=== PATIENT | female | born 1950 | race Caucasian/White ===

== ENCOUNTER → 2017-12-18 | Day surgery (SDC) | payer MEDICARE, OTHER ==
[2017-12-16 13:35] LABS: BASOPHILS % 0.5 % (0.0-1.0); EOSINOPHILS # (AUTO) 0.2 (0.0-0.4); EOSINOPHILS % 1.9 % (0.0-6.0); HEMATOCRIT 42.4 % (34.2-44.1); HEMOGLOBIN 13.8 g/dL (12.0-16.0); LYMPHOCYTES # (AUTO) 2.3 (1.0-3.2); LYMPHOCYTES % 29.8 % (18.0-39.1); MEAN CORPUSCULAR HEMOGLOBIN 31.3 pg (28-32); MEAN CORPUSCULAR HGB CONC 32.5 g/dL (31-35); MEAN CORPUSCULAR VOLUME 96.1 fL (81-99); MONOCYTES # (AUTO) 0.6 (0.2-0.8); MONOCYTES % 8.3 % (4.4-11.3); NEUTROPHILS # (AUTO) 4.6 (2.1-6.9); NEUTROPHILS % 59.2 % (38.7-80.0); PLATELET COUNT 183 x10e3/uL (140-360); RED BLOOD COUNT 4.41 x10e6/uL (3.6-5.1); RED CELL DISTRIBUTION WIDTH 14.8 % (11.7-14.4)
--- NOTE | 2017-12-16 13:43 | Diagnostic Imaging Report ---
EXAMINATION: CHEST 2 VIEWS INDICATION: Wrist pain. Preop COMPARISON: None FINDINGS: TUBES and LINES: Sternal wires. LUNGS: Lungs are well inflated. Lungs are clear. There is no evidence of pneumonia or pulmonary edema. PLEURA: No pleural effusion or pneumothorax. HEART AND MEDIASTINUM: The cardiomediastinal silhouette is unremarkable. BONES AND SOFT TISSUES: No acute osseous lesion. Soft tissues are unremarkable. UPPER ABDOMEN: No free air under the diaphragm. IMPRESSION: No acute thoracic abnormality. Signed by: Dr. Ke Herrera M.D. on 12/16/2017 1:40 PM
[2017-12-16 13:53] LABS: ANION GAP 16.8 mmol/L (8-16); CALCIUM 10.3 mg/dL (8.4-10.2); CREATININE, SERUM 1.33 mg/dL (0.57-1.11); POTASSIUM 4.8 mmol/L (3.5-5.1)
[~2017-12-18] MED LIST: BUPIVACAINE HCL 0.5% INJ 30 ML VIAL INJ ONE; CALCIUM500 M3; CEFAZOLIN SOD 1 GM VIAL ONE; DEXAMETHASONE SOD PHOS INJ 4 MG/ML VIAL IV ONE; EPHEDRINE SULFATE INJ 50 MG/10 ML SYR IV ONE; FAMOTIDINE 20 MG/2 ML VIAL IV ONE; FENTANYL CITRATE/PF 100MCG/2 ML INJ ONE; HUMALOG100 UNIT/1 SC; KETOROLAC TROMETHAMINE 30 MG/ML VIAL IV ONE; LANTUS 3ML100 UNITS/ SC; LIDOCAINE HCL 2% LOCAL INJ 5 ML SDV VIAL INJ ONE; LIRAGLUTIDE 1.8 MG; MIDAZOLAM HCL 2 MG/2 ML VIAL ONE; MUPIROCIN 2% OINT 22 GM TUBE ONE; ONDANSETRON HCL INJ 2 MG/ML VIAL IV ONE; PLAVIX75 MG PO; PROPOFOL IV EMULSION 10 MG/ML 20 ML VIAL IV ONE; SEVOFLURANE INHAL SOLN 250 ML PEN BTL INH ONE; Z.0.ALLOPURINOL300 M PO; Z.0.ASPIR 8181 MG PO; Z.0.CYCLOBENZAPRINE1 PO; Z.0.CYMBALTA60 MG PO; Z.0.GLYBURIDE5 MG PO; Z.0.LEVOTHYROXINE75 PO; Z.0.METOPROLOL SUCC5 PO; Z.0.MULTIVITAMINS1 E; Z.0.PRAVASTATIN SOD2 PO; [UNRECOGNIZED DRUG - OTHER] PO; [UNRECOGNIZED DRUG - OTHER] PO
--- OUTSIDE RECORDS SUMMARY | 2017-12-18 06:54 | XMS REPORT | Clinical Summary ---
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 Disp. Refills Start End Date Status Date diclofenac (VOLTAREN) 1 % Apply topically 4 (four) 100 g 2 08/29/19 Active gelIndications: Medial times a day. applly two 18 epicondylitis of right grams four times per day elbow allopurinol (ZYLOPRIM) allopurinol 100 mg tablet Active 100 MG tablet insulin lispro (HumaLOG Humalog KwikPen (U-100) Active KwikPen Insulin) 100 Insulin 100 unit/mL unit/mL injection pen subcutaneous insulin GLARGINE (LANTUS Lantus Solostar U-100 Active SOLOSTAR U-100 INSULIN) Insulin 100 unit/mL (3 100 unit/mL injection mL) subcutaneous pen (pen) irbesartan (AVAPRO) 150 irbesartan 150 mg tablet Active MG tablet clopidogrel (PLAVIX) 75 clopidogrel 75 mg tablet Active mg tablet levothyroxine (SYNTHROID, Take 50 mcg by mouth Active LEVOXYL) 50 mcg tablet every morning. metoprolol tartrate Take 50 mg by mouth 2 Active (LOPRESSOR) 50 mg tablet (two) times a day. diclofenac (VOLTAREN) 1 % Apply topically 4 (four) 100 g 2 08/29/19 08/29/19 Discontin gelIndications: Medial times a day. Apply 2 18 18 ued epicondylitis of right grams 4 times per day fo elbow the affected area Active Problems Problem Noted Date Lateral epicondylitis of right elbow 08/28/2017 Encounters Date Type Specialty Care Team Description 08/28/2017 Office Visit Orthopedic Surgery Roderick Figueroa, Medial epicondylitis of right elbow (Primary Dx) 08/27/2017 Orders Only Sports Medicine Bob Stanley MA Elbow pain, right (Primary Dx) after 12/17/2016 Family History Medical History Relation Name Comments Heart disease Father Hypertension Father Diabetes Mother Heart disease Mother Hypertension Mother Relation Name Status Comments Father Mother Social History Tobacco Use Types Packs/Day Years Used Date Never Smoker Smokeless Tobacco: Never Used Alcohol Use Drinks/Week oz/Week Comments No Sex Assigned at Date Recorded Not on file Last Filed Vital Signs Not on file Plan of Treatment Date Type Specialty Care Team Description 12/31/2017 Office Visit Orthopedic Surgery John Ring MD [address] [facility] [address] [place], [place] [id number] Health Maintenance Due Date Last Done Comments BREAST CANCER SCREENING 2000 COLON CANCER SCREENING 2000 SHINGRIX VACCINE (#1) 2000 ZOSTER VACCINE 2010 PNEUMOCOCCAL 09/14/2015 POLYSACCHARIDE VACCINE AGE 65 AND OVER PNEUMOCOCCAL-13 09/14/2015 INFLUENZA VACCINE 09/10/2017 Procedures Procedure Name Priority Date/Time Associated Diagnosis Comments XR ELBOW 3+ VW RIGHT Routine 08/28/2017 Elbow pain, right Results for this 1:03 PM CDT procedure are in the results section. after 12/17/2016 Results * XR Elbow 3+ Vw Right (08/28/2017 1:03 PM) Narrative Performed At [facility] Xrays: The x-rays were ordered and personally reviewed by me. 3 views of the right elbow Reason for exam: Right elbow pain Impression: Right elbow with mild ulnohumeral arthritis Performing Organization Address City/State/Zipcode Phone Number [facility] [address] [place] [address] after 12/17/2016 Insurance Payer Benefit Subscriber ID Type Phone Address Plan / Group MEDICARE MEDICARE xxxxxxxxxx Medicare [place] PART A AND B [employer] xxxxxxxxxx [employer] [facility] [place] [address]
--- OUTSIDE RECORDS SUMMARY | 2017-12-18 07:00 | XMS REPORT | Continuity of Care Document ---
Author Author [facility] Interface Address Unknown Phone Unavailable Problems Problem Status Onset Date Classification Date Reported Comments Source N20.0 Active 11/19/2017 [facility] [address]20.0 CT ABD/PEL W/WO IV Active 07/09/2017 [facility] Discharge Diagnosis: Orthostasis 11/28/2016 12/01/2016 [facility] Discharge Diagnosis: Syncope, vasovagal 11/28/2016 12/01/2016 [facility] Discharge Diagnosis: Dehydration 11/28/2016 12/01/2016 [facility] WEAKNESS Active 11/28/2016 [facility] CP Active 11/26/2016 [facility] CHEST PAIN Active 11/05/2016 [facility] ACUTE CORONARY SYNDROME Active 11/05/2016 [facility] UNK Active 10/31/2016 [facility] TOOK WRONG MEDS Active 08/14/2016 [facility] AT RISK FOR HYPOGLYCEMIA, ACCIDENTAL OD Active 08/14/2016 [facility] DX: E03.9=HYPOTHYROIDISM, UNSPECIFIED Active 07/31/2016 [facility] DX: M54.16=RADICULOPATHY, LUMBAR REGION/ Active 07/09/2016 [facility] Escherichia coli<sup>1, 2</sup> Active 02/08/2016 Problem 07/25/2017 Problem added by Discern Expert. [facility], [facility] [place] CHEST PAINS Active 02/08/2016 [facility] DX: M54.16=RADICULOPATHY, LUMBAR REGION Active 01/15/2016 [facility] N39.0 Active 09/06/2015 [facility] 411.1/414.01/414.02/794.31/794.30 Active 10/14/2014 [facility] CHEST PAIN, BRADYARYTHEMIA Active 10/08/2014 [facility] LUMBAR RAD 724.4 Active 07/19/2014 [facility] 592.0 BILATERAL KIDNEY STONES 724.2 ACU Active 05/31/2014 [facility] SPONDYLOLISTHESIS / POST LAMINECTOMY SYN Active 12/27/2013 [facility] Discharge Diagnosis: Chest pain 10/06/2013 10/09/2013 [facility] Discharge Diagnosis: Gastroenteritis 07/30/2013 08/02/2013 [facility] Discharge Diagnosis: Vomiting and diarrhea 07/30/2013 08/02/2013 [facility] RECTAL BLEED Active 07/30/2013 [facility] POSTMENOPAUSAL SYMPTOMS Active 03/08/2013 [facility] 724.4 COMPRESSION OF LUMBAR NERVE ROOT Active 02/04/2013 [facility] FELL DOWN Active 01/08/2013 [facility] 336.3 Active 11/25/2012 [facility] 724.4, 353.1, 724.4 Active 11/06/2012 [facility] 724.4 Active 10/20/2012 [facility] CHEST PAIN, UTI Active 07/30/2012 [facility] CHEAT PAIN Active 07/30/2012 [facility] 405.91 - RENOVASC HYPERT Active 03/12/2012 [facility] [place] CKD, HTN, M Active 01/01/2012 [facility] HEADACHE Active 12/29/2011 [facility] DIABETES Active 10/29/2011 [facility] TYPE 2 DIABETES Active 09/16/2011 [facility] Diabetes mellitus Resolved Problem 11/20/2012 [facility], [facility] [place] Hypertension Resolved Problem 11/20/2012 [facility] [place] Hypothyroid Resolved Problem 11/20/2012 [facility] Diabetes mellitus Active Problem 07/25/2017 [facility], [facility] [place] Hypertension Active Problem 07/25/2017 [facility], [facility] [place] Hypothyroid Active Problem 07/25/2017 [facility], [facility] [place] Hyperlipidemia Active Problem 07/25/2017 [facility] [place] Pinched nerve<sup>1</sup> Resolved Problem 01/21/2016 L5 [facility] Lumbar spondylosis Active Problem 07/25/2017 [facility], [facility] [place] Obesity Active Problem 07/25/2017 [facility] [place] Pinched nerve<sup>3</sup> Resolved Problem 07/25/2017 L5 [facility] [place] Escherichia coli<sup>1</sup> Active Problem 02/11/2016 Problem added by Discern Expert. [facility] Pinched nerve<sup>2</sup> Resolved Problem 02/11/2016 L5 [facility] Neuropathy Active Problem 12/18/2017 [facility] HLD Active Problem 12/18/2017 [facility] GERD Active Problem 12/18/2017 [facility] HNP , lumbar Active Problem 12/18/2017 [facility] Personal history of other specified conditions Active Problem 12/18/2017 [facility] Diabetes mellitus with nephropathy Active Problem 12/18/2017 [facility] HTN Active Problem 12/18/2017 [facility] Hypothyroid Active Problem 12/18/2017 [facility] Type 2 diabetes mellitus without complications Active Problem 12/18/2017 [facility] CAD Active Problem 12/18/2017 [facility] Acute bilateral low back pain with left-sided sciatica Active Problem 12/18/2017 [facility] Recurrent UTI Active Diagnosis 11/14/2016 [facility] Sinusitis, unspecified chronicity, unspecified location Active Problem 12/18/2017 [facility] BMI 35.0-35.9,adult Active Problem 12/26/2016 [facility] CKD stage 3, GFR 30-59 ml/min Active Problem 12/18/2017 [facility] Peripheral vascular disease Active Problem 12/18/2017 [facility] Discoloration of tongue Active Diagnosis 12/26/2016 [facility] Chronic UTI Active Diagnosis 12/11/2017 [facility] Soft tissue mass Active Diagnosis 07/12/2016 [facility] Upper respiratory tract infection, unspecified type Active Diagnosis 11/07/2016 [facility] Other specified soft tissue disorders Active Diagnosis 07/12/2016 [facility] Acute bilateral low back pain without sciatica Active Diagnosis 08/06/2016 [facility] Acute cystitis without hematuria Active Diagnosis 12/04/2016 [facility] Other gastritis without hemorrhage, unspecified chronicity Active Diagnosis 04/18/2017 [facility] Hospital discharge follow-up Active Diagnosis 12/04/2016 [facility] Insulin overdose, accidental or unintentional, subsequent encounter Active Diagnosis 08/21/2016 [facility] Frequent UTI Active Diagnosis 08/21/2016 [facility] Acute renal insufficiency Active Diagnosis 11/14/2016 [facility] toter current use of insulin Active Problem 12/18/2017 [facility] Type 2 diabetes mellitus with diabetic chronic kidney disease Active Problem 12/18/2017 [facility] BMI 37.0-37.9, adult Active Problem 12/18/2017 [facility] Type 2 diabetes mellitus with diabetic neuropathy, unspecified Active Problem 12/18/2017 [facility] Neck mass Active Diagnosis 10/26/2016 [facility] Impacted cerumen of left ear Active Diagnosis 10/26/2016 [facility] Sore throat Active Diagnosis 10/26/2016 [facility] Acute cystitis with hematuria Active Diagnosis 03/10/2017 [facility] Dehydration Active Diagnosis 12/10/2016 [facility] Chronic gout due to renal impairment involving toe of left foot without tophus Active Diagnosis 11/07/2016 [facility] Cough Active Diagnosis 11/07/2016 [facility] Screening for colon cancer Active Diagnosis 11/07/2016 [facility] Asymptomatic menopausal state Active Diagnosis 11/08/2017 [facility] Routine general medical examination at a health care facility Active Diagnosis 12/11/2017 [facility] Lumbar spondylosis Active Problem 12/18/2017 [facility] Right sided sciatica Active Problem 12/18/2017 [facility] Hair thinning Active Diagnosis 12/11/2017 [facility] Idiopathic gout of multiple sites, unspecified chronicity Active Diagnosis 09/12/2017 [facility] History of kidney stones Active Diagnosis 07/15/2017 [facility] Kidney stone Active Problem 12/18/2017 [facility] Gout Active Problem 12/18/2017 [facility] Obesity Active Diagnosis 10/04/2015 [facility] Insomnia Active Diagnosis 12/15/2015 [facility] Menopausal and postmenopausal disorder Active Diagnosis 10/04/2015 [facility] URI Active Diagnosis 07/14/2015 [facility] Upper respiratory infection Active Diagnosis 07/05/2015 [facility] Gastroenteritis Active Diagnosis 11/29/2015 [facility] Compression fracture Active Diagnosis 11/29/2015 [facility] HYPERTENSION NOS Active [facility] CHEST PAIN NOS Active [facility] LUMBOSACRAL NEURITIS NOS Active [facility] LUMBOSACRAL PLEX LESION Active [facility] LUMBAR RADICULOPATHY Active [facility] PREMENOPAUSE MENORRHAGIA Active [facility] MENOPAUSAL DISORDER NOS Active [facility] LUMBAGO Active [facility] LUMBAGO Active [facility] LUMBAGO Active [facility] LUMBAR CORE STRENGHTENING Active [facility] URINARY TRACT INFECTION, SITE NOT SPECIF Active [facility] RADICULOPATHY, LUMBAR REGION Active [facility] HYPOTHYROIDISM, UNSPECIFIED Active [facility] CHEST PAIN, UNSPECIFIED Active [facility] ACUTE ISCHEMIC HEART DISEASE, UNSPECIFIE Active [facility] ANGINA PECTORIS, UNSPECIFIED Active [facility] CALCULUS OF KIDNEY Active [facility] Medications Medication Details Route Status Patient Instructions Ordering Provider Order Date Source Allopurinol 1 tablet orally Active 100 mg orally twice a day (bid) [facility] 10/29/2018 [facility] Allopurinol 1 tablet orally Active 100 mg orally twice a day (bid) [facility] Soto 09/04/2018 [facility] Allopurinol 1 tablet orally Active 100 mg orally twice a day (bid) Nic Soto 04/04/2018 [facility] Cyclobenzaprine HCl 1 tablet by mouth Active 10 mg by mouth daily prn Nic Soto 11/08/2017 [facility] Allopurinol 2 tablets orally Active 100 mg orally twice a day (bid) [facility] Soto 09/20/2017 [facility] Augmentin 1 tablet Orally Active 500-125 MG Orally every 12 hrs Nic Soto 07/01/2017 [facility] Flexeril 1 tablet Orally Active 10 mg Orally three times a day (tid) as needed (prn) Nic Soto 05/01/2017 [facility] Allopurinol 2 tablet Orally Active 100 MG Orally Once a day Nic Soto 04/28/2017 [facility] Allopurinol 2 tablets orally Active 100 mg orally twice a day (bid) Vinay 03/21/2017 [facility] Macrobid 1 capsule with food Orally Active 100 mg Orally every 12 hrs Nic Soto 03/13/2017 [facility] Macrobid 1 capsule with food Orally Active 100 mg Orally every 12 hrs Vinay 02/28/2017 [facility] Allopurinol 2 tablet Orally Active 100 MG Orally Once a day [facility] 02/11/2017 [facility] Allopurinol 2 tablet Orally Active 100 MG Orally Once a day [facility] 02/11/2017 [facility] Cyclobenzaprine HCl 1 tablet Orally Active 10 mg Orally qd prn [facility] 01/21/2017 [facility] Amlodipine Besylate 1 tablet Orally Active 5 MG Orally daily [facility] 12/30/2016 [facility] Amlodipine Besylate 1 tablet Orally Active 5 MG Orally daily [facility] 12/30/2016 [facility] Metoprolol Succinate 1 tablet Orally Active 50 mg Orally daily [facility] 12/23/2016 [facility] Macrodantin 1 capsule with food or milk Orally Active 100 mg Orally twice a day (bid) [facility] 12/05/2016 [facility] Sodium Chloride 0.9% (Bolus) IV 500 mL, 500 ml/hr, Infuse Over: 1 hr, Route: IV, ONCE, Priority: STAT, Dosing Weight 100 kg, Start date: 11/28/16 20:55:00 CDT, Duration: 1 doses or times, Stop date: 11/28/16 20:55:00 CDT Inactive 11/29/2016 [facility] Sodium Chloride 0.9% (Bolus) IV 1,000 mL, 5000 ml/hr, Infuse Over: 0.2 hr, Route: IV, 1,000, Drug form: INJ, ONCE, Priority: STAT, Dosing Weight 100 kg, Start date: 11/28/16 18:23:00 CDT, Duration: 1 doses or times, Stop date: 11/28/16 18:23:00 CDT Inactive 11/28/2016 [facility] Sodium Chloride 0.9% (Bolus) IV 1,000 mL, 1,000 ml/hr, Infuse Over: 1 hr, Route: IV, 1,000, Drug form: INJ, ONCE, Priority: STAT, Dosing Weight 100 kg, Start date: 11/28/16 15:53:00 CDT, Duration: 1 doses or times, Stop date: 11/28/16 15:53:00 CDT Inactive 11/28/2016 [facility] Sucralfate 100 MG/ML Oral Suspension [Carafate] 1 gm, 1 tab, Route: PO, Drug form: TAB, QID, Dosing Weight 103.182, kg, Start date: 11/27/16 17:00:00 CDT, Duration: 30 day, Stop date: 12/27/16 13:00:00 CSTNotes: May interfere w/enteral feeds - Take 1 hr before or 2 hr after antacids, dairy pdt, meals & minerals - On empty stomach. For patients unable to swallow tablet, dissolve in 10mL - 30mL of water or juice and stir before giving. (Same As: Carafate) Inactive 11/27/2016 [facility] sodium chloride 0.9% 1000 ml INJ 1,000 mL 1,000 mL, Rate: 25 ml/hr, Infuse over: 40 hr, Route: IV, Dosing Weight 103.182 kg, Total Volume: 1,000, Start date: 11/27/16 14:44:00 CDT, Duration: 1 day, Stop date: 11/28/16 14:43:00 CDT Inactive 11/27/2016 [facility] pantoprazole 40 mg oral enteric coated tablet 40 mg=1 tab, PO, BID, # 60 tab, 1 Refill(s), Pharmacy: [facility] [id number] Active 11/27/2016 [facility] aspirin 81 mg tablet, enteric coated 81 mg, 1 tab, Route: PO, Drug form: ECTAB, Daily, Dosing Weight 103.182, kg, Start date: 11/27/16 9:00:00 CDT, Duration: 30 day, Stop date: 12/26/16 9:00:00 CSTNotes: Do not crush or chew. (Same As: Ecotrin) Inactive 11/27/2016 [facility] Lisinopril 20 mg, 1 tab, Route: PO, Drug form: TAB, BID, Dosing Weight 103.182, kg, Start date: 11/26/16 21:00:00 CDT, Duration: 30 day, Stop date: 12/26/16 9:00:00 CSTNotes: (Same as: Prinivil, Zestril) No Longer Active 11/27/2016 [facility] Plavix 75 mg, 1 tab, Route: PO, Drug form: TAB, Daily, Dosing Weight 103.182, kg, Start date: 11/26/16 20:00:00 CDT, Duration: 30 day, Stop date: 12/26/16 9:00:00 CSTNotes: (Same As: Plavix) No Longer Active 11/27/2016 [facility] Protonix 40 mg, 1 tab, Route: PO, Drug form: ECTAB, BID, Dosing Weight 103.182, kg, Start date: 11/26/16 17:00:00 CDT, Duration: 30 day, Stop date: 12/26/16 9:00:00 CSTNotes: Tablet should not be chewed or crushed. 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 (Same as: Humalog ) "Single Patient Use Only " WASTE: F/P - Black; E - Municipal Trash Bin Stable for 28 days at room temperature. 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 11/26/2016 [facility] Dextrose 50% Syringe 12.5 gm, 25 mL, Route: IVP, Drug Form: INJ, Dosing Weight 103.182, kg, PRN, PRN Blood Glucose Results, Start date: 11/26/16 8:20:00 CDT, Duration: 30 day, Stop date: 12/26/16 7:19:00 BULK DELIVERY DRIVER No Longer Active 11/26/2016 [facility] Saline Flush 0.9% 10 ml, Route: IVP, Drug Form: INJ, Dosing Weight 103.182, kg, PRN, PRN Line Flush, Start date: 11/26/16 8:19:00 CDT, Duration: 30 day, Stop date: 12/26/16 7:18:00 CSTNotes: (Same as: BD Posiflush) No Longer Active 11/26/2016 [facility] Nitroglycerin 0.4 mg, 1 tab, Route: SL, Drug form: TAB, Q5Min, Dosing Weight 103.182, kg, PRN Chest Pain, Start date: 11/26/16 8:19:00 CDT, Duration: 3 doses or times, Stop date: Limited # of timesNotes: (Same as: Nitroquick, Nitrostat) "Do Not Crush" Sublingual tablet No Longer Active 11/26/2016 [facility] Zofran 4 mg, 2 mL, Route: IVP, Drug form: INJ, ONCE, Dosing Weight 103.182, kg, Priority: STAT, Start date: 11/26/16 5:56:00 CDT, Stop date: 11/26/16 5:56:00 CDTNotes: (Same as: Zofran) MEDICATION WASTE Product Size: 4 mg Product Wasted: ___ mg Inactive 11/26/2016 [facility] GI cocktail 30 mL, Route: PO, Drug Form: SUSP, Dosing Weight 103.182, kg, ONCE, STAT, Start date: 11/26/16 5:52:00 CDT, Stop date: 11/26/16 5:52:00 CDTNotes: G.I. Cocktail=antacid with simethicone 22.5 mL - lidocaine viscous 7.5 mL Inactive 11/26/2016 [facility] Nitroglycerin 0.4 mg, 1 tab, Route: SL, Drug form: TAB, Q5Min, Dosing Weight 103.182, kg, PRN Chest Pain, Start date: 11/26/16 4:07:00 CDT, Duration: 3 doses or times, Stop date: Limited # of timesNotes: (Same as: Nitroquick, Nitrostat) "Do Not Crush" Sublingual tablet Inactive 11/26/2016 [facility] Ondansetron 4 mg, 2 mL, Route: IVP, Drug form: INJ, ONCE, Dosing Weight 103.182, kg, Priority: STAT, Start date: 11/26/16 4:07:00 CDT, Stop date: 11/26/16 4:07:00 CDTNotes: (Same as: Buffy) MEDICATION WASTE Product Size: 4 mg Product Wasted: ___ mg Inactive 11/26/2016 [facility] Sodium Chloride 0.9% IV (Sodium Chloride 0.9% (Bolus) IV) 500 mL, 500 ml/hr, Infuse Over: 1 hr, Route: IV, 500, Drug form: INJ, ONCE, Priority: STAT, Dosing Weight 103.182 kg, Start date: 11/26/16 4:07:00 CDT, Duration: 1 doses or times, Stop date: 11/26/16 4:07:00 CDT Inactive 11/26/2016 [facility] Saline Flush 0.9% 10 mL, Route: IVP, Drug Form: INJ, Dosing Weight 103.182, kg, PRN, PRN Line Flush, Start date: 11/26/16 4:07:00 CDT, Duration: 30 day, Stop date: 12/26/16 3:06:00 CSTNotes: (Same as: BD Posiflush) No Longer Active 11/26/2016 [facility] Morphine 4 mg, 1 mL, Route: IVP, Drug form: SOLN, ONCE, Dosing Weight 103.182, kg, Priority: STAT, Start date: 11/26/16 4:07:00 CDT, Stop date: 11/26/16 4:07:00 CDTNotes: (Same as:MORPhine Sulfate) Inactive 11/26/2016 [facility] Aspirin 324 mg, 4 tab, Route: PO, Drug form: CHEWTAB, ONCE, Dosing Weight 103.182, kg, Priority: STAT, Start date: 11/26/16 4:07:00 CDT, Stop date: 11/26/16 4:07:00 CDTNotes: Take with food. Inactive 11/26/2016 [facility] Humalog SUB-Q, 0 Refill(s) Active 11/06/2016 [facility] metoprolol extended release 50 mg, 1 tab, Route: PO, Drug form: ERTAB, Daily, Start date: 11/06/16 9:00:00 CDT, Duration: 30 day, Stop date: 12/05/16 9:00:00 CDTNotes: (Same as: Toprol XL) May split tab, but do not crush. Inactive 11/06/2016 [facility] irbesartan 300 mg, 2 tab, Route: PO, Drug form: TAB, Daily, Dosing Weight 100.909, kg, Start date: 11/06/16 9:00:00 CDT, Duration: 30 day, Stop date: 12/05/16 9:00:00 CDTNotes: (Same as:Avapro) Inactive 11/06/2016 [facility] Insulin Glargine 100 UNT/ML Injectable Solution [Lantus] 22 unit, 0.22 mL, Route: SUB-Q, Drug form: CRISTHIAN FAUST, Dosing Weight 100.909, kg, Start date: 11/06/16 9:00:00 CDT, Duration: 30 day, Stop date: 12/05/16 9:00:00 CDTNotes: (Same as: Lantus) Do not hold insulin without contacting prescriber WASTE: F/P - Black; E - Municipal Trash Bin "single patient use only" Inactive 11/06/2016 [facility] clopidogrel 75 mg, 1 tab, Route: PO, Drug form: TAB, Daily, Dosing Weight 100.909, kg, Start date: 11/06/16 9:00:00 CDT, Duration: 30 day, Stop date: 12/05/16 9:00:00 CDTNotes: (Same As: Plavix) Inactive 11/06/2016 [facility] aspirin 81 mg tablet, enteric coated 81 mg, 1 tab, Route: PO, Drug form: ECTAB, Daily, Dosing Weight 100.909, kg, Start date: 11/06/16 9:00:00 CDT, Duration: 30 day, Stop date: 12/05/16 9:00:00 CDTNotes: Do not crush or chew. (Same As: Ecotrin) Inactive 11/06/2016 [facility] Levothroid 75 microgram, 1 tab, Route: PO, Drug form: TAB, Q630AM, Dosing Weight 100.909, kg, Start date: 11/06/16 6:30:00 CDT, Duration: 30 day, Stop date: 12/05/16 6:30:00 CDTNotes: Take 1 hour before or 2 hours after meal; Enteral feeds may interefere with the absorption of this medication. (Same as:Synthroid, Levothroid) Inactive 11/06/2016 [facility] Pravastatin 40 mg, 2 tab, Route: PO, Drug form: TAB, Bedtime, Dosing Weight 100.909, kg, Start date: 11/05/16 21:00:00 CDT, Duration: 30 day, Stop date: 12/04/16 21:00:00 CDTNotes: (Same as: Pravachol) No Longer Active 11/06/2016 [facility] Famotidine 20 mg, 1 tab, Route: PO, Drug form: TAB, Q12H, Dosing Weight 100.909, kg, Start date: 11/05/16 21:00:00 CDT, Duration: 30 day, Stop date: 12/05/16 9:00:00 CDTNotes: (Same as: Pepcid) No Longer Active 11/06/2016 [facility] Ondansetron 4 mg, Route: IVP, Drug form: INJ, ONCE, Dosing Weight 100.909, kg, Priority: STAT, Start date: 11/05/16 17:50:00 CDT, Stop date: 11/05/16 17:50:00 CDT Inactive 11/05/2016 [facility] Nitroglycerin 0.4 mg, Route: SL, Drug form: TAB, Q5Min, Dosing Weight 100.909, kg, PRN Chest Pain, Start date: 11/05/16 17:37:00 CDT, Duration: 3 doses or times, Stop date: Limited # of times Inactive 11/05/2016 [facility] sodium chloride 0.9% 1000 ml INJ 1,000 mL 1,000 mL, Rate: 100 ml/hr, Infuse over: 10 hr, Route: IV, Dosing Weight 100.909 kg, Total Volume: 1,000, Start date: 11/05/16 17:37:00 CDT, Duration: 10 hr, Stop date: 11/06/16 3:36:00 CDT No Longer Active 11/05/2016 [facility] Insulin Glargine 100 UNT/ML Injectable Solution [Lantus] 12 unit, 0.12 mL, Route: SUB-Q, Drug form: SOLN, QPM, Dosing Weight 100.909, kg, Start date: 11/05/16 17:00:00 CDT, Duration: 30 day, Stop date: 12/04/16 17:00:00 CDTNotes: (Same as: Lantus) Do not hold insulin without contacting prescriber WASTE: F/P - Black; E - MagForcesh Bin "single patient use only" No Longer Active 11/05/2016 [facility] Allopurinol 100 mg, 1 tab, Route: PO, Drug form: TAB, BID, Dosing Weight 100.909, kg, Start date: 11/05/16 17:00:00 CDT, Duration: 30 day, Stop date: 12/05/16 9:00:00 CDTNotes: (Same as: Zyloprim) No Longer Active 11/05/2016 [facility] Nitroglycerin 0.4 mg, 1 tab, Route: SL, Drug form: TAB, Q5Min, Dosing Weight 100.909, kg, PRN Chest Pain, Start date: 11/05/16 15:45:00 CDT, Duration: 3 doses or times, Stop date: Limited # of timesNotes: (Same as :Nitroquick, Nitrostat) "Do Not Crush" Sublingual tablet No Longer Active 11/05/2016 [facility] sodium chloride 0.9% 1000 ml INJ 1,000 mL 1,000 mL, Rate: 75 ml/hr, Infuse over: 13.3 hr, Route: IV, Dosing Weight 100.909 kg, Total Volume: 1,000, Start date: 11/05/16 15:45:00 CDT, Duration: 10 hr, Stop date: 11/06/16 1:44:00 CDT No Longer Active 11/05/2016 [facility] Insulin Glargine 100 UNT/ML Injectable Solution [Lantus] 22 unit, SUB-Q, QAM, 0 Refill(s) Active 11/05/2016 [facility] Hydrochlorothiazide 12.5 MG Oral Capsule 12.5 mg=1 cap, PO, Daily, # 30 cap, 0 Refill(s) Active 11/05/2016 [facility] clopidogrel 75 mg oral tablet 75 mg=1 tab, PO, Daily, # 30 tab, 0 Refill(s) Active 11/05/2016 [facility] metoprolol 50 mg oral tablet, extended release 50 mg=1 tab, PO, Daily, # 30 tab, 0 Refill(s) Active 11/05/2016 [facility] pravastatin 20 mg oral tablet 40 mg=2 tab, PO, Bedtime, # 30 tab, 0 Refill(s) Active 11/05/2016 [facility] 3 ML liraglutide 6 MG/ML Prefilled Syringe [Victoza] 1.2 mg=0.2 mL, SUB-Q, Daily, 0 Refill(s) No Longer Active 11/05/2016 [facility] cyclobenzaprine 10 mg oral tablet 10 mg=1 tab, PO, Bedtime, # 30 tab, 0 Refill(s) Active 11/05/2016 [facility] Levothyroxine Sodium 0.075 MG Oral Tablet [Levothroid] 75 microgram=1 tab, PO, Daily, # 30 tab, 0 Refill(s) Active 11/05/2016 [facility] irbesartan 300 mg oral tablet 300 mg=1 tab, PO, Daily, # 30 tab, 0 Refill(s) Active 11/05/2016 [facility] Sodium Chloride 0.9% (Bolus) IV 250 mL, 250 ml/hr, Infuse Over: 1 hr, Route: IV, 250, Drug form: INJ, ONCALL, Priority: Routine, Dosing Weight 100.909 kg, Start date: 11/05/16 10:00:00 CDT, Duration: 1 doses or times Inactive 11/05/2016 [facility] Clonidine Hydrochloride 0.2 MG Oral Tablet 0.1 mg, 1 tab, Route: PO, Drug form: TAB, Q2H, Dosing Weight 100.909, kg, PRN Hypertension, Start date: 11/05/16 10:00:00 CDT, Duration: 30 day, Stop date: 12/05/16 9:59:00 CDTNotes: (Same As: Catapres) No Longer Active 11/05/2016 [facility] Tylenol 650 mg, 2 tab, Route: PO, Drug form: TAB, Q6H, Dosing Weight 100.909, kg, PRN Pain Score 1-5, Start date: 11/05/16 10:00:00 CDT, Duration: 30 day, Stop date: 12/05/16 9:59:00 CDTNotes: Do not exceed 4 gm/day. (Same as: Tylenol) No Longer Active 11/05/2016 [facility] sodium chloride 0.9% 1000 ml INJ 750 mL 750 mL, Rate: 75 ml/hr, Infuse over: 10 hr, Route: IV, Dosing Weight 100.909 kg, Total Volume: 750, Start date: 11/05/16 9:59:00 CDT, Duration: 24 hr, Stop date: 11/06/16 9:58:00 CDT Inactive 11/05/2016 [facility] Aspirin 324 mg, Route: PO, ONCE, Dosing Weight 100.909, kg, Priority: STAT, Start date: 11/05/16 6:21:00 CDT, Stop date: 11/05/16 6:21:00 CDT Inactive 11/05/2016 [facility] Nitroglycerin 0.4 mg, 1 tab, Route: SL, Drug form: TAB, Q5Min, Dosing Weight 100.909, kg, PRN Chest Pain, Start date: 11/05/16 6:21:00 CDT, Duration: 3 doses or times, Stop date: Limited # of timesNotes: (Same as: Nitroquick, Nitrostat) "Do Not Crush" Sublingual tablet Inactive 11/05/2016 [facility] Sodium Chloride 0.9% (Bolus) IV 500 mL, Infuse Over: 1 hr, Route: IV, ONCE, Priority: STAT, Dosing Weight 100.909 kg, Start date: 11/05/16 6:21:00 CDT, Duration: 1 doses or times, Stop date: 11/05/16 6:21:00 CDT Inactive 11/05/2016 [facility] Saline Flush 0.9% 10 mL, Route: IVP, Drug Form: INJ, Dosing Weight 100.909, kg, PRN, PRN Line Flush, Start date: 11/05/16 6:21:00 CDT, Duration: 30 day, Stop date: 12/05/16 6:20:00 CDTNotes: (Same as: BD Posiflush) Inactive 11/05/2016 [facility] Bromfed DM 10 ml as needed Orally Active 30-2-10 MG/5ML Orally every 4 hrs prn cough [facility] 11/04/2016 [facility] Amoxicillin 1 capsule Orally Active 500 MG Orally every 12 hrs [facility] 11/04/2016 [facility] Amoxicillin 1 capsule Orally Active 500 MG Orally every 12 hrs [facility] 11/04/2016 [facility] Bromfed DM 10 ml as needed Orally Active 30-2-10 MG/5ML Orally every 4 hrs prn cough [facility] 11/04/2016 [facility] Zithromax Z-Jorge 2 tablets on the first day, then 1 tablet daily for 4 days Orally Active 250 MG Orally Once a day [place] 10/24/2016 [facility] Allopurinol 2 tablet Orally Active 100 mg Orally Once a day [facility] 09/26/2016 [facility] Pravastatin 40 mg, 2 tab, Route: PO, Drug form: TAB, Daily, Dosing Weight 100, kg, Start date: 08/15/16 9:00:00 CDT, Duration: 30 day, Stop date: 09/13/16 9:00:00 CDTNotes: (Same as: Pravachol) No Longer Active 08/15/2016 [facility] Bystolic 10 mg, 1 tab, Route: PO, Drug form: TAB, Daily, Dosing Weight 100, kg, Start date: 08/15/16 9:00:00 CDT, Duration: 30 day, Stop date: 09/13/16 9:00:00 CDTNotes: (same as: Bystolic) No Longer Active 08/15/2016 [facility] irbesartan 150 mg, 1 tab, Route: PO, Drug form: TAB, Daily, Dosing Weight 100, kg, Start date: 08/15/16 9:00:00 CDT, Duration: 30 day, Stop date: 09/13/16 9:00:00 CDTNotes: (Same as:Avapro) No Longer Active 08/15/2016 [facility] Vitamin D3 2000 intl units oral tablet 2,000 IntlUnit, 2 tab, Route: PO, Drug form: TAB, Daily, Dosing Weight 100, kg, Start date: 08/15/16 9:00:00 CDT, Duration: 30 day, Stop date: 09/13/16 9:00:00 CDTNotes: Same as : Vitamin D3 No Longer Active 08/15/2016 [facility] aspirin 81 mg tablet, enteric coated 81 mg, 1 tab, Route: PO, Drug form: ECTAB, Daily, Dosing Weight 100, kg, Start date: 08/15/16 9:00:00 CDT, Duration: 30 day, Stop date: 09/13/16 9:00:00 CDTNotes: Do not crush or chew. (Same As: Ecotrin) No Longer Active 08/15/2016 [facility] Allopurinol 100 mg, 1 tab, Route: PO, Drug form: TAB, Daily, Dosing Weight 100, kg, Start date: 08/15/16 9:00:00 CDT, Duration: 30 day, Stop date: 09/13/16 9:00:00 CDTNotes: (Same as: Zyloprim) No Longer Active 08/15/2016 [facility] Thyroxine 75 microgram, 1 tab, Route: PO, Drug form: TAB, Q630AM, Dosing Weight 100, kg, Start date: 08/15/16 6:30:00 CDT, Duration: 30 day, Stop date: 09/13/16 6:30:00 CDTNotes: Take 1 hour before or 2 hours after meal; Enteral feeds may interefere with the absorption of this medication. (Same as:Synthroid, Levothroid) No Longer Active 08/15/2016 [facility] clopidogrel 75 mg, 1 tab, Route: PO, Drug form: TAB, Bedtime, Dosing Weight 100, kg, Start date: 08/14/16 21:00:00 CDT, Duration: 30 day, Stop date: 09/12/16 21:00:00 CDTNotes: (Same As: Plavix) No Longer Active 08/15/2016 [facility] Nitrofurantoin Monohyd Macro 1 capsule with food Orally Active 100 MG Orally every 12 hrs [place] 08/15/2016 [facility] Saline Flush 0.9% 10 mL, Route: IVP, Drug Form: INJ, Dosing Weight 100, kg, PRN, PRN Line Flush, Start date: 08/14/16 11:07:00 CDT, Duration: 30 day, Stop date: 09/13/16 11:06:00 CDTNotes: (Same as: BD Posiflush) No Longer Active 08/14/2016 [facility] Sodium Chloride 0.154 MEQ/ML Injectable Solution 1,000 mL, 1000 ml/hr, Infuse Over: 1 hr, Route: IV, 1,000, Drug form: INJ, ONCE, Priority: STAT, Dosing Weight 100 kg, Start date: 08/14/16 11:07:00 CDT, Duration: 1 doses or times, Stop date: 08/14/16 11:07:00 CDT Inactive 08/14/2016 [facility] Irbesartan 1 tablet Orally Active 300 MG Orally Once a day [place] 08/01/2016 [facility] Cipro 1 tablet Orally Active 250 MG Orally every 12 hrs [facility] 08/01/2016 [facility] Irbesartan 1 tablet Orally Active 300 MG Orally Once a day [facility] 08/01/2016 [facility] Augmentin 1.25 tab(s) Orally Active 875-125 MG Orally once a day [facility] 06/24/2016 [facility] Streptococcus pneumoniae serotype 1 capsular antigen diphtheria [id number] protein conjugate vaccine / Streptococcus pneumoniae serotype 14 capsular antigen diphtheria [id number] protein conjugate vaccine / Streptococcus pneumoniae serotype 18C capsular antigen d 0.5 mL, Route: IM, Drug Form: INJ, Daily, Start date: 02/09/16 9:00:00 BULK DELIVERY DRIVER, Duration: 1 doses or times, Stop date: 02/09/16 9:00:00 CSTNotes: Lightly roll vial (DO NOT SHAKE) before administration. (Same as: Prevnar 13) No Longer Active 02/09/2016 [facility] nebivolol 10 MG Oral Tablet [Bystolic] 10 mg=1 tab, PO, Daily, # 30 tab, 0 Refill(s) Active 02/08/2016 [facility] Multiple Vitamins oral capsule 1 cap, PO, Daily, # 30 cap, 0 Refill(s) Active 02/08/2016 [facility] 3 ML Insulin Lispro 100 UNT/ML Pen Injector [Humalog] 30 unit, SUB-Q, TID-Before Meals, # 10 mL, 0 Refill(s) Active 02/08/2016 [facility] Trazodone Hydrochloride 50 MG Oral Tablet 50 mg=1 tab, PO, Bedtime, # 30 tab, 1 Refill(s) Active 02/08/2016 [facility] Hydrochlorothiazide 12.5 MG Oral Capsule 12.5 mg=1 cap, PO, PRN, # 30 cap, 0 Refill(s) Active 02/08/2016 [facility] Vitamin D3 2000 intl units oral tablet 2,000 IntlUnit=1 tab, PO, Daily, 0 Refill(s) Active 02/08/2016 [facility] Ondansetron 4 mg, 2 mL, Route: IVP, Drug form: INJ, Q6H, Dosing Weight 100.455, kg, PRN Nausea & Vomiting, Start date: 02/08/16 9:15:00 BULK DELIVERY DRIVER, Duration: 30 day, Stop date: 03/09/16 9:14:00 CSTNotes: (Same as: Zofran) MEDICATION WASTE Product Size: 4 mg Product Wasted: ___ mg Inactive 02/08/2016 [facility] Morphine 2 mg, 1 mL, Route: IVP, Drug form: INJ, Q4H, Dosing Weight 100.455, kg, PRN Pain Score 7-10, Start date: 02/08/16 9:15:00 BULK DELIVERY DRIVER, Duration: 30 day, Stop date: 03/09/16 9:14:00 CSTNotes: (Same as:MORPhine Sulfate) Inactive 02/08/2016 [facility] Acetaminophen 650 mg, 2 tab, Route: PO, Drug form: TAB, Q4H, Dosing Weight 100.455, kg, PRN Pain 1-3/Temp > 100.4 F, Start date: 02/08/16 9:15:00 BULK DELIVERY DRIVER, Duration: 30 day, Stop date: 03/09/16 9:14:00 CSTNotes: Do not exceed 4 gm/day. (Same as: Tylenol) Inactive 02/08/2016 [facility] Docusate 100 mg, 1 cap, Route: PO, Drug form: CAP, BID, Dosing Weight 100.455, kg, PRN Constipation, Start date: 02/08/16 9:15:00 BULK DELIVERY DRIVER, Duration: 30 day, Stop date: 03/09/16 9:14:00 CSTNotes: (Same as: Colace) (Do Not Crush) Inactive 02/08/2016 [facility] Zofran 4 mg, Route: IVP, Drug form: INJ, ONCE, Dosing Weight 100.455, kg, Priority: STAT, Start date: 02/08/16 6:54:00 BULK DELIVERY DRIVER, Stop date: 02/08/16 6:54:00 BULK DELIVERY DRIVER Inactive 02/08/2016 [facility] Morphine 2 mg, Route: IVP, ONCE, Dosing Weight 100.455, kg, Priority: STAT, Start date: 02/08/16 6:54:00 BULK DELIVERY DRIVER, Stop date: 02/08/16 6:54:00 BULK DELIVERY DRIVER Inactive 02/08/2016 [facility] Aspirin 324 mg, Route: CHEW, Drug form: CHEWTAB, ONCE, Dosing Weight 100.455, kg, Priority: STAT, Start date: 02/08/16 6:54:00 BULK DELIVERY DRIVER, Stop date: 02/08/16 6:54:00 BULK DELIVERY DRIVER Inactive 02/08/2016 [facility] Saline Flush 0.9% 10 mL, Route: IVP, Drug Form: INJ, Dosing Weight 100.455, kg, PRN, PRN Line Flush, Start date: 02/08/16 6:35:00 BULK DELIVERY DRIVER, Duration: 30 day, Stop date: 03/09/16 6:34:00 CSTNotes: (Same as: BD Posiflush) Inactive 02/08/2016 [facility] Pravastatin Sodium 1 tablet Orally No Longer Active 20 MG Orally Once a day [place] 11/28/2015 [facility] metoprolol extended release 50 mg, 1 tab, Route: PO, Drug form: ERTAB, Daily, Start date: 11/22/15 9:00:00 CDT, Duration: 30 day, Stop date: 12/21/15 9:00:00 CSTNotes: (Same as: Toprol XL) May split tab, but do not crush. No Longer Active 11/22/2015 [facility] Thyroxine 75 microgram, 1 tab, Route: PO, Drug form: TAB, Q630AM, Dosing Weight 100, kg, Start date: 11/22/15 6:30:00 CDT, Duration: 30 day, Stop date: 12/21/15 6:30:00 CSTNotes: Take 1 hour before or 2 hours after meal; Enteral feeds may interefere with the absorption of this medication. (Same as:Synthroid, Levothroid) No Longer Active 11/22/2015 [facility] clopidogrel 75 mg, 1 tab, Route: PO, Drug form: TAB, Bedtime, Dosing Weight 100, kg, Start date: 11/21/15 21:00:00 CDT, Duration: 30 day, Stop date: 12/20/15 21:00:00 CSTNotes: (Same As: Plavix) Inactive 11/22/2015 [facility] Protonix 40 mg, 1 tab, Route: PO, Drug form: ECTAB, Before Dinner, Start date: 11/21/15 16:30:00 CDT, Duration: 30 day, Stop date: 12/20/15 16:30:00 CSTNotes: Tablet should not be chewed or crushed. (Same as: Protonix) Inactive 11/21/2015 [facility] metoprolol extended release 50 mg, 1 tab, Route: PO, Drug form: ERTAB, ONCE, Start date: 11/21/15 12:45:00 CDT, Stop date: 11/21/15 12:45:00 CDTNotes: (Same as: Toprol XL) May split tab, but do not crush. Inactive 11/21/2015 [facility] metoprolol extended release 50 mg, PO, Daily, 0 Refill(s) Active 11/21/2015 [facility] Pravastatin 40 mg, 2 tab, Route: PO, Drug form: TAB, BID, Dosing Weight 100, kg, Start date: 11/21/15 9:00:00 CDT, Duration: 30 day, Stop date: 12/20/15 17:00:00 CSTNotes: (Same as: Pravachol) Inactive 11/21/2015 [facility] Bystolic 10 mg, 1 tab, Route: PO, Drug form: TAB, Daily, Dosing Weight 100, kg, Start date: 11/21/15 9:00:00 CDT, Duration: 30 day, Stop date: 12/20/15 9:00:00 CSTNotes: (same as: Bystolic) Inactive 11/21/2015 [facility] Omeprazole 30 mg, Route: PO, Daily, Dosing Weight 100, kg, Start date: 11/21/15 9:00:00 CDT, Duration: 30 day, Stop date: 12/20/15 9:00:00 BULK DELIVERY DRIVER Inactive 11/21/2015 [facility] Isosorbide 60 mg, 2 tab, Route: PO, Drug form: ERTAB, BID, Dosing Weight 100, kg, Start date: 11/21/15 9:00:00 CDT, Duration: 30 day, Stop date: 12/20/15 17:00:00 CSTNotes: (Same as:Imdur) "Do Not Crush" Take on empty stomach/ full glass of water. Do not crush Inactive 11/21/2015 [facility] irbesartan 150 mg, 1 tab, Route: PO, Drug form: TAB, Daily, Dosing Weight 100, kg, Start date: 11/21/15 9:00:00 CDT, Duration: 30 day, Stop date: 12/20/15 9:00:00 CSTNotes: (Same as:Avapro) Inactive 11/21/2015 [facility] Aspirin 81 MG Enteric Coated Tablet 81 mg, 1 tab, Route: PO, Drug form: ECTAB, Daily, Dosing Weight 100, kg, Start date: 11/21/15 9:00:00 CDT, Duration: 30 day, Stop date: 12/20/15 9:00:00 CSTNotes: Do not crush or chew. (Same As: Ecotrin) Inactive 11/21/2015 [facility] Allopurinol 100 mg, 1 tab, Route: PO, Drug form: TAB, BID, Dosing Weight 100, kg, Start date: 11/21/15 9:00:00 CDT, Duration: 30 day, Stop date: 12/20/15 17:00:00 CSTNotes: (Same as: Zyloprim) Inactive 11/21/2015 [facility] Sodium Chloride 0.154 MEQ/ML Injectable Solution 1,000 mL, Rate: 100 ml/hr, Infuse over: 10 hr, Route: IV, Dosing Weight 10 kg, Total Volume: 1,000, Start date: 11/20/15 12:04:00 CDT, Duration: 30 day, Stop date: 12/20/15 12:03:00 BULK DELIVERY DRIVER No Longer Active 11/20/2015 [facility] Saline Flush 0.9% 10 ml, Route: IVP, Drug Form: INJ, Dosing Weight 10, kg, PRN, PRN Line Flush, Start date: 11/20/15 12:04:00 CDT, Duration: 30 day, Stop date: 12/20/15 11:03:00 CSTNotes: (Same as: BD Posiflush) No Longer Active 11/20/2015 [facility] Ondansetron 4 mg, 2 mL, Route: IVP, Drug form: INJ, Q6H, Dosing Weight 10, kg, PRN Nausea & Vomiting, Start date: 11/20/15 12:04:00 CDT, Duration: 30 day, Stop date: 12/20/15 12:03:00 CSTNotes: (Same as: Zofran) MEDICATION WASTE Product Size: 4 mg Product Wasted: ___ mg No Longer Active 11/20/2015 [facility] Morphine 4 mg, 2 mL, Route: IVP, Drug form: INJ, Q4H, Dosing Weight 10, kg, PRN Pain Score 7-10, Start date: 11/20/15 12:04:00 CDT, Duration: 30 day, Stop date: 12/20/15 12:03:00 CSTNotes: (Same as:MORPhine S ulfate) No Longer Active 11/20/2015 [facility] Rocephin 1 gm, Route: IVPB, [id number], Dosing Weight 10, kg, Start date: 11/20/15 12:00:00 CDT, Duration: 30 day, Stop date: 12/19/15 12:00:00 CSTNotes: (Same As: Rocephin). Use with 100 mL NS and infuse over 30 min MEDICATION WASTE Product Size: 1000 mg Product Wasted: ___ mg No Longer Active 11/20/2015 [facility] Insulin, Aspart, Human 3 unit, 0.03 mL, Route: SUB-Q, Drug form: SOLN, Bedtime, Dosing Weight 10, kg, PRN Blood Glucose Results, Start date: 11/20/15 11:47:00 CDT, Duration: 30 day, Stop date: 12/20/15 11:46:00 CSTNotes: Roll in palms of hands gently; Do not shake vigorously. (Same as: NovoLOG) "single patient use only" WASTE: F/P - Black; E - Municipal Trash Bin Stable for 28 days at room temperature. Expires in days from Date No Longer Active 11/20/2015 [facility] Glucagon 1 mg, Route: IM, Drug form: PDR/INJ, PRN, Dosing Weight 10, kg, PRN Blood Glucose Results, Start date: 11/20/15 11:47:00 CDT, Duration: 30 day, Stop date: 12/20/15 10:46:00 BULK DELIVERY DRIVER No Longer Active 11/20/2015 [facility] Dextrose 50% Syringe 25 gm, 50 mL, Route: IVP, Drug Form: INJ, Dosing Weight 10, kg, PRN, PRN Blood Glucose Results, Start date: 11/20/15 11:47:00 CDT, Duration: 30 day, Stop date: 12/20/15 10:46:00 BULK DELIVERY DRIVER No Longer Active 11/20/2015 [facility] NS + KCL 20mEq/L 1000ml (Premix) 1,000 mL 1,000 mL, Rate: 100 ml/hr, Infuse over: 10 hr, Route: IV, Dosing Weight 10 kg, Total Volume: 1,000, Start date: 11/20/15 11:37:00 CDT, Duration: 30 day, Stop date: 12/20/15 11:36:00 CSTNotes: PREMIX IV - Do Not Alter WASTE: F/P - Sink; E - Municipal Trash Bin No Longer Active 11/20/2015 [facility] Ondansetron 4 mg, Route: IVP, ONCE, Dosing Weight 10, kg, Priority: STAT, Start date: 11/20/15 7:18:00 CDT, Stop date: 11/20/15 7:18:00 CDT Inactive 11/20/2015 [facility] Sodium Chloride 0.154 MEQ/ML Injectable Solution 1,000 mL, Infuse Over: 1 hr, Route: IV, ONCE, Priority: STAT, Dosing Weight 10 kg, Start date: 11/20/15 7:18:00 CDT, Duration: 1 doses or times, Stop date: 11/20/15 7:18:00 CDT Inactive 11/20/2015 [facility] Saline Flush 0.9% 10 mL, Route: IVP, Drug Form: INJ, Dosing Weight 10, kg, PRN, PRN Line Flush, Start date: 11/20/15 7:18:00 CDT, Duration: 30 day, Stop date: 12/20/15 6:17:00 BULK DELIVERY DRIVER Inactive 11/20/2015 [facility] Tizanidine HCl 1 tablet as needed Orally Active 2 MG Orally every 8 hrs [facility] 11/16/2015 [facility] Macrobid 1 capsule with food Orally Active 100 mg Orally twice a day (bid) [facility] 10/04/2015 [facility] Trazodone HCl 1 tablet at bedtime as needed [facility] Trazodone HCl 1 tablet at bedtime as needed [facility] Active [facility] Trazodone HCl 1 tablet at bedtime as needed [facility] Morphine 2 mg, 1 mL, Route: IV, Drug form: INJ, Q3H, Dosing Weight 104.091, kg, PRN Pain Score 1-5, Start date: 08/07/15 15:40:00 CDT, Duration: 30 day, Stop date: 09/06/15 15:39:00 CDTNotes: (Same as:MORPhine Sulfate) Inactive 08/07/2015 [facility] Fentanyl 50 microgram, Route: IV, Q3H, Dosing Weight 104.091, kg, Start date: 08/07/15 14:00:00 CDT, Duration: 30 day, Stop date: 09/06/15 11:00:00 CDT Inactive 08/07/2015 [facility] clopidogrel 75 mg oral tablet 75 mg=1 tab, PO, Bedtime, 0 Refill(s) Active 08/07/2015 [facility] Nitroglycerin 0.4 mg, 1 tab, Route: SL, Drug form: TAB, Q5Min, Dosing Weight 104.091, kg, PRN Chest Pain, Start date: 08/07/15 11:56:00 CDT, Duration: 3 doses or times, Stop date: Limited # of timesNotes: (Same as :Nitroquick, Nitrostat) "Do Not Crush" Sublingual tablet Inactive 08/07/2015 [facility] Sodium Chloride 0.154 MEQ/ML Injectable Solution 500 mL, Rate: 75 ml/hr, Infuse over: 6.7 hr, Route: IV, Dosing Weight 104.091 kg, Total Volume: 500, Start date: 08/07/15 11:56:00 CDT, Duration: 10 hr, Stop date: 08/07/15 21:55:00 CDT Inactive 08/07/2015 [facility] Omeprazole 30 mg, Route: PO, Daily, Dosing Weight 104.091, kg, Start date: 08/07/15 9:00:00 CDT, Duration: 30 day, Stop date: 09/05/15 9:00:00 CDT No Longer Active 08/07/2015 [facility] Bystolic 10 mg, 1 tab, Route: PO, Drug form: TAB, Daily, Dosing Weight 104.091, kg, Start date: 08/07/15 9:00:00 CDT, Duration: 30 day, Stop date: 09/05/15 9:00:00 CDTNotes: (same as: Bystolic) Inactive 08/07/2015 [facility] Aspirin 81 MG Enteric Coated Tablet 81 mg, 1 tab, Route: PO, Drug form: ECTAB, Daily, Dosing Weight 104.091, kg, Start date: 08/07/15 9:00:00 CDT, Duration: 30 day, Stop date: 09/05/15 9:00:00 CDTNotes: Do not crush or chew. (Same As: Ecotrin) Inactive 08/07/2015 [facility] Thyroxine 75 microgram, 1 tab, Route: PO, Drug form: TAB, Q630AM, Dosing Weight 104.091, kg, Start date: 08/07/15 6:30:00 CDT, Duration: 30 day, Stop date: 09/05/15 6:30:00 CDTNotes: Take 1 hour before or 2 hours after meal; Enteral feeds may interefere with the absorption of this medication. (Same as:Synthroid, Levothroid) Inactive 08/07/2015 [facility] Dextrose 50% Syringe 25 gm, 50 mL, Route: IVP, Drug Form: INJ, Dosing Weight 104.091, kg, PRN, PRN Blood Glucose Results, Start date: 08/07/15 4:11:00 CDT, Duration: 30 day, Stop date: 09/06/15 4:10:00 CDT Inactive 08/07/2015 [facility] Glucagon 1 mg, Route: IM, Drug form: PDR/INJ, PRN, Dosing Weight 104.091, kg, PRN Blood Glucose Results, Start date: 08/07/15 4:11:00 CDT, Duration: 30 day, Stop date: 09/06/15 4:10:00 CDT Inactive 08/07/2015 [facility] Insulin, Aspart, Human 10 unit, 0.1 mL, Route: SUB-Q, Drug form: SOLN, Sliding Scale, Dosing Weight 104.091, kg, PRN Blood Glucose Results, Start date: 08/07/15 4:11:00 CDT, Duration: 30 day, Stop date: 09/06/15 4:10:00 CDTNotes: Roll in palms of hands gently; Do not shake vigorously. (Same as: NovoLOG) "single patient use only" WASTE: F/P - Black; E - Municipal Trash Bin Stable for 28 days at room temperature. Expires in days from Date Inactive 08/07/2015 [facility] Isosorbide 60 mg, 1 tab, Route: PO, Drug form: ERTAB, BID, Dosing Weight 104.091, kg, Start date: 08/06/15 21:00:00 CDT, Duration: 30 day, Stop date: 09/05/15 9:00:00 CDTNotes: (Same as:Imdur) "Do Not Crush" Take on empty stomach/ full glass of water. Do not crush No Longer Active 08/07/2015 [facility] Pravastatin 40 mg, 2 tab, Route: PO, Drug form: TAB, Bedtime, Dosing Weight 104.091, kg, Start date: 08/06/15 21:00:00 CDT, Duration: 30 day, Stop date: 09/04/15 21:00:00 CDTNotes: (Same as: Pravachol) No Longer Active 08/07/2015 [facility] Saline Flush 0.9% 10 ml, Route: IVP, Drug Form: INJ, Dosing Weight 104.091, kg, Q12H, Start date: 08/06/15 21:00:00 CDT, Duration: 30 day, Stop date: 09/05/15 9:00:00 CDTNotes: (Same as: BD Posiflush) No Longer Active 08/07/2015 [facility] Levemir FlexPen 22 unit, 0.22 mL, Route: SUB-Q, Drug form: INJ, Q12H, Start date: 08/06/15 21:00:00 CDT, Duration: 30 day, Stop date: 09/05/15 9:00:00 CDTNotes: Same as Levemir Do not hold insulin without contacting prescriber WASTE: F/P - Black; E - Municipal Trash Bin "single patient use only" No Longer Active 08/07/2015 [facility] Plavix 75 mg, 1 tab, Route: PO, Drug form: TAB, Bedtime, Dosing Weight 104.091, kg, Start date: 08/06/15 21:00:00 CDT, Duration: 30 day, Stop date: 09/04/15 21:00:00 CDTNotes: (Same As: Plavix) No Longer Active 08/07/2015 [facility] Insulin, Aspart, Human 3 unit, 0.03 mL, Route: SUB-Q, Drug form: SOLN, TID-Before Meals, Dosing Weight 104.091, kg, PRN Blood Glucose Results, Start date: 08/06/15 17:55:00 CDT, Duration: 30 day, Stop date: 09/05/15 17:54:00 CDTNotes: Roll in palms of hands gently; Do not shake vigorously. (Same as: NovoLOG) "single patient use only" WASTE: F/P - Black; E - Municipal Trash Bin Stable for 28 days at room temperature. Expires in days from Date No Longer Active 08/06/2015 [facility] Dextrose 50% Syringe 12.5 gm, 25 mL, Route: IVP, Drug Form: INJ, Dosing Weight 104.091, kg, PRN, PRN Blood Glucose Results, Start date: 08/06/15 17:55:00 CDT, Duration: 30 day, Stop date: 09/05/15 17:54:00 CDT No Longer Active 08/06/2015 [facility] Glucagon 1 mg, Route: IM, Drug form: PDR/INJ, PRN, Dosing Weight 104.091, kg, PRN Blood Glucose Results, Start date: 08/06/15 17:55:00 CDT, Duration: 30 day, Stop date: 09/05/15 17:54:00 CDT No Longer Active 08/06/2015 [facility] Pravastatin 40 mg, 2 tab, Route: PO, Drug form: TAB, BID, Dosing Weight 104.091, kg, Start date: 08/06/15 17:00:00 CDT, Duration: 30 day, Stop date: 09/05/15 9:00:00 CDTNotes: (Same as: Pravachol) Inactive 08/06/2015 [facility] Allopurinol 100 mg, 1 tab, Route: PO, Drug form: TAB, BID, Dosing Weight 104.091, kg, Start date: 08/06/15 17:00:00 CDT, Duration: 30 day, Stop date: 09/05/15 9:00:00 CDTNotes: (Same as: Zyloprim) No Longer Active 08/06/2015 [facility] Insulin Glargine 22 unit, Route: SUB-Q, BID, Dosing Weight 104.091, kg, Start date: 08/06/15 17:00:00 CDT, Duration: 30 day, Stop date: 09/05/15 9:00:00 CDT Inactive 08/06/2015 [facility] Protonix 40 mg, 1 tab, Route: PO, Drug form: ECTAB, Before Dinner, Start date: 08/06/15 16:30:00 CDT, Duration: 30 day, Stop date: 09/04/15 16:30:00 CDTNotes: Tablet should not be chewed or crushed. (Same as: Protonix) No Longer Active 08/06/2015 [facility] Insulin, Aspart, Human 10 unit, Route: SUB-Q, PRN, Dosing Weight 104.091, kg, PRN Abnormal Lab Result, Start date: 08/06/15 16:12:00 CDT, Duration: 30 day, Stop date: 09/05/15 16:11:00 CDT Inactive 08/06/2015 [facility] Insulin, Aspart, Human 5 unit, SUB-Q, PRN, 0 Refill(s) Active 08/06/2015 [facility] Sodium Chloride 0.154 MEQ/ML Injectable Solution 250 mL, 250 ml/hr, Infuse Over: 1 hr, Route: IV, 250, Drug form: INJ, ONCALL, Priority: Routine, Dosing Weight 104.091 kg, Start date: 08/06/15 16:00:00 CDT, Duration: 1 doses or times No Longer Active 08/06/2015 [facility] Enoxaparin 40 mg, 0.4 mL, Route: SUB-Q, Drug form: INJ, [id number], Dosing Weight 104.091, kg, Start date: 08/06/15 16:00:00 CDT, Duration: 30 day, Stop date: 09/04/15 16:00:00 CDTNotes: (Same as: Lovenox) No Longer Active 08/06/2015 [facility] Sodium Chloride 0.154 MEQ/ML Injectable Solution 750 mL, Rate: 75 ml/hr, Infuse over: 10 hr, Route: IV, Dosing Weight 104.091 kg, Total Volume: 750, Start date: 08/06/15 15:08:00 CDT, Duration: 10 hr, Stop date: 08/07/15 1:07:00 CDT No Longer Active 08/06/2015 [facility] irbesartan 150 mg, 1 tab, Route: PO, Drug form: TAB, Daily, Dosing Weight 104.091, kg, Start date: 08/06/15 15:00:00 CDT, Duration: 30 day, Stop date: 09/05/15 9:00:00 CDTNotes: (Same as:Avapro) No Longer Active 08/06/2015 [facility] Acetaminophen 325 MG / Hydrocodone Bitartrate 5 MG Oral Tablet 1 tab, Route: PO, Drug Form: TAB, Dosing Weight 104.091, kg, Q4H, PRN Pain Score 1-5, Start date: 08/06/15 13:09:00 CDT, Duration: 30 day, Stop date: 09/05/15 13:08:00 CDTNotes: (Same as: [place] 325/5) Do not exceed 4gm/day of acetaminophen. No Longer Active 08/06/2015 [facility] Omeprazole 30 mg, PO, Daily, 0 Refill(s) Active 08/06/2015 [facility] Lantus 22 unit, SUB-Q, BID, 0 Refill(s) Active 08/06/2015 [facility] Saline Flush 0.9% 10 ml, Route: IVP, Drug Form: INJ, Dosing Weight 104.091, kg, PRN, PRN Line Flush, Start date: 08/06/15 12:02:00 CDT, Duration: 30 day, Stop date: 09/05/15 12:01:00 CDTNotes: (Same as: BD Posiflush) No Longer Active 08/06/2015 [facility] Nitroglycerin 0.4 mg, 1 tab, Route: SL, Drug form: TAB, Q5Min, Dosing Weight 104.091, kg, PRN Chest Pain, Start date: 08/06/15 12:02:00 CDT, Duration: 3 doses or times, Stop date: Limited # of timesNotes: (Same as :Nitroquick, Nitrostat) "Do Not Crush" Sublingual tablet No Longer Active 08/06/2015 [facility] Insulin, Aspart, Human 1 unit, 0.01 mL, Route: SUB-Q, Drug form: SOLN, TID-Before Meals, Dosing Weight 104.091, kg, PRN Blood Glucose Results, Start date: 08/06/15 12:02:00 CDT, Duration: 30 day, Stop date: 09/05/15 12:01:00 CDTNotes: Roll in palms of hands gently; Do not shake vigorously. (Same as: NovoLOG) "single patient use only" WASTE: F/P - Black; E - Municipal Trash Bin Stable for 28 days at room temperature. Expires in days from Date Inactive 08/06/2015 [facility] Glucagon 1 mg, Route: IM, Drug form: PDR/INJ, PRN, Dosing Weight 104.091, kg, PRN Blood Glucose Results, Start date: 08/06/15 12:02:00 CDT, Duration: 30 day, Stop date: 09/05/15 12:01:00 CDT Inactive 08/06/2015 [facility] Dextrose 50% Syringe 12.5 gm, 25 mL, Route: IVP, Drug Form: INJ, Dosing Weight 104.091, kg, PRN, PRN Blood Glucose Results, Start date: 08/06/15 12:02:00 CDT, Duration: 30 day, Stop date: 09/05/15 12:01:00 CDT Inactive 08/06/2015 [facility] Sodium Chloride 0.154 MEQ/ML Injectable Solution 1,000 mL, 1000 ml/hr, Infuse Over: 1 hr, Route: IV, 1,000, Drug form: INJ, ONCE, Priority: STAT, Dosing Weight 104.091 kg, Start date: 08/06/15 9:28:00 CDT, Duration: 1 doses or times, Stop date: 08/06/15 9:28:00 CDT Inactive 08/06/2015 [facility] Saline Flush 0.9% 10 mL, Route: IVP, Drug Form: INJ, Dosing Weight 104.091, kg, PRN, PRN Line Flush, Start date: 08/06/15 9:28:00 CDT, Duration: 30 day, Stop date: 09/05/15 9:27:00 CDTNotes: (Same as: BD Posiflush) Inactive 08/06/2015 [facility] Aspirin 324 mg, 4 tab, Route: PO, Drug form: CHEWTAB, ONCE, Dosing Weight 104.091, kg, Priority: STAT, Start date: 08/06/15 9:28:00 CDT, Stop date: 08/06/15 9:28:00 CDTNotes: Take with food. Inactive 08/06/2015 [facility] Zithromax Z-Jorge 2 tablets on the first day, then 1 tablet daily for 4 days Orally Active 250 MG Orally Once a day [place] 07/03/2015 [facility] Promethazine-Codeine 5 ml Orally Active 10-6.25 MG/5ML Orally every 6 hrs prn cough Lucero [place] 06/29/2015 [facility] Bystolic 10 mg, 1 tab, Route: PO, Drug form: TAB, Daily, Dosing Weight 97.273, kg, Start date: 10/19/14 9:00:00, Duration: 30 day, Stop date: 11/17/14 9:00:00Notes: (same as: Bystolic) Inactive 10/19/2014 [facility] Prevacid 30 mg, Route: PO, Drug form: DRC, Daily, Dosing Weight 97.273, kg, Start date: 10/19/14 9:00:00, Duration: 30 day, Stop date: 11/17/14 9:00:00 No Longer Active 10/19/2014 [facility] irbesartan 150 mg, 1 tab, Route: PO, Drug form: TAB, Daily, Dosing Weight 97.273, kg, Start date: 10/19/14 9:00:00, Duration: 30 day, Stop date: 11/17/14 9:00:00Notes: (Same as:Avapro) Inactive 10/19/2014 [facility] Aspirin 81 MG Enteric Coated Tablet 81 mg, 1 tab, Route: PO, Drug form: ECTAB, Daily, Dosing Weight 97.273, kg, Start date: 10/19/14 9:00:00, Duration: 30 day, Stop date: 11/17/14 9:00:00Notes: Do not crush or chew. (Same As: Ecotrin) Inactive 10/19/2014 [facility] Allopurinol 100 mg, 1 tab, Route: PO, Drug form: TAB, Daily, Dosing Weight 97.273, kg, Start date: 10/19/14 9:00:00, Duration: 30 day, Stop date: 11/17/14 9:00:00Notes: (Same as: Zyloprim) Inactive 10/19/2014 [facility] Protonix 40 mg, 1 tab, Route: PO, Drug form: ECTAB, Daily, Start date: 10/19/14 9:00:00, Duration: 30 day, Stop date: 11/17/14 9:00:00Notes: Tablet should not be chewed or crushed. (Same as: Protonix) Inactive 10/19/2014 [facility] ticagrelor 90 mg oral tablet 90 mg=1 tab, PO, Q12H, # 60 tab, 11 Refill(s) Active 10/19/2014 [facility] 12 HR ranolazine 500 MG Extended Release Tablet [Ranexa] 500 mg=1 tab, PO, Q12H, # 60 tab, 11 Refill(s) Active 10/19/2014 [facility] isosorbide mononitrate 60 mg oral tablet, extended release 60 mg=1 tab, PO, BID, # 60 tab, 11 Refill(s) Active 10/19/2014 [facility] Magnesium Sulfate 2 gm, 50 mL, Route: IVPB, Drug form: INJ, ONCE, Dosing Weight 97.273, kg, Total dose=2 gm, Priority: NOW, Start date: 10/19/14 6:30:00, Duration: 1 doses or times, Stop date: 10/19/14 6:30:00 Inactive 10/19/2014 [facility] Thyroxine 75 microgram, 1 tab, Route: PO, Drug form: TAB, Q6AM, Dosing Weight 97.273, kg, Start date: 10/19/14 6:00:00, Duration: 30 day, Stop date: 11/17/14 6:00:00Notes: Take 1 hour before or 2 hours after meal; Enteral feeds may interefere with the absorption of this medication. (Same as:Synthroid, Levothroid) Inactive 10/19/2014 [facility] Ambien 5 mg, 1 tab, Route: PO, Drug form: TAB, Bedtime, Start date: 10/18/14 22:00:00, Duration: 30 day, Stop date: 11/17/14 21:00:00Notes: (Same As: Ambien) No Longer Active 10/19/2014 [facility] Ambien 10 mg, Route: PO, Bedtime, Dosing Weight 97.273, kg, Priority: NOW, Start date: 10/18/14 21:32:00, Duration: 30 day, Stop date: 11/17/14 21:00:00 Inactive 10/19/2014 [facility] Mylicon 160 mg, 2 tab, Route: PO, Drug form: CHEWTAB, ONCE, Dosing Weight 97.273, kg, Priority: NOW, Start date: 10/18/14 21:31:00, Stop date: 10/18/14 21:31:00Notes: (Same as: Mylicon) Inactive 10/19/2014 [facility] Protonix 40 mg, 1 tab, Route: PO, Drug form: ECTAB, ONCE, Dosing Weight 97.273, kg, Priority: NOW, Start date: 10/18/14 21:31:00, Stop date: 10/18/14 21:31:00Notes: Tablet should not be chewed or crushed. (Same as: Protonix) Inactive 10/19/2014 [facility] Lyrica 50 mg, 1 cap, Route: PO, Drug form: CAP, BID, Dosing Weight 97.273, kg, Start date: 10/18/14 21:00:00, Duration: 30 day, Stop date: 11/17/14 9:00:00Notes: Same as Lyrica No Longer Active 10/19/2014 [facility] Pravastatin 20 mg, 1 tab, Route: PO, Drug form: TAB, Bedtime, Dosing Weight 97.273, kg, Start date: 10/18/14 21:00:00, Duration: 30 day, Stop date: 11/16/14 21:00:00Notes: (Same as: Pravachol) No Longer Active 10/19/2014 [facility] 12 HR ranolazine 500 MG Extended Release Tablet [Ranexa] 500 mg, 1 tab, Route: PO, Drug form: TAB, Q12H, Dosing Weight 97.273, kg, Start date: 10/18/14 21:00:00, Duration: 30 day, Stop date: 11/17/14 9:00:00Notes: Same as Ranexa "Do Not Crush" No Longer Active 10/19/2014 [facility] Brilinta 90 mg, 1 tab, Route: PO, Drug form: TAB, Q12H, Dosing Weight 97.273, kg, Start date: 10/18/14 21:00:00, Duration: 30 day, Stop date: 11/17/14 9:00:00Notes: (Same as: Brilinta) No Longer Active 10/19/2014 [facility] atropine 0.5 mg, 5 mL, Route: IVP, Drug form: INJ, PRN, PRN Bradycardia, Start date: 10/18/14 20:57:00, Duration: 30 day, Stop date: 11/17/14 20:56:00 No Longer Active 10/19/2014 [facility] Imdur 60 mg, 1 tab, Route: PO, Drug form: ERTAB, BID, Dosing Weight 97.273, kg, Start date: 10/18/14 17:00:00, Duration: 30 day, Stop date: 11/17/14 9:00:00Notes: (Same as:Imdur) "Do Not Crush" Take on empty stomach/ full glass of water. Do not crush No Longer Active 10/18/2014 [facility] Insulin, Aspart, Human 4 unit, 0.04 mL, Route: SUB-Q, Drug form: SOLN, PRN, Dosing Weight 97.273, kg, PRN Blood Glucose Results, Start date: 10/18/14 15:23:00, Duration: 30 day, Stop date: 11/17/14 15:22:00Notes: Roll in palms of hands gently; Do not shake vigorously. (Same as: NovoLOG) "single patient use only" Stable for 28 days at room temperature. Expires in days from Date No Longer Active 10/18/2014 [facility] NS 1,000 mL 1,000 mL, Rate: 100 ml/hr, Infuse over: 10 hr, Route: IV, Dosing Weight 97.273 kg, Total Volume: 1,000, Start date: 10/18/14 14:04:00, Duration: 10 hr, Stop date: 10/19/14 0:03:00 No Longer Active 10/18/2014 [facility] Acetaminophen 325 MG / Hydrocodone Bitartrate 5 MG Oral Tablet 1 tab, Route: PO, Drug Form: TAB, Dosing Weight 97.273, kg, Q4H, PRN Pain Score 1-5, Start date: 10/18/14 14:02:00, Duration: 30 day, Stop date: 11/17/14 14:01:00Notes: (Same as: [place] 325/5) Do not exceed 4gm/day of acetaminophen. No Longer Active 10/18/2014 [facility] Nitroglycerin 0.4 mg, 1 tab, Route: SL, Drug form: TAB, Q5Min, Dosing Weight 97.273, kg, PRN Chest Pain, Start date: 10/18/14 14:01:00, Duration: 3 doses or times, Stop date: Limited # of timesNotes: (Same as:Nitr oquick, Nitrostat) "Do Not Crush" Sublingual tablet No Longer Active 10/18/2014 [facility] normal saline 0.9% IV 1000 mL 1,000 mL, Rate: 100 ml/hr, Infuse over: 10 hr, Route: IV, Dosing Weight 97.273 kg, Total Volume: 1,000, Start date: 10/18/14 13:49:00, Duration: 30 day, Stop date: 11/17/14 13:48:00 Inactive 10/18/2014 [facility] nebivolol 10 MG Oral Tablet [Bystolic] 10 mg=1 tab, PO, Daily, # 30 tab, 0 Refill(s) Active 10/18/2014 [facility] pregabalin 50 MG Oral Capsule [Lyrica] 50 mg=1 cap, PO, BID, 0 Refill(s) Active 10/18/2014 [facility] clopidogrel 75 mg, 1 tab, Route: PO, Drug form: TAB, QPM, Dosing Weight 93.665, kg, Start date: 10/09/14 17:00:00, Duration: 30 day, Stop date: 11/07/14 17:00:00Notes: (Same As: Plavix) Inactive 10/09/2014 [facility] 24 HR Nifedipine 90 MG Extended Release Tablet 90 mg=1 tab, PO, Bedtime, # 30 tab, 11 Refill(s) Active 10/09/2014 [facility] clopidogrel 75 mg oral tablet 75 mg, PO, QPM, # 30 tab, 1 Refill(s) Active 10/09/2014 [facility] Prevacid 30 mg, Route: PO, Drug form: DRC, Daily, Dosing Weight 100, kg, Start date: 10/09/14 9:00:00, Duration: 30 day, Stop date: 11/07/14 9:00:00 No Longer Active 10/09/2014 [facility] Lantus 30 unit, Route: SUB-Q, QAM, Dosing Weight 100, kg, Start date: 10/09/14 9:00:00, Duration: 30 day, Stop date: 11/07/14 9:00:00 No Longer Active 10/09/2014 [facility] Allopurinol 100 mg, 1 tab, Route: PO, Drug form: TAB, Daily, Dosing Weight 100, kg, Start date: 10/09/14 9:00:00, Duration: 30 day, Stop date: 11/07/14 9:00:00Notes: (Same as: Zyloprim) Inactive 10/09/2014 [facility] Protonix 40 mg, 1 tab, Route: PO, Drug form: ECTAB, BID, Start date: 10/09/14 9:00:00, Duration: 30 day, Stop date: 11/07/14 17:00:00Notes: Tablet should not be chewed or crushed. (Same as: Protonix) Inactive 10/09/2014 [facility] Levemir FlexPen 30 unit, 0.3 mL, Route: SUB-Q, Drug form: INJ, QAM, Start date: 10/09/14 9:00:00, Duration: 30 day, Stop date: 11/07/14 9:00:00Notes: Same as Levemir Do not hold insulin without contacting prescriber "single patient use only" Inactive 10/09/2014 [facility] Thyroxine 75 microgram, 1 tab, Route: PO, Drug form: TAB, Q630AM, Dosing Weight 100, kg, Start date: 10/09/14 6:30:00, Duration: 30 day, Stop date: 11/07/14 6:30:00Notes: Take 1 hour before or 2 hours after meal; Enteral feeds may interefere with the absorption of this medication. (Same as:Synthroid, Levothroid) Inactive 10/09/2014 [facility] Nifedical XL 90 mg, 1 tab, Route: PO, Drug form: ERTAB, Bedtime, Dosing Weight 100, kg, Start date: 10/08/14 21:00:00, Duration: 30 day, Stop date: 11/06/14 21:00:00Notes: (Same as: Procardia XL) "Do Not Crush& quot; "Avoid grapefruit and grapefruit juice" No Longer Active 10/09/2014 [facility] Lyrica 75 mg, 1 cap, Route: PO, Drug form: CAP, Bedtime, Dosing Weight 100, kg, Start date: 10/08/14 21:00:00, Duration: 30 day, Stop date: 11/06/14 21:00:00Notes: (Same as: Lyrica) No Longer Active 10/09/2014 [facility] Pravastatin 20 mg, 1 tab, Route: PO, Drug form: TAB, Bedtime, Dosing Weight 100, kg, Start date: 10/08/14 21:00:00, Duration: 30 day, Stop date: 11/06/14 21:00:00Notes: (Same as: Pravachol) No Longer Active 10/09/2014 [facility] Saline Flush 0.9% 10 ml, Route: IVP, Drug Form: INJ, Dosing Weight 100, kg, Q12H, Start date: 10/08/14 21:00:00, Duration: 30 day, Stop date: 11/07/14 9:00:00Notes: (Same as: BD Posiflush) No Longer Active 10/09/2014 [facility] atropine 0.5 mg, 5 mL, Route: IVP, Drug form: INJ, PRN, PRN Bradycardia, Start date: 10/08/14 19:23:00, Duration: 30 day, Stop date: 11/07/14 19:22:00 No Longer Active 10/09/2014 [facility] Aspirin 81 MG Enteric Coated Tablet 81 mg, 1 tab, Route: PO, Drug form: ECTAB, Q24H, Dosing Weight 100, kg, Start date: 10/08/14 19:00:00, Duration: 30 day, Stop date: 11/06/14 19:00:00Notes: Do not crush or chew. (Same As: Ecotrin) No Longer Active 10/09/2014 [facility] Brilinta 180 mg, 2 tab, Route: PO, Drug form: TAB, ONCE, Dosing Weight 100, kg, Priority: STAT, Start date: 10/08/14 16:58:00, Stop date: 10/08/14 16:58:00Notes: (Same as: Brilinta) Inactive 10/08/2014 [facility] Insulin, Aspart, Human 4 unit, 0.04 mL, Route: SUB-Q, Drug form: SOLN, PRN, Dosing Weight 100, kg, PRN Blood Glucose Results, Start date: 10/08/14 16:33:00, Duration: 30 day, Stop date: 11/07/14 16:32:00Notes: Roll in palms of hands gently; Do not shake vigorously. (Same as: NovoLOG) "single patient use only" Stable for 28 days at room temperature. Expires in days from Date No Longer Active 10/08/2014 [facility] irbesartan 150 mg, 1 tab, Route: PO, Drug form: TAB, BID, Dosing Weight 100, kg, Priority: NOW, Start date: 10/08/14 16:31:00, Duration: 30 day, Stop date: 11/07/14 9:00:00Notes: (Same as:Avapro) No Longer Active 10/08/2014 [facility] Acetaminophen 325 MG / Hydrocodone Bitartrate 5 MG Oral Tablet 1 tab, Route: PO, Drug Form: TAB, Dosing Weight 100, kg, Q4H, PRN Pain Score 1-5, Start date: 10/08/14 16:30:00, Duration: 30 day, Stop date: 11/07/14 16:29:00Notes: (Same as: [place] 325/5) Do not exceed 4gm/day of acetaminophen. No Longer Active 10/08/2014 [facility] 24 HR Nitroglycerin 0.3 MG/HR Transdermal Patch 1 patch, Route: TOP, Drug Form: ERFILM, Dosing Weight 100, kg, Daily, STAT, Start date: 10/08/14 16:30:00, Duration: 30 day, Stop date: 11/07/14 9:00:00Notes: Apply only once for up to 12 hours in a 24 hour period (12 hours on and 12 hours off.) (Same as:Nitro-Dur,Deponit,Transderm Nitro) For topical use only. "Remove old patch before application of new patch" No Longer Active 10/08/2014 [facility] Lovenox 40 mg, 0.4 mL, Route: SUB-Q, Drug form: INJ, [id number], Dosing Weight 100, kg, Start date: 10/08/14 16:00:00, Duration: 30 day, Stop date: 11/06/14 16:00:00Notes: (Same as: Lovenox) No Longer Active 10/08/2014 [facility] Saline Flush 0.9% 10 ml, Route: IVP, Drug Form: INJ, Dosing Weight 100, kg, PRN, PRN Line Flush, Start date: 10/08/14 15:51:00, Duration: 30 day, Stop date: 11/07/14 15:50:00Notes: (Same as: BD Posiflush) No Longer Active 10/08/2014 [facility] Ondansetron 4 mg, 1 tab, Route: PO, Drug form: TAB, Q8H, Dosing Weight 100, kg, PRN Nausea & Vomiting, Start date: 10/08/14 15:51:00, Duration: 30 day, Stop date: 11/07/14 15:50:00Notes: (Same as: Zofran) No Longer Active 10/08/2014 [facility] Nitroglycerin 0.4 mg, 1 tab, Route: SL, Drug form: TAB, Q5Min, Dosing Weight 100, kg, PRN Chest Pain, Start date: 10/08/14 15:51:00, Duration: 3 doses or times, Stop date: Limited # of timesNotes: (Same as:Nitroqu ick, Nitrostat) "Do Not Crush" Sublingual tablet No Longer Active 10/08/2014 [facility] Aspirin 81 MG Enteric Coated Tablet 81 mg=1 tab, PO, Daily Active 10/08/2014 [facility] allopurinol 100 mg oral tablet 100 mg=1 tab, PO, Daily Active 10/08/2014 [facility] pravastatin 20 mg oral tablet 20 mg=1 tab, PO, Bedtime Active 10/08/2014 [facility] metoprolol 50 mg oral tablet, extended release 50 mg=1 tab, PO, Daily No Longer Active 10/08/2014 [facility] levothyroxine 75 mcg (0.075 mg) oral tablet 75 microgram=1 tab, PO, Daily Active 10/08/2014 [facility] irbesartan 150 mg oral tablet 150 mg=1 tab, PO, Daily Active 10/08/2014 [facility] lansoprazole 30 MG Enteric Coated Capsule [Prevacid] 30 mg=1 cap, PO, Daily Active 10/08/2014 [facility] Acetaminophen 325 MG / Hydrocodone Bitartrate 5 MG Oral Tablet 1 tab, PO, Q4H, PRN Pain Score 1-5 Active 10/08/2014 [facility] Nitroglycerin 0.4 MG Sublingual Tablet 0.4 mg, 1 tab, Route: SL, Drug form: TAB, Q5Min, Dosing Weight 100, kg, Start date: 10/08/14 10:50:00, Duration: 3 doses or times, Stop date: 10/08/14 11:00:00Notes: (Same as:Nitroquick, Nitrostat) "Do Not Crush" Sublingual tablet Inactive 10/08/2014 [facility] GI cocktail 30 mL, Route: PO, Dosing Weight 100, kg, ONCE, STAT, Start date: 10/08/14 10:47:00, Stop date: 10/08/14 10:47:00 Inactive 10/08/2014 [facility] Saline Flush 0.9% 10 mL, Route: IVP, Drug Form: INJ, Dosing Weight 100, kg, PRN, PRN Line Flush, Start date: 10/08/14 10:46:00, Duration: 30 day, Stop date: 11/07/14 10:45:00Notes: (Same as: BD Posiflush) No Longer Active 10/08/2014 [facility] Aspirin 324 mg, Route: PO, ONCE, Dosing Weight 100, kg, Priority: STAT, Start date: 10/08/14 10:46:00, Stop date: 10/08/14 10:46:00 Inactive 10/08/2014 [facility] Omniscan 2,583 mg, 9 mL, Route: INJ, Drug form: INJ, ONCALL, Start date: 01/21/14 17:00:00, Duration: 1 day, Stop date: 01/22/14 16:59:00Notes: (Same as: Omniscan). Inactive 01/21/2014 [facility] Nitroglycerin 0.4 mg, Route: SL, Q5Min, Dosing Weight 93.182, kg, PRN Chest Pain, Priority: STAT, Start date: 10/06/13 11:49:00, Duration: 3 doses or times, Stop date: Limited # of times Inactive 10/06/2013 [facility] Aspirin / Calcium Carbonate 324 mg, Route: CHEW, Drug form: CHEWTAB, ONCE, Dosing Weight 93.182, kg, Priority: STAT, Start date: 10/06/13 11:48:00, Stop date: 10/06/13 11:48:00 Inactive 10/06/2013 [facility] Saline Flush 0.9% 10 mL, Route: IVP, Drug Form: INJ, Dosing Weight 93.182, kg, PRN, PRN Line Flush, Start date: 10/06/13 11:18:00, Duration: 30 day, Stop date: 11/05/13 11:17:00 Inactive 10/06/2013 [facility] Ranitidine 75 MG Oral Tablet [Zantac] 75 mg=1 tab, PO, BID, # 14 tab, 0 Refill(s) Active 07/30/2013 [facility] promethazine 12.5 mg rectal suppository 12.5 mg=1 supp, NJ, Q4H, Nausea & Vomiting, # 12 supp, 0 Refill(s) Active 07/30/2013 [facility] Ondansetron 4 MG Disintegrating Tablet 4 mg=1 tab, PO, TID, Nausea / Vomiting, Dissolve tab under tongue, # 10 tab, 0 Refill(s)Special Instructions: Dissolve tab under tongue Active 07/30/2013 [facility] GI cocktail 30 mL, Route: PO, Drug Form: SUSP, Dosing Weight 90.909, kg, ONCE, STAT, Start date: 07/30/13 17:48:00, Stop date: 07/30/13 17:48:00Notes: G.I. Cocktail=antacid with simethicone 22.5 mL - lidocaine v iscous 7.5 mL Inactive 07/30/2013 [facility] Morphine 4 mg, Route: IVP, Drug form: INJ, ONCE, Dosing Weight 90.909, kg, Priority: STAT, Start date: 07/30/13 11:22:00, Stop date: 07/30/13 11:22:00 Inactive 07/30/2013 [facility] Sodium Chloride 0.154 MEQ/ML Injectable Solution 1,000 mL, 1,000 ml/hr, Infuse Over: 1 hr, Route: IV, ONCE, Priority: STAT, Dosing Weight 90.909 kg, Start date: 07/30/13 11:22:00, Duration: 1 doses or times, Stop date: 07/30/13 11:22:00 Inactive 07/30/2013 [facility] Saline Flush 0.9% 5 ml, Route: IVP, Drug Form: INJ, Dosing Weight 90.909, kg, Q8H, PRN Line Flush, STAT, Start date: 07/30/13 11:22:00, Duration: 30 day, Stop date: 08/29/13 11:21:00Notes: Same as: BD Posiflush Sterile Inactive 07/30/2013 [facility] Ondansetron 4 mg, Route: IVP, Drug form: INJ, ONCE, Dosing Weight 90.909, kg, Priority: STAT, Start date: 07/30/13 11:22:00, Stop date: 07/30/13 11:22:00 Inactive 07/30/2013 [facility] Macrobid 100 mg oral capsule 100 mg=1 cap, PO, BID, # 20 cap, 0 Refill(s) Active Allen 01/25/2013 [facility] Omniscan 5,740 mg, 20 mL, Route: IV, Drug form: INJ, ONCALL, Start date: 12/10/12 20:00:00, Duration: 1 day, Stop date: 12/11/12 19:59:00(Same as: Omniscan). No Longer Active Karla 12/11/2012 [facility] Levaquin 250 mg, 1 tab, Route: PO, Drug form: TAB, Q24H, Start date: 08/04/12 17:00:00, Duration: 30 day, Stop date: 09/02/12 17:00:00 PO No Longer Active Mougouris 08/04/2012 [facility] Levaquin 500 mg, 2 tab, Route: PO, Drug form: TAB, ONCE, Start date: 08/03/12 17:00:00, Stop date: 08/03/12 17:00:00 PO No Longer Active Mougouris 08/03/2012 [facility] Levaquin 500 mg, Route: PO, Drug form: TAB, [id number], Dosing Weight 101.364, kg, Start date: 08/03/12 16:00:00, Duration: 30 day, Stop date: 09/01/12 16:00:00 PO No Longer Active Mougouris 08/03/2012 [facility] pravastatin 20 mg oral tablet 40 mg, 2 tab, PO, QPM, 30 tab, Substitution Allowed, TAB PO Active Mougouris 08/03/2012 [facility] aspirin 325 mg tablet, enteric coated 325 mg, 1 tab, PO, Daily, 30 tab, Substitution Allowed, ECTAB PO Active [place] 08/03/2012 [facility] Levaquin 500 mg oral tablet 500 mg, 1 tab, PO, [id number], 7 tab, Substitution Allowed, TAB PO Active [place] 08/03/2012 [facility] Saline Flush 0.9% 5 ml, Route: IVP, Drug Form: INJ, Dosing Weight 101.364, kg, Q12H, Start date: 08/02/12 21:00:00, Duration: 30 day, Stop date: 09/01/12 9:00:00 IVP No Longer Active Bruno 08/03/2012 [facility] diazepam 5 mg, 1 tab, Route: PO, Drug form: TAB, Q6H, Dosing Weight 101.364, kg, PRN as needed for anxiety, Start date: 08/02/12 13:28:00, Duration: 30 day, Stop date: 09/01/12 13:27:00 PO No Longer Active Bruno 08/02/2012 [facility] Saline Flush 0.9% 5 ml, Route: IVP, Drug Form: INJ, Dosing Weight 101.364, kg, PRN, PRN Line Flush, Start date: 08/02/12 12:30:00, Duration: 30 day, Stop date: 09/01/12 12:29:00 IVP No Longer Active [place] 08/02/2012 [facility] Levemir FlexPen 23 unit, 0.23 mL, Route: SUB-Q, Drug form: INJ, Daily, Start date: 08/02/12 9:00:00, Duration: 30 day, Stop date: 08/31/12 9:00:00 SUB-Q No Longer Active Chele 08/02/2012 [facility] Pravachol 40 mg, 2 tab, Route: PO, Drug form: TAB, QPM, Dosing Weight 101.364, kg, Start date: 08/01/12 17:00:00, Duration: 30 day, Stop date: 08/30/12 17:00:00 PO No Longer Active [place] 08/01/2012 [facility] Lantus 20 unit, Route: SUB-Q, Daily, Dosing Weight 101.364, kg, Start date: 08/01/12 9:00:00, Duration: 30 day, Stop date: 08/30/12 9:00:00 SUB-Q No Longer Active Nola 08/01/2012 [facility] Levemir FlexPen 20 unit, 0.2 mL, Route: SUB-Q, Drug form: INJ, Daily, Start date: 08/01/12 9:00:00, Duration: 30 day, Stop date: 08/30/12 9:00:00 SUB-Q No Longer Active Aboussleabdiel 08/01/2012 [facility] Synthroid 75 microgram, 1 tab, Route: PO, Drug form: TAB, [id number], Dosing Weight 101.364, kg, Start date: 08/01/12 6:30:00, Duration: 30 day, Stop date: 08/30/12 6:30:00 PO No Longer Active [place] 08/01/2012 [facility] Rocephin 1 g/ NS (NaCl 0.9%) 50 mL IV solution + Sodium Chloride 0.9% IV 100 mL 1 gm, Route: IVPB, [id number], Dosing Weight 100, kg, Start date: 08/01/12 6:00:00, Duration: 30 day, Stop date: 08/30/12 6:00:00 IVPB No Longer Active Richard 08/01/2012 [facility] Ambien 10 mg, 1 tab, Route: PO, Drug form: TAB, Bedtime, Dosing Weight 101.364, kg, PRN Insomnia, Start date: 07/31/12 21:51:00, Duration: 30 day, Stop date: 08/30/12 21:50:00 PO No Longer Active [place] 08/01/2012 [facility] Lovenox 40 mg, 0.4 mL, Route: SUB-Q, Drug form: INJ, [id number], Dosing Weight 101.364, kg, Start date: 07/31/12 19:00:00, Duration: 30 day, Stop date: 08/29/12 19:00:00 SUB-Q No Longer Active [place] 08/01/2012 [facility] NovoLog 2 unit, 0.02 mL, Route: SUB-Q, Drug form: SOLN, TID-Before Meals, Dosing Weight 101.364, kg, PRN Other -See Comment, Start date: 07/31/12 18:29:00, Duration: 30 day, Stop date: 08/30/12 18:28:00, high sugar SUB-Q No Longer Active [place] 07/31/2012 [facility] glipiZIDE 10 mg oral tablet 10 mg, 1 tab, Route: PO, Drug form: TAB, BID, Dosing Weight 101.364, kg, Start date: 07/31/12 17:00:00, Duration: 30 day, Stop date: 08/30/12 9:00:00 PO No Longer Active [place] 07/31/2012 [facility] magnesium sulfate 1 gm, 50 mL, Route: IVPB, Drug form: INJ, ONCE, Dosing Weight 101.364, kg, Start date: 07/31/12 16:08:00, Stop date: 07/31/12 16:08:00 IVPB No Longer Active Christineusselvia 07/31/2012 [facility] Lyrica 75 mg, 1 cap, Route: PO, Drug form: CAP, TID, Dosing Weight 101.364, kg, Start date: 07/31/12 14:00:00, Duration: 30 day, Stop date: 08/30/12 6:00:00 PO No Longer Active [place] 07/31/2012 [facility] clonidine 0.1 mg oral tablet 0.1 mg, 1 tab, Route: PO, Drug form: TAB, TID, Dosing Weight 101.364, kg, PRN Hypertension, Start date: 07/31/12 13:42:00, Duration: 30 day, Stop date: 08/30/12 13:41:00 PO No Longer Active [place] 07/31/2012 [facility] Norvasc 10 mg, 2 tab, Route: PO, Drug form: TAB, Daily, Dosing Weight 101.364, kg, Start date: 07/31/12 13:40:00, Duration: 30 day, Stop date: 08/30/12 9:00:00 PO No Longer Active [place] 07/31/2012 [facility] Dextrose 50% in Water IV 50 mL, Route: IVP, Start date: 07/31/12 13:10:00, Duration: 30 day, Stop date: 08/30/12 13:09:00, PRN Blood Glucose Results IVP No Longer Active [place] 07/31/2012 [facility] NovoLog FlexPen 12 unit, 0.12 mL, Route: SUB-Q, Drug form: SOLN, Sliding Scale, PRN Blood Glucose Results, Start date: 07/31/12 13:10:00, Duration: 30 day, Stop date: 08/30/12 13:09:00 SUB-Q No Longer Active [place] 07/31/2012 [facility] glucagon 1 mg, Route: IM, Drug form: PDR/INJ, PRN, PRN Blood Glucose Results, Start date: 07/31/12 13:10:00, Duration: 30 day, Stop date: 08/30/12 13:09:00 IM No Longer Active [place] 07/31/2012 [facility] NovoLog FlexPen 2 unit, 0.02 mL, Route: SUB-Q, Drug form: SOLN, Sliding Scale, PRN Blood Glucose Results, Start date: 07/31/12 13:09:00, Duration: 30 day, Stop date: 08/30/12 13:08:00 SUB-Q No Longer Active [place] 07/31/2012 [facility] NovoLog PRN, before meals, Substitution Allowed Active Bruno 07/31/2012 [facility] Pepcid 20 mg oral tablet 20 mg, 1 tab, Route: PO, Drug form: TAB, Daily, Dosing Weight 101.364, kg, Start date: 07/31/12 11:00:00, Duration: 30 day, Stop date: 08/30/12 9:00:00 PO No Longer Active [place] 07/31/2012 [facility] Toprol-XL 50 mg oral tablet, extended release 50 mg, 1 tab, Route: PO, Drug form: ERTAB, Daily, Start date: 07/31/12 10:15:00, Duration: 30 day, Stop date: 08/30/12 9:00:00 PO No Longer Active [place] 07/31/2012 [facility] Avapro 150 mg, 1 tab, Route: PO, Drug form: TAB, Daily, Dosing Weight 101.364, kg, Start date: 07/31/12 10:15:00, Duration: 30 day, Stop date: 08/30/12 9:00:00 PO No Longer Active [place] 07/31/2012 [facility] Pepcid 20 mg oral tablet 20 mg, 1 tab, PO, BID, 60 tab, Substitution Allowed PO Active 07/31/2012 [facility] [place] 7.5/325 oral tablet 2 tab, Route: PO, Drug Form: TAB, Dosing Weight 101.364, kg, Q4H, PRN as needed for pain, Start date: 07/31/12 9:47:00, Duration: 30 day, Stop date: 08/30/12 9:46:00 PO No Longer Active [place] 07/31/2012 [facility] [place] 7.5/325 oral tablet 2 tab, PO, Q4H, PRN, Pain, Substitution Allowed, Maintenance PO Active 07/31/2012 [facility] Lyrica 75 mg oral capsule 75 mg, 1 cap, PO, TID, 90 cap, Substitution Allowed, CAP PO Active 07/31/2012 [facility] Synthroid 75 mcg (0.075 mg) oral tablet 75 microgram, 1 tab, PO, Daily, 30 tab, Substitution Allowed, TAB PO Active 07/31/2012 [facility] Metoprolol Tartrate 50 mg oral tablet 50 mg, 1 tab, PO, BID, 60 tab, Substitution Allowed PO Active 07/31/2012 [facility] Avapro Substitution Allowed Active 07/31/2012 [facility] Lantus 20 unit, SUB-Q, Daily, Substitution Allowed SUB-Q Active 07/31/2012 [facility] glipiZIDE 10 mg oral tablet PO, BID, Substitution Allowed PO Active 07/31/2012 [facility] Saline Flush 0.9% 5 ml, Route: IVP, Drug Form: INJ, Dosing Weight 100, kg, Q12H, Start date: 07/31/12 9:00:00, Duration: 30 day, Stop date: 08/29/12 21:00:00 IVP No Longer Active [place] 07/31/2012 [facility] aspirin 325 mg tablet, enteric coated 325 mg, 1 tab, Route: PO, Drug form: ECTAB, Daily, Dosing Weight 100, kg, Start date: 07/31/12 9:00:00, Duration: 30 day, Stop date: 08/29/12 9:00:00 PO No Longer Active [place] 07/31/2012 [facility] nitroglycerin 0.4 mg sublingual tablet 0.4 mg, 1 tab, Route: SL, Drug form: TAB, Q5Min, PRN Chest Pain, Start date: 07/31/12 8:52:00, Duration: 30 day, Stop date: 08/30/12 8:51:00 SL No Longer Active [place] 07/31/2012 [facility] atropine 0.5 mg, 5 mL, Route: IVP, Drug form: INJ, PRN, PRN Bradycardia, Start date: 07/31/12 8:52:00, Duration: 30 day, Stop date: 08/30/12 8:51:00 IVP No Longer Active [place] 07/31/2012 [facility] Saline Flush 0.9% 5 ml, Route: IVP, Drug Form: INJ, Dosing Weight 100, kg, PRN, PRN Line Flush, Start date: 07/31/12 8:38:00, Duration: 30 day, Stop date: 08/30/12 8:37:00 IVP No Longer Active [place] 07/31/2012 [facility] Sodium Chloride 0.9% IV 1,000 mL 1,000 mL, Rate: 50 ml/hr, Infuse over: 20 hr, Route: IV, Dosing Weight 100 kg, Total Volume: 1,000, Start date: 07/31/12 8:38:00, Duration: 30 day, Stop date: 08/30/12 8:37:00 IV No Longer Active [place] 07/31/2012 [facility] Rocephin 1 g/ NS (NaCl 0.9%) 50 mL IV solution 1 gm, Route: IVPB, Drug form: PDR/INJ, ONCE, Dosing Weight 100, kg, Priority: STAT, Start date: 07/31/12 6:48:00, Stop date: 07/31/12 6:48:00 IVPB No Longer Active [facility] 07/31/2012 [facility] Saline Flush 0.9% 5 mL, Route: IVP, Drug Form: INJ, Dosing Weight 100, kg, Q8H, PRN Line Flush, Start date: 07/31/12 5:33:00, Duration: 30 day, Stop date: 08/30/12 5:32:00, Administer at least once every 8 hoursAdmini ster at least once every 8 hours IVP No Longer Active [place] 07/31/2012 [facility] aspirin 324 mg, Route: PO, ONCE, Dosing Weight 100, kg, Priority: STAT, Start date: 07/31/12 5:33:00, Stop date: 07/31/12 5:33:00 PO No Longer Active [facility] 07/31/2012 [facility] Tylenol with Codeine #3 oral tablet 1 - 2 tab, PO, Q4H, PRN, 20 tab, Pain, Substitution Allowed, Maintenance PO Active Lui 12/30/2011 [facility] Robaxin 500 mg oral tablet 1,000 mg, 2 tab, PO, QID, PRN, 24 tab, muscle spasm, Substitution Allowed, TAB PO Active [place] 12/30/2011 [facility] Azithromycin 5 Day Dose Pack 250 mg oral tablet See Instructions, as directed on package labeling, 1 unit, Substitution Allowedas directed on package labeling Active [place] 12/30/2011 [facility] morphine Sulfate 2 mg, 1 mL, Route: IVP, Drug form: INJ, ONCE, Dosing Weight 96.364, kg, Priority: STAT, Start date: 12/29/11 17:01:00, Stop date: 12/29/11 17:01:00 IVP No Longer Active [place] 12/29/2011 [facility] Sodium Chloride 0.9% (Bolus) IV 1,000 mL 1,000 mL, Rate: 1,000 ml/hr, Infuse over: 1 hr, Route: IV, kg, Total Volume: 1,000, Bolus Dose, Priority: STAT, Start date: 12/29/11 17:00:00, Duration: 1 doses or times, Stop date: 12/29/11 17:59:00 IV No Longer Active [place] 12/29/2011 [facility] Insulin regular 10 unit, 0.1 mL, Route: IVP, Drug form: INJ, ONCE, Dosing Weight 96.364, kg, Priority: STAT, Start date: 12/29/11 17:00:00, Stop date: 12/29/11 17:00:00 IVP No Longer Active [place] 12/29/2011 [facility] Toradol 30 mg/mL injectable solution 30 mg, 1 mL, Route: IV, Drug form: INJ, ONCE, Dosing Weight 96.364, kg, Start date: 12/29/11 15:35:00, Stop date: 12/29/11 15:35:00 IV No Longer Active [place] 12/29/2011 [facility] Humalog KwikPen 1-30 units Subcutaneous Active 100 UNIT/ML Subcutaneous before each meal [facility] Lantus SoloStar 22 units am and 12 units at night Subcutaneous Active 100 UNIT/ML Subcutaneous once a day [facility] Irbesartan 1 tablet Orally Active 150 MG Orally Once a day [facility] Hydrochlorothiazide 1 capsule Orally Active 12.5 MG Orally Once a day [facility] Aspir-81 1 tablet Orally Active 81 MG Orally Once a day [facility] Omeprazole 1 capsule Orally Active 20 MG Orally Once a day [facility] Bystolic 1 tablet Orally Active 10 MG Orally Once a day [facility] Lyrica 1 capsule Orally Active 75 mg Orally Twice a day [facility] Levothyroxine Sodium 1 tablet Orally Active 75 MCG Orally Once a day [facility] Vitamin D 1 tablet Orally Active 2000 UNIT Orally once a day [facility] Pravastatin Sodium 1 tablet Orally Active 40 MG Orally Once a day [facility] Clopidogrel Bisulfate 1 tablet Orally Active 75 MG Orally Once a day [facility] Multi For Her 50+ not defined Orally Active Orally [facility] Multi For Her 50+ 1 tablet Orally Active Orally once a day [facility] Humalog KwikPen 1-30 units Subcutaneous Active 100 UNIT/ML Subcutaneous before each meal [facility] Pravastatin Sodium 1 tablet Orally Active 40 mg Orally Once a day [facility] Aspir-81 1 tablet Orally Active 81 MG Orally Once a day [facility] Bystolic 1 TABLET ONCE A DAY ORALLY 90 DAYS NA Active 10 mg [facility] Lyrica 1 capsule Orally Active 75 mg Orally Twice a day [facility] Levothyroxine Sodium 1 tablet Orally Active 75 MCG Orally Once a day [facility] Carafate 1 tablet on an empty stomach Orally Active 1 GM Orally Twice a day [facility] Clopidogrel Bisulfate 1 tablet Orally Active 75 mg Orally daily [facility] Lantus SoloStar 22 units am and 12 units at night Subcutaneous Active 100 UNIT/ML Subcutaneous once a day [facility] Hydrochlorothiazide 1 capsule Orally Active 12.5 MG Orally Once a day prn [facility] Vitamin D 1 tablet Orally Active 2000 UNIT Orally once a day [facility] Pantoprazole Sodium 1 capsule Orally Active 40 MG Orally [facility] Metoprolol Succinate ER 1 tablet Orally Active 50 mg Orally Once a day [facility] Cyclobenzaprine HCl 1 tablet Orally Active 10 MG Orally once a day as needed [facility] Metoprolol Tartrate 1 tablet Orally Active 50 MG Orally once a day [facility] Victoza 1.2 Subcutaneous Active 18 MG/3ML Subcutaneous Once a day [facility] Omeprazole 1 capsule Orally Active 20 MG Orally Once a day [facility] Lisinopril 1 tablet Orally Active 20 MG Orally daily [facility] Cyclobenzaprine HCl 1 tablet Orally Active 10 MG Orally once a day as needed [facility] Metoprolol Tartrate 1 tablet Orally Active 50 MG Orally once a day [facility] Metoprolol Succinate ER 1 tablet Orally Active 50 mg Orally once a day [facility] Clonidine HCl 1 tablet Orally Active 0.1 MG Orally Once a day prn [facility] Humalog 10 -20 units before meals NA Active [facility] Humalog 10 -20 units before meals Subcutaneous Active 100 UNIT/ML Subcutaneous as directed [facility] Irbesartan 1 tablet Orally Active 300 MG Orally Once a day [facility] Metoprolol Succinate ER 1 tablet Orally Active 50 mg Orally once a day [facility] Cyclobenzaprine HCl 1 tablet Orally Active 10 mg Orally qd prn [facility] Irbesartan 1 TABLET ONCE A DAY ORALLY 90 DAYS NA Active 150 MG Nic [facility] Ciprofloxacin HCl TK 1 T PO BID Oral Active 500 MG Oral [facility] Premarin USE 1 APPLICATOR VAGINALLY THREE TIMES A WEEK Vaginal Active 0.625 MG/GM Vaginal [facility] Doxycycline Hyclate TK 1 C PO QD Oral Active 50 MG Oral [facility] Lantus SoloStar 22 units am and 12 units at night Subcutaneous Active 100 UNIT/ML Subcutaneous once a day [facility] Diclofenac Sodium APPLY TOPICALLY TO AFFECTED AREA FOUR TIMES DAILY Transdermal Active 1 % Transdermal [facility] Pravastatin Sodium 1 tablet Orally Active 20 mg Orally Once a day (MUST SEE DOCTOR BEFORE NEXT REFILL) [facility] Bystolic 1 tablet Orally Active 10 mg Orally Once a day [facility] Levothyroxine Sodium 1 tablet Orally Active 75 MCG Orally Once a day Nic [facility] Allopurinol 2 tablet Orally Active 100 mg Orally Once a day [facility] Allergies, Adverse Reactions, Alerts Substance Category Reaction Severity Reaction type Status Date Reported Comments Source Levaquin Adverse Reaction rash Adverse Reaction Active 11/03/2017 [facility] sulfa Adverse Reaction rash Adverse Reaction Active 11/03/2017 [facility] iodine Assertion Drug allergy Active [facility] sulfa drugs Assertion Drug allergy Active [facility] Immunizations Immunization Date Given Site Status Last Updated Comments Source Results Order Name Results Value Reference Range Date Interpretation Comments Source Abdomen AP DX Abdomen AP DX Clinical Indication: - n20.0 renal stone; patient has a history of renal stones. Comparison: CT abdomen/pelvis with and without IV contrast from 07/22/2017. FINDINGS: The AP supine view of the abdomen shows a 3.7 mm rounded radiopaque density is appreciated in the left hemipelvis. Multiple additional submillimeter, punctate radiopaque densities are noted projecting over the left hemipelvis adjacent to this density. A 2.1 mm rounded radiopaque density is noted projecting over the right hemipelvis. A Pair of additional 2 mm radiopaque densities are noted just adjacent to this density. Additionally, multiple millimeter, punctate radiopaque densities are suspected projecting over the left renal upper pole. Non-obstructive bowel gas pattern is seen. There is no abnormal dilatation of bowel loops. There is no pneumatosis or mass effect. There are no radiopaque densities noted. There are no clinically significant osseous abnormalities noted. IMPRESSION: 1. Evaluation for presence of renal stones is limited due to patient's body habitus. 2. A 3.7 mm rounded radiopaque density in the left hemipelvis. Multiple additional submillimeter, punctate radiopaque densities projecting over the left hemipelvis adjacent to this density. 3. A 2.1 mm rounded radiopaque density projecting over the right hemipelvis. A Pair of additional 2 mm radiopaque densities just adjacent to this density. 4. While most of these radiopaque densities are felt to represent phleboliths, the larger of the radiopaque densities may represent ureteral stones. 5. Multiple millimeter, punctate radiopaque densities are suspected projecting over the left renal upper pole, likely representing renal calculi. SL: [id number] 11/19/2017 - - Read by: Jhony Moy DO Dictated Date/time: 11/19/17 18:05 Electronically Signed by: Jhony Moy DO 11/19/17 18:26 FINAL REPORT [facility] eGFR 47 mL/min/1.73m2 07/22/2017 Result Comment: The eGFR is calculated using the CKD-EPI formula. In most young, healthy individuals the eGFR will be >90 mL/min/1.73m2. The eGFR declines with age. An eGFR of 60-89 may be normal in some populations, particularly the elderly, for whom the CKD-EPI formula has not been extensively validated. Use of the eGFR is not recommended in the following populations: Individuals with unstable creatinine concentrations, including patients and those with serious co-morbid conditions. Patients with extremes in muscle mass or diet. The data above are obtained from the National Kidney Disease Education Program (NKDEP) which additionally recommends that when the eGFR is used in patients with extremes of body mass index for purposes of drug dosing, the eGFR should be multiplied by the estimated BMI. [facility] POC Creatinine 1.2 mg/dL 0.5 - 1.4 07/22/2017 [facility] Abdomen/Pelvis w/wo IV contrast CT Abdomen/Pelvis w/wo IV contrast CT PROCEDURE: CT abdomen pelvis with and without contrast. Reconstruction images. INDICATION: - N20.0 Calculus of kidney. TECHNIQUE: GI CONTRAST: None. Axial pre-contrast images were obtained from the lower chest to the symphysis pubis. IV CONTRAST: 100 cc of Omnipaque-300 Axial post-contrast images were obtained from the lower chest to the symphysis pubis in the venous and 10 minute delayed phases. Coronal and sagittal reconstruction images were performed. Total CT radiation dose: SJF=8599 mGy-cm COMPARISON: CT abdomen/pelvis 07/30/2013 FINDINGS: LOWER CHEST: The visualized lung bases are clear. Normal size of the heart is noted. SOLID ORGANS: No focal hepatic lesion or intrahepatic biliary ductal dilatation is seen. Prior cholecystectomy. Fatty atrophy of the pancreas. The spleen, pancreas, and adrenal glands are otherwise normal in appearance. Both kidneys demonstrate normal corticomedullary phase of enhancement with appropriate delayed excretion. There are multiple nonobstructing bilateral intrarenal stones measuring up to 3 mm. No hydronephrosis, mass, or cyst is apparent. BOWEL: Prior gastric surgery. The small bowel and colon are normal in caliber without wall thickening. A normal appendix is identified. PERITONEUM: No free intraperitoneal fluid or air. No ventral wall defects. RETROPERITONEUM: No enlarged lymphadenopathy. No vascular aneurysm. PELVIS: The visualized urinary bladder wall is normal thickness. Tiny focus of air noted within the bladder. Uterus is absent. Low-lying pelvic structures noted suggestive of pelvic floor weakness. MUSCULOSKELETAL: No acute osseous abnormality is seen. No destructive lytic or blastic osseous lesion is noted. Mild degenerative changes in the spine and pelvis. Superior endplate compression noted at L1 with approximately 40% height loss, and L3 with approximately 30% height loss; this remains grossly stable since 2013. Sternotomy wires present. IMPRESSION: 1. Nonobstructing bilateral nephrolithiasis. 2. Tiny focus of air noted in the bladder. If there is no history of recent instrumentation, this may represent gas-forming infection. 3. Low-lying pelvic structures suggestive of pelvic floor weakness. 4. Stable mild compression of the L1 and L3 vertebral bodies. SL: [id number] 07/22/2017 - - Read by: Leni Hood MD Dictated Date/time: 07/22/17 15:38 Electronically Signed by: Leni Hood MD 07/22/17 15:56 FINAL REPORT [facility] Abdomen 2 views DX Abdomen 2 views DX Abdomen 2 views DX CLINICAL INDICATION: - N20.0 Calculus of kidney COMPARISON: 06/09/2014 FINDINGS: Bowel gas pattern is unremarkable. No tract calculi are evident. Excreted contrast is visualized in both nondilated ureters and the urinary bladder. No free air is noted underneath the hemidiaphragms. Lung bases are clear. No significant bony abnormality is noted. IMPRESSION: No acute abnormality noted. SL: [id number] 07/22/2017 - - Read by: Cristino Lobato MD Dictated Date/time: 07/22/17 15:36 Electronically Signed by: Cristino Lobato MD 07/22/17 15:37 FINAL REPORT [facility] URINE AND STOOL UA Urobilinogen <=1.0 mg/dL 0.1 - 1.0 11/28/2016 [facility] STOOL UA Mucus Few /LPF None Seen /LPF 11/28/2016 [facility] STOOL UA Hyal Cast 12 /LPF 0 - 2 11/28/2016 [facility]A RBC 3 /HPF 0 - 2 11/28/2016 [facility]INE [facility] STOOL UA Bacteria Occasional /HPF None Seen /HPF 11/28/2016 [facility]INE [facility] STOOL UA Ketones Trace mg/dL Negative mg/dL 11/28/2016 [facility]INE [facility] STOOL UA Leuk Est Moderate *ABN* (11/28/16 5:40 PM) Negative 11/28/2016 [facility] URINE AND STOOL UA Sq Epi Occasional /LPF Few /LPF 11/28/2016 [facility] URINE [facility] STOOL UA WBC 6 /HPF 0 - 5 11/28/2016 [facility] URINE [facility] STOOL UA Bili Negative *NA* (11/28/16 5:40 PM) Negative 11/28/2016 [facility] URINE AND STOOL UA Blood Negative (11/28/16 5:40 PM) Negative 11/28/2016 [facility] URINE AND STOOL UA Nitrite Negative (11/28/16 5:40 PM) Negative 11/28/2016 [facility] URINE AND STOOL UA Protein Negative mg/dL Negative mg/dL 11/28/2016 [facility] URINE [facility] STOOL UA Glucose Negative mg/dL Negative mg/dL 11/28/2016 [facility] URINE [facility] STOOL UA Color Yellow *NA* (11/28/16 5:40 PM) Yellow 11/28/2016 [facility] URINE [facility] STOOL UA Spec Grav 1.013 <=1.030 11/28/2016 [facility] URINE AND STOOL UA Turbidity Slight *ABN* (11/28/16 5:40 PM) Clear 11/28/2016 [facility] URINE [facility] STOOL UA pH 5.0 5.0 - 8.0 11/28/2016 [facility] CARDIAC ENZYMES Troponin-I null 0.00 - 0.40 11/28/2016 [facility] CARDIAC ENZYMES CK MB 2.3 ng/mL 0.5 - 3.6 11/28/2016 [facility] CARDIAC ENZYMES BNP 14 pg/mL <=100 pg/mL 11/28/2016 [facility] CHEM PANEL Magnesium Lvl 1.9 mg/dL 1.8 - 2.4 11/28/2016 [facility] CHEM PANEL eGFR 43 mL/min/1.73m2 11/28/2016 Result Comment: The eGFR is calculated using the CKD-EPI formula. In most young, healthy individuals the eGFR will be >90 mL/min/1.73m2. The eGFR declines with age. An eGFR of 60-89 may be normal in some populations, particularly the elderly, for whom the CKD-EPI formula has not been extensively validated. Use of the eGFR is not recommended in the following populations: Individuals with unstable creatinine concentrations, including patients and those with serious co-morbid conditions. Patients with extremes in muscle mass or diet. The data above are obtained from the National Kidney Disease Education Program (NKDEP) which additionally recommends that when the eGFR is used in patients with extremes of body mass index for purposes of drug dosing, the eGFR should be multiplied by the estimated BMI. [facility] CHEM PANEL Bili Total 0.8 mg/dL 0.2 - 1.3 11/28/2016 [facility] CHEM PANEL Alk Phos 72 unit/L 39 - 136 11/28/2016 [facility] CHEM PANEL AST 21 unit/L 0 - 37 11/28/2016 [facility] CHEM PANEL Albumin Lvl 3.1 g/dL 3.5 - 5.0 11/28/2016 [facility] CHEM PANEL Total Protein 6.2 g/dL 6.4 - 8.4 11/28/2016 [facility] CHEM PANEL Globulin 3.1 g/dL 2.7 - 4.2 11/28/2016 [facility] CHEM PANEL BUN 34 mg/dL 7 - 22 11/28/2016 [facility] CHEM PANEL Glucose Lvl 119 mg/dL 70 - 99 11/28/2016 [facility] CHEM PANEL Creatinine Lvl 1.30 mg/dL 0.50 - 1.40 11/28/2016 [facility] CHEM PANEL Potassium Lvl 3.8 meq/L 3.5 - 5.1 11/28/2016 [facility] CHEM PANEL Sodium Lvl 143 meq/L 135 - 145 11/28/2016 [facility] CHEM PANEL B/C Ratio 26 6 - 25 11/28/2016 [facility] CHEM PANEL A/G Ratio 1.0 0.7 - 1.6 11/28/2016 [facility] CHEM PANEL Calcium Lvl 7.3 mg/dL 8.5 - 10.5 11/28/2016 [facility] CHEM PANEL AGAP 13.8 meq/L 10.0 - 20.0 11/28/2016 [facility] CHEM PANEL Chloride Lvl 111 meq/L 95 - 109 11/28/2016 [facility] CHEM PANEL CO2 22 meq/L 24 - 32 11/28/2016 [facility] CHEM PANEL ALT 32 unit/L 0 - 65 11/28/2016 [facility] HEMATOLOGY Lymphocytes # 1.5 K/CMM 1.0 - 5.5 11/28/2016 [facility] HEMATOLOGY Monocytes # 0.9 K/CMM 0.0 - 0.8 11/28/2016 [facility] HEMATOLOGY Basophils # 0.1 K/CMM 0.0 - 0.2 11/28/2016 [facility] HEMATOLOGY Segs-Bands # 8.9 K/CMM 1.5 - 8.1 11/28/2016 [facility] HEMATOLOGY Lymphocytes 13.0 % 20.0 - 40.0 11/28/2016 [facility] HEMATOLOGY Monocytes 8.0 % 2.0 - 12.0 11/28/2016 [facility] HEMATOLOGY Eosinophils 0.4 % 0.0 - 4.0 11/28/2016 [facility] HEMATOLOGY Basophils 0.4 % 0.0 - 1.0 11/28/2016 [facility] HEMATOLOGY Segs 78.2 % 45.0 - 75.0 11/28/2016 [facility] HEMATOLOGY INR 1.07 0.85 - 1.17 11/28/2016 [facility] HEMATOLOGY PT 13.9 s 12.0 - 14.7 11/28/2016 [facility] HEMATOLOGY PTT 29.2 s 22.9 - 35.8 11/28/2016 [facility] HEMATOLOGY Platelet 176 K/CMM 133 - 450 11/28/2016 [facility] HEMATOLOGY MPV 10.1 fL 7.4 - 10.4 11/28/2016 [facility] HEMATOLOGY MCH 32.2 pg 27.0 - 31.0 11/28/2016 [facility] MCHC 32.9 g/dL 32.0 - 36.0 11/28/2016 [facility] HEMATOLOGY RDW 15.8 % 11.5 - 14.5 11/28/2016 [facility] HEMATOLOGY Hgb 15.3 g/dL 12.0 - 16.0 11/28/2016 [facility] HEMATOLOGY RBC 4.75 M/CMM 4.20 - 5.40 11/28/2016 [facility] HEMATOLOGY MCV 97.9 fL 80.0 - 98.0 11/28/2016 [facility] HEMATOLOGY Hct 46.5 % 36.0 - 48.0 11/28/2016 [facility] HEMATOLOGY WBC 11.4 K/CMM 3.7 - 10.4 11/28/2016 [facility] Brain wo contrast CT Brain wo contrast CT Study: Brain wo contrast CT 11/28/2016 3:34 PM CDT Patient Name: LALITHA POSEY MR: [id number] : 1950; Age: 66 years y/o Female Ordering Physician: Ambrosio Tan MD Clinical Indication: dlp 1023.76 - syncope Comparison: None TECHNIQUE: CT images were obtained from the foramen magnum to the vertex without the use of intravenous contrast on a multidetector CT. Coronal and sagittal reformatted images were prepared. FINDINGS: BRAIN PARENCHYMA: 1. Mild diffuse age-appropriate atrophy is present associated with mild nonspecific periventricular low attenuation most consistent with old microangiopathic ischemic change. 2. No evidence of acute intracranial hemorrhage, mass lesion, mass effect, midline shift, or extra-axial fluid collection. 3. Empty sella. VENTRICLES: The lateral ventricles, third ventricle, fourth ventricle, and basilar cisterns are appropriate for degree of atrophy present. PARANASAL SINUSES: Right maxillary sinus mucous retention cyst. The visualized portions of the remaining paranasal sinuses are clear. MASTOIDS: Clear. ORBITS AND SOFT TISSUES: The visualized portions of the orbits are normal. SKULL: No acute fracture or suspicious osseous lesion. IMPRESSION: 1. Mild diffuse age-appropriate atrophy is present associated with mild nonspecific periventricular low attenuation most consistent with old microangiopathic ischemic change. 2. Chronic sinusitis as above discussed. SL: [id number] 11/28/2016 - - Read by: Rico Dawson MD Dictated Date/time: 11/28/16 18:00 Electronically Signed by: Rico Dawson MD 11/28/16 18:03 FINAL REPORT [facility] Chest 1view DX Chest 1view DX EXAM: Chest 1view DX DATE: 11/28/2016 3:34 PM CDT INDICATION: Chest pain - syncope COMPARISON: 11/26/2016 IMPRESSION: Stable prominent cardiac silhouette. Atherosclerotic thoracic aorta. Postoperative median sternotomy. Low lung volume. Probable mild vascular congestive change is present. SL: [id number] 11/28/2016 - - Read by: Dilip Singleton MD Dictated Date/time: 11/28/16 16:33 Electronically Signed by: Dilip Singleton MD 11/28/16 16:35 FINAL REPORT [facility] CHEM PANEL ALT 37 unit/L 0 - 65 11/27/2016 [facility] CHEM PANEL Bili Total 0.5 mg/dL 0.2 - 1.3 11/27/2016 [facility] CHEM PANEL Alk Phos 81 unit/L 39 - 136 11/27/2016 [facility] CHEM PANEL AST 37 unit/L 0 - 37 11/27/2016 [facility] CHEM PANEL Calcium Lvl 9.2 mg/dL 8.5 - 10.5 11/27/2016 [facility] CHEM PANEL Total Protein 7.6 g/dL 6.4 - 8.4 11/27/2016 [facility] CHEM PANEL B/C Ratio 24 6 - 25 11/27/2016 [facility] CHEM PANEL A/G Ratio 0.9 0.7 - 1.6 11/27/2016 [facility] CHEM PANEL Globulin 4.0 g/dL 2.7 - 4.2 11/27/2016 [facility] CHEM PANEL Albumin Lvl 3.6 g/dL 3.5 - 5.0 11/27/2016 [facility] CHEM PANEL eGFR 43 mL/min/1.73m2 11/27/2016 Result Comment: The eGFR is calculated using the CKD-EPI formula. In most young, healthy individuals the eGFR will be >90 mL/min/1.73m2. The eGFR declines with age. An eGFR of 60-89 may be normal in some populations, particularly the elderly, for whom the CKD-EPI formula has not been extensively validated. Use of the eGFR is not recommended in the following populations: Individuals with unstable creatinine concentrations, including patients and those with serious co-morbid conditions. Patients with extremes in muscle mass or diet. The data above are obtained from the National Kidney Disease Education Program (NKDEP) which additionally recommends that when the eGFR is used in patients with extremes of body mass index for purposes of drug dosing, the eGFR should be multiplied by the estimated BMI. [facility] CHEM PANEL Creatinine Lvl 1.30 mg/dL 0.50 - 1.40 11/27/2016 [facility] CHEM PANEL BUN 31 mg/dL 7 - 22 11/27/2016 [facility] CHEM PANEL CO2 27 meq/L 24 - 32 11/27/2016 [facility] CHEM PANEL AGAP 11.6 meq/L 10.0 - 20.0 11/27/2016 [facility] CHEM PANEL Sodium Lvl 137 meq/L 135 - 145 11/27/2016 [facility] CHEM PANEL Chloride Lvl 103 meq/L 95 - 109 11/27/2016 [facility] CHEM PANEL Potassium Lvl 4.6 meq/L 3.5 - 5.1 11/27/2016 [facility] CHEM PANEL Glucose Lvl 97 mg/dL 70 - 99 11/27/2016 [facility] HEMATOLOGY PT 12.3 s 12.0 - 14.7 11/27/2016 [facility] HEMATOLOGY PTT 23.0 s 22.9 - 35.8 11/27/2016 [facility] HEMATOLOGY INR 0.91 0.85 - 1.17 11/27/2016 [facility] HEMATOLOGY MPV 9.8 fL 7.4 - 10.4 11/27/2016 [facility] HEMATOLOGY MCV 96.5 fL 80.0 - 98.0 11/27/2016 [facility] HEMATOLOGY MCHC 32.9 g/dL 32.0 - 36.0 11/27/2016 [facility] MCH 31.7 pg 27.0 - 31.0 11/27/2016 [facility] HEMATOLOGY Platelet 159 K/CMM 133 - 450 11/27/2016 [facility] HEMATOLOGY RDW 16.1 % 11.5 - 14.5 11/27/2016 [facility] HEMATOLOGY WBC 6.9 K/CMM 3.7 - 10.4 11/27/2016 [facility] HEMATOLOGY Hgb 14.3 g/dL 12.0 - 16.0 11/27/2016 [facility] HEMATOLOGY RBC 4.50 M/CMM 4.20 - 5.40 11/27/2016 [facility] HEMATOLOGY Hct 43.5 % 36.0 - 48.0 11/27/2016 [facility] HEMATOLOGY Monocytes # 0.5 K/CMM 0.0 - 0.8 11/27/2016 [facility] HEMATOLOGY Eosinophils # 0.2 K/CMM 0.0 - 0.5 11/27/2016 [facility] HEMATOLOGY Segs-Bands # 4.2 K/CMM 1.5 - 8.1 11/27/2016 [facility] HEMATOLOGY Lymphocytes # 2.0 K/CMM 1.0 - 5.5 11/27/2016 [facility] HEMATOLOGY Basophils 0.4 % 0.0 - 1.0 11/27/2016 [facility] HEMATOLOGY Monocytes 7.8 % 2.0 - 12.0 11/27/2016 [facility] HEMATOLOGY Eosinophils 2.5 % 0.0 - 4.0 11/27/2016 [facility] HEMATOLOGY Lymphocytes 28.8 % 20.0 - 40.0 11/27/2016 [facility] HEMATOLOGY Segs 60.5 % 45.0 - 75.0 11/27/2016 [facility] LIPIDS VLDL 14 11/27/2016 [facility] LIPIDS CHD Risk 2.75 3.90 - 5.80 11/27/2016 [facility] LIPIDS HDL 56 mg/dL >=61 mg/dL 11/27/2016 [facility] LIPIDS Chol 154 mg/dL <=199 mg/dL 11/27/2016 [facility] LIPIDS Trig 71 mg/dL <=149 mg/dL 11/27/2016 [facility] LIPIDS LDL (Calculated) 84 mg/dL <=99 mg/dL 11/27/2016 [facility] URINE AND STOOL UA Color Ltyellow 11/26/2016 [facility] URINE AND STOOL UA Urobilinogen <=1.0 mg/dL 0.1 - 1.0 11/26/2016 [facility] URINE AND STOOL UA Sq Epi Few /LPF Few /LPF 11/26/2016 [facility] URINE AND STOOL UA WBC 3 /HPF 0 - 5 11/26/2016 [facility] URINE AND STOOL UA Trans Epi 3 /LPF <=0 /LPF 11/26/2016 [facility] URINE AND STOOL UA RBC 1 /HPF 0 - 2 11/26/2016 [facility] URINE AND STOOL UA Bacteria Occasional /HPF None Seen /HPF 11/26/2016 [facility] URINE AND STOOL UA Leuk Est Trace *ABN* (11/26/16 6:04 PM) Negative 11/26/2016 [facility] URINE AND STOOL UA Nitrite Negative (11/26/16 6:04 PM) Negative 11/26/2016 [facility] URINE AND STOOL UA Ketones Negative mg/dL Negative mg/dL 11/26/2016 [facility] URINE AND STOOL UA Blood Small *ABN* (11/26/16 6:04 PM) Negative 11/26/2016 [facility] URINE AND STOOL UA Bili Negative *NA* (11/26/16 6:04 PM) Negative 11/26/2016 [facility] URINE AND STOOL UA Protein Negative mg/dL Negative mg/dL 11/26/2016 [facility] URINE AND STOOL UA Spec Grav 1.015 <=1.030 11/26/2016 [facility] URINE AND STOOL UA pH 5.0 5.0 - 8.0 11/26/2016 [facility] URINE AND STOOL UA Turbidity Clear (11/26/16 6:04 PM) Clear 11/26/2016 [facility] URINE AND STOOL UA Glucose Negative mg/dL Negative mg/dL 11/26/2016 [facility] CARDIAC ENZYMES Troponin-I null 0.00 - 0.40 11/26/2016 [facility] CARDIAC ENZYMES Total CK 65 unit/L 12 - 191 11/26/2016 [facility] CARDIAC ENZYMES CK MB Index 1.8 0.0 - 2.5 11/26/2016 [facility] CARDIAC ENZYMES CK MB 1.4 ng/mL 0.5 - 3.6 11/26/2016 [facility] CARDIAC ENZYMES Troponin-I null 0.00 - 0.40 11/26/2016 [facility] CARDIAC ENZYMES Total CK 78 unit/L 12 - 11/26/2016 [facility] CARDIAC ENZYMES Troponin-I null 0.00 - 0.40 11/26/2016 [facility] CARDIAC ENZYMES Total CK 70 unit/L 12 - 11/26/2016 [facility] CHEM [facility] Magnesium Lvl 1.9 mg/dL 1.8 - 2.4 11/26/2016 [facility] CHEM [facility] eGFR 52 mL/min/1.73m2 11/26/2016 Result Comment: The eGFR is calculated using the CKD-EPI formula. In most young, healthy individuals the eGFR will be >90 mL/min/1.73m2. The eGFR declines with age. An eGFR of 60-89 may be normal in some populations, particularly the elderly, for whom the CKD-EPI formula has not been extensively validated. Use of the eGFR is not recommended in the following populations: Individuals with unstable creatinine concentrations, including patients and those with serious co-morbid conditions. Patients with extremes in muscle mass or diet. The data above are obtained from the National Kidney Disease Education Program (NKDEP) which additionally recommends that when the eGFR is used in patients with extremes of body mass index for purposes of drug dosing, the eGFR should be multiplied by the estimated BMI. [facility] CHEM PANEL Total Protein 6.4 g/dL 6.4 - 8.4 11/26/2016 [facility] CHEM PANEL Albumin Lvl 2.9 g/dL 3.5 - 5.0 11/26/2016 [facility] CHEM PANEL BUN 36 mg/dL 7 - 22 11/26/2016 [facility] CHEM PANEL Creatinine Lvl 1.10 mg/dL 0.50 - 1.40 11/26/2016 [facility] CHEM PANEL Glucose Lvl 76 mg/dL 70 - 99 11/26/2016 [facility] CHEM PANEL Sodium Lvl 142 meq/L 135 - 145 11/26/2016 [facility] CHEM PANEL Chloride Lvl 110 meq/L 95 - 109 11/26/2016 [facility] CHEM PANEL CO2 26 meq/L 24 - 32 11/26/2016 [facility] CHEM PANEL Calcium Lvl 8.4 mg/dL 8.5 - 10.5 11/26/2016 [facility] CHEM PANEL ALT 21 unit/L 0 - 65 11/26/2016 [facility] CHEM PANEL AST 18 unit/L 0 - 37 11/26/2016 [facility] CHEM PANEL Potassium Lvl 4.4 meq/L 3.5 - 5.1 11/26/2016 [facility] CHEM PANEL Alk Phos 75 unit/L 39 - 136 11/26/2016 [facility] CHEM PANEL AGAP 10.4 meq/L 10.0 - 20.0 11/26/2016 [facility] CHEM PANEL B/C Ratio 33 6 - 25 11/26/2016 [facility] CHEM PANEL Globulin 3.5 g/dL 2.7 - 4.2 11/26/2016 [facility] CHEM PANEL A/G Ratio 0.8 0.7 - 1.6 11/26/2016 [facility] CHEM PANEL Bili Total 0.3 mg/dL 0.2 - 1.3 11/26/2016 [facility] CHEM PANEL Lipase Lvl 78 unit/L 73 - 393 11/26/2016 [facility] HEMATOLOGY PT 13.2 s 12.0 - 14.7 11/26/2016 [facility] HEMATOLOGY PTT 32.1 s 22.9 - 35.8 11/26/2016 [facility] HEMATOLOGY INR 0.98 0.85 - 1.17 11/26/2016 [facility] CARDIAC ENZYMES BNP 22 pg/mL <=100 pg/mL 11/26/2016 [facility] HEMATOLOGY MPV 9.8 fL 7.4 - 10.4 11/26/2016 [facility] HEMATOLOGY Platelet 166 K/CMM 133 - 450 11/26/2016 [facility] HEMATOLOGY MCH 32.1 pg 27.0 - 31.0 11/26/2016 [facility] HEMATOLOGY MCHC 33.3 g/dL 32.0 - 36.0 11/26/2016 [facility] HEMATOLOGY RDW 16.3 % 11.5 - 14.5 11/26/2016 [facility] HEMATOLOGY Hgb 14.2 g/dL 12.0 - 16.0 11/26/2016 [facility] MCV 96.4 fL 80.0 - 98.0 11/26/2016 [facility] Hct 42.6 % 36.0 - 48.0 11/26/2016 [facility] WBC 7.8 K/CMM 3.7 - 10.4 11/26/2016 [facility] RBC 4.42 M/CMM 4.20 - 5.40 11/26/2016 [facility] Eosinophils # 0.2 K/CMM 0.0 - 0.5 11/26/2016 [facility] HEMATOLOGY Basophils # 0.1 K/CMM 0.0 - 0.2 11/26/2016 [facility] Monocytes # 0.6 K/CMM 0.0 - 0.8 11/26/2016 [facility] Lymphocytes # 2.3 K/CMM 1.0 - 5.5 11/26/2016 [facility] Monocytes 8.2 % 2.0 - 12.0 11/26/2016 [facility] Eosinophils 2.5 % 0.0 - 4.0 11/26/2016 [facility] Basophils 0.7 % 0.0 - 1.0 11/26/2016 [facility] Segs-Bands # 4.6 K/CMM 1.5 - 8.1 11/26/2016 [facility] Lymphocytes 29.3 % 20.0 - 40.0 11/26/2016 [facility] Segs 59.3 % 45.0 - 75.0 11/26/2016 [facility] Chest 1view DX Chest 1view DX Clinical Indication: - chest pain Comparison: November 05, 2016 FINDINGS: The frontal chest radiograph shows decreased lung volumes without interstitial or airspace opacities, pleural effusions or pneumothorax. The cardiomediastinal contours are normal for the age of the patient with aortic tortuosity. There are sternal wires present. IMPRESSION: No chest radiographic evidence of acute cardiopulmonary disease. SL: 82 11/26/2016 - - Read by: Josesito Andino MD Dictated Date/time: 11/26/16 04:33 Electronically Signed by: Josesito Andino MD 11/26/16 04:33 FINAL REPORT [facility] CHEM PANEL eGFR 47 mL/min/1.73m2 11/06/2016 Result Comment: The eGFR is calculated using the CKD-EPI formula. In most young, healthy individuals the eGFR will be >90 mL/min/1.73m2. The eGFR declines with age. An eGFR of 60-89 may be normal in some populations, particularly the elderly, for whom the CKD-EPI formula has not been extensively validated. Use of the eGFR is not recommended in the following populations: Individuals with unstable creatinine concentrations, including patients and those with serious co-morbid conditions. Patients with extremes in muscle mass or diet. The data above are obtained from the National Kidney Disease Education Program (NKDEP) which additionally recommends that when the eGFR is used in patients with extremes of body mass index for purposes of drug dosing, the eGFR should be multiplied by the estimated BMI. [facility] CHEM PANEL Sodium Lvl 140 meq/L 135 - 145 11/06/2016 [facility] CHEM PANEL Chloride Lvl 108 meq/L 95 - 109 11/06/2016 [facility] CHEM PANEL Potassium Lvl 5.0 meq/L 3.5 - 5.1 11/06/2016 [facility] CHEM PANEL Glucose Lvl 136 mg/dL 70 - 99 11/06/2016 [facility] CHEM PANEL BUN 28 mg/dL 7 - 22 11/06/2016 [facility] CHEM PANEL CO2 25 meq/L 24 - 32 11/06/2016 [facility] CHEM PANEL Creatinine Lvl 1.20 mg/dL 0.50 - 1.40 11/06/2016 [facility] CHEM PANEL Calcium Lvl 9.1 mg/dL 8.5 - 10.5 11/06/2016 [facility] CHEM PANEL AGAP 12.0 meq/L 10.0 - 20.0 11/06/2016 [facility] MPV 9.5 fL 7.4 - 10.4 11/06/2016 [facility] Platelet 120 K/CMM 133 - 450 11/06/2016 [facility] MCHC 33.5 g/dL 32.0 - 36.0 11/06/2016 [facility] RDW 15.8 % 11.5 - 14.5 11/06/2016 [facility] MCH 32.0 pg 27.0 - 31.0 11/06/2016 [facility] MCV 95.5 fL 80.0 - 98.0 11/06/2016 [facility] Hgb 13.4 g/dL 12.0 - 16.0 11/06/2016 [facility] WBC 9.2 K/CMM 3.7 - 10.4 11/06/2016 [facility] RBC 4.17 M/CMM 4.20 - 5.40 11/06/2016 [facility] Hct 39.8 % 36.0 - 48.0 11/06/2016 [facility] Eosinophils # 0.1 K/CMM 0.0 - 0.5 11/06/2016 [facility] HEMATOLOGY Monocytes # 0.7 K/CMM 0.0 - 0.8 11/06/2016 [facility] HEMATOLOGY Lymphocytes # 1.9 K/CMM 1.0 - 5.5 11/06/2016 [facility] HEMATOLOGY Segs-Bands # 6.5 K/CMM 1.5 - 8.1 11/06/2016 [facility] Basophils 0.5 % 0.0 - 1.0 11/06/2016 [facility] Eosinophils 0.9 % 0.0 - 4.0 11/06/2016 [facility] Monocytes 7.6 % 2.0 - 12.0 11/06/2016 [facility] Lymphocytes 20.3 % 20.0 - 40.0 11/06/2016 [facility] Segs 70.7 % 45.0 - 75.0 11/06/2016 [facility] CHEM PANEL Creatinine Lvl 1.00 mg/dL 0.50 - 1.40 11/06/2016 [facility] CHEM PANEL eGFR 59 mL/min/1.73m2 11/06/2016 Result Comment: The eGFR is calculated using the CKD-EPI formula. In most young, healthy individuals the eGFR will be >90 mL/min/1.73m2. The eGFR declines with age. An eGFR of 60-89 may be normal in some populations, particularly the elderly, for whom the CKD-EPI formula has not been extensively validated. Use of the eGFR is not recommended in the following populations: Individuals with unstable creatinine concentrations, including patients and those with serious co-morbid conditions. Patients with extremes in muscle mass or diet. The data above are obtained from the National Kidney Disease Education Program (NKDEP) which additionally recommends that when the eGFR is used in patients with extremes of body mass index for purposes of drug dosing, the eGFR should be multiplied by the estimated BMI. [facility] Hgb 13.8 g/dL 12.0 - 16.0 11/06/2016 [facility] URINE AND STOOL UA Urobilinogen <=1.0 mg/dL 0.1 - 1.0 11/05/2016 [facility] URINE AND STOOL UA Color Ltyellow 11/05/2016 [facility] URINE AND STOOL UA Bacteria Occasional /HPF None Seen /HPF 11/05/2016 [facility] URINE AND STOOL UA RBC 1 /HPF 0 - 2 11/05/2016 [facility] URINE AND STOOL UA WBC 1 /HPF 0 - 5 11/05/2016 [facility] URINE AND STOOL UA Sq Epi Occasional /LPF Few /LPF 11/05/2016 [facility] URINE AND STOOL UA Leuk Est Negative (11/05/16 8:41 AM) Negative 11/05/2016 [facility] URINE AND STOOL UA pH 5.0 5.0 - 8.0 11/05/2016 [facility] URINE AND STOOL UA Bili Negative *NA* (11/05/16 8:41 AM) Negative 11/05/2016 [facility] URINE AND STOOL UA Ketones Negative mg/dL Negative mg/dL 11/05/2016 [facility] URINE AND STOOL UA Glucose Negative mg/dL Negative mg/dL 11/05/2016 [facility] URINE AND STOOL UA Protein Negative mg/dL Negative mg/dL 11/05/2016 [facility] URINE AND STOOL UA Nitrite Negative (11/05/16 8:41 AM) Negative 11/05/2016 [facility] URINE AND STOOL UA Blood Small *ABN* (11/05/16 8:41 AM) Negative 11/05/2016 [facility] URINE AND STOOL UA Spec Grav 1.013 <=1.030 11/05/2016 [facility] URINE AND STOOL UA Turbidity Clear (11/05/16 8:41 AM) Clear 11/05/2016 [facility] CARDIAC ENZYMES Total CK 95 unit/L 12 - 191 11/05/2016 [facility] CARDIAC ENZYMES Troponin-I null 0.00 - 0.40 11/05/2016 [facility] CARDIAC ENZYMES CK MB 2.1 ng/mL 0.5 - 3.6 11/05/2016 [facility] CARDIAC ENZYMES CK MB Index 2.2 0.0 - 2.5 11/05/2016 [facility] CHEM PANEL Lipase Lvl 103 unit/L 73 - 393 11/05/2016 [facility] CHEM PANEL Magnesium Lvl 2.2 mg/dL 1.8 - 2.4 11/05/2016 [facility] ELECTROLYTES AGAP 12.5 meq/L 10.0 - 20.0 11/05/2016 [facility] ELECTROLYTES B/C Ratio 29 6 - 25 11/05/2016 [facility] ELECTROLYTES eGFR 43 mL/min/1.73m2 11/05/2016 Result Comment: The eGFR is calculated using the CKD-EPI formula. In most young, healthy individuals the eGFR will be >90 mL/min/1.73m2. The eGFR declines with age. An eGFR of 60-89 may be normal in some populations, particularly the elderly, for whom the CKD-EPI formula has not been extensively validated. Use of the eGFR is not recommended in the following populations: Individuals with unstable creatinine concentrations, including patients and those with serious co-morbid conditions. Patients with extremes in muscle mass or diet. The data above are obtained from the National Kidney Disease Education Program (NKDEP) which additionally recommends that when the eGFR is used in patients with extremes of body mass index for purposes of drug dosing, the eGFR should be multiplied by the estimated BMI. [facility] ELECTROLYTES Globulin 3.8 g/dL 2.7 - 4.2 11/05/2016 [facility] ELECTROLYTES A/G Ratio 0.9 0.7 - 1.6 11/05/2016 [facility] ELECTROLYTES ALT 20 unit/L 0 - 65 11/05/2016 [facility] Albumin Lvl 3.4 g/dL 3.5 - 5.0 11/05/2016 [facility] ELECTROLYTES Bili Total 0.4 mg/dL 0.2 - 1.3 11/05/2016 [facility] ELECTROLYTES AST 15 unit/L 0 - 37 11/05/2016 [facility] ELECTROLYTES Alk Phos 84 unit/L 39 - 136 11/05/2016 [facility] ELECTROLYTES Chloride Lvl 106 meq/L 95 - 109 11/05/2016 [facility] ELECTROLYTES CO2 26 meq/L 24 - 32 11/05/2016 [facility] ELECTROLYTES Potassium Lvl 4.5 meq/L 3.5 - 5.1 11/05/2016 [facility] ELECTROLYTES Calcium Lvl 9.6 mg/dL 8.5 - 10.5 11/05/2016 [facility] ELECTROLYTES Total Protein 7.2 g/dL 6.4 - 8.4 11/05/2016 [facility] ELECTROLYTES Creatinine Lvl 1.30 mg/dL 0.50 - 1.40 11/05/2016 [facility] ELECTROLYTES Sodium Lvl 140 meq/L 135 - 145 11/05/2016 [facility] ELECTROLYTES BUN 38 mg/dL 7 - 22 11/05/2016 [facility] ELECTROLYTES Glucose Lvl 160 mg/dL 70 - 99 11/05/2016 [facility] PTT 33.1 s 22.9 - 35.8 11/05/2016 [facility] PT 14.0 s 12.0 - 14.7 11/05/2016 [facility] INR 1.06 0.85 - 1.17 11/05/2016 [facility] Platelet 210 K/CMM 133 - 450 11/05/2016 [facility] MPV 9.4 fL 7.4 - 10.4 11/05/2016 [facility] RDW 15.7 % 11.5 - 14.5 11/05/2016 [facility] MCHC 33.4 g/dL 32.0 - 36.0 11/05/2016 [facility] MCV 95.8 fL 80.0 - 98.0 11/05/2016 [facility] MCH 32.0 pg 27.0 - 31.0 11/05/2016 [facility] RBC 4.41 M/CMM 4.20 - 5.40 11/05/2016 [facility] Hgb 14.1 g/dL 12.0 - 16.0 11/05/2016 [facility] WBC 7.9 K/CMM 3.7 - 10.4 11/05/2016 [facility] Hct 42.2 % 36.0 - 48.0 11/05/2016 [facility] Lymphocytes # 2.2 K/CMM 1.0 - 5.5 11/05/2016 [facility] Monocytes # 0.5 K/CMM 0.0 - 0.8 11/05/2016 [facility] HEMATOLOGY Segs 62.6 % 45.0 - 75.0 11/05/2016 [facility] Segs-Bands # 5.0 K/CMM 1.5 - 8.1 11/05/2016 [facility] HEMATOLOGY Eosinophils 2.6 % 0.0 - 4.0 11/05/2016 [facility] HEMATOLOGY Basophils 0.6 % 0.0 - 1.0 11/05/2016 [facility] Monocytes 6.1 % 2.0 - 12.0 11/05/2016 [facility] Eosinophils # 0.2 K/CMM 0.0 - 0.5 11/05/2016 [facility] Lymphocytes 28.1 % 20.0 - 40.0 11/05/2016 [facility] Chest 1view DX Chest 1view DX Chest, single view dated 11/05/2016. HISTORY: Acute chest pain. Comparison is made to a prior study dated 08/14/2016. The patient is status post median sternotomy. The heart is normal in size. The cardiomediastinal shadow is stable. Lung volumes are decreased. No acute pulmonary or pleural space abnormalities are identified. The pulmonary vasculature is normal in caliber. IMPRESSION: 1. No radiographic evidence of acute cardiopulmonary disease. SL: [id number] 11/05/2016 - - Read by: Jose Peters MD Dictated Date/time: 11/05/16 07:20 Electronically Signed by: Jose Peters MD 11/05/16 07:21 FINAL REPORT [facility] URINE AND STOOL UA Color Ltyellow 08/14/2016 [facility] URINE [facility] STOOL UA Urobilinogen <=1.0 mg/dL 0.1 - 1.0 08/14/2016 [facility] URINE AND STOOL UA Bacteria Many /HPF None Seen /HPF 08/14/2016 [facility]INE [facility] STOOL UA RBC 2 /HPF 0 - 2 08/14/2016 [facility]INE [facility] STOOL UA WBC 6 /HPF 0 - 5 08/14/2016 [facility] URINE [facility] STOOL UA Blood Small *ABN* (08/14/16 1:12 PM) Negative 08/14/2016 [facility] URINE AND STOOL UA Bili Negative *NA* (08/14/16 1:12 PM) Negative 08/14/2016 [facility] URINE AND STOOL UA Nitrite Negative (08/14/16 1:12 PM) Negative 08/14/2016 [facility] URINE AND STOOL UA Sq Epi Occasional /LPF Few /LPF 08/14/2016 [facility] URINE AND STOOL UA Leuk Est Moderate *ABN* (08/14/16 1:12 PM) Negative 08/14/2016 [facility] URINE AND STOOL UA Turbidity Clear (08/14/16 1:12 PM) Clear 08/14/2016 [facility] URINE AND STOOL UA pH 5.0 5.0 - 8.0 08/14/2016 [facility] URINE AND STOOL UA Ketones Negative mg/dL Negative mg/dL 08/14/2016 [facility] URINE AND STOOL UA Spec Grav 1.012 <=1.030 08/14/2016 [facility] URINE AND STOOL UA Protein Negative mg/dL Negative mg/dL 08/14/2016 [facility] URINE AND STOOL UA Glucose Negative mg/dL Negative mg/dL 08/14/2016 [facility] CARDIAC ENZYMES CK MB Index 3.6 0.0 - 2.5 08/14/2016 [facility] CARDIAC ENZYMES CK MB 2.4 ng/mL 0.5 - 3.6 08/14/2016 [facility] CARDIAC ENZYMES Troponin-I null 0.00 - 0.40 08/14/2016 [facility] CARDIAC ENZYMES Total CK 66 unit/L 12 - 191 08/14/2016 [facility] CHEM PANEL eGFR 39 mL/min/1.73m2 08/14/2016 Result Comment: The eGFR is calculated using the CKD-EPI formula. In most young, healthy individuals the eGFR will be >90 mL/min/1.73m2. The eGFR declines with age. An eGFR of 60-89 may be normal in some populations, particularly the elderly, for whom the CKD-EPI formula has not been extensively validated. Use of the eGFR is not recommended in the following populations: Individuals with unstable creatinine concentrations, including patients and those with serious co-morbid conditions. Patients with extremes in muscle mass or diet. The data above are obtained from the National Kidney Disease Education Program (NKDEP) which additionally recommends that when the eGFR is used in patients with extremes of body mass index for purposes of drug dosing, the eGFR should be multiplied by the estimated BMI. [facility] CHEM PANEL Chloride Lvl 105 meq/L 95 - 109 08/14/2016 [facility] CHEM PANEL CO2 30 meq/L 24 - 32 08/14/2016 [facility] CHEM PANEL Albumin Lvl 3.6 g/dL 3.5 - 5.0 08/14/2016 [facility] CHEM PANEL A/G Ratio 1.0 0.7 - 1.6 08/14/2016 [facility] CHEM PANEL B/C Ratio 21 6 - 25 08/14/2016 [facility] CHEM PANEL Potassium Lvl 4.4 meq/L 3.5 - 5.1 08/14/2016 [facility] CHEM PANEL Alk Phos 77 unit/L 39 - 136 08/14/2016 [facility] CHEM PANEL AST 24 unit/L 0 - 37 08/14/2016 [facility] CHEM PANEL Globulin 3.6 g/dL 2.7 - 4.2 08/14/2016 [facility] CHEM PANEL Bili Total 0.6 mg/dL 0.2 - 1.3 08/14/2016 [facility] CHEM PANEL AGAP 10.4 meq/L 10.0 - 20.0 08/14/2016 [facility] CHEM PANEL ALT 35 unit/L 0 - 65 08/14/2016 [facility] CHEM PANEL Total Protein 7.2 g/dL 6.4 - 8.4 08/14/2016 [facility] CHEM PANEL Calcium Lvl 9.3 mg/dL 8.5 - 10.5 08/14/2016 [facility] CHEM PANEL Creatinine Lvl 1.40 mg/dL 0.50 - 1.40 08/14/2016 [facility] CHEM PANEL Glucose Lvl 79 mg/dL 70 - 99 08/14/2016 [facility] CHEM PANEL Sodium Lvl 141 meq/L 135 - 145 08/14/2016 [facility] CHEM PANEL BUN 30 mg/dL 7 - 22 08/14/2016 [facility] HEMATOLOGY Eosinophils # 0.1 K/CMM 0.0 - 0.5 08/14/2016 [facility] HEMATOLOGY Monocytes # 0.5 K/CMM 0.0 - 0.8 08/14/2016 [facility] HEMATOLOGY Segs-Bands # 3.9 K/CMM 1.5 - 8.1 08/14/2016 [facility] HEMATOLOGY Basophils 0.4 % 0.0 - 1.0 08/14/2016 [facility] Lymphocytes # 1.8 K/CMM 1.0 - 5.5 08/14/2016 [facility] HEMATOLOGY Eosinophils 1.3 % 0.0 - 4.0 08/14/2016 [facility] HEMATOLOGY Monocytes 8.1 % 2.0 - 12.0 08/14/2016 [facility] Lymphocytes 28.4 % 20.0 - 40.0 08/14/2016 [facility] Segs 61.8 % 45.0 - 75.0 08/14/2016 [facility] INR 0.89 0.85 - 1.17 08/14/2016 [facility] HEMATOLOGY PT 12.2 s 12.0 - 14.7 08/14/2016 [facility] MPV 9.9 fL 7.4 - 10.4 08/14/2016 [facility] Hgb 14.6 g/dL 12.0 - 16.0 08/14/2016 [facility] RBC 4.73 M/CMM 4.20 - 5.40 08/14/2016 [facility] Platelet 166 K/CMM 133 - 450 08/14/2016 [facility] Hct 44.7 % 36.0 - 48.0 08/14/2016 [facility] MCHC 32.7 g/dL 32.0 - 36.0 08/14/2016 [facility] MCV 94.4 fL 80.0 - 98.0 08/14/2016 [facility] RDW 15.3 % 11.5 - 14.5 08/14/2016 [facility] MCH 30.9 pg 27.0 - 31.0 08/14/2016 [facility] WBC 6.2 K/CMM 3.7 - 10.4 08/14/2016 [facility] PTT 33.2 s 22.9 - 35.8 08/14/2016 [facility] Chest 1view DX Chest 1view DX Patient Name: LALITHA POSEY : 1950; Age: 65 years y/o Female MR: [id number] Study: Chest 1view DX 08/14/2016 11:07 AM CDT Ordering Physician: Sue Richmond MD Comparison: 02/08/2016 Clinical Indication: - cp; chest pain A few scattered interstitial opacities and granulomatous calcifications are noted bilaterally, nonspecific, likely chronic. The cardiomediastinal silhouette is normal accentuated by portable technique. Sternotomy wires are present. There is no acute consolidation or pleural fluid collection noted. Nonspecific elevation of the right hemidiaphragm relative to the left is noted unchanged from the previous exam. No pneumothorax or pulmonary venous vascular congestion. The bony thorax appears grossly intact. IMPRESSION: No acute cardiopulmonary process and no significant interval change from the previous exam. SL: [id number] 08/14/2016 - - Read by: Steve Rai MD Dictated Date/time: 08/14/16 11:41 Electronically Signed by: Steve Rai MD 08/14/16 11:42 FINAL REPORT [facility] Soft Tissue Head/Neck US Soft Tissue Head/Neck US Patient Name: LALITHA POSEY : 1950; Age: 65 years Female MR: [id number] Study: Soft Tissue Head/Neck US 08/05/2016 10:58 AM CDT CLINICAL INDICATION: lump on right side of neck - lump on right side of neck. COMPARISON: None TECHNIQUE: Limited sonographic evaluation of the right neck was performed. FINDINGS: Patient describes a palpable area within the right submandibular region. Two homogeneously echogenic structures within the right submandibular region measure approximately 5.2 x 1.9 x 2.9 cm and 3.6 x 2.3 x 2.9 cm. This is most suggestive of an enlarged submandibular gland. No discrete submandibular mass or fluid collection. Comparison images of the left neck demonstrate a smaller left submandibular gland, measuring 2.9 x 1.3 x 2.6 cm. IMPRESSION: Suspect an asymmetrically enlarged right submandibular gland. Consider CT neck for further characterization. SL: [id number] 08/05/2016 - - Read by: Grace Dong MD Dictated Date/time: 08/05/16 14:19 Electronically Signed by: Grace Dong MD 08/05/16 14:23 FINAL REPORT [facility] Thyroid US Thyroid US Patient Name: LALITHA POSEY : 1950; Age: 65 years Female MR: [id number] Study: Thyroid US 08/05/2016 10:40 AM CDT CLINICAL INDICATION: E03.9 Hypothyroidism, unspecified - lump on right side of neck ADDITIONAL HISTORY: None COMPARISON: None TECHNIQUE: Grayscale and limited color sonographic evaluation of the thyroid was performed using standard technique. FINDINGS: The right thyroid gland measures 4.5 x 1.6 x 1.6 cm. The left thyroid gland measures 4.5 x 1.2 x 1.3 cm. The thyroid isthmus measures 0.36 cm. Normal bilateral thyroid gland contour and echogenicity. No evidence of solid or cystic nodules. No adjacent jugular chain lymphadenopathy. IMPRESSION: Unremarkable thyroid ultrasound. SL: [id number] 08/05/2016 - - Read by: Grace Dong MD Dictated Date/time: 08/05/16 14:18 Electronically Signed by: Grace Dong MD 08/05/16 14:19 FINAL REPORT [facility] Spine lumbar wo contrast MRI Spine lumbar wo contrast MRI Clinical Indication: M54.16 Radiculopathy, lumbar region - lower back pain radiates to the left leg. H/O of a fall and compression fx. Osama Comparison: 07/27/2014 TECHNIQUE: Multiplanar T1, T2, STIR weighted noncontrast MRI of the lumbar spine is performed on the 1.5 Rochelle magnet. FINDINGS: ALIGNMENT AND GENERAL ASSESSMENT: There is 2 mm retrolisthesis L5 on S1. There is otherwise normal alignment of the lumbar spine. The bone marrow is normal for the patient's age. There is mild stable cardiac superior plate compression deformity of L1 with 25% height loss to the anterior aspects of vertebral body. Mild chronic superior endplate compression concavities are noted at L3 and L4. There is no acute fracture. The anterior and posterior paraspinal soft tissues are normal. The conus medullaris ends at the L1 level. For the sake of nomenclature, five lumbar vertebrae are assumed. DISC SPACES: T12-L1: The disc is normal. There is no central or foraminal stenosis. The facet joints are unremarkable. L1-L2: The disc is normal. There is no central or foraminal stenosis. The facet joints are unremarkable. L2-L3: There is minimal generalized disc bulging. There is mild facet hypertrophy. There is no significant spinal canal or foraminal stenosis. L3-L4: There is minimal generalized disc bulging. There is mild to moderate facet hypertrophy and mild ligamentum flavum thickening. No significant spinal canal or foraminal stenosis. L4-L5: There is small right foraminal disc protrusion measuring 13 mm transverse by 3 mm AP. There is moderate bilateral facet hypertrophy. There is mild right lateral recess stenosis and mild right foraminal stenosis. There is no spinal canal or left foraminal stenosis. L5-S1: Prior left laminectomy changes are suspected. There is a mild circumferential disc/osteophyte complex, asymmetrically worse in the left foraminal and extraforaminal aspects. There is mild facet hypertrophy. There is mild left lateral recess stenosis and severe left foraminal stenosis. There is mild right foraminal stenosis. There is no significant spinal canal stenosis. IMPRESSION: 1. Mild circumferential disc/osteophyte complex at L5-S1, asymmetrically worse in the left foraminal aspects. This combines with facet hypertrophy to cause mild left lateral recess stenosis and severe left foraminal stenosis. Mild right foraminal stenosis also present at this level. 2. Small broad-based right foraminal disc protrusion at L4-L5 which combines with moderate facet hypertrophy to cause mild right lateral recess stenosis and mild right foraminal stenosis. SL: [id number] 07/11/2016 - - Read by: Corazon Bocanegra DO Dictated Date/time: 07/12/16 08:14 Electronically Signed by: Corazon Bocanegra DO 07/12/16 08:23 FINAL REPORT [facility] Hip w/wo contrast MRI Hip w/wo contrast MRI EXAM: Left Hip w/wo contrast MRI DATE: 06/16/2016 11:55 AM CDT INDICATION: G62.9 Polyneuropathy, unspecified Pain. COMPARISON: None available TECHNIQUE: Multiplanar multisequence imaging of the left hip and large [id number]-[id number] pelvis was performed with and without contrast. The nerves are evaluated from the sacroiliac joint to the level of the ischial tuberosity. CONTRAST: Dotarem 20 mL IV. DISCUSSION: Left hip: Mild degenerative changes are seen involving the left hip with cartilage fissuring and thinning in the superior weightbearing zone. Small subchondral areas of edema seen involving the left femoral head. Thinning of cartilage in the posterior medial weightbearing surface of the acetabulum is also present. Mild synovitis is present with multiple small para labral cyst formation in the anteroinferior quadrant of the left hip. There is also some subchondral cystic changes in this region. Tendinosis is seen at the left hamstring origin promptly affecting the semimembranosus (series 4 image 4). Small amount of edema is also seen involving the quadratus femoris muscle. Numerous structures: Within the limits of the examination, no significant abnormalities identified involving the left sciatic nerve on the left femoral nail. No perineural edema or fluid collections. No obvious areas of narrowing is identified. With administration of contrast: No abnormal areas of enhancement is identified. In particular no perineural abnormalities visualized. Other structures: Bilateral sacral joints, visualized muscles and pubic symphysis is normal. No evidence of atrophy or denervation edema. IMPRESSION: 1. 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 2. Cartilage fissuring and thinning of the superior weightbearing zone as well as the medial acetabulum. 3. Para labral cyst formation and subchondral cystic changes in the anteroinferior acetabulum. 4. Small joint effusion with mild synovitis. 5. No abnormality of the visualized sciatic and femoral nerves. 6. Tendinosis of the left hamstring origin of the patient tuberosity. 7. Quadratus femoris muscle edema. Please correlate for impingement. If warranted a dedicated magnetic resonance imaging neurography protocol can be performed to evaluate the various nerves of the pelvis and of the left hip ,left thigh and knee. . 06/16/2016 - - Read by: Anna Alvarez MD Dictated Date/time: 06/16/16 16:57 Electronically Signed by: Anna Alvarez MD 06/16/16 17:19 FINAL REPORT [facility] CARDIAC ENZYMES CK MB Index 2.2 0.0 - 2.5 02/08/2016 [facility] CARDIAC ENZYMES Troponin-I null 0.00 - 0.40 02/08/2016 [facility] CARDIAC ENZYMES CK MB 2.7 ng/mL 0.5 - 3.6 02/08/2016 [facility] CARDIAC ENZYMES Total CK 122 unit/L 12 - 191 02/08/2016 [facility] CARDIAC ENZYMES BNP 19 pg/mL <=100 pg/mL 02/08/2016 [facility] URINE AND STOOL UA Color Ltyellow 02/08/2016 [facility] URINE AND STOOL UA Urobilinogen <=1.0 mg/dL 0.1 - 1.0 02/08/2016 [facility] URINE AND STOOL UA Mucus Few /LPF None Seen /LPF 02/08/2016 [facility] URINE AND STOOL UA Protein Negative mg/dL Negative mg/dL 02/08/2016 [facility] URINE AND STOOL UA pH 5.0 5.0 - 8.0 02/08/2016 [facility] URINE AND STOOL UA Glucose Negative mg/dL Negative mg/dL 02/08/2016 [facility] URINE AND STOOL UA Bili Negative *NA* (02/08/16 11:09 AM) Negative 02/08/2016 [facility] URINE AND STOOL UA Ketones Negative mg/dL Negative mg/dL 02/08/2016 [facility] URINE AND STOOL UA Blood Negative (02/08/16 11:09 AM) Negative 02/08/2016 [facility] URINE AND STOOL UA Sq Epi Occasional /LPF Few /LPF 02/08/2016 [facility] URINE AND STOOL UA Nitrite Negative (02/08/16 11:09 AM) Negative 02/08/2016 [facility] URINE AND STOOL UA Leuk Est Small *ABN* (02/08/16 11:09 AM) Negative 02/08/2016 [facility] URINE AND STOOL UA RBC 1 /HPF 0 - 2 02/08/2016 [facility] URINE AND STOOL UA WBC 4 /HPF 0 - 5 02/08/2016 [facility] URINE AND STOOL UA Bacteria Moderate /HPF None Seen /HPF 02/08/2016 [facility] URINE AND STOOL UA Turbidity Clear (02/08/16 11:09 AM) Clear 02/08/2016 [facility] URINE AND STOOL UA Spec Grav 1.016 <=1.030 02/08/2016 [facility] CARDIAC ENZYMES CK MB Index 2.3 0.0 - 2.5 02/08/2016 [facility] CARDIAC ENZYMES Total CK 141 unit/L 12 - 191 02/08/2016 [facility] CARDIAC ENZYMES Troponin-I null 0.00 - 0.40 02/08/2016 [facility] CARDIAC ENZYMES CK MB 3.2 ng/mL 0.5 - 3.6 02/08/2016 [facility] CHEM PANEL Magnesium Lvl 1.6 mg/dL 1.8 - 2.4 02/08/2016 [facility] CHEM PANEL Phosphorus 4.2 mg/dL 2.5 - 4.5 02/08/2016 [facility] CHEM PANEL Glucose Lvl 137 mg/dL 70 - 99 02/08/2016 [facility] CHEM PANEL BUN 38 mg/dL 7 - 22 02/08/2016 [facility] CHEM PANEL Creatinine Lvl 1.40 mg/dL 0.50 - 1.40 02/08/2016 [facility] CHEM PANEL Chloride Lvl 107 meq/L 95 - 109 02/08/2016 [facility] CHEM PANEL CO2 22 meq/L 24 - 32 02/08/2016 [facility] CHEM PANEL Potassium Lvl 4.3 meq/L 3.5 - 5.1 02/08/2016 [facility] CHEM PANEL Albumin Lvl 3.6 g/dL 3.5 - 5.0 02/08/2016 [facility] CHEM PANEL Calcium Lvl 9.0 mg/dL 8.5 - 10.5 02/08/2016 [facility] CHEM PANEL Total Protein 7.3 g/dL 6.4 - 8.4 02/08/2016 [facility] CHEM PANEL Sodium Lvl 140 meq/L 135 - 145 02/08/2016 [facility] CHEM PANEL ALT 28 unit/L 0 - 65 02/08/2016 [facility] CHEM PANEL AST 22 unit/L 0 - 37 02/08/2016 [facility] CHEM PANEL eGFR 39 mL/min/1.73m2 02/08/2016 Result Comment: The eGFR is calculated using the CKD-EPI formula. In most young, healthy individuals the eGFR will be >90 mL/min/1.73m2. The eGFR declines with age. An eGFR of 60-89 may be normal in some populations, particularly the elderly, for whom the CKD-EPI formula has not been extensively validated. Use of the eGFR is not recommended in the following populations: Individuals with unstable creatinine concentrations, including patients and those with serious co-morbid conditions. Patients with extremes in muscle mass or diet. The data above are obtained from the National Kidney Disease Education Program (NKDEP) which additionally recommends that when the eGFR is used in patients with extremes of body mass index for purposes of drug dosing, the eGFR should be multiplied by the estimated BMI. [facility] CHEM PANEL A/G Ratio 1.0 0.7 - 1.6 02/08/2016 [facility] CHEM PANEL Globulin 3.7 g/dL 2.7 - 4.2 02/08/2016 [facility] CHEM PANEL AGAP 15.3 meq/L 10.0 - 20.0 02/08/2016 [facility] CHEM PANEL B/C Ratio 27 6 - 25 02/08/2016 [facility] CHEM PANEL Alk Phos 81 unit/L 39 - 136 02/08/2016 [facility] CHEM PANEL Bili Total 0.5 mg/dL 0.2 - 1.3 02/08/2016 [facility] HEMATOLOGY Basophils # 0.1 K/CMM 0.0 - 0.2 02/08/2016 [facility] HEMATOLOGY Monocytes 8.9 % 2.0 - 12.0 02/08/2016 [facility] HEMATOLOGY Eosinophils 2.6 % 0.0 - 4.0 02/08/2016 [facility] HEMATOLOGY Eosinophils # 0.3 K/CMM 0.0 - 0.5 02/08/2016 [facility] HEMATOLOGY Plt Morph Normal (02/08/16 6:44 AM) 02/08/2016 [facility] HEMATOLOGY Segs 51.3 % 45.0 - 75.0 02/08/2016 [facility] HEMATOLOGY Lymphocytes 36.1 % 20.0 - 40.0 02/08/2016 [facility] HEMATOLOGY Lymphocytes # 3.8 K/CMM 1.0 - 5.5 02/08/2016 [facility] HEMATOLOGY Basophils 1.1 % 0.0 - 1.0 02/08/2016 [facility] HEMATOLOGY Segs-Bands # 5.3 K/CMM 1.5 - 8.1 02/08/2016 [facility] Monocytes # 0.9 K/CMM 0.0 - 0.8 02/08/2016 [facility] HEMATOLOGY PT 12.7 s 12.0 - 14.7 02/08/2016 [facility] HEMATOLOGY INR 0.93 0.85 - 1.17 02/08/2016 [facility] PTT 23.7 s 22.9 - 35.8 02/08/2016 [facility] Platelet 152 K/CMM 133 - 450 02/08/2016 [facility] MPV 10.0 fL 7.4 - 10.4 02/08/2016 [facility] Hgb 14.1 g/dL 12.0 - 16.0 02/08/2016 [facility] Hct 42.7 % 36.0 - 48.0 02/08/2016 [facility] MCHC 33.0 g/dL 32.0 - 36.0 02/08/2016 [facility] RBC 4.62 M/CMM 4.20 - 5.40 02/08/2016 [facility] RDW 15.5 % 11.5 - 14.5 02/08/2016 [facility] MCV 92.5 fL 80.0 - 98.0 02/08/2016 [facility] WBC 10.4 K/CMM 3.7 - 10.4 02/08/2016 [facility] MCH 30.5 pg 27.0 - 31.0 02/08/2016 [facility] Chest 1view DX Chest 1view DX Patient Name: LALITHA POSEY : 1950; Age: 65 years y/o Female MR: [id number] Study: Chest 1view DX 02/08/2016 6:35 AM [employer] Ordering Physician: Shady Singleton, DO Comparison: 11/20/2015 Clinical Indication: Chest pain; Nonspecific elevation of the right hemidiaphragm relative to the left. Postoperative changes at the sternum. Vascular calcification at the thoracic aortic arch. A few scattered interstitial opacities and granulomatous calcifications are noted bilaterally, nonspecific, likely chronic. The cardiomediastinal silhouette is otherwise normal. There is no acute consolidation or pleural fluid collection noted. IMPRESSION: No acute cardiopulmonary process. No significant interval change from the previous exam. SL: [id number] 02/08/2016 - - Read by: Steve Rai MD Dictated Date/time: 02/08/16 06:53 Electronically Signed by: Steve Rai MD 02/08/16 06:55 FINAL REPORT [facility] Spine lumbar wo contrast CT Spine lumbar wo contrast CT Patient Name: LALITHA POSEY : 1950; Age: 65 years Female MR: [id number] Study: Spine lumbar wo contrast CT 01/18/2016 10:43 AM [employer] CLINICAL INDICATION: M54.16 Radiculopathy, lumbar region CTdose DLP 1101 COMPARISON: MR lumbar spine on 07/27/2014 TECHNIQUE: Multidetector CT imaging of the lumbar spine without IV contrast. Coronal and sagittal reconstructions were generated and reviewed. DLP: 1101 mGy-cm Alignment: Normal lordosis. No significant scoliosis. Soft tissues: No abnormalities. Vertebral bodies: Mild compression deformities of the L1 vertebral body (approximately 25% loss of height) and of the T12 vertebral body (approximately 10% loss of height). Mild depression of the superior endplate of the L3 vertebral body. No acute fracture. Disc spaces: T12-L1: Minimal disc bulge. No significant spinal canal or foraminal narrowing. L1-L2-: Minimal disc bulge. No significant spinal canal or foraminal narrowing. L2-L3: Mild disc bulge. No significant spinal canal or foraminal narrowing. L3-L4: Mild disc bulge. Minimal bilateral facet arthropathy. No significant spinal canal or foraminal narrowing. L4-L5: Small right foraminal posterior disc osteophyte and [id number] bilateral facet arthropathy. There is mild right foraminal stenosis. No significant spinal canal or left foraminal narrowing. L5-S1: Disc space narrowing associated with vacuum disc phenomena and endplate sclerosis. Small left foraminal posterior disc osteophyte. There is moderate left foraminal stenosis. No significant spinal canal or right foraminal narrowing. Impression: Mild chronic compression deformities of the T12 and L1 vertebral bodies. Moderate left foraminal stenosis at L5-S1. Mild right foraminal stenosis at L4-L5 01/18/2016 - - Read by: Grace Dong MD Dictated Date/time: 01/18/16 15:26 Electronically Signed by: Grace Dong MD 01/18/16 15:41 FINAL REPORT [facility] CHEM PANEL eGFR 53 mL/min/1.73m2 11/21/2015 Result Comment: The eGFR is calculated using the CKD-EPI formula. In most young, healthy individuals the eGFR will be >90 mL/min/1.73m2. The eGFR declines with age. An eGFR of 60-89 may be normal in some populations, particularly the elderly, for whom the CKD-EPI formula has not been extensively validated. Use of the eGFR is not recommended in the following populations: Individuals with unstable creatinine concentrations, including patients and those with serious co-morbid conditions. Patients with extremes in muscle mass or diet. The data above are obtained from the National Kidney Disease Education Program (NKDEP) which additionally recommends that when the eGFR is used in patients with extremes of body mass index for purposes of drug dosing, the eGFR should be multiplied by the estimated BMI. [facility] CHEM PANEL Creatinine Lvl 1.10 mg/dL 0.50 - 1.40 11/21/2015 [facility] CHEM PANEL BUN 25 mg/dL 7 - 22 11/21/2015 [facility] CHEM PANEL Glucose Lvl 91 mg/dL 70 - 99 11/21/2015 [facility] CHEM PANEL Potassium Lvl 3.9 meq/L 3.5 - 5.1 11/21/2015 [facility] CHEM PANEL Sodium Lvl 144 meq/L 135 - 145 11/21/2015 [facility] CHEM PANEL Chloride Lvl 112 meq/L 95 - 109 11/21/2015 [facility] CHEM PANEL CO2 23 meq/L 24 - 32 11/21/2015 [facility] CHEM PANEL AGAP 12.9 meq/L 10.0 - 20.0 11/21/2015 [facility] CHEM PANEL Calcium Lvl 7.8 mg/dL 8.5 - 10.5 11/21/2015 [facility] HEMATOLOGY Basophils 0.4 % 0.0 - 1.0 11/21/2015 [facility] HEMATOLOGY Segs-Bands # 2.6 K/CMM 1.5 - 8.1 11/21/2015 [facility] HEMATOLOGY Eosinophils # 0.1 K/CMM 0.0 - 0.5 11/21/2015 [facility] HEMATOLOGY Lymphocytes # 1.9 K/CMM 1.0 - 5.5 11/21/2015 [facility] HEMATOLOGY Monocytes # 0.7 K/CMM 0.0 - 0.8 11/21/2015 [facility] HEMATOLOGY Segs 49.5 % 45.0 - 75.0 11/21/2015 [facility] HEMATOLOGY Eosinophils 2.4 % 0.0 - 4.0 11/21/2015 [facility] HEMATOLOGY Monocytes 12.8 % 2.0 - 12.0 11/21/2015 [facility] HEMATOLOGY Lymphocytes 34.9 % 20.0 - 40.0 11/21/2015 [facility] HEMATOLOGY RBC 4.37 M/CMM 4.20 - 5.40 11/21/2015 [facility] HEMATOLOGY RDW 15.2 % 11.5 - 14.5 11/21/2015 [facility] HEMATOLOGY Platelet 152 K/CMM 133 - 450 11/21/2015 [facility] HEMATOLOGY MPV 9.7 fL 7.4 - 10.4 11/21/2015 [facility] HEMATOLOGY MCV 93.5 fL 80.0 - 98.0 11/21/2015 [facility] HEMATOLOGY Hgb 13.2 g/dL 12.0 - 16.0 11/21/2015 [facility] HEMATOLOGY MCH 30.1 pg 27.0 - 31.0 11/21/2015 [facility] HEMATOLOGY Hct 40.9 % 36.0 - 48.0 11/21/2015 [facility] HEMATOLOGY MCHC 32.2 g/dL 32.0 - 36.0 11/21/2015 [facility] HEMATOLOGY WBC 5.3 K/CMM 3.7 - 10.4 11/21/2015 [facility] CARDIAC ENZYMES Troponin-I null 0.00 - 0.40 11/21/2015 [facility] CARDIAC ENZYMES CK MB 1.4 ng/mL 0.5 - 3.6 11/21/2015 [facility] CARDIAC ENZYMES Total CK 53 unit/L 12 - 191 11/21/2015 [facility] CARDIAC ENZYMES Troponin-I null 0.00 - 0.40 11/20/2015 [facility] CARDIAC ENZYMES Total CK 61 unit/L 12 - 191 11/20/2015 [facility] CARDIAC ENZYMES CK MB 1.5 ng/mL 0.5 - 3.6 11/20/2015 [facility] URINE AND STOOL UA Spec Grav 1.017 <=1.030 11/20/2015 [facility] URINE AND STOOL UA Turbidity Clear (11/20/15 10:39 AM) Clear 11/20/2015 [facility] URINE AND STOOL UA Bili Negative *NA* (11/20/15 10:39 AM) Negative 11/20/2015 [facility] URINE AND STOOL UA Protein Negative mg/dL Negative mg/dL 11/20/2015 [facility] URINE AND STOOL UA Ketones Trace mg/dL Negative mg/dL 11/20/2015 [facility] URINE AND STOOL UA pH 5.0 5.0 - 8.0 11/20/2015 [facility] URINE AND STOOL UA Glucose Negative mg/dL Negative mg/dL 11/20/2015 [facility] URINE AND STOOL UA Leuk Est Negative (11/20/15 10:39 AM) Negative 11/20/2015 [facility] URINE AND STOOL UA WBC 5 /HPF 0 - 5 11/20/2015 [facility] URINE AND STOOL UA Nitrite Negative (11/20/15 10:39 AM) Negative 11/20/2015 [facility] URINE AND STOOL UA Sq Epi Occasional /LPF Few /LPF 11/20/2015 [facility] URINE AND STOOL UA Blood Negative (11/20/15 10:39 AM) Negative 11/20/2015 [facility] URINE AND STOOL UA Bacteria Occasional /HPF None Seen /HPF 11/20/2015 [facility] URINE AND STOOL UA RBC null 0 - 2 11/20/2015 [facility] URINE AND STOOL UA Color Ltyellow 11/20/2015 [facility] URINE AND STOOL UA Urobilinogen <=1.0 mg/dL 0.1 - 1.0 11/20/2015 [facility] CARDIAC ENZYMES CK MB Index 2.5 0.0 - 2.5 11/20/2015 [facility] CARDIAC ENZYMES Total CK 67 unit/L 12 - 191 11/20/2015 [facility] CARDIAC ENZYMES Troponin-I null 0.00 - 0.40 11/20/2015 [facility] CARDIAC ENZYMES CK MB 1.7 ng/mL 0.5 - 3.6 11/20/2015 [facility] CHEM PANEL eGFR 34 mL/min/1.73m2 11/20/2015 Result Comment: The eGFR is calculated using the CKD-EPI formula. In most young, healthy individuals the eGFR will be >90 mL/min/1.73m2. The eGFR declines with age. An eGFR of 60-89 may be normal in some populations, particularly the elderly, for whom the CKD-EPI formula has not been extensively validated. Use of the eGFR is not recommended in the following populations: Individuals with unstable creatinine concentrations, including patients and those with serious co-morbid conditions. Patients with extremes in muscle mass or diet. The data above are obtained from the National Kidney Disease Education Program (NKDEP) which additionally recommends that when the eGFR is used in patients with extremes of body mass index for purposes of drug dosing, the eGFR should be multiplied by the estimated BMI. [facility] CHEM PANEL CO2 20 meq/L 24 - 32 11/20/2015 [facility] CHEM PANEL Total Protein 6.7 g/dL 6.4 - 8.4 11/20/2015 [facility] CHEM PANEL Bili Total 0.4 mg/dL 0.2 - 1.3 11/20/2015 [facility] CHEM PANEL Chloride Lvl 106 meq/L 95 - 109 11/20/2015 [facility] CHEM PANEL Potassium Lvl 3.8 meq/L 3.5 - 5.1 11/20/2015 [facility] CHEM PANEL Calcium Lvl 8.8 mg/dL 8.5 - 10.5 11/20/2015 [facility] CHEM PANEL AGAP 16.8 meq/L 10.0 - 20.0 11/20/2015 [facility] CHEM PANEL B/C Ratio 29 6 - 25 11/20/2015 [facility] CHEM PANEL A/G Ratio 1.0 0.7 - 1.6 11/20/2015 [facility] CHEM PANEL Globulin 3.4 g/dL 2.7 - 4.2 11/20/2015 [facility] CHEM PANEL BUN 47 mg/dL 7 - 22 11/20/2015 [facility] CHEM PANEL Glucose Lvl 145 mg/dL 70 - 99 11/20/2015 [facility] CHEM PANEL ALT 30 unit/L 0 - 65 11/20/2015 [facility] CHEM PANEL Albumin Lvl 3.3 g/dL 3.5 - 5.0 11/20/2015 [facility] CHEM PANEL Alk Phos 81 unit/L 39 - 136 11/20/2015 [facility] CHEM PANEL AST 25 unit/L 0 - 37 11/20/2015 [facility] CHEM PANEL Creatinine Lvl 1.60 mg/dL 0.50 - 1.40 11/20/2015 [facility] CHEM PANEL Sodium Lvl 139 meq/L 135 - 145 11/20/2015 [facility] CHEM PANEL Magnesium Lvl 1.9 mg/dL 1.8 - 2.4 11/20/2015 [facility] CHEM PANEL Lipase Lvl 84 unit/L 73 - 393 11/20/2015 [facility] HEMATOLOGY Monocytes # 0.8 K/CMM 0.0 - 0.8 11/20/2015 [facility] HEMATOLOGY Segs 64.2 % 45.0 - 75.0 11/20/2015 [facility] HEMATOLOGY Eosinophils 1.6 % 0.0 - 4.0 11/20/2015 [facility] HEMATOLOGY Eosinophils # 0.1 K/CMM 0.0 - 0.5 11/20/2015 [facility] HEMATOLOGY Lymphocytes 22.8 % 20.0 - 40.0 11/20/2015 [facility] HEMATOLOGY Monocytes 11.1 % 2.0 - 12.0 11/20/2015 [facility] HEMATOLOGY Lymphocytes # 1.6 K/CMM 1.0 - 5.5 11/20/2015 [facility] Basophils 0.3 % 0.0 - 1.0 11/20/2015 [facility] Segs-Bands # 4.6 K/CMM 1.5 - 8.1 11/20/2015 [facility] MCHC 32.2 g/dL 32.0 - 36.0 11/20/2015 [facility] RDW 15.4 % 11.5 - 14.5 11/20/2015 [facility] Platelet 155 K/CMM 133 - 450 11/20/2015 [facility] MPV 10.0 fL 7.4 - 10.4 11/20/2015 [facility] Hgb 14.0 g/dL 12.0 - 16.0 11/20/2015 [facility] Hct 43.5 % 36.0 - 48.0 11/20/2015 [facility] WBC 7.2 K/CMM 3.7 - 10.4 11/20/2015 [facility] RBC 4.69 M/CMM 4.20 - 5.40 11/20/2015 [facility] MCV 92.8 fL 80.0 - 98.0 11/20/2015 [facility] MCH 29.9 pg 27.0 - 31.0 11/20/2015 [facility] PTT 33.6 s 22.9 - 35.8 11/20/2015 [facility] INR 1.06 0.85 - 1.17 11/20/2015 [facility] PT 14.0 s 12.0 - 14.7 11/20/2015 [facility] Chest 1view DX Chest 1view DX Clinical Indication:65 years Female with Chest pain Comparison: Chest x-ray 08/06/2015 FINDINGS: Lines: None. The single frontal chest radiograph shows diminished lung volumes. No interstitial or airspace opacities. No pleural effusion. No pneumothorax. Cardiac silhouette is stable. Pulmonary vasculature is normal. Intact median sternotomy wires The trachea is midline. There are no clinically significant osseous abnormalities noted. IMPRESSION: 1. No chest radiographic evidence of acute cardiopulmonary disease. 2. Low lung volumes. Stable appearance of the cardiac silhouette, size at the upper limit of normal. 11/20/2015 - - Read by: Praneeth Viveros MD Dictated Date/time: 11/20/15 07:29 Electronically Signed by: Praneeth Viveros MD 11/20/15 07:30 FINAL REPORT [facility] CARDIAC ENZYMES Total CK 76 unit/L 12 - 191 08/07/2015 [facility] CARDIAC ENZYMES Troponin-I null 0.00 - 0.40 08/07/2015 [facility] CARDIAC ENZYMES CK MB Index 2.6 0.0 - 2.5 08/07/2015 [facility] CARDIAC ENZYMES CK MB 2.0 ng/mL 0.5 - 3.6 08/07/2015 [facility] CHEM PANEL eGFR 50 mL/min/1.73m2 08/06/2015 Result Comment: The eGFR is calculated using the CKD-EPI formula. In most young, healthy individuals the eGFR will be >90 mL/min/1.73m2. The eGFR declines with age. An eGFR of 60-89 may be normal in some populations, particularly the elderly, for whom the CKD-EPI formula has not been extensively validated. Use of the eGFR is not recommended in the following populations: Individuals with unstable creatinine concentrations, including patients and those with serious co-morbid conditions. Patients with extremes in muscle mass or diet. The data above are obtained from the National Kidney Disease Education Program (NKDEP) which additionally recommends that when the eGFR is used in patients with extremes of body mass index for purposes of drug dosing, the eGFR should be multiplied by the estimated BMI. [facility] CHEM PANEL Creatinine Lvl 1.16 mg/dL 0.50 - 1.40 08/06/2015 [facility] HEMATOLOGY Platelet 140 K/CMM 133 - 450 08/06/2015 [facility] HEMATOLOGY PTT 34.0 s 22.9 - 35.8 08/06/2015 [facility] CARDIAC ENZYMES Total CK 79 unit/L 12 - 191 08/06/2015 [facility] CARDIAC ENZYMES Troponin-I null 0.00 - 0.40 08/06/2015 [facility] CARDIAC ENZYMES CK MB 2.8 ng/mL 0.5 - 3.6 08/06/2015 [facility] CARDIAC ENZYMES CK MB Index 3.5 0.0 - 2.5 08/06/2015 [facility] URINE AND STOOL UA Bacteria Occasional /HPF None Seen /HPF 08/06/2015 [facility] URINE AND STOOL UA Leuk Est Large *ABN* (08/06/15 10:13 AM) Negative 08/06/2015 [facility] URINE AND STOOL UA RBC 1 /HPF 0 - 2 08/06/2015 [facility] URINE AND STOOL UA WBC 12 /HPF 0 - 5 08/06/2015 [facility] URINE AND STOOL UA Sq Epi Occasional /LPF Few /LPF 08/06/2015 [facility] URINE AND STOOL UA Nitrite Negative (08/06/15 10:13 AM) Negative 08/06/2015 [facility] URINE AND STOOL UA Blood Small *ABN* (08/06/15 10:13 AM) Negative 08/06/2015 [facility] URINE AND STOOL UA Color Ltyellow 08/06/2015 [facility] URINE AND STOOL UA Urobilinogen <=1.0 mg/dL 0.1 - 1.0 08/06/2015 [facility] URINE AND STOOL UA Bili Negative *NA* (08/06/15 10:13 AM) Negative 08/06/2015 [facility] URINE AND STOOL UA Glucose Negative mg/dL Negative mg/dL 08/06/2015 [facility] URINE AND STOOL UA Ketones Negative mg/dL Negative mg/dL 08/06/2015 [facility] URINE AND STOOL UA pH 5.0 5.0 - 8.0 08/06/2015 [facility] URINE AND STOOL UA Protein Negative mg/dL Negative mg/dL 08/06/2015 [facility] URINE AND STOOL UA Turbidity Clear (08/06/15 10:13 AM) Clear 08/06/2015 [facility] URINE AND STOOL UA Spec Grav 1.015 <=1.030 08/06/2015 [facility] CARDIAC ENZYMES CK MB 2.9 ng/mL 0.5 - 3.6 08/06/2015 [facility] CARDIAC ENZYMES Troponin-I null 0.00 - 0.40 08/06/2015 [facility] CARDIAC ENZYMES BNP 50 pg/mL <=100 pg/mL 08/06/2015 [facility] CARDIAC ENZYMES Total CK 97 unit/L 12 - 191 08/06/2015 [facility] CARDIAC ENZYMES CK MB Index 3.0 0.0 - 2.5 08/06/2015 [facility] CHEM PANEL eGFR 46 mL/min/1.73m2 08/06/2015 Result Comment: The eGFR is calculated using the CKD-EPI formula. In most young, healthy individuals the eGFR will be >90 mL/min/1.73m2. The eGFR declines with age. An eGFR of 60-89 may be normal in some populations, particularly the elderly, for whom the CKD-EPI formula has not been extensively validated. Use of the eGFR is not recommended in the following populations: Individuals with unstable creatinine concentrations, including patients and those with serious co-morbid conditions. Patients with extremes in muscle mass or diet. The data above are obtained from the National Kidney Disease Education Program (NKDEP) which additionally recommends that when the eGFR is used in patients with extremes of body mass index for purposes of drug dosing, the eGFR should be multiplied by the estimated BMI. [facility] CHEM PANEL CO2 25 meq/L 24 - 32 08/06/2015 [facility] CHEM PANEL Calcium Lvl 9.5 mg/dL 8.5 - 10.5 08/06/2015 [facility] CHEM PANEL Potassium Lvl 4.4 meq/L 3.5 - 5.1 08/06/2015 [facility] CHEM PANEL Chloride Lvl 106 meq/L 95 - 109 08/06/2015 [facility] CHEM PANEL B/C Ratio 31 6 - 25 08/06/2015 [facility] CHEM PANEL Globulin 3.6 g/dL 2.0 - 4.0 08/06/2015 [facility] CHEM PANEL Sodium Lvl 140 meq/L 135 - 145 08/06/2015 [facility] CHEM PANEL Total Protein 7.1 g/dL 6.4 - 8.4 08/06/2015 [facility] CHEM PANEL AST 53 unit/L 0 - 37 08/06/2015 [facility] CHEM PANEL Alk Phos 88 unit/L 39 - 136 08/06/2015 [facility] CHEM PANEL Albumin Lvl 3.5 g/dL 3.5 - 5.0 08/06/2015 [facility] CHEM PANEL Bili Total 0.5 mg/dL 0.2 - 1.3 08/06/2015 [facility] CHEM PANEL AGAP 13.4 meq/L 10.0 - 20.0 08/06/2015 [facility] CHEM PANEL A/G Ratio 1.0 0.7 - 1.6 08/06/2015 [facility] CHEM PANEL ALT 58 unit/L 0 - 65 08/06/2015 [facility] CHEM PANEL BUN 39 mg/dL 7 - 22 08/06/2015 [facility] CHEM PANEL Creatinine Lvl 1.25 mg/dL 0.50 - 1.40 08/06/2015 [facility] CHEM PANEL Glucose Lvl 180 mg/dL 70 - 99 08/06/2015 [facility] HEMATOLOGY Hgb 14.2 g/dL 12.0 - 16.0 08/06/2015 [facility] HEMATOLOGY RBC 4.57 M/CMM 4.20 - 5.40 08/06/2015 [facility] MPV 10.0 fL 7.4 - 10.4 08/06/2015 [facility] Platelet 139 K/CMM 133 - 450 08/06/2015 [facility] WBC 9.2 K/CMM 3.7 - 10.4 08/06/2015 [facility] RDW 15.8 % 11.5 - 14.5 08/06/2015 [facility] MCV 94.1 fL 80.0 - 98.0 08/06/2015 [facility] Hct 43.0 % 36.0 - 48.0 08/06/2015 [facility] MCHC 32.9 g/dL 32.0 - 36.0 08/06/2015 [facility] MCH 31.0 pg 27.0 - 31.0 08/06/2015 [facility] Lymphocytes # 1.3 K/CMM 1.0 - 5.5 08/06/2015 [facility] Monocytes # 0.6 K/CMM 0.0 - 0.8 08/06/2015 [facility] Eosinophils # 0.2 K/CMM 0.0 - 0.5 08/06/2015 [facility] Lymphocytes 14.7 % 20.0 - 40.0 08/06/2015 [facility] Monocytes 6.4 % 2.0 - 12.0 08/06/2015 [facility] Eosinophils 2.0 % 0.0 - 4.0 08/06/2015 [facility] Basophils 0.3 % 0.0 - 1.0 08/06/2015 [facility] Segs-Bands # 7.0 K/CMM 1.5 - 8.1 08/06/2015 [facility] Segs 76.6 % 45.0 - 75.0 08/06/2015 [facility] Chest 1view DX Chest 1view DX Study: Chest 1view DX portable 08/06/2015 0938 hours Clinical Indication: Chest pain; hip fracture post fall Comparison: Chest 10/08/2014 FINDINGS: The cardiac silhouette is top normal in size, post sternotomy. There is minor aortic atherosclerosis. The lungs are incompletely inflated. No pneumonia, vascular congestion or pleural effusion is seen. IMPRESSION: No acute abnormality or change. SL: [id number] 08/06/2015 - - Read by: Fabien Montanez MD Dictated Date/time: 08/06/15 09:56 Electronically Signed by: Fabien Montanez MD 08/06/15 09:57 FINAL REPORT [facility] CHEM PANEL eGFR 48 mL/min/1.73m2 10/19/2014 Result Comment: The eGFR is calculated using the CKD-EPI formula. In most young, healthy individuals the eGFR will be >90 mL/min/1.73m2. The eGFR declines with age. An eGFR of 60-89 may be normal in some populations, particularly the elderly, for whom the CKD-EPI formula has not been extensively validated. Use of the eGFR is not recommended in the following populations: Individuals with unstable creatinine concentrations, including patients and those with serious co-morbid conditions. Patients with extremes in muscle mass or diet. The data above are obtained from the National Kidney Disease Education Program (NKDEP) which additionally recommends that when the eGFR is used in patients with extremes of body mass index for purposes of drug dosing, the eGFR should be multiplied by the estimated BMI. [facility] CHEM PANEL Calcium Lvl 8.5 mg/dL 8.5 - 10.5 10/19/2014 [facility] CHEM PANEL Glucose Lvl 184 mg/dL 70 - 99 10/19/2014 [facility] CHEM PANEL Creatinine Lvl 1.2 mg/dL 0.5 - 1.4 10/19/2014 [facility] CHEM PANEL BUN 35 mg/dL 7 - 22 10/19/2014 [facility] CHEM PANEL AGAP 11.3 meq/L 10.0 - 20.0 10/19/2014 [facility] CHEM PANEL CO2 21 meq/L 24 - 32 10/19/2014 [facility] CHEM PANEL Sodium Lvl 140 meq/L 135 - 145 10/19/2014 [facility] CHEM PANEL Potassium Lvl 4.3 meq/L 3.5 - 5.1 10/19/2014 [facility] CHEM PANEL Chloride Lvl 112 meq/L 95 - 109 10/19/2014 [facility] CHEM PANEL Magnesium Lvl 1.7 mg/dL 1.8 - 2.4 10/19/2014 [facility] HEMATOLOGY RBC 4.10 M/CMM 4.20 - 5.40 10/19/2014 [facility] HEMATOLOGY WBC 10.1 K/CMM 3.7 - 10.4 10/19/2014 [facility] HEMATOLOGY Hct 38.1 % 36.0 - 48.0 10/19/2014 [facility] HEMATOLOGY Hgb 12.7 g/dL 12.0 - 16.0 10/19/2014 [facility] HEMATOLOGY MCV 92.8 fL 80.0 - 98.0 10/19/2014 [facility] HEMATOLOGY Platelet 97 K/CMM 133 - 450 10/19/2014 [facility] HEMATOLOGY RDW 14.4 % 11.5 - 14.5 10/19/2014 [facility] HEMATOLOGY MPV 10.0 fL 7.4 - 10.4 10/19/2014 [facility] HEMATOLOGY MCH 30.9 pg 27.0 - 31.0 10/19/2014 [facility] HEMATOLOGY MCHC 33.3 g/dL 32.0 - 36.0 10/19/2014 [facility] HEMATOLOGY Monocytes # 0.7 K/CMM 0.0 - 0.8 10/19/2014 [facility] HEMATOLOGY Segs-Bands # 8.5 K/CMM 1.5 - 8.1 10/19/2014 [facility] HEMATOLOGY Lymphocytes # 0.9 K/CMM 1.0 - 5.5 10/19/2014 [facility] HEMATOLOGY Segs 84.2 % 45.0 - 75.0 10/19/2014 [facility] HEMATOLOGY Basophils 0.3 % 0.0 - 1.0 10/19/2014 [facility] HEMATOLOGY Eosinophils 0.4 % 0.0 - 4.0 10/19/2014 [facility] HEMATOLOGY Monocytes 6.7 % 2.0 - 12.0 10/19/2014 [facility] Lymphocytes 8.4 % 20.0 - 40.0 10/19/2014 [facility] LIPIDS VLDL 19 10/19/2014 [facility] LIPIDS LDL (Calculated) 83 mg/dL <=99 mg/dL 10/19/2014 [facility] LIPIDS Chol 143 mg/dL <=199 mg/dL 10/19/2014 [facility] LIPIDS HDL 41 mg/dL >=61 mg/dL 10/19/2014 [facility] LIPIDS Trig 97 mg/dL <=149 mg/dL 10/19/2014 [facility] LIPIDS CHD Risk 3.49 3.90 - 5.80 10/19/2014 [facility] SPECIAL CHEMISTRY Hgb A1C 7.9 % <=5.6 % 10/19/2014 [facility] THYROID PANEL TSH 0.390 uIU/mL 0.360 - 3.740 10/19/2014 [facility] ELECTROLYTES AGAP 10.2 meq/L 10.0 - 20.0 10/18/2014 [facility] ELECTROLYTES eGFR 37 mL/min/1.73m2 10/18/2014 Result Comment: The eGFR is calculated using the CKD-EPI formula. In most young, healthy individuals the eGFR will be >90 mL/min/1.73m2. The eGFR declines with age. An eGFR of 60-89 may be normal in some populations, particularly the elderly, for whom the CKD-EPI formula has not been extensively validated. Use of the eGFR is not recommended in the following populations: Individuals with unstable creatinine concentrations, including patients and those with serious co-morbid conditions. Patients with extremes in muscle mass or diet. The data above are obtained from the National Kidney Disease Education Program (NKDEP) which additionally recommends that when the eGFR is used in patients with extremes of body mass index for purposes of drug dosing, the eGFR should be multiplied by the estimated BMI. [facility] ELECTROLYTES Calcium Lvl 9.2 mg/dL 8.5 - 10.5 10/18/2014 [facility] ELECTROLYTES CO2 25 meq/L 24 - 32 10/18/2014 [facility] ELECTROLYTES Creatinine Lvl 1.5 mg/dL 0.5 - 1.4 10/18/2014 [facility] ELECTROLYTES BUN 47 mg/dL 7 - 22 10/18/2014 [facility] ELECTROLYTES Glucose Lvl 153 mg/dL 70 - 99 10/18/2014 [facility] ELECTROLYTES Chloride Lvl 109 meq/L 95 - 109 10/18/2014 [facility] ELECTROLYTES Potassium Lvl 4.2 meq/L 3.5 - 5.1 10/18/2014 [facility] ELECTROLYTES Sodium Lvl 140 meq/L 135 - 145 10/18/2014 [facility] MPV 9.9 fL 7.4 - 10.4 10/18/2014 [facility] Platelet 195 K/CMM 133 - 450 10/18/2014 [facility] MCHC 32.6 g/dL 32.0 - 36.0 10/18/2014 [facility] MCH 30.4 pg 27.0 - 31.0 10/18/2014 [facility] MCV 93.3 fL 80.0 - 98.0 10/18/2014 [facility] RDW 14.4 % 11.5 - 14.5 10/18/2014 [facility] Hgb 15.5 g/dL 12.0 - 16.0 10/18/2014 [facility] Hct 47.5 % 36.0 - 48.0 10/18/2014 [facility] RBC 5.09 M/CMM 4.20 - 5.40 10/18/2014 [facility] HEMATOLOGY WBC 11.1 K/CMM 3.7 - 10.4 10/18/2014 [facility] HEMATOLOGY Basophils # 0.1 K/CMM 0.0 - 0.2 10/18/2014 [facility] HEMATOLOGY Eosinophils 0.3 % 0.0 - 4.0 10/18/2014 [facility] HEMATOLOGY Monocytes 7.1 % 2.0 - 12.0 10/18/2014 [facility] HEMATOLOGY Basophils 0.6 % 0.0 - 1.0 10/18/2014 [facility] HEMATOLOGY Monocytes # 0.8 K/CMM 0.0 - 0.8 10/18/2014 [facility] HEMATOLOGY Lymphocytes # 2.4 K/CMM 1.0 - 5.5 10/18/2014 [facility] HEMATOLOGY Segs-Bands # 7.8 K/CMM 1.5 - 8.1 10/18/2014 [facility] HEMATOLOGY Segs 70.2 % 45.0 - 75.0 10/18/2014 [facility] Lymphocytes 21.8 % 20.0 - 40.0 10/18/2014 [facility] INR 0.95 0.85 - 1.17 10/18/2014 [facility] PTT 31.6 s 22.9 - 35.8 10/18/2014 [facility] HEMATOLOGY PT 13.0 s 12.0 - 14.7 10/18/2014 [facility] CARDIAC ENZYMES CK MB Index 2.8 0.0 - 2.5 10/09/2014 [facility] CARDIAC ENZYMES BNP 44 pg/mL <=100 pg/mL 10/09/2014 [facility] CARDIAC ENZYMES Troponin-I null 0.00 - 0.40 10/09/2014 [facility] CARDIAC ENZYMES Total CK 32 unit/L 12 - 191 10/09/2014 [facility] CARDIAC ENZYMES CK MB 0.9 ng/mL 0.5 - 3.6 10/09/2014 [facility] CHEM PANEL Procalcitonin Lvl 0.06 ng/mL 0.00 - 0.10 10/09/2014 [facility] CHEM PANEL Magnesium Lvl 1.9 mg/dL 1.8 - 2.4 10/09/2014 [facility] CHEM PANEL eGFR 40 mL/min/1.73m2 10/09/2014 Result Comment: The eGFR is calculated using the CKD-EPI formula. In most young, healthy individuals the eGFR will be >90 mL/min/1.73m2. The eGFR declines with age. An eGFR of 60-89 may be normal in some populations, particularly the elderly, for whom the CKD-EPI formula has not been extensively validated. Use of the eGFR is not recommended in the following populations: Individuals with unstable creatinine concentrations, including patients and those with serious co-morbid conditions. Patients with extremes in muscle mass or diet. The data above are obtained from the National Kidney Disease Education Program (NKDEP) which additionally recommends that when the eGFR is used in patients with extremes of body mass index for purposes of drug dosing, the eGFR should be multiplied by the estimated BMI. [facility] CHEM PANEL B/C Ratio 25 6 - 25 10/09/2014 [facility] CHEM PANEL Total Protein 6.8 g/dL 6.4 - 8.4 10/09/2014 [facility] CHEM PANEL Albumin Lvl 3.4 g/dL 3.5 - 5.0 10/09/2014 [facility] CHEM PANEL Bili Total 0.8 mg/dL 0.2 - 1.3 10/09/2014 [facility] CHEM PANEL Alk Phos 80 unit/L 39 - 136 10/09/2014 [facility] CHEM PANEL AST 13 unit/L 0 - 37 10/09/2014 [facility] CHEM PANEL ALT 27 unit/L 0 - 65 10/09/2014 [facility] CHEM PANEL Calcium Lvl 9.1 mg/dL 8.5 - 10.5 10/09/2014 [facility] CHEM PANEL AGAP 12.3 meq/L 10.0 - 20.0 10/09/2014 [facility] CHEM PANEL BUN 35 mg/dL 7 - 22 10/09/2014 [facility] CHEM PANEL Glucose Lvl 262 mg/dL 70 - 99 10/09/2014 [facility] CHEM PANEL Creatinine Lvl 1.4 mg/dL 0.5 - 1.4 10/09/2014 [facility] CHEM PANEL CO2 26 meq/L 24 - 32 10/09/2014 [facility] CHEM PANEL A/G Ratio 1.0 0.7 - 1.6 10/09/2014 [facility] CHEM PANEL Globulin 3.4 g/dL 2.0 - 4.0 10/09/2014 [facility] CHEM PANEL Chloride Lvl 101 meq/L 95 - 109 10/09/2014 [facility] CHEM PANEL Sodium Lvl 135 meq/L 135 - 145 10/09/2014 [facility] CHEM PANEL Potassium Lvl 4.3 meq/L 3.5 - 5.1 10/09/2014 [facility] HEMATOLOGY Lymphocytes # 1.9 K/CMM 1.0 - 5.5 10/09/2014 [facility] HEMATOLOGY Basophils 0.2 % 0.0 - 1.0 10/09/2014 [facility] HEMATOLOGY Monocytes # 0.9 K/CMM 0.0 - 0.8 10/09/2014 [facility] HEMATOLOGY Segs-Bands # 7.4 K/CMM 1.5 - 8.1 10/09/2014 [facility] HEMATOLOGY Monocytes 8.4 % 2.0 - 12.0 10/09/2014 [facility] HEMATOLOGY Lymphocytes 19.0 % 20.0 - 40.0 10/09/2014 [facility] HEMATOLOGY Eosinophils 0.1 % 0.0 - 4.0 10/09/2014 [facility] HEMATOLOGY Segs 72.3 % 45.0 - 75.0 10/09/2014 [facility] HEMATOLOGY D-Dimer 0.55 ug/mL FEU 10/09/2014 [facility] HEMATOLOGY PT 13.7 s 12.0 - 14.7 10/09/2014 [facility] HEMATOLOGY PTT 32.3 s 22.9 - 35.8 10/09/2014 [facility] HEMATOLOGY INR 1.02 0.85 - 1.17 10/09/2014 [facility] HEMATOLOGY Hct 44.9 % 36.0 - 48.0 10/09/2014 [facility] HEMATOLOGY MCV 92.1 fL 80.0 - 98.0 10/09/2014 [facility] MCH 31.1 pg 27.0 - 31.0 10/09/2014 [facility] HEMATOLOGY MPV 10.8 fL 7.4 - 10.4 10/09/2014 [facility] HEMATOLOGY Platelet 156 K/CMM 133 - 450 10/09/2014 [facility] HEMATOLOGY RDW 14.5 % 11.5 - 14.5 10/09/2014 [facility] MCHC 33.8 g/dL 32.0 - 36.0 10/09/2014 [facility] Hgb 15.2 g/dL 12.0 - 16.0 10/09/2014 [facility] HEMATOLOGY WBC 10.3 K/CMM 3.7 - 10.4 10/09/2014 [facility] HEMATOLOGY RBC 4.87 M/CMM 4.20 - 5.40 10/09/2014 [facility] LIPIDS VLDL 37 10/09/2014 [facility] LIPIDS LDL (Calculated) 112 mg/dL <=99 mg/dL 10/09/2014 [facility] LIPIDS HDL 48 mg/dL >=61 mg/dL 10/09/2014 [facility] LIPIDS Trig 183 mg/dL <=149 mg/dL 10/09/2014 [facility] LIPIDS Chol 197 mg/dL <=199 mg/dL 10/09/2014 [facility] LIPIDS CHD Risk 4.10 3.90 - 5.80 10/09/2014 [facility] SPECIAL CHEMISTRY Hgb A1C 7.6 % <=5.6 % 10/09/2014 [facility] THYROID PANEL TSH 3.350 uIU/mL 0.360 - 3.740 10/09/2014 [facility] Cardiac SPECT multi studies NM Cardiac SPECT multi studies NM PROCEDURE: Lexiscan Cardiolite stress test was performed according to standard protocol. A total of 11.2 mCi Tc99m Cardiolite was injected for the stress portion and 31.3 mCi Tc99m Cardiolite was injected for the resting scan. The image quality was suboptimal. The gated examination demonstrated preserved left ventricular systolic function. The calculated left ventricular ejection fraction is 91%. End-diastolic volume was 46 ml. End-systolic volume was 4 ml. CONCLUSIONS: 1. Partially reversible defects were noted in the anteroapical, septal, and inferior distributions. 2. Preserved left ventricular systolic function with a calculated ejection fraction of 91 %. 10/09/2014 - - Read by: Armin Singleton MD Dictated Date/time: 10/09/14 13:37 Electronically Signed by: Armin Singleton MD 10/09/14 13:39 FINAL REPORT [facility] CARDIAC ENZYMES Troponin-I null 0.00 - 0.40 10/09/2014 [facility] CARDIAC ENZYMES Total CK 37 unit/L 12 - 191 10/09/2014 [facility] CARDIAC ENZYMES Troponin-I null 0.00 - 0.40 10/08/2014 [facility] CARDIAC ENZYMES Total CK 44 unit/L 12 - 191 10/08/2014 [facility] URINE AND STOOL UA WBC 10 /HPF 0 - 5 10/08/2014 [facility] URINE AND STOOL UA Sq Epi Occasional /LPF Few /LPF 10/08/2014 [facility] URINE AND STOOL UA RBC 2 /HPF 0 - 2 10/08/2014 [facility] URINE AND STOOL UA Bacteria Occasional /HPF None Seen /HPF 10/08/2014 [facility] URINE AND STOOL UA Protein Negative (10/08/14 11:30 AM) Negative 10/08/2014 [facility] URINE AND STOOL UA Spec Grav 1.010 <=1.030 10/08/2014 [facility] URINE AND STOOL UA Color Yellow *NA* (10/08/14 11:30 AM) Yellow 10/08/2014 [facility] URINE AND STOOL UA pH 6.5 5.0 - 8.0 10/08/2014 [facility] URINE AND STOOL UA Glucose 100 mg/dL Negative mg/dL 10/08/2014 [facility] URINE AND STOOL UA Turbidity Clear (10/08/14 11:30 AM) Clear 10/08/2014 [facility] URINE AND STOOL UA Nitrite Negative (10/08/14 11:30 AM) Negative 10/08/2014 [facility] URINE AND STOOL UA Leuk Est Large *ABN* (10/08/14 11:30 AM) Negative 10/08/2014 [facility] URINE AND STOOL UA Urobilinogen 0.2 EU/dL 0.1 - 1.0 10/08/2014 [facility] URINE AND STOOL UA Blood Trace *ABN* (10/08/14 11:30 AM) Negative 10/08/2014 [facility] URINE AND STOOL UA Bili Negative *NA* (10/08/14 11:30 AM) Negative 10/08/2014 [facility] URINE AND STOOL UA Ketones Negative *NA* (10/08/14 11:30 AM) Negative 10/08/2014 [facility] CARDIAC ENZYMES CK MB Index 2.3 0.0 - 2.5 10/08/2014 [facility] CARDIAC ENZYMES CK MB 1.0 ng/mL 0.5 - 3.6 10/08/2014 [facility] CHEM PANEL Albumin Lvl 3.6 g/dL 3.5 - 5.0 10/08/2014 [facility] CHEM PANEL eGFR 43 mL/min/1.73m2 10/08/2014 Result Comment: The eGFR is calculated using the CKD-EPI formula. In most young, healthy individuals the eGFR will be >90 mL/min/1.73m2. The eGFR declines with age. An eGFR of 60-89 may be normal in some populations, particularly the elderly, for whom the CKD-EPI formula has not been extensively validated. Use of the eGFR is not recommended in the following populations: Individuals with unstable creatinine concentrations, including patients and those with serious co-morbid conditions. Patients with extremes in muscle mass or diet. The data above are obtained from the National Kidney Disease Education Program (NKDEP) which additionally recommends that when the eGFR is used in patients with extremes of body mass index for purposes of drug dosing, the eGFR should be multiplied by the estimated BMI. [facility] CHEM PANEL Creatinine Lvl 1.3 mg/dL 0.5 - 1.4 10/08/2014 [facility] CHEM PANEL Calcium Lvl 9.5 mg/dL 8.5 - 10.5 10/08/2014 [facility] CHEM PANEL Alk Phos 81 unit/L 39 - 136 10/08/2014 [facility] CHEM PANEL AST 14 unit/L 0 - 37 10/08/2014 [facility] CHEM PANEL ALT 31 unit/L 0 - 65 10/08/2014 [facility] CHEM PANEL B/C Ratio 24 6 - 25 10/08/2014 [facility] CHEM PANEL BUN 31 mg/dL 7 - 22 10/08/2014 [facility] CHEM PANEL Glucose Lvl 193 mg/dL 70 - 99 10/08/2014 [facility] CHEM PANEL CO2 28 meq/L 24 - 32 10/08/2014 [facility] CHEM PANEL AGAP 10.2 meq/L 10.0 - 20.0 10/08/2014 [facility] CHEM PANEL Total Protein 7.2 g/dL 6.4 - 8.4 10/08/2014 [facility] CHEM PANEL Globulin 3.6 g/dL 2.0 - 4.0 10/08/2014 [facility] CHEM PANEL A/G Ratio 1.0 0.7 - 1.6 10/08/2014 [facility] CHEM PANEL Chloride Lvl 103 meq/L 95 - 109 10/08/2014 [facility] CHEM PANEL Potassium Lvl 4.2 meq/L 3.5 - 5.1 10/08/2014 [facility] CHEM PANEL Sodium Lvl 137 meq/L 135 - 145 10/08/2014 [facility] CHEM PANEL Bili Total 0.6 mg/dL 0.2 - 1.3 10/08/2014 [facility] HEMATOLOGY Segs 72.6 % 45.0 - 75.0 10/08/2014 [facility] HEMATOLOGY Segs-Bands # 7.2 K/CMM 1.5 - 8.1 10/08/2014 [facility] HEMATOLOGY Basophils 0.2 % 0.0 - 1.0 10/08/2014 [facility] HEMATOLOGY Eosinophils 0.1 % 0.0 - 4.0 10/08/2014 [facility] HEMATOLOGY Monocytes 6.9 % 2.0 - 12.0 10/08/2014 [facility] HEMATOLOGY Lymphocytes 20.2 % 20.0 - 40.0 10/08/2014 [facility] Monocytes # 0.7 K/CMM 0.0 - 0.8 10/08/2014 [facility] Lymphocytes # 2.0 K/CMM 1.0 - 5.5 10/08/2014 [facility] INR 0.95 0.85 - 1.17 10/08/2014 [facility] PT 13.0 s 12.0 - 14.7 10/08/2014 [facility] Hgb 15.1 g/dL 12.0 - 16.0 10/08/2014 [facility] Hct 44.4 % 36.0 - 48.0 10/08/2014 [facility] MCV 92.1 fL 80.0 - 98.0 10/08/2014 [facility] MCH 31.4 pg 27.0 - 31.0 10/08/2014 [facility] MCHC 34.1 g/dL 32.0 - 36.0 10/08/2014 [facility] RDW 14.7 % 11.5 - 14.5 10/08/2014 [facility] Platelet 152 K/CMM 133 - 450 10/08/2014 [facility] MPV 10.6 fL 7.4 - 10.4 10/08/2014 [facility] WBC 9.9 K/CMM 3.7 - 10.4 10/08/2014 [facility] RBC 4.82 M/CMM 4.20 - 5.40 10/08/2014 [facility] CHEM PANEL Magnesium Lvl 2.0 mg/dL 1.8 - 2.4 10/08/2014 [facility] CHEM PANEL Phosphorus 2.9 mg/dL 2.5 - 4.5 10/08/2014 [facility] Chest 1view DX Chest 1view DX PORTABLE CHEST 10/08/2014 AT 1018 HOURS. INDICATION: Chest pain. COMPARISON: Chest 10/06/2014. The cardiac silhouette is top normal in size, post sternotomy. Minor aortic atherosclerosis is noted. The lungs are incompletely inflated. No pneumonia, vascular congestion or pleural effusion is seen. No change has occurred. SL: 12 10/08/2014 - - Read by: Fabien Montanez MD Dictated Date/time: 10/08/14 10:46 Electronically Signed by: Fabien Montanez MD 10/08/14 10:48 FINAL REPORT [facility] Spine lumbar wo contrast MRI Spine lumbar wo contrast MRI PROCEDURE: Spine lumbar wo contrast MRI REASON FOR EXAM: See Clinic Indication CLINICAL INDICATION: 724.4 Thoracic or Lumbosacral Neuritis or Radiculitis, Unspecified, lumbar radiculopathy, 63-year-old female reports low back pain and left lower extremity pain COMPARISON: None available. FINDINGS: No acute fracture. No bone marrow edema or aggressive osseous lesion. No discitis/osteomyelitis. Unchanged mild-moderate chronic anterior wedge compression deformity of the L1 vertebral body. Unchanged minimal anterior compression deformity of the L3 vertebral body. Old left L5 hemilaminectomy again noted. Unchanged disc degeneration at L5/S1 with small left paracentral and foraminal disc extrusion and minimal grade 1 retrolisthesis of L5 on S1 measuring 2-3 mm. T12-L1: No canal stenosis or neural foraminal narrowing. L1-L2: No canal stenosis or neural foraminal narrowing. L2-L3: Unchanged minimal left foraminal disc protrusion measuring 2 mm in depth. Mild hypertrophic facet arthrosis. No canal stenosis or neural foraminal narrowing. L3-L4: Unchanged minimal left foraminal disc protrusion measuring 2 mm in depth. Mild hypertrophic facet arthrosis. No canal stenosis. No neural foraminal narrowing. L4-L5: Unchanged minimal biforaminal disc protrusion. Moderate hypertrophic facet arthrosis. No canal stenosis. No neural foraminal narrowing. L5-S1: Unchanged moderate disc degeneration with small left paracentral and foraminal disc extrusion measuring 4 mm in depth. Unchanged grade 1 retrolisthesis of L5 on S1 measuring 2 mm. Mild hypertrophic facet arthrosis. No canal stenosis. Unchanged mild left neural foraminal narrowing. No right neural foraminal narrowing. Visualized portion of the kidneys unremarkable. The visualized aorta is normal in caliber. IMPRESSION: 1. No change since the prior exam. 2. Mild multilevel lumbar spondylosis with small disc protrusions and extrusions with only mild left neural foraminal narrowing L5/S1. SL: 14 07/27/2014 - - Read by: Josue Richards MD Dictated Date/time: 07/28/14 09:55 Electronically Signed by: Josue Richards MD 07/28/14 10:08 FINAL REPORT [facility] Abdomen AP DX Abdomen AP DX Examination: Abdomen, 2 views History: uric acid stone/ 592.0 renal stone/ 724.2 lumbago / hematuria Comparison: CT of the abdomen and pelvis from 07/30/2013. Findings: Two views of the abdomen show a nonobstructive bowel gas pattern. No suspicious abdominal calcifications are seen. Calcified phleboliths in the pelvis are noted. There are mild degenerative changes of the lumbar spine. IMPRESSION: No definitive nephrolithiasis. SL: 16 06/09/2014 - - Read by: Gaudencio Castro MD Dictated Date/time: 06/09/14 09:52 Electronically Signed by: Gaudencio Castro MD 06/09/14 09:52 FINAL REPORT [facility] Retroperitoneal Complete US Retroperitoneal Complete US Renal ultrasound. History: CALCULUS OF KIDNEY Comparison: None available. Findings: Transverse and longitudinal imaging of the kidneys and bladder. The kidneys are normal in echogenicity and size. Negative for hydronephrosis or echogenic stone. The right kidney measures 8.8 x 5.8 x 4.2 cm and the left kidney measures 10.9 x 5.8 x 4.5 cm. No bladder abnormality is identified. Impression: 1. Normal renal ultrasound. SL: 06/09/2014 - - Read by: Gaudencio Castro MD Dictated Date/time: 06/09/14 09:54 Electronically Signed by: Gaudencio Castro MD 06/09/14 09:55 FINAL REPORT [facility] Spine lumbar w contrast MRI Spine lumbar w contrast MRI EXAMINATION: MRI lumbar spine with contrast HISTORY: Spondylolisthesis/post laminectomy syndrome TECHNIQUE: Multiplanar multisequence imaging of the lumbar spine was performed following the administration of intravenous gadolinium. COMPARISON: MRI of the lumbar spine from 01/20/2014 FINDINGS: Five nonrib bearing lumbar vertebra are seen. No acute compression fracture or subluxation is seen. Chronic mild anterior wedge compression deformities of T11 and L1 are again seen and unchanged. Disc height loss and disc desiccation at L5-S1 is again noted. No abnormal marrow enhancement is seen. No enhancing epidural masses or epidural fluid collections are seen. Degenerative changes throughout the lumbar spine are present and unchanged, this is better detailed on prior MRI of the lumbar spine from 01/20/2014. Changes of prior left hemilaminectomy at L5 are again seen. The nerve roots and cauda equina are unremarkable. IMPRESSION: 1. Stable exam of the lumbar spine. 2. No abnormal enhancement. SL: 16 01/21/2014 - - Read by: Gaudencio Castro MD Dictated Date/time: 01/21/14 15:54 Electronically Signed by: Gaudencio Castro MD 01/21/14 15:56 FINAL REPORT [facility] Spine lumbar wo contrast MRI Spine lumbar wo contrast MRI EXAMINATION: MRI lumbar spine without contrast HISTORY: Spondylolisthesis/post laminectomy syndrome COMPARISON: MRI of the lumbar spine from 02/16/2013 TECHNIQUE: Multiplanar multisequence imaging of the lumbar spine was performed without administration of intravenous gadolinium. FINDINGS: Five nonrib-bearing lumbar vertebra are present. No acute compression fracture or subluxation is seen. Chronic mild anterior wedge compression deformities of L1 and L3 are present and show no progressive height loss since prior exam from 02/16/2013. Disc desiccation with mild disc height loss at L2-L3 and L3-L4 is seen. Disc desiccation with severe disc height loss at L5-S1 is noted. The conus terminates approximately at L1-L2. Paravertebral soft tissues are unremarkable. Findings by level: T12/L1: Negative for significant disc bulge or protrusion. Mild facet arthrosis is seen. There is no spinal canal stenosis or neuroforaminal narrowing. L1/2: Negative for significant disc bulge or protrusion. Mild to moderate facet arthrosis is seen. There is no spinal canal stenosis or neuroforaminal narrowing. L2/3: Small annular disc bulge is seen. Moderate facet arthrosis is present. There is no spinal canal stenosis or neuroforaminal narrowing. L3/4: Minimal annular disc bulge is seen. Moderate facet arthrosis and ligamentum flavum hypertrophy is noted. There is no spinal canal stenosis or neuroforaminal narrowing. L4/5: Negative for significant disc bulge or protrusion. Moderate to severe facet arthrosis and ligamentum flavum hypertrophy is seen. There is no spinal canal stenosis or neuroforaminal narrowing. L5/S1: Small to moderate sized annular disc bulge is seen. Moderate to severe facet arthrosis is noted. Postoperative changes of prior left hemilaminectomy are seen. No spinal canal stenosis is seen. There is mild left neuroforaminal narrowing. There is no significant nerve root clumping to suggest arachnoiditis. IMPRESSION: 1. Multilevel degenerative changes of the lumbar spine with mild left neuroforaminal narrowing at L5-S1. 2. Chronic mild anterior wedge compression deformities of L1 and L3. No acute compression fracture is seen. 3. Status post left hemilaminectomy at L5. SL: 16 01/20/2014 - - Read by: Gaudencio Castro MD Dictated Date/time: 01/20/14 15:54 Electronically Signed by: Gaudencio Castro MD 01/20/14 15:58 FINAL REPORT [facility] CARDIAC ENZYMES CK MB Index 2.0 0.0 - 2.5 10/06/2013 [facility] CARDIAC ENZYMES Troponin-I null 0.00 - 0.40 10/06/2013 [facility] CARDIAC ENZYMES CK MB 1.3 ng/mL 0.5 - 3.6 10/06/2013 [facility] CARDIAC ENZYMES Total CK 64 unit/L 12 - 191 10/06/2013 [facility] CHEM PANEL BUN 31 mg/dL 7 - 22 10/06/2013 [facility] PANEL eGFR 48 mL/min/1.73m2 10/06/2013 1Result Comment: The eGFR is calculated using the CKD-EPI formula. In most young, healthy individuals the eGFR will be >90 mL/min/1.73m2. The eGFR declines with age. An eGFR of 60-89 may be normal in some populations, particularly the elderly, for whom the CKD-EPI formula has not been extensively validated. Use of the eGFR is not recommended in the following populations: Individuals with unstable creatinine concentrations, including patients and those with serious co-morbid conditions. Patients with extremes in muscle mass or diet. The data above are obtained from the National Kidney Disease Education Program (NKDEP) which additionally recommends that when the eGFR is used in patients with extremes of body mass index for purposes of drug dosing, the eGFR should be multiplied by the estimated BMI. [facility] CHEM PANEL AGAP 11.9 meq/L 10.0 - 20.0 10/06/2013 [facility] CHEM PANEL Potassium Lvl 3.9 meq/L 3.5 - 5.1 10/06/2013 [facility] CHEM PANEL Chloride Lvl 108 meq/L 95 - 109 10/06/2013 [facility] CHEM PANEL Calcium Lvl 9.3 mg/dL 8.5 - 10.5 10/06/2013 [facility] CHEM PANEL Sodium Lvl 143 meq/L 135 - 145 10/06/2013 [facility] CHEM PANEL CO2 27 meq/L 24 - 32 10/06/2013 [facility] CHEM PANEL Creatinine Lvl 1.2 mg/dL 0.5 - 1.4 10/06/2013 [facility] CHEM PANEL Glucose Lvl 137 mg/dL 70 - 99 10/06/2013 2Interpretive Data: Adult reference range values reflect the clinical guidelines of the [place] [employer]. [facility] HEMATOLOGY Basophils # 0.1 K/CMM 0.0 - 0.2 10/06/2013 [facility] HEMATOLOGY Eosinophils # 0.2 K/CMM 0.0 - 0.5 10/06/2013 [facility] HEMATOLOGY Segs 59.9 % 45.0 - 75.0 10/06/2013 [facility] HEMATOLOGY Lymphocytes 30.3 % 20.0 - 40.0 10/06/2013 [facility] HEMATOLOGY Monocytes # 0.6 K/CMM 0.0 - 0.8 10/06/2013 [facility] HEMATOLOGY Basophils 0.7 % 0.0 - 1.0 10/06/2013 [facility] HEMATOLOGY Segs-Bands # 5.1 K/CMM 1.5 - 8.1 10/06/2013 [facility] HEMATOLOGY Monocytes 7.2 % 2.0 - 12.0 10/06/2013 [facility] HEMATOLOGY Eosinophils 1.9 % 0.0 - 4.0 10/06/2013 [facility] HEMATOLOGY Lymphocytes # 2.6 K/CMM 1.0 - 5.5 10/06/2013 [facility] HEMATOLOGY WBC 8.5 K/CMM 3.7 - 10.4 10/06/2013 [facility] HEMATOLOGY Hct 43.2 % 36.0 - 48.0 10/06/2013 [facility] MCH 31.1 pg 27.0 - 31.0 10/06/2013 [facility] Hgb 14.1 g/dL 12.0 - 16.0 10/06/2013 [facility] HEMATOLOGY MCV 94.9 fL 80.0 - 98.0 10/06/2013 [facility] RBC 4.55 M/CMM 4.20 - 5.40 10/06/2013 [facility] HEMATOLOGY RDW 14.5 % 11.5 - 14.5 10/06/2013 [facility] MCHC 32.7 g/dL 32.0 - 36.0 10/06/2013 [facility] HEMATOLOGY Platelet 165 K/CMM 133 - 450 10/06/2013 [facility] [facility] MPV 10.1 fL 7.4 - 10.4 10/06/2013 [facility] Chest 1view Chest 1view CHEST RADIOGRAPH SINGLE VIEW INDICATION: Chest pain COMPARISON: Chest radiograph 01/24/2013 IMPRESSION: The lungs are suboptimally inflated. There are postoperative changes of the cardiomediastinal silhouette and sternum. The cardiac silhouette and pulmonary vasculature are otherwise within normal limits. No consolidation, pleural effusion, or pneumothorax are visible. SL: 16 10/06/2013 - - Read by: Michael Chavez MD Dictated Date/time: 10/06/13 11:46 Electronically Signed by: Michael Chavez MD 10/06/13 11:46 FINAL REPORT [facility] CHEM PANEL eGFR 54 mL/min/1.73m2 07/30/2013 1Result Comment: The eGFR is calculated using the CKD-EPI formula. In most young, healthy individuals the eGFR will be >90 mL/min/1.73m2. The eGFR declines with age. An eGFR of 60-89 may be normal in some populations, particularly the elderly, for whom the CKD-EPI formula has not been extensively validated. Use of the eGFR is not recommended in the following populations: Individuals with unstable creatinine concentrations, including patients and those with serious co-morbid conditions. Patients with extremes in muscle mass or diet. The data above are obtained from the National Kidney Disease Education Program (NKDEP) which additionally recommends that when the eGFR is used in patients with extremes of body mass index for purposes of drug dosing, the eGFR should be multiplied by the estimated BMI. [facility] CHEM PANEL A/G Ratio 1.0 0.7 - 1.6 07/30/2013 [facility] CHEM PANEL AST 32 unit/L 0 - 37 07/30/2013 [facility] CHEM PANEL AGAP 12.2 meq/L 10.0 - 20.0 07/30/2013 [facility] CHEM PANEL Alk Phos 92 unit/L 39 - 136 07/30/2013 [facility] CHEM PANEL Globulin 3.8 g/dL 2.0 - 4.0 07/30/2013 [facility] CHEM PANEL Bili Total 0.5 mg/dL 0.2 - 1.3 07/30/2013 [facility] CHEM PANEL B/C Ratio 18 6 - 25 07/30/2013 [facility] CHEM PANEL ALT 44 unit/L 0 - 65 07/30/2013 [facility] CHEM PANEL Albumin Lvl 3.7 g/dL 3.5 - 5.0 07/30/2013 [facility] CHEM PANEL Calcium Lvl 9.8 mg/dL 8.5 - 10.5 07/30/2013 [facility] CHEM PANEL Total Protein 7.5 g/dL 6.4 - 8.4 07/30/2013 [facility] CHEM PANEL Glucose Lvl 215 mg/dL 70 - 99 07/30/2013 2Interpretive Data: Adult reference range values reflect the clinical guidelines of the [place] [employer]. [facility] CHEM PANEL Potassium Lvl 4.2 meq/L 3.5 - 5.1 07/30/2013 [facility] CHEM PANEL CO2 27 meq/L 24 - 32 07/30/2013 [facility] CHEM PANEL Chloride Lvl 103 meq/L 95 - 109 07/30/2013 [facility] CHEM PANEL Creatinine Lvl 1.1 mg/dL 0.5 - 1.4 07/30/2013 [facility] CHEM PANEL Sodium Lvl 138 meq/L 135 - 145 07/30/2013 [facility] CHEM PANEL BUN 20 mg/dL 7 - 22 07/30/2013 [facility] URINE AND STOOL UA WBC 6-10 /HPF 0 - 5 07/30/2013 [facility] URINE AND STOOL UA Sq Epi Occasional /LPF Few /LPF 07/30/2013 [facility] URINE AND STOOL UA Mucus Few /LPF None Seen /LPF 07/30/2013 [facility] URINE AND STOOL UA Bacteria None Seen (07/30/13 11:28 AM) None Seen 07/30/2013 [facility] URINE AND STOOL UA RBC None Seen (07/30/13 11:28 AM) 0 - 2 07/30/2013 [facility] URINE AND STOOL UA pH 5.5 5.0 - 8.0 07/30/2013 [facility] URINE AND STOOL UA Glucose Negative (07/30/13 11:28 AM) Negative 07/30/2013 [facility] URINE AND STOOL UA Ketones Trace *ABN* (07/30/13 11:28 AM) Negative 07/30/2013 [facility] URINE AND STOOL UA Protein Negative (07/30/13 11:28 AM) Negative 07/30/2013 [facility] URINE AND STOOL UA Bili Moderate *ABN* (07/30/13 11:28 AM) Negative 07/30/2013 [facility] URINE AND STOOL UA Nitrite Negative (07/30/13 11:28 AM) Negative 07/30/2013 [facility] URINE AND STOOL UA Blood Negative (07/30/13 11:28 AM) Negative 07/30/2013 [facility] URINE AND STOOL UA Urobilinogen 0.2 EU/dL 0.1 - 1.0 07/30/2013 [facility] URINE AND STOOL UA Color Yellow *NA* (07/30/13 11:28 AM) Yellow 07/30/2013 [facility] URINE AND STOOL UA Spec Grav >=1.030 *ABN* (07/30/13 11:28 AM) <=1.030 07/30/2013 [facility] URINE AND STOOL UA Turbidity Clear (07/30/13 11:28 AM) Clear 07/30/2013 [facility] URINE AND STOOL UA Leuk Est Trace *ABN* (07/30/13 11:28 AM) Negative 07/30/2013 [facility] Abdomen/Pelvis w IV contrast CT Abdomen/Pelvis w IV contrast CT CT ABDOMEN/PELVIS WITH ORAL AND IV CONTRAST HISTORY: Acute abdominal pain. COMPARISON: None available. FINDINGS: The lung bases are clear. Sternotomy. The liver, spleen, and adrenal glands appear normal. The pancreas is markedly atrophic. The kidneys are mildly atrophic. No hydronephrosis. Gallbladder is nonvisualized and may have been removed. Postoperative change of the stomach is noted, likely bariatric surgery. Urinary bladder is decompressed. Hysterectomy is noted. Colon appears normal. Normal appendix. Normal small bowel. No ascites or pneumoperitoneum. No abdominopelvic adenopathy. Trace aortic calcification. No acute osseous abnormality. IMPRESSION: 1. No acute abnormality. 2. Chronic findings as described. SL: 13 07/30/2013 - - Read by: Josue Richards MD Dictated Date/time: 07/30/13 14:32 Electronically Signed by: Josue Richards MD 07/30/13 14:37 FINAL REPORT [facility] RDW 15.2 % 11.5 - 14.5 07/30/2013 [facility] MCHC 33.1 g/dL 32.0 - 36.0 07/30/2013 [facility] Platelet 156 K/CMM 133 - 450 07/30/2013 [facility] MPV 10.7 fL 7.4 - 10.4 07/30/2013 [facility] WBC X 10x3 11.0 K/CMM 3.7 - 10.4 07/30/2013 [facility] RBC X 10x6 5.09 M/CMM 4.20 - 5.40 07/30/2013 [facility] Hgb 15.7 g/dL 12.0 - 16.0 07/30/2013 [facility] Hct 47.4 % 36.0 - 48.0 07/30/2013 [facility] MCV 93.2 fL 81.0 - 99.0 07/30/2013 [facility] MCH 30.8 pg 27.0 - 31.0 07/30/2013 [facility] Segs-Bands # 6.6 K/CMM 1.5 - 8.1 07/30/2013 [facility] Basophils 0.9 % 0.0 - 1.0 07/30/2013 [facility] Lymphocytes # 3.3 K/CMM 1.0 - 5.5 07/30/2013 [facility] Eosinophils # 0.4 K/CMM 0.0 - 0.5 07/30/2013 [facility] Monocytes # 0.7 K/CMM 0.0 - 0.8 07/30/2013 [facility] Basophils # 0.1 K/CMM 0.0 - 0.2 07/30/2013 [facility] Segs 59.6 % 45.0 - 75.0 07/30/2013 [facility] Eosinophils 3.3 % 0.0 - 4.0 07/30/2013 [facility] Monocytes 6.1 % 2.0 - 12.0 07/30/2013 [facility] Lymphocytes 30.1 % 20.0 - 40.0 07/30/2013 [facility] PT 13.0 s 12.0 - 14.7 07/30/2013 [facility] PTT 33.4 s 22.9 - 35.8 07/30/2013 4Interpretive Data: Heparin Therapeutic Range: 57 - 92 Seconds [facility] INR 0.99 0.85 - 1.17 07/30/2013 3Interpretive Data: RECOMMENDED RANGES FOR PROTIME INR: 2.0-3.0 for most medical and surgical thromboembolic states. 2.5-3.5 for artificial heart valves and recurrent embolism. INR SHOULD BE USED ONLY FOR PATIENTS ON STABLE ANTICOAGULANT THERAPY. [facility] Bone Density Scan Bone Density Scan DEXA BONE DENSITY TECHNIQUE: DEXA bone density evaluation was performed on a [employer] scanner. This represents the patient's initial evaluation at this facility. FINDINGS: Total lumbar spine bone density is 1.294 g/sq cm, 2.2 standard deviations above normal. This represents normal bone density. Total hip bone density is 1.016 g/sq cm, 0.4 standard deviations above normal. This represents normal bone density. IMPRESSION: No significant decrease in bone density is noted in the left hip or the lumbar spine. FOR YOUR INFORMATION: The World Health Organization has established that OSTEOPOROSIS occurs at -2.5 or more standard deviations (SD) below peak bone mass (T-score on the Hologic report). OSTEOPENIA (low bone mass) occurs between -1.0 to -2.5 standard deviations below peak bone mass. SL: 16 03/17/2013 - - Read by: Michael Chavez Dictated Date/time: 03/17/13 14:26 Electronically Signed by: Michael Chavez MD 03/17/13 14:27 FINAL REPORT [facility] Spine lumbar wo contrast MRI Spine lumbar wo contrast MRI PROCEDURE: Spine lumbar wo contrast MRI CLINICAL INDICATION: 724.2 acute lbp, 724.4 compression of lumbar nerve root, 719.46 arthralgia of knee, 62-year-old female with history of compression fracture to L1 and L3, fall January 2013, back pain. COMPARISON: Lumbar spine radiography dated 01/24/2013 and lumbar spine MRI dated 11/13/2012 and 10/29/2012 FINDINGS: Mild/moderate anterior wedge compression fracture of the superior endplate of L1 demonstrates up to 20-30% vertebral body height loss anteriorly. Posterior vertebral body height is preserved. A transverse fracture line and vertebral body marrow edema are noted. No retropulsion. No significant paraspinal inflammation or fluid. Very mild localized fracture of the superior endplate of L3 anteriorly demonstrates focal in plate depression but no vertebral body height loss. A small transverse fracture line and mild vertebral body marrow edema are noted. No retropulsion. No paraspinal inflammation or fluid. These fractures appear grossly unchanged from radiography dated 01/24/2013 but are new since MRI dated 11/13/2012. The focus of nonenhancement in the left paracentral recess at L5/S1 thought to possibly represent nonenhancing fibrosis or disc sequestration on prior postcontrast imaging of the lumbar spine is seen to simply represent sparing of fibrosis with focal preservation of epidural fat. There is no evidence of disc sequestration. Left L5 laminectomy again noted. Moderate facet arthrosis at L4/L5 and L5/S1 again noted. Unchanged mild left neural foraminal narrowing L5/S1. There is no canal stenosis. No epidural fluid collection or hematoma. IMPRESSION: 1. Mild subacute superior endplate compression fractures of L1 and L3 which appear grossly unchanged compared to lumbar spine radiography dated 01/24/2013. 2. No retropulsion, epidural hematoma, or canal stenosis. SL: 16 02/16/2013 - - Read by: Josue Richards Date/time: 02/17/13 08:17 Electronically Signed by: Josue Richards MD 02/17/13 08:36 FINAL REPORT [facility] CHEMISTRY Troponin-I null 0.00 - 0.40 01/25/2013 Normal [facility] CHEMISTRY CK MB null 0.5 - 3.6 01/25/2013 Normal [facility] URINALYSIS UA Urobilinogen <=1.0 mg/dL 0.1 - 1.0 01/25/2013 [facility] URINALYSIS UA Semmes Yeast Many /HPF None Seen 01/25/2013 ABN [facility] URINALYSIS UA Mucus Few /LPF None Seen 01/25/2013 [facility] URINALYSIS UA Color Yellow *NA* (01/24/2013 18:00:00) Yellow 01/25/2013 [facility] URINALYSIS UA Protein Negative mg/dL Negative 01/25/2013 Normal [facility] URINALYSIS UA Turbidity Marked *ABN* (01/24/2013 18:00:00) Clear 01/25/2013 ABN [facility] URINALYSIS UA pH 5.0 5.0 - 8.0 01/25/2013 Normal [facility] URINALYSIS UA Spec Grav 1.020 <=1.030 01/25/2013 Normal [facility] URINALYSIS UA Blood Small *ABN* (01/24/2013 18:00:00) Negative 01/25/2013 ABN [facility] URINALYSIS UA Bili Negative *NA* (01/24/2013 18:00:00) Negative 01/25/2013 [facility] URINALYSIS UA Nitrite Negative (01/24/2013 18:00:00) Negative 01/25/2013 Normal [facility] URINALYSIS UA Ketones Trace mg/dL Negative 01/25/2013 ABN [facility] URINALYSIS UA Glucose 50 mg/dL Negative 01/25/2013 ABN [facility] URINALYSIS UA Bacteria Occasional /HPF None Seen 01/25/2013 [facility] URINALYSIS UA Sq Epi Occasional /LPF Few 01/25/2013 [facility] URINALYSIS UA Leuk Est Large *ABN* (01/24/2013 18:00:00) Negative 01/25/2013 ABN [facility] URINALYSIS UA RBC 6 /HPF 0 - 2 01/25/2013 [facility] URINALYSIS UA WBC 86 /HPF 0 - 5 01/25/2013 [facility] BEDSIDE GLUCOSE TESTING Gluc POC Comment 2 Cleaned Meter 01/24/2013 [facility] BEDSIDE GLUCOSE TESTING Gluc POC Comment 1 Notified RN/MD 01/24/2013 [facility] BEDSIDE GLUCOSE TESTING Glucose POC 168 mg/dL 70 - 99 01/24/2013 [place] 1Interpretive Data: Upper Reportable Limit: 200 mg/dL. [facility] CHEMISTRY Troponin-I null 0.00 - 0.40 01/24/2013 Normal [facility] CHEMISTRY Total CK 33 unit/L 12 - 191 01/24/2013 Normal [facility] CHEMISTRY CK MB null 0.5 - 3.6 01/24/2013 Normal [facility] CHEMISTRY eGFR 49 mL/min/1.73m2 01/24/2013 2Result Comment: The eGFR is calculated using the CKD-EPI formula. In most young, healthy individuals the eGFR will be >90 mL/min/1.73m2. The eGFR declines with age. An eGFR of 60-89 may be normal in some populations, particularly the elderly, for whom the CKD-EPI formula has not been extensively validated. Use of the eGFR is not recommended in the following populations: Individuals with unstable creatinine concentrations, including patients and those with serious co-morbid conditions. Patients with extremes in muscle mass or diet. The data above are obtained from the National Kidney Disease Education Program (NKDEP) which additionally recommends that when the eGFR is used in patients with extremes of body mass index for purposes of drug dosing, the eGFR should be multiplied by the estimated BMI. [facility] CHEMISTRY A/G Ratio 1.1 0.7 - 1.6 01/24/2013 Normal [facility] CHEMISTRY Globulin 3.6 g/dL 2.0 - 4.0 01/24/2013 Normal [facility] CHEMISTRY B/C Ratio 23 6 - 25 01/24/2013 Normal [facility] CHEMISTRY ASPARTATE TRANSAMINASE 27 unit/L 0 - 37 01/24/2013 Normal [facility] CHEMISTRY Bili Total 0.5 mg/dL 0.2 - 1.3 01/24/2013 Normal [facility] CHEMISTRY AGAP 13.4 meq/L 10.0 - 20.0 01/24/2013 Normal [facility] CHEMISTRY Alk Phos 261 unit/L 39 - 136 01/24/2013 HI [facility] CHEMISTRY ALANINE AMINOTRANSFERASE 31 unit/L 0 - 65 01/24/2013 Normal [facility] CHEMISTRY Albumin Lvl 3.8 g/dL 3.5 - 5.0 01/24/2013 Normal [facility] CHEMISTRY Total Protein 7.4 g/dL 6.4 - 8.4 01/24/2013 Normal [facility] CHEMISTRY Sodium Lvl 143 meq/L 135 - 145 01/24/2013 Normal [facility] CHEMISTRY Creatinine Lvl 1.2 mg/dL 0.5 - 1.4 01/24/2013 Normal [facility] CHEMISTRY BUN 28 mg/dL 7 - 22 01/24/2013 HI [facility] CHEMISTRY Glucose Lvl 178 mg/dL 70 - 99 01/24/2013 [place] 3Interpretive Data: Adult reference range values reflect the clinical guidelines of the [place] [employer]. [facility] CHEMISTRY CO2 27 meq/L 24 - 32 01/24/2013 Normal [facility] CHEMISTRY Chloride Lvl 107 meq/L 95 - 109 01/24/2013 Normal [facility] CHEMISTRY Potassium Lvl 4.4 meq/L 3.5 - 5.1 01/24/2013 Normal [facility] CHEMISTRY Calcium Lvl 9.4 mg/dL 8.5 - 10.5 01/24/2013 Normal [facility] CHEMISTRY CK-MB INDEX null 0.0 - 2.5 01/24/2013 Normal [facility] HEMATOLOGY INR 0.94 0.85 - 1.17 01/24/2013 Normal 4Interpretive Data: RECOMMENDED RANGES FOR PROTIME INR: 2.0-3.0 for most medical and surgical thromboembolic states. 2.5-3.5 for artificial heart valves and recurrent embolism. INR SHOULD BE USED ONLY FOR PATIENTS ON STABLE ANTICOAGULANT THERAPY. [facility] HEMATOLOGY aPTT 32.2 s 22.9 - 35.8 01/24/2013 Normal 5Interpretive Data: Heparin Therapeutic Range: 57 - 92 Seconds [facility] HEMATOLOGY PROTIME 12.5 s 12.0 - 14.7 01/24/2013 Normal [facility] HEMATOLOGY MCHC 33.2 g/dL 32.0 - 36.0 01/24/2013 Normal [facility] HEMATOLOGY Hgb 14.8 g/dL 12.0 - 16.0 01/24/2013 Normal [facility] HEMATOLOGY Hct 44.7 % 36.0 - 48.0 01/24/2013 Normal [facility] HEMATOLOGY MCV 91.9 fL 81.0 - 99.0 01/24/2013 Normal [facility] HEMATOLOGY MCH 30.5 pg 27.0 - 31.0 01/24/2013 Normal [facility] HEMATOLOGY RDW 14.5 % 11.5 - 14.5 01/24/2013 Normal [facility] HEMATOLOGY WBC X 10x3 7.8 K/CMM 3.7 - 10.4 01/24/2013 Normal [facility] HEMATOLOGY RBC X 10x6 4.86 M/CMM 4.20 - 5.40 01/24/2013 Normal [facility] HEMATOLOGY MPV 10.1 fL 7.4 - 10.4 01/24/2013 Normal [facility] HEMATOLOGY Platelet 189 K/CMM 133 - 450 01/24/2013 Normal [facility] HEMATOLOGY Basophils 0.3 % 0.0 - 1.0 01/24/2013 Normal [facility] HEMATOLOGY Segs-Bands # 4.8 K/CMM 1.5 - 8.1 01/24/2013 Normal [facility] HEMATOLOGY Lymphocytes # 2.3 K/CMM 1.0 - 5.5 01/24/2013 Normal [facility] HEMATOLOGY Monocytes 7.0 % 2.0 - 12.0 01/24/2013 Normal [facility] HEMATOLOGY Eosinophils 1.4 % 0.0 - 4.0 01/24/2013 Normal [facility] HEMATOLOGY Eosinophils # 0.1 K/CMM 0.0 - 0.5 01/24/2013 Normal [facility] HEMATOLOGY Basophils # 0.0 K/CMM 0.0 - 0.2 01/24/2013 Normal [facility] HEMATOLOGY Monocytes # 0.5 K/CMM 0.0 - 0.8 01/24/2013 Normal [facility] HEMATOLOGY Segs 61.7 % 45.0 - 75.0 01/24/2013 Normal [facility] HEMATOLOGY Lymphocytes 29.6 % 20.0 - 40.0 01/24/2013 Normal [facility] Spine lumbar 2 or 3 views Spine lumbar 2 or 3 views PROCEDURE: Spine lumbar AP lateral REASON FOR EXAM: See Clinic Indication CLINICAL INDICATION: Trauma COMPARISON: None. FINDINGS: Mild superior endplate compression fracture of the L1 and L3 vertebral bodies. No significant retropulsion. Disc space narrowing of L5/S1. Abundance of stool within the colon. SL: 12 01/24/2013 - - Read by: Dilip Singleton Dictated Date/time: 01/24/13 20:39 Electronically Signed by: Dilip Singleton MD 01/24/13 20:42 FINAL REPORT [facility] Knee 3 views Knee 3 views PROCEDURE: Right Knee 3 views REASON FOR EXAM: See Clinic Indication CLINICAL INDICATION: Trauma COMPARISON: None. FINDINGS: No definite acute fracture or dislocation. Mild tibial spurring is present. Some narrowing of the patellofemoral compartment and spurring. No significant suprapatellar joint effusion is present. Extensive vascular calcification is present. SL: 01/24/2013 - - Read by: Dilip Singleton Dictated Date/time: 01/24/13 20:38 Electronically Signed by: Dilip Singleton MD 01/24/13 20:38 FINAL REPORT [facility] Pelvis AP Pelvis AP PROCEDURE: Pelvis AP REASON FOR EXAM: See Clinic Indication CLINICAL INDICATION: Trauma COMPARISON: None. FINDINGS: No definite acute fracture or dislocation. Pubic rami is grossly intact. SL: 01/24/2013 - - Read by: Dilip Singleton Dictated Date/time: 01/24/13 20:37 Electronically Signed by: Dilip Singleton MD 01/24/13 20:38 FINAL REPORT [facility] Chest 1view Chest 1view Portable one view AP chest, Jan 24, 2013 02:05:00 PM CLINICAL HISTORY: Chest pain ; See Clinic Indication TECHNIQUE: Routine AP view of the chest was obtained. COMPARISON: 07/31/2012 FINDINGS: Lungs are clear. No pleural effusion or radiographically detectable pneumothorax is present. Cardiomediastinal silhouette is normal. Bones demonstrate median sternotomy changes. IMPRESSION: No acute abnormality of the chest. SL: 14 01/24/2013 - - Read by: Tresa Luz Dictated Date/time: 01/24/13 14:46 Electronically Signed by: Tresa Luz MD 01/24/13 14:47 FINAL REPORT [facility] Spine Thoracic w/wo contrast MRI Spine Thoracic w/wo contrast MRI MRI CERVICAL AND THORACIC SPINE WITH AND WITHOUT CONTRAST INDICATION: Myelopathy, thoracic neuritis or radiculitis, back pain and right leg weakness COMPARISON: None DISCUSSION: Image detail is degraded by motion artifacts. CERVICAL SPINE: Alignment: There is normal cervical lordosis. Vertebral body alignment is within normal limits. Craniocervical junction: No abnormalities. The foramen magnum is patent. Vertebral bodies: Normal in height and signal. Spinal cord: Normal in signal. Soft tissues: No signal abnormalities are visualized. Disc spaces, foramina, and spinal canal: C2-C3 and C3-C4: The discs are normal in height and signal. There is no significant arthrosis. The spinal canal and foramina are patent. C4-C5: The disc is normal in height. A 3 mm central disc protrusion results in mild spinal canal stenosis and mild indentation of the anterior cord. Bilateral uncovertebral arthrosis results in mild bilateral foraminal stenosis. C5-C6: The disc is normal in height and signal. There is mild posterior disc osteophyte complex, without spinal canal stenosis. Left uncovertebral arthrosis results in mild left foraminal stenosis. The right foramen is patent. C6-C7: The disc is normal in height. Posterior disc osteophyte complex results in mild spinal canal stenosis. There is mild bilateral facet hypertrophy, without foraminal stenosis. C7-T1: The disc is normal in height. There is no significant arthrosis. The spinal canal and foramina are patent. THORACIC SPINE: Alignment: There is dextroscoliosis of the thoracic spine. Vertebral body alignment is otherwise within normal limits. Vertebral bodies: Normal in height and signal intensity. No compression fractures. Spinal cord: Normal in signal and morphology. Soft tissues: A small right renal cyst is noted. Disc spaces, foramina, and spinal canal: There is mild spondylosis throughout the thoracic spine, without significant spinal canal or foraminal stenosis. IMPRESSION: 1. Spondylosis from C4-C5 through C6-C7 results in mild spinal canal and foraminal stenosis at worst. 2. A 3 mm central disc protrusion at C4-C5. 3. Mild thoracic spondylosis without spinal canal or foraminal stenosis. 4. The cord is grossly normal in signal. SL: 16 12/10/2012 - - Read by: Michael Chavez Dictated Date/time: 12/11/12 08:03 Electronically Signed by: Michael Chavez MD 12/11/12 08:46 FINAL REPORT [facility] Spine cervical w/wo contrast MRI Spine cervical w/wo contrast MRI MRI CERVICAL AND THORACIC SPINE WITH AND WITHOUT CONTRAST INDICATION: Myelopathy, thoracic neuritis or radiculitis, back pain and right leg weakness COMPARISON: None DISCUSSION: Image detail is degraded by motion artifacts. CERVICAL SPINE: Alignment: There is normal cervical lordosis. Vertebral body alignment is within normal limits. Craniocervical junction: No abnormalities. The foramen magnum is patent. Vertebral bodies: Normal in height and signal. Spinal cord: Normal in signal. Soft tissues: No signal abnormalities are visualized. Disc spaces, foramina, and spinal canal: C2-C3 and C3-C4: The discs are normal in height and signal. There is no significant arthrosis. The spinal canal and foramina are patent. C4-C5: The disc is normal in height. A 3 mm central disc protrusion results in mild spinal canal stenosis and mild indentation of the anterior cord. Bilateral uncovertebral arthrosis results in mild bilateral foraminal stenosis. C5-C6: The disc is normal in height and signal. There is mild posterior disc osteophyte complex, without spinal canal stenosis. Left uncovertebral arthrosis results in mild left foraminal stenosis. The right foramen is patent. C6-C7: The disc is normal in height. Posterior disc osteophyte complex results in mild spinal canal stenosis. There is mild bilateral facet hypertrophy, without foraminal stenosis. C7-T1: The disc is normal in height. There is no significant arthrosis. The spinal canal and foramina are patent. THORACIC SPINE: Alignment: There is dextroscoliosis of the thoracic spine. Vertebral body alignment is otherwise within normal limits. Vertebral bodies: Normal in height and signal intensity. No compression fractures. Spinal cord: Normal in signal and morphology. Soft tissues: A small right renal cyst is noted. Disc spaces, foramina, and spinal canal: There is mild spondylosis throughout the thoracic spine, without significant spinal canal or foraminal stenosis. IMPRESSION: 1. Spondylosis from C4-C5 through C6-C7 results in mild spinal canal and foraminal stenosis at worst. 2. A 3 mm central disc protrusion at C4-C5. 3. Mild thoracic spondylosis without spinal canal or foraminal stenosis. 4. The cord is grossly normal in signal. SL: 16 12/10/2012 - - Read by: Michael Chavez Dictated Date/time: 12/11/12 08:03 Electronically Signed by: Michael Chavez MD 12/11/12 08:46 FINAL REPORT [facility] lumbar w contrast MRI Spine lumbar w contrast MRI MRI lumbar spine with IV contrast. HISTORY: Thoracic or lumbosacral neuritis or radiculitis unspecified, lumbosacral plexus lesions. COMPARISON: Noncontrast MRI of the lumbar spine dated 10/19/2012. FINDINGS: Postcontrast images demonstrate enhancement in the left posterior paracentral recess L5/S1 related to scar tissue from prior unilateral laminectomy. There is a central focus of nonenhancement within this region measuring 5 x 9 mm which may represent focal fibrosis or possibly a disc sequestration (axial series 16 image 5). There is also enhancement associated with hypertrophic facet arthrosis and facet synovitis at L4/L5 and L5/S1. No intradural enhancement is seen. No enhancing mass lesion is identified. IMPRESSION: 1. Round focus of nonenhancement within an area of epidural scar tissue in the left lateral recess at L5/S1 which may represent focal fibrosis or disc sequestration. 2. Low lumbar facet arthrosis and synovitis. 3. No enhancing mass lesion is identified. SL: 11/13/2012 - - Read by: Josue Richards Dictated Date/time: 11/13/12 17:53 Electronically Signed by: Josue Richards MD 11/13/12 18:03 FINAL REPORT [facility] Sacrum w/wo contrast MRI Spine Sacrum w/wo contrast MRI MRI OF THE SACRUM WITHOUT AND WITH IV CONTRAST COMPARISON: None available. FINDINGS: The lumbosacral nerve roots of the lumbar plexus are normal in size, shape, and signal intensity. There is no abnormal enhancement. The proximal sciatic nerve appears normal bilaterally. The sacral neural foramina are normal in appearance. No soft tissue mass or fluid collection is seen. No soft tissue inflammatory change is identified. Sacrum appears normal. No sacral fracture, erosion, or intraosseous lesion. The sacroiliac joints appear normal bilaterally. IMPRESSION: Normal exam. SL: 11/13/2012 - - Read by: Josue Richards Dictated Date/time: 11/13/12 18:03 Electronically Signed by: Josue Richards MD 11/13/12 18:09 FINAL REPORT [facility] lumbar wo contrast MRI Spine lumbar wo contrast MRI MRI LUMBAR SPINE WITHOUT CONTRAST INDICATION: Right lower extremity radiculopathy COMPARISON: MRI lumbar spine 01/23/2007 DISCUSSION: The usual five non-rib bearing lumbar vertebral bodies are present. Alignment: There is normal lordotic curvature. Vertebral body alignment is within normal limits. Vertebral bodies: There is a left ureteral laminectomy of L5. The vertebral bodies are otherwise normal in height and signal from T11 through S2. Lower thoracic cord: Normal in signal. The tip of the conus is at the L1-L2 level. Soft tissues: No signal abnormalities. Paraspinal muscles: There is mild fatty atrophy of the bilateral superficial paraspinal muscles. Disc spaces, foramina and spinal canal: T12-L1 through L3-L4: The discs are normal in height and signal. There is no significant facet arthropathy. The spinal canal and foramina are patent. L4-L5: The disc is normal in height and signal. There is mild bilateral facet arthropathy, associated with minimal perifacetal soft tissue edema. The spinal canal and foramina are patent. L5-S1: There is desiccation of the disc and loss of disc height. Central annular fissure is noted. Mild asymmetric left disc bulge results in mild left foraminal narrowing. The spinal canal and right foramen are patent. Note is made of abnormal soft tissue within the left lateral recess, surrounding the descending left S1 nerve root, probable peridural fibrosis. IMPRESSION: 1. 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 2. Unilateral left laminectomy at L5, associated with peridural fibrosis of the left lateral recess at L5-S1. 3. Spondylosis at L5-S1 results mild left foraminal stenosis. There is annular fissure of the disc. SL: 16 10/29/2012 - - Read by: Michael Chavez Dictated Date/time: 10/29/12 15:55 Electronically Signed by: Michael Chavez MD 10/29/12 16:16 FINAL REPORT [facility] BEDSIDE GLUCOSE TESTING Comment1 Notify SHARAN 08/03/2012 MADYSON [facility] BEDSIDE GLUCOSE TESTING Gluc POC Lifscn 201 mg/dL 70 - 99 08/03/2012 HI 1Interpretive Data: Upper Reportable Limit: 200 mg/dL. [facility] BEDSIDE GLUCOSE TESTING Comment1 Notify SHARAN 08/03/2012 MADYSON [facility] BEDSIDE GLUCOSE TESTING Gluc POC Lifscn 206 mg/dL 70 - 99 08/03/2012 HI 2Interpretive Data: Upper Reportable Limit: 200 mg/dL. [facility] BEDSIDE GLUCOSE TESTING Comment1 Notify RN/ 08/03/2012 NA [facility] BEDSIDE GLUCOSE TESTING Gluc POC Lifscn 224 mg/dL 70 - 99 08/03/2012 HI 3Interpretive Data: Upper Reportable Limit: 200 mg/dL. [facility] Carotid artery bilateral Duplex US Carotid artery bilateral Duplex US HISTORY: Dizziness. Note: "Any reported ICA stenoses indirectly reference the distal internal carotid diameter as the denominator for stenosis measurement, using consensus panel criteria." Peak systolic velocity right ICA 0.9 m/sec. Left ICA peak systolic velocity is 0.7 m/sec. The internal to common carotid artery systolic velocity ratios are 0.6 on the right and 0.7 on the left. Antegrade vertebral artery flow noted bilaterally. IMPRESSION: Less than 50% stenosis in the ICA bilaterally by sonographic criteria. SL:13 08/02/2012 - - Read by: Froilan Sebastian Dictated Date/time: 08/03/12 08:29 Electronically Signed by: Froilan Sebastian MD 08/03/12 08:30 FINAL REPORT [facility] CHEMISTRY CHD Risk 5.24 3.90 - 5.80 08/02/2012 Normal [facility] CHEMISTRY LDL 91 mg/dL <=99 08/02/2012 Normal 13Interpretive Data: Reference ranges are based on the clinical guidelines of the NHLBI National Cholesterol Education Program (ATP III, 2001). [facility] HDL 34 mg/dL >=61 08/02/2012 LOW 11Interpretive Data: Reference ranges are based on the clinical guidelines of the NHLBI National Cholesterol Education Program (ATP III, 2001). [facility] CHEMISTRY Trig 263 mg/dL <=149 08/02/2012 HI 9Interpretive Data: Reference ranges are based on the clinical guidelines of the NHLBI National Cholesterol Education Program (ATP III, 2001). [facility] CHEMISTRY Chol 178 mg/dL <=199 08/02/2012 Normal 7Interpretive Data: Reference ranges are based on the clinical guidelines of the NHLBI National Cholesterol Education Program (ATP III, 2001). [facility] HEMATOLOGY PTT 31.3 s 22.9 - 35.8 08/02/2012 Normal 18Interpretive Data: Heparin Therapeutic Range: 57 - 92 Seconds [facility] HEMATOLOGY PT 12.8 s 12.0 - 14.7 08/02/2012 Normal [facility] HEMATOLOGY INR 0.94 0.85 - 1.17 08/02/2012 Normal 16Interpretive Data: RECOMMENDED RANGES FOR PROTIME INR: 2.0-3.0 for most medical and surgical thromboembolic states. 2.5-3.5 for artificial heart valves and recurrent embolism. INR SHOULD BE USED ONLY FOR PATIENTS ON STABLE ANTICOAGULANT THERAPY. [facility] Microbiology Culture: Urine 08/01/2012 [facility] Renal US Renal US RENAL ULTRASOUND DISCUSSION: Comparison is made to the 03/16/2012 study. The right kidney measures 5 x 3.6 x 9.4 cm and the left kidney 4.8 x 4.3 x 9.4 cm (AP x transverse x long ). Normal renal echogenicity and cortical thickness. No hydronephrosis, cyst, solid mass, gross calcifications, or perinephric collections. Mild to moderate bladder distention. IMPRESSION: Negative renal ultrasound. SL: 13 08/01/2012 - - Read by: Gaudencio Delgadillo Dictated Date/time: 08/02/12 10:54 Electronically Signed by: Gaudencio Delgadillo MD 08/02/12 11:00 FINAL REPORT [facility] CHEMISTRY Hgb A1C 10.3 % <=5.6 08/01/2012 HI 15Interpretive Data: The reference range is based on the clinical practice guidelines of the [place] [employer] for diabetes screening; levels of 5.7%-6.4% are indicative of pre-diabetes. [facility] CHEMISTRY HDL 34 mg/dL >=61 08/01/2012 LOW 12Interpretive Data: Reference ranges are based on the clinical guidelines of the NHLBI National Cholesterol Education Program (ATP III, 2001). [facility] CHEMISTRY Trig 201 mg/dL <=149 08/01/2012 HI 10Interpretive Data: Reference ranges are based on the clinical guidelines of the NHLBI National Cholesterol Education Program (ATP III, 2001). [facility] CHEMISTRY Chol 180 mg/dL <=199 08/01/2012 Normal 8Interpretive Data: Reference ranges are based on the clinical guidelines of the NHLBI National Cholesterol Education Program (ATP III, 2001). [facility] CHEMISTRY LDL 106 mg/dL <=99 08/01/2012 HI 14Interpretive Data: Reference ranges are based on the clinical guidelines of the NHLBI National Cholesterol Education Program (ATP III, 2001). [facility] CHEMISTRY CHD Risk 5.29 3.90 - 5.80 08/01/2012 Normal [facility] Cardiac SPECT multi studies NM Cardiac SPECT multi studies NM Nuclear gated myocardial perfusion scan is performed to the nuclear medicine lab at [facility]. This is a Rocío scan nuclear stress test. LexiScan injected 0.4 mg intravenously as a stress agent. Cardiolite is injected 11 mCi for resting protocol and 32 mCi for stress protocol. IMPRESSION: Normal gated myocardial perfusion scan, no evidence of ischemia noted. No evidence of a scar noted. Left ventricle ejection fraction is about 60%. Reading location: [facility]. 08/01/2012 - - Read by: Wero Carr Date/time: 08/02/12 11:48 Electronically Signed by: Wero Carr MD 08/02/12 11:50 FINAL REPORT [facility] CHEMISTRY Total CK 54 unit/L 12 - 191 07/31/2012 Normal [facility] CHEMISTRY Troponin-I null 0.00 - 0.40 07/31/2012 Normal [facility] CHEMISTRY Total CK 60 unit/L 12 - 191 07/31/2012 Normal [facility] Troponin-I null 0.00 - 0.40 07/31/2012 Normal [facility] URINALYSIS UA Urobilinogen <=1.0 mg/dL
*NA*
(07/31/2012 06:00:00) <sup> </sup> 0.1 - 1.0 07/31/2012 NA [facility] URINALYSIS UA Leuk Est Small *ABN* (07/31/2012 06:00:00) Negative 07/31/2012 ABN [facility] URINALYSIS UA Bacteria Moderate /HPF *ABN* (07/31/2012 06:00:00) None Seen 07/31/2012 ABN [facility] URINALYSIS UA Mucus Few /LPF *NA* (07/31/2012 06:00:00) None Seen 07/31/2012 [facility] URINALYSIS UA RBC 2 /HPF 0 - 2 07/31/2012 Normal [facility] URINALYSIS UA WBC 30 /HPF 0 - 5 07/31/2012 HI [facility] URINALYSIS UA Sq Epi Occasional /LPF *NA* (07/31/2012 06:00:00) Few 07/31/2012 [facility] URINALYSIS UA pH 5.0 5.0 - 8.0 07/31/2012 Normal [facility] URINALYSIS UA Spec Grav 1.012 <=1.030 07/31/2012 Normal [facility] URINALYSIS UA Bili Negative *NA* (07/31/2012 06:00:00) Negative 07/31/2012 NA [facility] URINALYSIS UA Ketones Trace mg/dL *ABN* (07/31/2012 06:00:00) Negative 07/31/2012 ABN [facility] URINALYSIS UA Glucose 500 mg/dL *ABN* (07/31/2012 06:00:00) Negative 07/31/2012 ABN [facility] URINALYSIS UA Turbidity Marked *ABN* (07/31/2012 06:00:00) Clear 07/31/2012 ABN [facility] URINALYSIS UA Color Yellow *NA* (07/31/2012 06:00:00) Yellow 07/31/2012 NA [facility] URINALYSIS UA Nitrite Negative (07/31/2012 06:00:00) Negative 07/31/2012 Normal [facility] URINALYSIS UA Blood Moderate *ABN* (07/31/2012 06:00:00) Negative 07/31/2012 ABN [facility] URINALYSIS UA Protein Negative mg/dL (07/31/2012 06:00:00) Negative 07/31/2012 Normal [facility] Microbiology Culture: Urine 07/31/2012 [facility] CHEMISTRY CK MB Index 1.1 0.0 - 2.5 07/31/2012 Normal [facility] CHEMISTRY CK MB 0.8 ng/mL 0.5 - 3.6 07/31/2012 Normal [facility] CHEMISTRY Total CK 74 unit/L 12 - 191 07/31/2012 Normal [facility] CHEMISTRY Troponin-I null 0.00 - 0.40 07/31/2012 Normal [facility] CHEMISTRY Phosphorus 3.7 mg/dL 2.5 - 4.5 07/31/2012 Normal [facility] CHEMISTRY Magnesium Lvl 1.4 mg/dL 1.8 - 2.4 07/31/2012 LOW [facility] CHEMISTRY BNP 6 pg/mL <=100 07/31/2012 Normal 6Interpretive Data: Elevated results are in line with increasing severity of congestive heart failure. Minor elevations between 100 and 300 may be seen with Myocardial Ischemia, Sodium retaining drugs, and compensated/treated heart failure. [facility] CHEMISTRY Potassium Lvl 4.0 meq/L 3.5 - 5.1 07/31/2012 Normal [facility] CHEMISTRY Chloride Lvl 105 meq/L 95 - 109 07/31/2012 Normal [facility] CHEMISTRY Sodium Lvl 141 meq/L 135 - 145 07/31/2012 Normal [facility] CHEMISTRY eGFR 32 mL/min/1.73m2 07/31/2012 NA 4Result Comment: The eGFR is calculated using the CKD-EPI formula. In most young, healthy individuals the eGFR will be >90 mL/min/1.73m2. The eGFR declines with age. An eGFR of 60-89 may be normal in some populations, particularly the elderly, for whom the CKD-EPI formula has not been extensively validated. Use of the eGFR is not recommended in the following populations: Individuals with unstable creatinine concentrations, including patients and those with serious co-morbid conditions. Patients with extremes in muscle mass or diet. The data above are obtained from the National Kidney Disease Education Program (NKDEP) which additionally recommends that when the eGFR is used in patients with extremes of body mass index for purposes of drug dosing, the eGFR should be multiplied by the estimated BMI. [facility] CHEMISTRY A/G Ratio 1.1 0.7 - 1.6 07/31/2012 Normal [facility] CHEMISTRY BUN 30 mg/dL 7 - 22 07/31/2012 HI [facility] CHEMISTRY Creatinine Lvl 1.7 mg/dL 0.5 - 1.4 07/31/2012 [facility] CHEMISTRY CO2 26 meq/L 24 - 32 07/31/2012 Normal [facility] CHEMISTRY Calcium Lvl 9.8 mg/dL 8.5 - 10.5 07/31/2012 Normal [facility] CHEMISTRY Albumin Lvl 3.6 g/dL 3.5 - 5.0 07/31/2012 Normal [facility] CHEMISTRY ALT 34 unit/L 0 - 65 07/31/2012 Normal [facility] CHEMISTRY Alk Phos 112 unit/L 39 - 136 07/31/2012 Normal [facility] CHEMISTRY Bili Total 0.4 mg/dL 0.2 - 1.3 07/31/2012 Normal [facility] CHEMISTRY AGAP 14.0 meq/L 10.0 - 20.0 07/31/2012 Normal [facility] CHEMISTRY B/C Ratio 18 6 - 25 07/31/2012 Normal [facility] CHEMISTRY Globulin 3.3 g/dL 2.0 - 4.0 07/31/2012 Normal [facility] CHEMISTRY Total Protein 6.9 g/dL 6.4 - 8.4 07/31/2012 Normal [facility] CHEMISTRY Glucose Lvl 249 mg/dL 70 - 99 07/31/2012 HI 5Interpretive Data: Adult reference range values reflect the clinical guidelines of the [place] [employer]. [facility] CHEMISTRY AST 21 unit/L 0 - 37 07/31/2012 Normal [facility] HEMATOLOGY Segs-Bands # 3.4 K/CMM 1.5 - 8.1 07/31/2012 Normal [facility] HEMATOLOGY Basophils 0.6 % 0.0 - 1.0 07/31/2012 Normal [facility] HEMATOLOGY Lymphocytes 38.8 % 20.0 - 40.0 07/31/2012 Normal [facility] HEMATOLOGY Segs 43.7 % 45.0 - 75.0 07/31/2012 LOW [facility] HEMATOLOGY Monocytes 10.0 % 2.0 - 12.0 07/31/2012 Normal [facility] HEMATOLOGY Eosinophils 6.9 % 0.0 - 4.0 07/31/2012 HI [facility] HEMATOLOGY Monocytes # 0.8 K/CMM 0.0 - 0.8 07/31/2012 Normal [facility] HEMATOLOGY Eosinophils # 0.5 K/CMM 0.0 - 0.5 07/31/2012 Normal [facility] HEMATOLOGY Lymphocytes # 3.0 K/CMM 1.0 - 5.5 07/31/2012 Normal [facility] HEMATOLOGY Basophils # 0.0 K/CMM 0.0 - 0.2 07/31/2012 Normal [facility] HEMATOLOGY INR 1.06 0.85 - 1.17 07/31/2012 Normal 17Interpretive Data: RECOMMENDED RANGES FOR PROTIME INR: 2.0-3.0 for most medical and surgical thromboembolic states. 2.5-3.5 for artificial heart valves and recurrent embolism. INR SHOULD BE USED ONLY FOR PATIENTS ON STABLE ANTICOAGULANT THERAPY. [facility] HEMATOLOGY PTT 33.5 s 22.9 - 35.8 07/31/2012 Normal 19Interpretive Data: Heparin Therapeutic Range: 57 - 92 Seconds [facility] HEMATOLOGY PT 14.0 s 12.0 - 14.7 07/31/2012 Normal [facility] HEMATOLOGY Platelet 158 K/CMM 133 - 450 07/31/2012 Normal [facility] HEMATOLOGY MCHC 33.3 g/dL 32.0 - 36.0 07/31/2012 Normal [facility] RDW 14.6 % 11.5 - 14.5 07/31/2012 HI [facility] HEMATOLOGY MPV 9.9 fL 7.4 - 10.4 07/31/2012 Normal [facility] HEMATOLOGY MCH 30.4 pg 27.0 - 31.0 07/31/2012 Normal [facility] HEMATOLOGY Hct 41.6 % 36.0 - 48.0 07/31/2012 Normal [facility] HEMATOLOGY Hgb 13.9 g/dL 12.0 - 16.0 07/31/2012 Normal [facility] HEMATOLOGY MCV 91.1 fL 81.0 - 99.0 07/31/2012 Normal [facility] HEMATOLOGY RBC 4.57 M/CMM 4.20 - 5.40 07/31/2012 Normal [facility] HEMATOLOGY WBC 7.8 K/CMM 3.7 - 10.4 07/31/2012 Normal [facility] Chest 1view Chest 1view Chest, one view. HISTORY: Chest pain. COMPARISON: None available. FINDINGS: The lungs are underinflated but clear. No pleural effusion or pneumothorax. Mild cardiomegaly. Changes of sternotomy. No acute osseous abnormality. SL: 12 07/31/2012 - - Read by: Josue Richards Dictated Date/time: 07/31/12 07:13 Electronically Signed by: Josue Richards MD 07/31/12 07:14 FINAL REPORT [facility] BEDSIDE GLUCOSE TESTING Gluc POC Lifscn 187 mg/dL 70 - 99 12/30/2011 HI 1Interpretive Data: Upper Reportable Limit: 200 mg/dL. [facility] BEDSIDE GLUCOSE TESTING Comment1 Notify RN/ 12/30/2011 NA [facility] CHEMISTRY Alk Phos 99 unit/L 39 - 136 12/29/2011 Normal [facility] CHEMISTRY Bili Total 0.3 mg/dL 0.2 - 1.3 12/29/2011 Normal [facility] CHEMISTRY AST 24 unit/L 0 - 37 12/29/2011 Normal [facility] CHEMISTRY Total Protein 6.9 g/dL 6.4 - 8.4 12/29/2011 Normal [facility] CHEMISTRY ALT 38 unit/L 0 - 65 12/29/2011 Normal [facility] CHEMISTRY Albumin Lvl 3.4 g/dL 3.5 - 5.0 12/29/2011 LOW [facility] CHEMISTRY B/C Ratio 14 6 - 25 12/29/2011 Normal [facility] CHEMISTRY Calcium Lvl 9.3 mg/dL 8.5 - 10.5 12/29/2011 Normal [facility] CHEMISTRY Potassium Lvl 4.8 meq/L 3.5 - 5.1 12/29/2011 Normal [facility] CHEMISTRY Chloride Lvl 105 meq/L 95 - 109 12/29/2011 Normal [facility] CHEMISTRY AGAP 11.8 meq/L 10.0 - 20.0 12/29/2011 Normal [facility] CHEMISTRY CO2 27 meq/L 24 - 32 12/29/2011 Normal [facility] CHEMISTRY BUN 29 mg/dL 7 - 22 12/29/2011 HI [facility] CHEMISTRY Glucose Lvl 403 mg/dL 70 - 99 12/29/2011 CRIT 4Interpretive Data: Adult reference range values reflect the clinical guidelines of the [place] [employer]. [facility] CHEMISTRY Sodium Lvl 139 meq/L 135 - 145 12/29/2011 Normal [facility] CHEMISTRY Creatinine Lvl 2.0 mg/dL 0.5 - 1.4 12/29/2011 [facility] CHEMISTRY eGFR 26 mL/min/1.73m2 12/29/2011 NA 2Result Comment: The eGFR is calculated using the CKD-EPI formula. In most young, healthy individuals the eGFR will be >90 mL/min/1.73m2. The eGFR declines with age. An eGFR of 60-89 may be normal in some populations, particularly the elderly, for whom the CKD-EPI formula has not been extensively validated. Use of the eGFR is not recommended in the following populations: Individuals with unstable creatinine concentrations, including patients and those with serious co-morbid conditions. Patients with extremes in muscle mass or diet. The data above are obtained from the National Kidney Disease Education Program (NKDEP) which additionally recommends that when the eGFR is used in patients with extremes of body mass index for purposes of drug dosing, the eGFR should be multiplied by the estimated BMI. [facility] CHEMISTRY Globulin 3.5 g/dL 2.0 - 4.0 12/29/2011 Normal [facility] CHEMISTRY A/G Ratio 1.0 0.7 - 1.6 12/29/2011 Normal [facility] HEMATOLOGY MCH 30.9 pg 27.0 - 31.0 12/29/2011 Normal [facility] HEMATOLOGY Hgb 14.5 g/dL 12.0 - 16.0 12/29/2011 Normal [facility] HEMATOLOGY RBC 4.69 M/CMM 4.20 - 5.40 12/29/2011 Normal [facility] HEMATOLOGY MCV 92.0 fL 81.0 - 99.0 12/29/2011 Normal [facility] HEMATOLOGY Hct 43.2 % 36.0 - 48.0 12/29/2011 Normal [facility] HEMATOLOGY WBC 6.5 K/CMM 3.7 - 10.4 12/29/2011 Normal [facility] HEMATOLOGY MCHC 33.5 g/dL 32.0 - 36.0 12/29/2011 Normal [facility] HEMATOLOGY RDW 13.9 % 11.5 - 14.5 12/29/2011 Normal [facility] HEMATOLOGY Platelet 156 K/CMM 133 - 450 12/29/2011 Normal [facility] HEMATOLOGY MPV 10.2 fL 7.4 - 10.4 12/29/2011 Normal [facility] HEMATOLOGY Eosinophils # 0.1 K/CMM 0.0 - 0.5 12/29/2011 Normal [facility] HEMATOLOGY Monocytes # 0.7 K/CMM 0.0 - 0.8 12/29/2011 Normal [facility] HEMATOLOGY Basophils # 0.0 K/CMM 0.0 - 0.2 12/29/2011 Normal [facility] HEMATOLOGY Eosinophils 1.9 % 0.0 - 4.0 12/29/2011 Normal [facility] HEMATOLOGY Basophils 0.4 % 0.0 - 1.0 12/29/2011 Normal [facility] HEMATOLOGY Lymphocytes # 1.6 K/CMM 1.0 - 5.5 12/29/2011 Normal [facility] HEMATOLOGY Segs-Bands # 4.1 K/CMM 1.5 - 8.1 12/29/2011 Normal [facility] HEMATOLOGY Monocytes 10.7 % 2.0 - 12.0 12/29/2011 Normal [facility] HEMATOLOGY Lymphocytes 24.6 % 20.0 - 40.0 12/29/2011 Normal [facility] HEMATOLOGY Segs 62.4 % 45.0 - 75.0 12/29/2011 Normal [facility] RAPID Grp A Strep Scr Positive *ABN* (12/29/2011 15:35:00) Negative 12/29/2011 ABN [facility] Vital Signs Vital Sign Value Date Comments Source Weight 228 11/03/2017 [facility] Height 67 11/03/2017 [facility] Heart Rate 68 11/03/2017 [facility] Diastolic (mm Hg) 78 11/03/2017 [facility] Systolic (mm Hg) 130 11/03/2017 [facility] Weight 234 09/09/2017 [facility] Height 67 09/09/2017 [facility] Heart Rate 67 09/09/2017 [facility] Diastolic (mm Hg) 78 09/09/2017 [facility] Systolic (mm Hg) 130 09/09/2017 [facility] Weight 243 07/08/2017 [facility] Height 67 07/08/2017 [facility] Heart Rate 67 07/08/2017 [facility] Diastolic (mm Hg) 80 07/08/2017 [facility] Systolic (mm Hg) 130 07/08/2017 [facility] Weight 237.0 05/26/2017 [facility] Height 67 05/26/2017 [facility] Temperature Oral (F) 98.3 F 05/26/2017 [facility] Heart Rate 72 05/26/2017 [facility] Diastolic (mm Hg) 82 05/26/2017 [facility] Systolic (mm Hg) 130 05/26/2017 [facility] Weight 236.8 05/01/2017 [facility] Height 67 05/01/2017 [facility] Heart Rate 99 05/01/2017 [facility] Diastolic (mm Hg) 70 05/01/2017 [facility] Systolic (mm Hg) 122 05/01/2017 [facility] Weight 242 04/09/2017 [facility] Height 67 04/09/2017 [facility] Heart Rate 68 04/09/2017 [facility] Diastolic (mm Hg) 68 04/09/2017 [facility] Systolic (mm Hg) 118 04/09/2017 [facility] Weight 242 02/28/2017 [facility] Height 67 02/28/2017 [facility] Heart Rate 77 02/28/2017 [facility] Diastolic (mm Hg) 72 02/28/2017 [facility] Systolic (mm Hg) 120 02/28/2017 [facility] Weight 238 01/07/2017 [facility] [facility] Height 67 01/07/2017 [facility] Heart Rate 69 01/07/2017 [facility] Diastolic (mm Hg) 84 01/07/2017 [facility] Systolic (mm Hg) 124 01/07/2017 [facility] Weight 236.4 12/23/2016 [facility] Height 67 12/23/2016 [facility] Heart Rate 56 12/23/2016 [facility] Diastolic (mm Hg) 64 12/23/2016 [facility] Systolic (mm Hg) 160 12/23/2016 [facility] Weight 225 12/05/2016 [facility] Height 67 12/05/2016 [facility] Heart Rate 66 12/05/2016 [facility] Diastolic (mm Hg) 84 12/05/2016 [facility] Systolic (mm Hg) 132 12/05/2016 [facility] Temperature Oral (F) 98.2 F 11/29/2016 [facility] Respitory Rate 16 11/29/2016 [facility] Systolic (mm Hg) 165 11/29/2016 [facility] Diastolic (mm Hg) 70 11/29/2016 [facility] Heart Rate 65 11/29/2016 [facility] Heart Rate 75 11/29/2016 [facility] Respitory Rate 15 11/29/2016 [facility] Systolic (mm Hg) 162 11/29/2016 [facility] Diastolic (mm Hg) 73 11/29/2016 [facility] Systolic (mm Hg) 151 11/28/2016 [facility] Diastolic (mm Hg) 67 11/28/2016 [facility] Temperature Oral (F) 98.4 F 11/28/2016 [facility] Respitory Rate 18 11/28/2016 [facility] Height 170.18 cm 11/28/2016 [facility] Weight 100 11/28/2016 [facility] BMI Calculated 34.53 11/28/2016 [facility] Temperature Oral (F) 98.2 F 11/28/2016 [facility] Heart Rate 74 11/28/2016 [facility] Weight 220 11/28/2016 [facility] Height 67 11/28/2016 [facility] Heart Rate 67 11/28/2016 [facility] Diastolic (mm Hg) 70 11/28/2016 [facility] Systolic (mm Hg) 126 11/28/2016 [facility] Systolic (mm Hg) 158 11/27/2016 [facility] Diastolic (mm Hg) 78 11/27/2016 [facility] Heart Rate 66 11/27/2016 [facility] Respitory Rate 18 11/27/2016 [facility] Systolic (mm Hg) 132 11/27/2016 [facility] Diastolic (mm Hg) 63 11/27/2016 [facility] Respitory Rate 15 11/27/2016 [facility] Systolic (mm Hg) 107 11/27/2016 [facility] Diastolic (mm Hg) 48 11/27/2016 [facility] Respitory Rate 19 11/27/2016 [facility] Heart Rate 74 11/27/2016 [facility] Heart Rate 81 11/27/2016 [facility] Temperature Oral (F) 97.6 F 11/27/2016 [facility] Temperature Oral (F) 97.7 F 11/27/2016 [facility] Temperature Oral (F) 97.6 F 11/27/2016 [facility] Height 170.18 cm 11/26/2016 [facility] BMI Calculated 35.63 11/26/2016 [facility] Weight 103.182 11/26/2016 [facility] Weight 103.182 11/26/2016 [facility] BMI Calculated 35.63 11/26/2016 [facility] Height 170.18 cm 11/26/2016 [facility] Heart Rate 65 11/06/2016 [facility] Systolic (mm Hg) 158 11/06/2016 [facility] Diastolic (mm Hg) 74 11/06/2016 [facility] Respitory Rate 18 11/06/2016 [facility] Temperature Oral (F) 98.3 F 11/06/2016 [facility] Respitory Rate 18 11/06/2016 [facility] Heart Rate 64 11/06/2016 [facility] Temperature Oral (F) 98.1 F 11/06/2016 [facility] Systolic (mm Hg) 174 11/06/2016 [facility] Diastolic (mm Hg) 74 11/06/2016 [facility] Heart Rate 54 11/06/2016 [facility] Respitory Rate 18 11/06/2016 [facility] Temperature Oral (F) 97.9 F 11/06/2016 [facility] Systolic (mm Hg) 129 11/06/2016 [facility] Diastolic (mm Hg) 64 11/06/2016 [facility] BMI Calculated 34.84 11/05/2016 [facility] Weight 100.909 11/05/2016 [facility] Height 170.18 cm 11/05/2016 [facility] Weight 225 11/04/2016 [facility] Height 67 11/04/2016 [facility] Heart Rate 62 11/04/2016 [facility] Diastolic (mm Hg) 80 11/04/2016 [facility] Systolic (mm Hg) 146 11/04/2016 [facility] Weight 230 10/24/2016 [facility] Height 67 10/24/2016 [facility] Temperature Oral (F) 97.8 F 10/24/2016 [facility] Heart Rate 68 10/24/2016 [facility] Diastolic (mm Hg) 88 10/24/2016 [facility] Systolic (mm Hg) 150 10/24/2016 [facility] Weight 221 08/15/2016 [facility] Height 67 08/15/2016 [facility] Heart Rate 82 08/15/2016 [facility] Diastolic (mm Hg) 94 08/15/2016 [facility] Systolic (mm Hg) 146 08/15/2016 [facility] Respitory Rate 18 08/15/2016 [facility] Systolic (mm Hg) 150 08/15/2016 [facility] Diastolic (mm Hg) 74 08/15/2016 [facility] Systolic (mm Hg) 161 08/14/2016 [facility] Diastolic (mm Hg) 73 08/14/2016 [facility] Respitory Rate 18 08/14/2016 [facility] Respitory Rate 16 08/14/2016 [facility] Systolic (mm Hg) 161 08/14/2016 [facility] Diastolic (mm Hg) 73 08/14/2016 [facility] Temperature Oral (F) 97.9 F 08/14/2016 [facility] Heart Rate 74 08/14/2016 [facility] Heart Rate 74 08/14/2016 [facility] Heart Rate 82 08/14/2016 [facility] Height 170.18 cm 08/14/2016 [facility] BMI Calculated 34.53 08/14/2016 [facility] Weight 100 08/14/2016 [facility] Temperature Oral (F) 99 F 08/14/2016 [facility] Weight 228 08/01/2016 [facility] Height 67 08/01/2016 [facility] Heart Rate 69 08/01/2016 [facility] Diastolic (mm Hg) 98 08/01/2016 [facility] Systolic (mm Hg) 160 08/01/2016 [facility] Weight 229 07/10/2016 [facility] Height 67 07/10/2016 [facility] Heart Rate 61 07/10/2016 [facility] Diastolic (mm Hg) 80 07/10/2016 [facility] Systolic (mm Hg) 160 07/10/2016 [facility] Weight 226 06/24/2016 [facility] Height 67 06/24/2016 [facility] Temperature Oral (F) 97.7 F 06/24/2016 [facility] Heart Rate 68 06/24/2016 [facility] Diastolic (mm Hg) 82 06/24/2016 [facility] Systolic (mm Hg) 168 06/24/2016 [facility] Weight 234 05/03/2016 [facility] Height 67 05/03/2016 [facility] Heart Rate 59 05/03/2016 [facility] Diastolic (mm Hg) 88 05/03/2016 [facility] Systolic (mm Hg) 160 05/03/2016 [facility] Temperature Oral (F) 97.9 F 02/08/2016 [facility] Heart Rate 60 02/08/2016 [facility] Respitory Rate 16 02/08/2016 [facility] Systolic (mm Hg) 135 02/08/2016 [facility] Diastolic (mm Hg) 80 02/08/2016 [facility] Weight 100.455 02/08/2016 [facility] BMI Calculated 34.69 02/08/2016 [facility] Height 170.18 cm 02/08/2016 [facility] Systolic (mm Hg) 136 02/08/2016 [facility] Diastolic (mm Hg) 70 02/08/2016 [facility] Respitory Rate 18 02/08/2016 [facility] Respitory Rate 19 02/08/2016 [facility] Systolic (mm Hg) 136 02/08/2016 [facility] Diastolic (mm Hg) 69 02/08/2016 [facility] Heart Rate 70 02/08/2016 [facility] Weight 100.455 02/08/2016 [facility] Height 170.18 cm 02/08/2016 [facility] BMI Calculated 34.69 02/08/2016 [facility] Heart Rate 67 02/08/2016 [facility] Temperature Oral (F) 98.7 F 02/08/2016 [facility] Weight 233 01/23/2016 [facility] Height 67 01/23/2016 [facility] Heart Rate 58 01/23/2016 [facility] Diastolic (mm Hg) 70 01/23/2016 [facility] Systolic (mm Hg) 110 01/23/2016 [facility] Weight 229 12/12/2015 [facility] Height 67 12/12/2015 [facility] Heart Rate 85 12/12/2015 [facility] Diastolic (mm Hg) 88 12/12/2015 [facility] Systolic (mm Hg) 115 12/12/2015 [facility] Weight 221 11/27/2015 [facility] Height 67 11/27/2015 [facility] Heart Rate 87 11/27/2015 [facility] Diastolic (mm Hg) 74 11/27/2015 [facility] Systolic (mm Hg) 118 11/27/2015 [facility] Heart Rate 77 11/21/2015 [facility] Temperature Oral (F) 97.7 F 11/21/2015 [facility] Systolic (mm Hg) 157 11/21/2015 [facility] Diastolic (mm Hg) 83 11/21/2015 [facility] Respitory Rate 18 11/21/2015 [facility] Respitory Rate 16 11/21/2015 [facility] Systolic (mm Hg) 155 11/21/2015 [facility] Diastolic (mm Hg) 83 11/21/2015 [facility] Temperature Oral (F) 97.9 F 11/21/2015 [facility] Heart Rate 68 11/21/2015 [facility] Respitory Rate 18 11/21/2015 [facility] Heart Rate 76 11/21/2015 [facility] Temperature Oral (F) 98.6 F 11/21/2015 [facility] Systolic (mm Hg) 141 11/21/2015 [facility] Diastolic (mm Hg) 70 11/21/2015 [facility] BMI Calculated 34.53 11/20/2015 [facility] Height 170.18 cm 11/20/2015 [facility] Weight 100 11/20/2015 [facility] Weight 10 11/20/2015 [facility] BMI Calculated 3.45 11/20/2015 [facility] Height 170.18 cm 11/20/2015 [facility] Weight 227 11/16/2015 [facility] Height 67 11/16/2015 [facility] Heart Rate 82 11/16/2015 [facility] Diastolic (mm Hg) 72 11/16/2015 [facility] Systolic (mm Hg) 130 11/16/2015 [facility] Weight 225 10/02/2015 [facility] Height 67 10/02/2015 [facility] Heart Rate 80 10/02/2015 [facility] Diastolic (mm Hg) 78 10/02/2015 [facility] Systolic (mm Hg) 110 10/02/2015 [facility] Respitory Rate 18 08/08/2015 [facility] Heart Rate 63 08/08/2015 [facility] Temperature Oral (F) 98.1 F 08/08/2015 [facility] Systolic (mm Hg) 115 08/08/2015 [facility] Diastolic (mm Hg) 70 08/08/2015 [facility] Respitory Rate 18 08/07/2015 [facility] Heart Rate 67 08/07/2015 [facility] Systolic (mm Hg) 139 08/07/2015 [facility] Diastolic (mm Hg) 68 08/07/2015 [facility] Temperature Oral (F) 97.7 F 08/07/2015 [facility] Systolic (mm Hg) 149 08/07/2015 [facility] Diastolic (mm Hg) 70 08/07/2015 [facility] Heart Rate 62 08/07/2015 [facility] Temperature Oral (F) 97.8 F 08/07/2015 [facility] Respitory Rate 18 08/07/2015 [facility] Height 170.18 cm 08/06/2015 [facility] BMI Calculated 35.94 08/06/2015 [facility] Weight 104.091 08/06/2015 [facility] Weight 104.091 08/06/2015 [facility] BMI Calculated 35.94 08/06/2015 [facility] Height 170.18 cm 08/06/2015 [facility] Weight 229 07/11/2015 [facility] Height 67 07/11/2015 [facility] Heart Rate 66 07/11/2015 [facility] Diastolic (mm Hg) 88 07/11/2015 [facility] Systolic (mm Hg) 162 07/11/2015 [facility] Weight 230 07/03/2015 [facility] Height 67 07/03/2015 [facility] Temperature Oral (F) 98.2 F 07/03/2015 [facility] Heart Rate 80 07/03/2015 [facility] Diastolic (mm Hg) 70 07/03/2015 [facility] Systolic (mm Hg) 130 07/03/2015 [facility] Temperature Oral (F) 97.4 F 10/19/2014 [facility] Systolic (mm Hg) 120 10/19/2014 [facility] Diastolic (mm Hg) 65 10/19/2014 [facility] Respitory Rate 16 10/19/2014 [facility] Heart Rate 64 10/19/2014 [facility] Systolic (mm Hg) 119 10/19/2014 [facility] Diastolic (mm Hg) 68 10/19/2014 [facility] Respitory Rate 16 10/19/2014 [facility] Heart Rate 58 10/19/2014 [facility] Temperature Oral (F) 97.5 F 10/19/2014 [facility] Systolic (mm Hg) 146 10/19/2014 [facility] Diastolic (mm Hg) 78 10/19/2014 [facility] Respitory Rate 16 10/19/2014 [facility] Temperature Oral (F) 98.2 F 10/19/2014 [facility] Heart Rate 61 10/19/2014 [facility] BMI Calculated 33.59 10/18/2014 [facility] Height 170.18 cm 10/18/2014 [facility] Weight 97.273 10/18/2014 [facility] Heart Rate 81 10/09/2014 [facility] Temperature Oral (F) 97.8 F 10/09/2014 [facility] Respitory Rate 18 10/09/2014 [facility] Systolic (mm Hg) 117 10/09/2014 [facility] Diastolic (mm Hg) 64 10/09/2014 [facility] Respitory Rate 16 10/09/2014 [facility] Systolic (mm Hg) 128 10/09/2014 [facility] Diastolic (mm Hg) 69 10/09/2014 [facility] Heart Rate 69 10/09/2014 [facility] Respitory Rate 16 10/09/2014 [facility] Temperature Oral (F) 97.9 F 10/09/2014 [facility] Temperature Oral (F) 98.5 F 10/09/2014 [facility] Heart Rate 68 10/09/2014 [facility] Systolic (mm Hg) 136 10/09/2014 [facility] Diastolic (mm Hg) 73 10/09/2014 [facility] BMI Calculated 32.34 10/09/2014 [facility] Height 170.18 cm 10/09/2014 [facility] Weight 93.665 10/09/2014 [facility] Height 170.18 cm 10/08/2014 [facility] Weight 100 10/08/2014 [facility] BMI Calculated 34.53 10/08/2014 [facility] BMI Calculated 32.17 10/06/2013 [facility] Weight 93.182 10/06/2013 [facility] Height 170.18 cm 10/06/2013 [facility] Heart Rate 74 10/06/2013 [facility] Systolic (mm Hg) 187 10/06/2013 [facility] Diastolic (mm Hg) 93 10/06/2013 [facility] Respitory Rate 20 10/06/2013 [facility] Temperature Oral (F) 97.8 F 10/06/2013 [facility] Diastolic (mm Hg) 66 07/30/2013 [facility] Heart Rate 89 07/30/2013 [facility] Systolic (mm Hg) 138 07/30/2013 [facility] Respitory Rate 18 07/30/2013 [facility] Temperature Oral (F) 98.2 F 07/30/2013 [facility] Systolic (mm Hg) 138 07/30/2013 [facility] Diastolic (mm Hg) 68 07/30/2013 [facility] Respitory Rate 18 07/30/2013 [facility] Temperature Oral (F) 98 F 07/30/2013 [facility] Heart Rate 89 07/30/2013 [facility] Diastolic (mm Hg) 66 07/30/2013 [facility] Systolic (mm Hg) 155 07/30/2013 [facility] Respitory Rate 18 07/30/2013 [facility] Heart Rate 85 07/30/2013 [facility] Temperature Oral (F) 98.2 F 07/30/2013 [facility] Height 170.18 cm 07/30/2013 [facility] BMI Calculated 31.39 07/30/2013 [facility] Weight 90.909 07/30/2013 [facility] Respitory Rate 18 01/25/2013 [facility] Heart Rate 98 01/25/2013 [facility] Systolic (mm Hg) 145 01/25/2013 [facility] Diastolic (mm Hg) 82 01/25/2013 [facility] Temperature Oral (F) 97.5 F 01/25/2013 [facility] Diastolic (mm Hg) 98 01/25/2013 [facility] Systolic (mm Hg) 157 01/25/2013 [facility] Heart Rate 97 01/25/2013 [facility] Respitory Rate 18 01/25/2013 [facility] Weight 79.545 01/24/2013 [facility] Height 167.64 cm 01/24/2013 [facility] Heart Rate 90 01/24/2013 [facility] Respitory Rate 18 01/24/2013 [facility] Diastolic (mm Hg) 91 01/24/2013 [facility] Systolic (mm Hg) 143 01/24/2013 [facility] Height 170.18 cm 01/08/2013 [facility] Weight 99.545 01/08/2013 [facility] Temperature Oral (F) 97.7 F 01/08/2013 [facility] Respitory Rate 18 01/08/2013 [facility] Diastolic (mm Hg) 75 01/08/2013 [facility] Systolic (mm Hg) 176 01/08/2013 [facility] Heart Rate 75 01/08/2013 [facility] Heart Rate 87 08/03/2012 [facility] Diastolic (mm Hg) 81 08/03/2012 [facility] Systolic (mm Hg) 138 08/03/2012 [facility] Respitory Rate 18 08/03/2012 [facility] Temperature Oral (F) 98.5 F 08/03/2012 [facility] Respitory Rate 16 08/03/2012 [facility] Temperature Oral (F) 97.7 F 08/03/2012 [facility] Respitory Rate 18 08/03/2012 [facility] Diastolic (mm Hg) 75 08/03/2012 [facility] Systolic (mm Hg) 137 08/03/2012 [facility] Heart Rate 73 08/03/2012 [facility] Heart Rate 85 08/03/2012 [facility] Temperature Oral (F) 97.8 F 08/03/2012 [facility] Systolic (mm Hg) 157 08/03/2012 [facility] Diastolic (mm Hg) 81 08/03/2012 [facility] Height 170.18 cm 07/31/2012 [facility] Weight 101.364 07/31/2012 [facility] Weight 100 07/31/2012 [facility] Weight 96.364 12/29/2011 [facility] Height 170.18 cm 12/29/2011 [facility] Encounters Location Location Details Encounter Type Encounter Number Reason For Visit Attending Provider ADM Date DC Date Status Source [facility] [place] [id number] TYPE 2 DIABETES GERTRUDE COTO 10/01/2011 Active [facility] Emergency [id number] DILIP BROOKS 12/29/2011 12/29/2011 Active [facility] [id number] CKD, HTN, M BIRD YU 01/22/2012 01/22/2012 Active [facility] Inpatient [id number] CHEST PAIN, UTI EDUARDA MARREROR 08/02/2012 08/03/2012 Active [facility]patient [id number] 724.4 BECCA KARLA 10/29/2012 Active [facility]patient [id number] 724.4, 353.1, 724.4 BECCA KARLA 11/13/2012 Active [facility] Outpatient [id number] 336.3 BECCA KARLA 12/10/2012 Active [facility] Emergency [id number] ADAM AIDEN 01/08/2013 01/08/2013 Active [facility] Emergency [id number] CRISTOBAL ALBERTO 01/24/2013 01/24/2013 Active [facility] TH [id number] LUMBAR RADICULOPATHY KAYLA SHEETS 03/11/2013 [facility] [place] [id number] _MAPID:[id number] Kayla Sheets 03/11/2013 04/10/2013 [facility] [place] [id number] POSTMENOPAUSAL SYMPTOMS AMELIE HUMBERTO 03/17/2013 Active [facility] [place] [facility] [id number] _MAPID:[id number] Kayla Sheets 04/16/2013 05/16/2013 [facility] [place] [facility] [id number] Kayla Sheets 05/17/2013 06/16/2013 [facility] [id number] Cristobal Rose 07/30/2013 07/30/2013 [facility] [id number] Bari Martinez 10/06/2013 10/06/2013 [facility] Outpatient [id number] Fer Gutierrez 01/20/2014 01/21/2014 [facility] Outpatient [id number] Jose Eisenberg 06/09/2014 06/10/2014 [facility] Outpatient [id number] Shady Salas 07/27/2014 07/28/2014 [facility] [id number] Anayeli Alamo 10/08/2014 10/08/2014 [facility] Inpatient [id number] Armin Singleton 10/08/2014 10/09/2014 [facility] Outpatient [id number] Armin Singleton 10/18/2014 10/19/2014 [facility] chest pain and congestion [id number] 07/03/2015 07/03/2015 [facility] chest pain and congestion [id number] 07/03/2015 07/03/2015 [facility] chest pain and congestion [id number] 07/03/2015 07/03/2015 [facility] chest pain and congestion [id number] 07/03/2015 07/03/2015 [facility] chest pain and congestion [id number] 07/03/2015 07/03/2015 [facility] chest pain and congestion [id number] 07/03/2015 07/03/2015 [facility] chest pain and congestion [id number] 07/03/2015 07/03/2015 [facility] chest pain and congestion [id number] 07/03/2015 07/03/2015 [facility] chest pain and congestion [id number] 07/03/2015 07/03/2015 [facility] chest pain and congestion [id number] 07/03/2015 07/03/2015 [facility] chest pain and congestion [id number] 07/03/2015 07/03/2015 [facility] chest pain and congestion [id number] 07/03/2015 07/03/2015 [facility] chest pain and congestion [id number] 07/03/2015 07/03/2015 [facility] chest pain and congestion [id number] 07/03/2015 07/03/2015 [facility] 2 week follow up [id number] 07/11/2015 07/11/2015 [facility] 2 week follow up [id number] 07/11/2015 07/11/2015 [facility] 2 week follow up [id number] 07/11/2015 07/11/2015 [facility] 2 week follow up [id number] 07/11/2015 07/11/2015 [facility] 2 week follow up [id number] 07/11/2015 07/11/2015 [facility] 2 week follow up [id number] 07/11/2015 07/11/2015 [facility] 2 week follow up [id number] 07/11/2015 07/11/2015 [facility] 2 week follow up [id number] 07/11/2015 07/11/2015 [facility] 2 week follow up [id number] 07/11/2015 07/11/2015 [facility] 2 week follow up [id number] 07/11/2015 07/11/2015 [facility] 2 week follow up [id number] 07/11/2015 07/11/2015 [facility] 2 week follow up [id number] 07/11/2015 07/11/2015 [facility] 2 week follow up [id number] 07/11/2015 07/11/2015 [facility] OBS Observation Patient [id number] Diego Jasonvishal 08/06/2015 08/07/2015 [facility] New Refill Request [id number] 08/21/2015 08/21/2015 [facility] New Refill Request [id number] 08/21/2015 08/21/2015 [facility] New Refill Request [id number] 08/21/2015 08/21/2015 [facility] New Refill Request [id number] 08/21/2015 08/21/2015 [facility] New Refill Request [id number] 08/21/2015 08/21/2015 [facility] New Refill Request [id number] 08/21/2015 08/21/2015 [facility] New Refill Request [id number] 08/21/2015 08/21/2015 [facility] New Refill Request [id number] 08/21/2015 08/21/2015 [facility] New Refill Request [id number] 08/21/2015 08/21/2015 [facility] New Refill Request [id number] 08/21/2015 08/21/2015 [facility] New Refill Request [id number] 08/21/2015 08/21/2015 [facility] New Refill Request [id number] 08/21/2015 08/21/2015 [facility] physical [id number] 10/02/2015 10/02/2015 [facility] physical [id number] 10/02/2015 10/02/2015 [facility] physical [id number] 10/02/2015 10/02/2015 [facility] physical [id number] 10/02/2015 10/02/2015 [facility] physical [id number] 10/02/2015 10/02/2015 [facility] physical [id number] 10/02/2015 10/02/2015 [facility] physical [id number] 10/02/2015 10/02/2015 [facility] physical [id number] 10/02/2015 10/02/2015 [facility] physical [id number] 10/02/2015 10/02/2015 [facility] physical [id number] 10/02/2015 10/02/2015 [facility] physical [id number] 10/02/2015 10/02/2015 [facility] Test results [id number] 10/04/2015 10/04/2015 [facility] Test results [id number] 10/04/2015 10/04/2015 [facility] Test results [id number] 10/04/2015 10/04/2015 [facility] Test results [id number] 10/04/2015 10/04/2015 [facility] Test results [id number] 10/04/2015 10/04/2015 [facility] Test results [id number] 10/04/2015 10/04/2015 [facility] Test results [id number] 10/04/2015 10/04/2015 [facility] Test results [id number] 10/04/2015 10/04/2015 [facility] Test results [id number] 10/04/2015 10/04/2015 [facility] Test results [id number] 10/04/2015 10/04/2015 [facility] Abnormal UA [id number] 10/06/2015 10/06/2015 [facility] Abnormal UA [id number] 10/06/2015 10/06/2015 [facility] Abnormal UA [id number] 10/06/2015 10/06/2015 [facility] Abnormal UA [id number] 10/06/2015 10/06/2015 [facility] Abnormal UA [id number] 10/06/2015 10/06/2015 [facility] Abnormal UA [id number] 10/06/2015 10/06/2015 [facility] Abnormal UA [id number] 10/06/2015 10/06/2015 [facility] Abnormal UA [id number] 10/06/2015 10/06/2015 [facility] Abnormal UA [id number] 10/06/2015 10/06/2015 [facility] Unknown [id number] 10/24/2015 10/24/2015 [facility] Unknown [id number] 10/24/2015 10/24/2015 [facility] Unknown [id number] 10/24/2015 10/24/2015 [facility] Unknown [id number] 10/24/2015 10/24/2015 [facility] Unknown [id number] 10/25/2015 10/25/2015 [facility] Unknown [id number] 10/25/2015 10/25/2015 [facility] Unknown [id number] 10/25/2015 10/25/2015 [facility] Unknown [id number] 10/25/2015 10/25/2015 [facility] referral for MRI [id number] 11/16/2015 11/16/2015 [facility] referral for MRI [id number] 11/16/2015 11/16/2015 [facility] referral for MRI [id number] 11/16/2015 11/16/2015 [facility] referral for MRI [id number] 11/16/2015 11/16/2015 [facility] Internal Medicine [facility] referral for MRI [id number] 11/16/2015 11/16/2015 [facility] Medicine [facility] referral for MRI [id number] 11/16/2015 11/16/2015 [facility] referral for MRI [id number] 11/16/2015 11/16/2015 [facility] Observation [id number] Katie Bustillosious 11/20/2015 11/21/2015 [facility] Follow up [id number] 11/27/2015 11/27/2015 [facility] Follow up [id number] 11/27/2015 11/27/2015 [facility] Follow up [id number] 11/27/2015 11/27/2015 [facility] [id number] 11/27/2015 11/27/2015 [facility] Follow up [id number] 11/27/2015 11/27/2015 [facility] Follow up [id number] 11/27/2015 11/27/2015 [facility] follow up test results [id number] 12/12/2015 12/12/2015 [facility] follow up test results [id number] 12/12/2015 12/12/2015 [facility] follow up test results [id number] 12/12/2015 12/12/2015 [facility] follow up test results [id number] 12/12/2015 12/12/2015 [facility] follow up test results [id number] 12/12/2015 12/12/2015 [facility] Outpatient [id number] [facility] 01/09/2016 [facility] Outpatient [id number] [facility] 01/18/2016 01/19/2016 [facility] 6 week follow up [id number] 01/23/2016 01/23/2016 [facility] 6 week follow up [id number] 01/23/2016 01/23/2016 [facility] 6 week follow up [id number] 01/23/2016 01/23/2016 [facility] 6 week follow up [id number] 01/23/2016 01/23/2016 [facility] New Refill Request [id number] 01/29/2016 01/29/2016 [facility] New Refill Request [id number] 01/29/2016 01/29/2016 [facility] New Refill Request [id number] 01/29/2016 01/29/2016 [facility] ok. Thank you, I will check with Pharmacy [id number] 01/29/2016 01/29/2016 [facility] ok. Thank you, I will check with Pharmacy [id number] 01/29/2016 01/29/2016 [facility] ok. Thank you, I will check with Pharmacy [id number] 01/29/2016 01/29/2016 [facility] Observation [id number] Diego Merchant 02/08/2016 02/09/2016 [facility] Outpatient [id number] [facility] 02/27/2016 Active [facility] Outpatient [id number] [facility] 03/26/2016 Active [facility] Unknown [id number] 04/02/2016 04/02/2016 [facility] Outpatient [id number] [facility] 04/30/2016 Active [facility] [place] [facility] [id number] Becca Acosta 06/16/2016 06/17/2016 [facility] [id number] [facility] 07/09/2016 [facility] Outpatient [id number] [facility] 07/11/2016 07/12/2016 [facility] Outpatient [id number] Conchita Moy 08/05/2016 08/06/2016 [facility] Observation [id number] Johanna Romario 08/14/2016 08/15/2016 [facility] Outpatient [id number] [facility] 09/03/2016 [facility] Inpatient [id number] Diego Merchant 11/05/2016 11/06/2016 [facility] Observation [id number] Amir Ghebranious 11/26/2016 11/27/2016 [facility] Emergency [id number] Reeva Tan 11/28/2016 11/29/2016 [facility] Outpatient [id number] Jose Faina 07/22/2017 07/23/2017 [facility] Outpatient [id number] TYPE 2 DIABETES GERTRUDE COTO Active [facility] TH [id number] DIABETES GERTRUDE COTO Cancel [facility] OD [id number] 405.91 - RENOVASC HYPERT RAMAKRISHNA COTO Active [facility] [place] Outpatient [id number] 724.4 COMPRESSION OF LUMBAR NERVE ROOT/ 724.2 ACUTE KAYLA BONBIANCAN Active [facility] Procedures Procedure Code Date Perfomer Comments Source Cholecystectomy [id number] [facility] Open heart surgery [id number] [facility] Cholecystectomy 38248778 [facility] Open heart surgery 3337432 [place] G[facility] stapling [id number] [place] Hysterectomy [id number] [facility] Stomach reconstruction<sup>1</sup> 809308201 stomach staple [facility] Cardiac catheterization [id number] [facility] Excision of disc for intervertebral herniated disc, nucleus pulposus 51433866 [facility] Tonsillectomy [id number] [facility] Cardiac catheterization [id number] [facility] Cholecystectomy [id number] [facility] Excision of disc for intervertebral herniated disc, nucleus pulposus [id number] [facility] Gastric stapling [id number] [facility] Hysterectomy [id number] [facility] Open heart surgery 4538978 [facility] Tonsillectomy [id number] [facility]
--- OUTSIDE RECORDS SUMMARY | 2017-12-18 07:01 | XMS REPORT | CCD ---
Author Author Auto Generated Organization [facility] Address Unknown Phone Unavailable Care Team Providers Care Farm Operations Technical Director Name Role Phone Kush Rose RP Allergies, Adverse Reactions, Alerts Substance Reaction Status sulfa drugs Active Problem List Condition Effective Dates Status Diabetes mellitus Active Hypertension Active
--- OUTSIDE RECORDS SUMMARY | 2017-12-18 07:01 | XMS REPORT | CCD ---
Author Author Auto Generated Organization [facility] [place] Address Unknown Phone Unavailable Care Team Providers Care Call Taker Name Role Phone Raheem Nguyễn CP Allergies, Adverse Reactions, Alerts Substance Reaction Status sulfa drugs Active Problem List Condition Effective Dates Status Diabetes mellitus Active Hypertension Active
--- OUTSIDE RECORDS SUMMARY | 2017-12-18 07:02 | XMS REPORT | Summary of Care ---
Author Author [facility] Organization [facility] Address Unknown Phone Unavailable Encounter HQ Josh(FIN) [id number] Date(s): 10/08/14 - 10/08/14 [facility] [address] [place] [address]- [phone] Discharge Disposition: ED Registered In Error Attending Physician: Anayeli Alamo DO Vital Signs No data available for this section Problem List Condition Effective Dates Status Health Status Informant Diabetes Resolved mellitus(Confirmed) Diabetes Active mellitus(Confirmed) Hyperlipidemia(Confi Resolved rmed) Hypertension(Confirm Resolved ed) Hypertension(Confirm Active ed) Hypothyroid(Confirme Resolved d) Pinched Resolved nerve(Confirmed)1 1L5 Allergies, Adverse Reactions, Alerts Substance Reaction Severity Status Levaquin Active sulfa drugs Active Medications No data available for this section Results No data available for this section Immunizations No data available for this section Procedures Procedure Date Related Diagnosis Body Site Cholecystectomy Gastric stapling Hysterectomy Open heart surgery Stomach reconstruction1 1stomach staple Social History Social History Type Response Alcohol Never Smoking Status Never smoker; Exposure to Tobacco Smoke None; Cigarette Smoking Last 365 Days No; Reg Smoking Cessation Counseling No Assessment and Plan No data available for this section
--- OUTSIDE RECORDS SUMMARY | 2017-12-18 07:02 | XMS REPORT | Summary of Care ---
Author Organization Unknown Address Unknown Phone Unavailable Encounter Dates Location Diagnoses Discharge Providers Disposition 04/16/2013 [facility] TramainedanielGallo - 05/15/2013 Reason for Visit LUMBAGO Problem List Condition Effective Dates Status Health Status Informant Diabetes Resolved mellitus(Confirmed) Diabetes Active mellitus(Confirmed) Hypertension(Confirm Resolved ed) Hypertension(Confirm Active ed) Hypothyroid(Confirme Resolved d) Allergies, Adverse Reactions, Alerts Status Substance Reaction Severity Active iodine Active sulfa drugs Medications No data available for this section Medications Administered During Your Visit No data available for this section Immunizations No data available for this section
--- OUTSIDE RECORDS SUMMARY | 2017-12-18 07:02 | XMS REPORT | Summary of Care ---
Author Organization Unknown Address Unknown Phone Unavailable Encounter Dates Location Diagnoses Discharge Providers Disposition 03/11/2013 [facility] Tramainedaniel Gallo Jony - 04/09/2013 Reason for Visit LUMBAR RADICULOPATHY Problem List Condition Effective Dates Status Health [...]
--- OUTSIDE RECORDS SUMMARY | 2017-12-18 07:02 | XMS REPORT | CCD ---
Author Author Auto Generated Organization [facility] Address Unknown Phone Unavailable Care Team Providers Care Guest Advisor Name Role Phone Gallo Sheets RP Allergies, Adverse Reactions, Alerts Substance Reaction Status iodine Active sulfa drugs Active Problem List Condition Effective Dates Status Diabetes mellitus Resolved Diabetes mellitus Active Hypertension Resolved Hypertension Active Hypothyroid Resolved
--- OUTSIDE RECORDS SUMMARY | 2017-12-18 07:02 | XMS REPORT | Summary of Care ---
Author Organization Unknown Address Unknown Phone Unavailable Encounter HQ Royerntr_lashon(BLESSING) [id number] Date(s): 07/27/14 - 07/27/14 [facility] [address] [place] [address]- Discharge Disposition: Home Physician Attending: Shady aSlas MD Physician_Referring: Shady Salas MD Vital Signs No data available for this section Problem List Condition Effective Dates Status Health Status Informant Diabetes Resolved mellitus(Confirmed) Diabetes Active mellitus(Confirmed) Hypertension(Confirm Resolved ed) Hypertension(Confirm Active ed) Hypothyroid(Confirme Resolved d) Allergies, Adverse Reactions, Alerts Substance Reaction Severity Status sulfa drugs Active Medications No data available for this section Results No data available for this section Immunizations No data available for this section Procedures Procedure Date Related Diagnosis Body Site Cholecystectomy Open heart surgery Social History No data available for this section Assessment and Plan No data available for this section
--- OUTSIDE RECORDS SUMMARY | 2017-12-18 07:02 | XMS REPORT | Summary of Care ---
Author Organization Unknown Address Unknown Phone Unavailable Encounter HQ Royerntr_lashon(BLESSING) [id number] Date(s): 06/09/14 - 06/09/14 [facility] [address] [place] [address]- [phone] Discharge Disposition: Home Physician Attending: Jose Eisenberg MD Physician_Referring: Jose Eisenberg MD Vital Signs No data available for [...]
--- OUTSIDE RECORDS SUMMARY | 2017-12-18 07:02 | XMS REPORT | Summary of Care ---
Author Author [facility] Organization [facility] Address Unknown Phone Unavailable Encounter HQ Josh(BLESSING) [id number] Date(s): 10/08/14 - 10/09/14 [facility] [address] [place] [address]- Discharge Disposition: Home Attending Physician: Armin Singleton MD Admitting Physician: Armin Singleton MD Vital Signs 1 2 3 Most recent to oldest [Reference Range]: 170.18 cm (10/08/14 7:55 PM) 170.18 cm (10/08/14 9:17 AM) Height 1 2 3 Most recent to oldest [Reference Range]: 97.8 DegF (10/09/14 12:21 PM) 97.9 DegF (10/09/14 8:00 AM) 98.5 DegF (10/09/14 4:00 AM) Temperature Oral [96.4-99.1 DegF] 1 2 3 Most recent to oldest [Reference Range]: 117/64 mmHg (10/09/14 12:21 PM) 128/69 mmHg (10/09/14 8:00 AM) 136/73 mmHg (10/09/14 4:00 AM) Blood Pressure [90-140/60-90 mmHg] 1 2 3 Most recent to oldest [Reference Range]: 18 BRMIN (10/09/14 12:21 PM) 16 BRMIN (10/09/14 8:11 AM) 16 BRMIN (10/09/14 8:00 AM) Respiratory Rate [14-20 BRMIN] 1 2 3 Most recent to oldest [Reference Range]: 81 bpm (10/09/14 12:21 PM) 69 bpm (10/09/14 8:00 AM) 68 bpm (10/09/14 4:00 AM) Peripheral Pulse Rate [60-100 bpm] 1 2 3 Most recent to oldest [Reference Range]: 93.665 kg (10/08/14 7:55 PM) 100 kg (10/08/14 9:17 AM) Weight 1 2 3 Most recent to oldest [Reference Range]: 32.34 m2 (10/08/14 7:55 PM) 34.53 m2 (10/08/14 9:17 AM) Body Mass Index Problem List Condition Effective Dates Status Health Status Informant Diabetes Resolved mellitus(Confirmed) Diabetes Active mellitus(Confirmed) Hyperlipidemia(Confi Resolved rmed) Hypertension(Confirm Resolved ed) Hypertension(Confirm Active ed) Hypothyroid(Confirme Resolved d) Pinched Resolved nerve(Confirmed)1 1L5 Allergies, Adverse Reactions, Alerts Substance Reaction Severity Status Levaquin Active sulfa drugs Active Medications acetaminophen-hydrocodone 325 mg-5 mg oral tablet 1 tab, Route: PO, Drug Form: TAB, Dosing Weight 100, kg, Q4H, PRN Pain Score 1-5 , Start date: 10/08/14 16:30:00, Duration: 30 day, Stop date: 11/07/14 16:29:00 Notes: (Same as: [place] 325/5) Do not exceed 4gm/day of acetaminophen. Start Date: 10/08/14 Stop Date: 10/09/14 Status: Discontinued acetaminophen-hydrocodone 325 mg-5 mg oral tablet 1 tab, PO, Q4H, PRN Pain Score 1-5 Start Date: 10/08/14 Status: Ordered allopurinol 100 mg, 1 tab, Route: PO, Drug form: TAB, Daily, Dosing Weight 100, kg, Start da te: 10/09/14 9:00:00, Duration: 30 day, Stop date: 11/07/14 9:00:00 Notes: (Same as: Zyloprim) Start Date: 10/09/14 Stop Date: 10/09/14 Status: Discontinued allopurinol 100 mg oral tablet 100 mg=1 tab, PO, Daily Start Date: 10/08/14 Status: Ordered aspirin 324 mg, Route: PO, ONCE, Dosing Weight 100, kg, Priority: STAT, Start date: 09/11 10/25 10:46:00, Stop date: 10/08/14 10:46:00 Start Date: 10/08/14 Stop Date: 10/08/14 Status: Completed aspirin 81 mg tablet, enteric coated 81 mg=1 tab, PO, Daily Start Date: 10/08/14 Status: Ordered aspirin 81 mg tablet, enteric coated 81 mg, 1 tab, Route: PO, Drug form: ECTAB, Q24H, Dosing Weight 100, kg, Start da te: 10/08/14 19:00:00, Duration: 30 day, Stop date: 11/06/14 19:00:00 Notes: Do not crush or chew.(Same As: Ecotrin) Start Date: 10/08/14 Stop Date: 10/09/14 Status: Discontinued atropine 0.5 mg, 5 mL, Route: IVP, Drug form: INJ, PRN, PRN Bradycardia, Start date: 09/11 10/25 19:23:00, Duration: 30 day, Stop date: 11/07/14 19:22:00 Start Date: 10/08/14 Stop Date: 10/09/14 Status: Discontinued Brilinta 180 mg, 2 tab, Route: PO, Drug form: TAB, ONCE, Dosing Weight 100, kg, Priority: STAT, Start date: 10/08/14 16:58:00, Stop date: 10/08/14 16:58:00 Notes: (Same as: Brilinta) Start Date: 10/08/14 Stop Date: 10/08/14 Status: Completed clopidogrel 75 mg, 1 tab, Route: PO, Drug form: TAB, QPM, Dosing Weight 93.665, kg, Start da te: 10/09/14 17:00:00, Duration: 30 day, Stop date: 11/07/14 17:00:00 Notes: (Same As: Plavix) Start Date: 10/09/14 Stop Date: 10/09/14 Status: Canceled clopidogrel 75 mg oral tablet 75 mg, PO, QPM, # 30 tab, 1 Refill(s) Start Date: 10/09/14 Status: Ordered GI cocktail 30 mL, Route: PO, Dosing Weight 100, kg, ONCE, STAT, Start date: 10/08/14 10:47: 00, Stop date: 10/08/14 10:47:00 Start Date: 10/08/14 Stop Date: 10/08/14 Status: Completed insulin aspart 4 unit, 0.04 mL, Route: SUB-Q, Drug form: SOLN, PRN, Dosing Weight 100, kg, PRN Blood Glucose Results, Start date: 10/08/14 16:33:00, Duration: 30 day, Stop sunday e: 11/07/14 16:32:00 Notes: Roll in palms of hands gently; Do not shake vigorously. (Same as: NovoLO G)"single patient use only" Stable for 28 days at room temperature.Expires in _ ____ days from Date Start Date: 10/08/14 Stop Date: 10/09/14 Status: Discontinued insulin aspart 5 unit, 0.05 mL, Route: SUB-Q, Drug form: SOLN, PRN, Dosing Weight 100, kg, PRN Blood Glucose Results, Start date: 10/08/14 16:33:00, Duration: 30 day, Stop sunday e: 11/07/14 16:32:00 Notes: Roll in palms of hands gently; Do not shake vigorously. (Same as: NovoLO G)"single patient use only" Stable for 28 days at room temperature.Expires in _ ____ days from Date Start Date: 10/08/14 Stop Date: 10/09/14 Status: Discontinued insulin aspart 3 unit, 0.03 mL, Route: SUB-Q, Drug form: SOLN, PRN, Dosing Weight 100, kg, PRN Blood Glucose Results, Start date: 10/08/14 16:33:00, Duration: 30 day, Stop sunday e: 11/07/14 16:32:00 Notes: Roll in palms of hands gently; Do not shake vigorously. (Same as: NovoLO G)"single patient use only" Stable for 28 days at room temperature.Expires in _ ____ days from Date Start Date: 10/08/14 Stop Date: 10/09/14 Status: Discontinued insulin aspart 2 unit, 0.02 mL, Route: SUB-Q, Drug form: SOLN, PRN, Dosing Weight 100, kg, PRN Blood Glucose Results, Start date: 10/08/14 16:33:00, Duration: 30 day, Stop sunday e: 11/07/14 16:32:00 Notes: Roll in palms of hands gently; Do not shake vigorously. (Same as: NovoLO G)"single patient use only" Stable for 28 days at room temperature.Expires in _ ____ days from Date Start Date: 10/08/14 Stop Date: 10/09/14 Status: Discontinued insulin aspart 1 unit, 0.01 mL, Route: SUB-Q, Drug form: SOLN, PRN, Dosing Weight 100, kg, PRN Blood Glucose Results, Start date: 10/08/14 16:33:00, Duration: 30 day, Stop sunday e: 11/07/14 16:32:00 Notes: Roll in palms of hands gently; Do not shake vigorously. (Same as: NovoLO G)"single patient use only" Stable for 28 days at room temperature.Expires in _ ____ days from Date Start Date: 10/08/14 Stop Date: 10/09/14 Status: Discontinued irbesartan 150 mg, 1 tab, Route: PO, Drug form: TAB, BID, Dosing Weight 100, kg, Priority: NOW, Start date: 10/08/14 16:31:00, Duration: 30 day, Stop date: 11/07/14 9:00:0 0 Notes: (Same as:Avapro) Start Date: 10/08/14 Stop Date: 10/09/14 Status: Discontinued irbesartan 150 mg oral tablet 150 mg=1 tab, PO, Daily Start Date: 10/08/14 Status: Ordered Lantus 30 unit, Route: SUB-Q, QAM, Dosing Weight 100, kg, Start date: 10/09/14 9:00:00, Duration: 30 day, Stop date: 11/07/14 9:00:00 Start Date: 10/09/14 Stop Date: 10/08/14 Status: Deleted Levemir FlexPen 30 unit, 0.3 mL, Route: SUB-Q, Drug form: INJ, QAM, Start date: 10/09/14 9:00:00 , Duration: 30 day, Stop date: 11/07/14 9:00:00 Notes: Same as LevemirDo not hold insulin without contacting prescriber "single patient use only" Start Date: 10/09/14 Stop Date: 10/09/14 Status: Discontinued levothyroxine 75 microgram, 1 tab, Route: PO, Drug form: TAB, [id number], Dosing Weight 100, kg, S tart date: 10/09/14 6:30:00, Duration: 30 day, Stop date: 11/07/14 6:30:00 Notes: Take 1 hour before or 2 hours after meal; Enteral feeds may interefere wi th the absorption of this medication. (Same as:Synthroid, Levothroid) Start Date: 10/09/14 Stop Date: 10/09/14 Status: Discontinued levothyroxine 75 mcg (0.075 mg) oral tablet 75 microgram=1 tab, PO, Daily Start Date: 10/08/14 Status: Ordered Lovenox 40 mg, 0.4 mL, Route: SUB-Q, Drug form: INJ, [id number], Dosing Weight 100, kg, St art date: 10/08/14 16:00:00, Duration: 30 day, Stop date: 11/06/14 16:00:00 Notes: (Same as: Lovenox) Start Date: 10/08/14 Stop Date: 10/09/14 Status: Discontinued Lyrica 75 mg, 1 cap, Route: PO, Drug form: CAP, Bedtime, Dosing Weight 100, kg, Start d ate: 10/08/14 21:00:00, Duration: 30 day, Stop date: 11/06/14 21:00:00 Notes: (Same as: Lyrica) Start Date: 10/08/14 Stop Date: 10/09/14 Status: Discontinued metoprolol 50 mg oral tablet, extended release 50 mg=1 tab, PO, Daily Start Date: 10/08/14 Stop Date: 10/09/14 Status: Discontinued Nifedical XL 90 mg, 1 tab, Route: PO, Drug form: ERTAB, Bedtime, Dosing Weight 100, kg, Start date: 10/08/14 21:00:00, Duration: 30 day, Stop date: 11/06/14 21:00:00 Notes: (Same as: Procardia XL)"Do Not Crush" "Avoid grapefruit and grapefruit j uice" Start Date: 10/08/14 Stop Date: 10/09/14 Status: Discontinued NIFEdipine 90 mg oral tablet, extended release 90 mg=1 tab, PO, Bedtime, # 30 tab, 11 Refill(s) Start Date: 10/09/14 Status: Ordered nitroglycerin 0.3 mg/hr transdermal film 1 patch, Route: TOP, Drug Form: ERFILM, Dosing Weight 100, kg, Daily, STAT, Star t date: 10/08/14 16:30:00, Duration: 30 day, Stop date: 11/07/14 9:00:00 Notes: Apply only once for up to 12 hours in a 24 hour period (12 hours on and 1 2 hours off.)(Same as:Nitro-Dur,Deponit,Transderm Nitro) For topical use only." Remove old patch before application of new patch" Start Date: 10/08/14 Stop Date: 10/09/14 Status: Discontinued nitroglycerin 0.4 mg sublingual tablet 0.4 mg, 1 tab, Route: SL, Drug form: TAB, Q5Min, Dosing Weight 100, kg, Start da te: 10/08/14 10:50:00, Duration: 3 doses or times, Stop date: 10/08/14 11:00:00 Notes: (Same as:Nitroquick, Nitrostat)"Do Not Crush" Sublingual tablet Start Date: 10/08/14 Stop Date: 10/08/14 Status: Completed nitroglycerin SL Tab 0.4 mg, 1 tab, Route: SL, Drug form: TAB, Q5Min, Dosing Weight 100, kg, PRN Ches t Pain, Start date: 10/08/14 15:51:00, Duration: 3 doses or times, Stop date: Clover montelongo # of times Notes: (Same as:Nitroquick, Nitrostat)"Do Not Crush" Sublingual tablet Start Date: 10/08/14 Stop Date: 10/09/14 Status: Discontinued ondansetron 4 mg, 1 tab, Route: PO, Drug form: TAB, Q8H, Dosing Weight 100, kg, PRN Nausea & Vomiting, Start date: 10/08/14 15:51:00, Duration: 30 day, Stop date: 11/07/14 15:50:00 Notes: (Same as: Zofran) Start Date: 10/08/14 Stop Date: 10/09/14 Status: Discontinued pravastatin 20 mg, 1 tab, Route: PO, Drug form: TAB, Bedtime, Dosing Weight 100, kg, Start d ate: 10/08/14 21:00:00, Duration: 30 day, Stop date: 11/06/14 21:00:00 Notes: (Same as: Pravachol) Start Date: 10/08/14 Stop Date: 10/09/14 Status: Discontinued pravastatin 20 mg oral tablet 20 mg=1 tab, PO, Bedtime Start Date: 10/08/14 Status: Ordered Prevacid 30 mg, Route: PO, Drug form: DRC, Daily, Dosing Weight 100, kg, Start date: 09/12 9:00:00, Duration: 30 day, Stop date: 11/07/14 9:00:00 Start Date: 10/09/14 Stop Date: 10/08/14 Status: Deleted Prevacid 30 mg oral delayed release capsule 30 mg=1 cap, PO, Daily Start Date: 10/08/14 Status: Ordered Protonix 40 mg, 1 tab, Route: PO, Drug form: ECTAB, BID, Start date: 10/09/14 9:00:00, Du ration: 30 day, Stop date: 11/07/14 17:00:00 Notes: Tablet should not be chewed or crushed.(Same as: Protonix) Start Date: 10/09/14 Stop Date: 10/09/14 Status: Discontinued Saline Flush 0.9% 10 mL, Route: IVP, Drug Form: INJ, Dosing Weight 100, kg, PRN, PRN Line Flush, S tart date: 10/08/14 10:46:00, Duration: 30 day, Stop date: 11/07/14 10:45:00 Notes: (Same as: BD Posiflush) Start Date: 10/08/14 Stop Date: 10/09/14 Status: Discontinued Saline Flush 0.9% 10 ml, Route: IVP, Drug Form: INJ, Dosing Weight 100, kg, PRN, PRN Line Flush, S tart date: 10/08/14 15:51:00, Duration: 30 day, Stop date: 11/07/14 15:50:00 Notes: (Same as: BD Posiflush) Start Date: 10/08/14 Stop Date: 10/09/14 Status: Discontinued Saline Flush 0.9% 10 ml, Route: IVP, Drug Form: INJ, Dosing Weight 100, kg, Q12H, Start date: 09/11 10/25 21:00:00, Duration: 30 day, Stop date: 11/07/14 9:00:00 Notes: (Same as: BD Posiflush) Start Date: 10/08/14 Stop Date: 10/09/14 Status: Discontinued Results ELECTROLYTES 1 2 3 Most recent to oldest [Reference Range]: 135 mEq/L (10/09/14 4:07 AM) 137 mEq/L (10/08/14 9:42 AM) Sodium Lvl [135-145 mEq/L] 4.3 mEq/L (10/09/14 4:07 AM) 4.2 mEq/L (10/08/14 9:42 AM) Potassium Lvl [3.5-5.1 mEq/L] 101 mEq/L (10/09/14 4:07 AM) 103 mEq/L (10/08/14 9:42 AM) Chloride Lvl [95-109 mEq/L] 26 mEq/L (10/09/14 4:07 AM) 28 mEq/L (10/08/14 9:42 AM) CO2 [24-32 mEq/L] 12.3 mEq/L (10/09/14 4:07 AM) 10.2 mEq/L (10/08/14 9:42 AM) AGAP [10.0-20.0 mEq/L] CHEM PANEL 1 2 3 Most recent to oldest [Reference Range]: 1.4 mg/dL (10/09/14 4:07 AM) 1.3 mg/dL (10/08/14 9:42 AM) Creatinine Lvl [0.5-1.4 mg/dL] 40 mL/min/1.73m2 1 *NA* (10/09/14 4:07 AM) 43 mL/min/1.73m2 2 *NA* (10/08/14 9:42 AM) eGFR 35 mg/dL *HI* (10/09/14 4:07 AM) 31 mg/dL *HI* (10/08/14 9:42 AM) BUN [7-22 mg/dL] 25 (10/09/14 4:07 AM) 24 (10/08/14 9:42 AM) B/C Ratio [6-25] 262 mg/dL *HI* (10/09/14 4:07 AM) 193 mg/dL *HI* (10/08/14 9:42 AM) Glucose Lvl [70-99 mg/dL] 6.8 g/dL (10/09/14 4:07 AM) 7.2 g/dL (10/08/14 9:42 AM) Total Protein [6.4-8.4 g/dL] 3.4 g/dL *LOW* (10/09/14 4:07 AM) 3.6 g/dL (10/08/14 9:42 AM) Albumin Lvl [3.5-5.0 g/dL] 3.4 g/dL (10/09/14 4:07 AM) 3.6 g/dL (10/08/14 9:42 AM) Globulin [2.0-4.0 g/dL] 1.0 (10/09/14 4:07 AM) 1.0 (10/08/14 9:42 AM) A/G Ratio [0.7-1.6] 9.1 mg/dL (10/09/14 4:07 AM) 9.5 mg/dL (10/08/14 9:42 AM) Calcium Lvl [8.5-10.5 mg/dL] 2.9 mg/dL (10/08/14 9:24 AM) Phosphorus [2.5-4.5 mg/dL] 1.9 mg/dL (10/09/14 4:07 AM) 2.0 mg/dL (10/08/14 9:24 AM) Magnesium Lvl [1.8-2.4 mg/dL] 27 unit/L (10/09/14 4:07 AM) 31 unit/L (10/08/14 9:42 AM) ALT [0-65 unit/L] 13 unit/L (10/09/14 4:07 AM) 14 unit/L (10/08/14 9:42 AM) AST [0-37 unit/L] 80 unit/L (10/09/14 4:07 AM) 81 unit/L (10/08/14 9:42 AM) Alk Phos [39-136 unit/L] 0.8 mg/dL (10/09/14 4:07 AM) 0.6 mg/dL (10/08/14 9:42 AM) Bili Total [0.2-1.3 mg/dL] 0.06 ng/mL (10/09/14 4:07 AM) Procalcitonin Lvl [0.00-0.10 ng/mL] 1Result Comment: The eGFR is calculated using [...] from the National Kid[employer] Disease Education Program ( NKDEP) which additionally recommends that when the eGFR is used in patients with extremes of body mass index for purposes of drug dosing, the eGFR should be mul tiplied by the estimated BMI. 2Result Comment: The eGFR is calculated using [...] from the National Kid[employer] Disease Education Program ( NKDEP) which additionally recommends that when the eGFR is used in patients with extremes of body mass index for purposes of drug dosing, the eGFR should be mul tiplied by the estimated BMI. CARDIAC ENZYMES 1 2 3 Most recent to oldest [Reference Range]: 32 unit/L (10/09/14 4:07 AM) 37 unit/L (10/08/14 9:22 PM) 44 unit/L (10/08/14 4:07 PM) Total CK [12-191 unit/L] 0.9 ng/mL (10/09/14 4:07 AM) 1.0 ng/mL (10/08/14 9:42 AM) CK MB [0.5-3.6 ng/mL] 2.8 *HI* (10/09/14 4:07 AM) 2.3 (10/08/14 9:42 AM) CK MB Index [0.0-2.5] <0.02 ng/mL (10/09/14 4:07 AM) <0.02 ng/mL (10/08/14 9:22 PM) <0.02 ng/mL (10/08/14 4:07 PM) Troponin-I [0.00-0.40 ng/mL] 44 pg/mL (10/09/14 4:07 AM) BNP [<=100 pg/mL] LIPIDS 1 2 3 Most recent to oldest [Reference Range]: 4.10 (10/09/14 4:07 AM) CHD Risk [3.90-5.80] 197 mg/dL (10/09/14 4:07 AM) Chol [<=199 mg/dL] 183 mg/dL *HI* (10/09/14 4:07 AM) Trig [<=149 mg/dL] 48 mg/dL *LOW* (10/09/14 4:07 AM) HDL [>=61 mg/dL] 112 mg/dL *HI* (10/09/14 4:07 AM) LDL (Calculated) [<=99 mg/dL] 37 *NA* (10/09/14 4:07 AM) VLDL SPECIAL CHEMISTRY 1 2 3 Most recent to oldest [Reference Range]: 7.6 % *HI* (10/09/14 4:07 AM) Hgb A1C [<=5.6 %] THYROID PANEL 1 2 3 Most recent to oldest [Reference Range]: 3.350 uIU/mL (10/09/14 4:07 AM) TSH [0.360-3.740 uIU/mL] TOXICOLOGY 1 2 3 Most recent to oldest [Reference Range]: <0.1 ng/mL *LOW* (10/09/14 4:07 AM) Digoxin Lvl [0.8-2.0 ng/mL] URINE AND STOOL 1 2 3 Most recent to oldest [Reference Range]: Clear (10/08/14 11:30 AM) UA Turbidity [Clear] Yellow *NA* (10/08/14 11:30 AM) UA Color [Yellow] 6.5 (10/08/14 11:30 AM) UA pH [5.0-8.0] 1.010 (10/08/14 11:30 AM) UA Spec Grav [<=1.030] 100 mg/dL *ABN* (10/08/14 11:30 AM) UA Glucose [Negative mg/dL] Trace *ABN* (10/08/14 11:30 AM) UA Blood [Negative] Negative *NA* (10/08/14 11:30 AM) UA Ketones [Negative] Negative (10/08/14 11:30 AM) UA Protein [Negative] 0.2 EU/dL (10/08/14 11:30 AM) UA Urobilinogen [0.1-1.0 EU/dL] Negative *NA* (10/08/14 11:30 AM) UA Bili [Negative] Large *ABN* (10/08/14 11:30 AM) UA Leuk Est [Negative] Negative (10/08/14 11:30 AM) UA Nitrite [Negative] 10 /HPF *HI* (10/08/14 11:30 AM) UA WBC [0-5 /HPF] 2 /HPF (10/08/14 11:30 AM) UA RBC [0-2 /HPF] Occasional /HPF *NA* (10/08/14 11:30 AM) UA Bacteria [None Seen /HPF] Occasional /LPF *NA* (10/08/14 11:30 AM) UA Sq Epi [Few /LPF] HEMATOLOGY 1 2 3 Most recent to oldest [Reference Range]: 10.3 K/CMM (10/09/14 4:07 AM) 9.9 K/CMM (10/08/14 9:42 AM) WBC [3.7-10.4 K/CMM] 4.87 M/CMM (10/09/14 4:07 AM) 4.82 M/CMM (10/08/14 9:42 AM) RBC [4.20-5.40 M/CMM] 15.2 g/dL (10/09/14 4:07 AM) 15.1 g/dL (10/08/14 9:42 AM) Hgb [12.0-16.0 g/dL] 44.9 % (10/09/14 4:07 AM) 44.4 % (10/08/14 9:42 AM) Hct [36.0-48.0 %] 92.1 fL (10/09/14 4:07 AM) 92.1 fL (10/08/14:42 AM) MCV [80.0-98.0 fL] 31.1 pg *HI* (10/09/14 4:07 AM) 31.4 pg *HI* (10/08/14 9:42 AM) MCH [27.0-31.0 pg] 33.8 g/dL (10/09/14 4:07 AM) 34.1 g/dL (10/08/14 9:42 AM) MCHC [32.0-36.0 g/dL] 14.5 % (10/09/14 4:07 AM) 14.7 % *HI* (10/08/14 9:42 AM) RDW [11.5-14.5 %] 156 K/CMM (10/09/14 4:07 AM) 152 K/CMM (10/08/14 9:42 AM) Platelet [133-450 K/CMM] 10.8 fL *HI* (10/09/14 4:07 AM) 10.6 fL *HI* (10/08/14 9:42 AM) MPV [7.4-10.4 fL] 72.3 % (10/09/14 4:07 AM) 72.6 % (10/08/14 9:42 AM) Segs [45.0-75.0 %] 19.0 % *LOW* (10/09/14 4:07 AM) 20.2 % (10/08/14 9:42 AM) Lymphocytes [20.0-40.0 %] 8.4 % (10/09/14 4:07 AM) 6.9 % (10/08/14 9:42 AM) Monocytes [2.0-12.0 %] 0.1 % (10/09/14 4:07 AM) 0.1 % (10/08/14 9:42 AM) Eosinophils [0.0-4.0 %] 0.2 % (10/09/14 4:07 AM) 0.2 % (10/08/14 9:42 AM) Basophils [0.0-1.0 %] 7.4 K/CMM (10/09/14 4:07 AM) 7.2 K/CMM (10/08/14 9:42 AM) Segs-Bands # [1.5-8.1 K/CMM] 1.9 K/CMM (10/09/14 4:07 AM) 2.0 K/CMM (10/08/14 9:42 AM) Lymphocytes # [1.0-5.5 K/CMM] 0.9 K/CMM *HI* (10/09/14 4:07 AM) 0.7 K/CMM (10/08/14 9:42 AM) Monocytes # [0.0-0.8 K/CMM] 13.7 seconds (10/09/14 4:07 AM) 13.0 seconds (10/08/14 9:42 AM) PT [12.0-14.7 seconds] 1.02 (10/09/14 4:07 AM) 0.95 (10/08/14 9:42 AM) INR [0.85-1.17] 0.55 ug/mL FEU *NA* (10/09/14 4:07 AM) D-Dimer 32.3 seconds (10/09/14 4:07 AM) PTT [22.9-35.8 seconds] Immunizations No data available for this section Procedures Procedure Date Related Diagnosis Body Site Cholecystectomy Gastric stapling Hysterectomy Open heart surgery Stomach reconstruction1 1stomach staple Social History Social History Type Response Alcohol Never Smoking Status Never smoker; Exposure to Tobacco Smoke None; Cigarette Smoking Last 365 Days No; Reg Smoking Cessation Counseling No Assessment and Plan Extracted from: Title: Clinical Document Author: Armin Singleton MD Date: 10/08/14 Cardiology History & Physical Reinaldo Singleton MD [facility] DICTATED [id number] *_*_* HISTORY OF PRESENT ILLNESS: The patient is a 64-year-old -[place] lady with significant past medical history and comorbidities, who presented to the emergency room because of progressive angina and chest pain over the past 2 days associated with initially mild exertional activity and then at rest, associated with shortness of breath, mild diaphoresis. 14-POINT REVIEW OF SYSTEMS: GENERAL: no fever, chills, night sweats;generalized fatigue EYES: no blurred vision, double vision, eye pain EARS/NOSES/THROAT: no change hearing; no nose bleeding; no sore throat CARDIAC: recurrent chest pain angina dyspnea VASCULAR: claudication PULMONARY: shortness of breath, cough; no hemoptysis HEME: no easy bruising GI: no nausea, vomiting, diarrhea, constipation, abdominal pain, BRBPR, melena / black tarry stools : no frequency, dysuria, burning, hematuria, nocturia NEURO: sometime unsteady; no slurred speech or blurred vision; no headache ENDO: no significant weight change, heat intolerance, cold intolerance SKIN: no new rash, lesion, itching MUSC: no change in baseline arthritic joint pain, muscle pain, arthritis, back pain PSYCH: no symptoms of depression Patient has baseline sedentary lifestyle with low functional capacity. She has chronic angina on moderate exertional activities, but denied any orthopnea or paroxysmal nocturnal dyspnea. PAST MEDICAL HISTORY, PAST SURGICAL HISTORY: 1. Premature atherosclerotic disease status post coronary artery bypass surgery in 2003 x 2 vessels. 2. Dysmetabolic syndrome with hypertensive heart disease, dyslipidemia, diabetes mellitus, and obesity. 3. Status post cholecystectomy. 4. Hypothyroidism. SOCIAL HISTORY: Negative for tobacco or alcohol abuse. FAMILY HISTORY: Positive for significant premature coronary disease in both her parents and her brothers. ALLERGIES: Levaquin and sulfa drugs. MEDICATIONS: As per the [facility] medication reconciliation list. OBJECTIVE Vitals and Temp: VitalsTmp(F)[id number] 10/08 16:08----[id number]--- 10/08 15:[id number]--- 10/08 13:21----[id number]--- 10/08 11:50----[id number]--- 10/08 11:19----51-----[id number]--- 24 Hr Tmax: 98.3F (36.83c) at 10/08 09:17Vital Signs are the last 5 in the past 48 hours. Input/Output RecordInOutBal 4hr Tot 30 0 30 4hr Tot 0 0 0 Scheduled Meds (11):allopurinol, aspirin (aspirin 81 mg tablet, enteric coated), enoxaparin (Lovenox), insulin glargine (Lantus), irbesartan, lansoprazole (Prevacid), levothyroxine, nitroglycerin (nitroglycerin 0.3 mg/hr transdermal film), pravastatin, pregabalin (Lyrica), sodium chloride (Saline Flush 0.9%) Unscheduled Meds: None PRN Meds (10):acetaminophen-hydrocodone (acetaminophen-hydrocodone 325 mg-5 mg oral tablet), insulin aspart, insulin aspart, insulin aspart, insulin aspart, insulin aspart, nitroglycerin (nitroglycerin SL Tab), ondansetron, sodium chloride (Saline Flush 0.9%), sodium chloride (Saline Flush 0.9%) One Time Meds (2):(Completed) GI cocktail, (Completed) aspirin Continuous Infusions: None Labs (Last four charted values) WBC 9.9(OCT 08) Hgb 15.1(OCT 08) Hct 44.4(OCT 08) Plt 152(OCT 08) Na 137(OCT 08) K 4.2(OCT 08) CO2 28(OCT 08) Cl 103(OCT 08) Cr 1.3(OCT 08) BUN H 31(OCT 08) Glucose Random H 193(OCT 08) Mg 2.0(OCT 08) Phos 2.9(OCT 08) Ca 9.5(OCT 08) PT 13.0(OCT 08) INR 0.95(OCT 08) Troponin <0.02(OCT 08) CK MB 1.0(OCT 08) Total CK 43(OCT 08) PHYSICAL EXAMINATION VITAL SIGNS: sinus rhythm with episodic bradyarrhythmia as slow as 40 beats per minute with labile hemodynamics and episodic hypertension with systolic blood pressure more than 180mmHg HEENT: Normocephalic, atraumatic. EOMI. PERRLA. Anicteric. NECK: Normal jugular venous pressure. Slight bruits, 2+ carotid pulses. LUNGS: Diminished aeration with minimal bibasilar crackles. CARDIOVASCULAR: Regular rhythm, normal rate, 1/6 holosystolic murmur. No S3, no S4 and a prominent S1, S2. The cardiac apical impulse was nondisplaced and nonsustained. ABDOMEN: Positive bruit, no pulsatile mass, no organomegaly. Soft, nontender and nondistended. EXTREMITIES: Trace edema, diminished DP, PT pulses bilaterally. No clubbing or cyanosis. CENTRAL NERVOUS SYSTEM: awake, alert, and oriented x 3 with no gross focal motor deficit. IMPRESSION: 1. Premature coronary artery disease, status post coronary artery bypass surgery in 2003. 2. Unstable angina, CCS class III-IV. 3. Bradyarrhythmia -- sick sinus syndrome & exaggerated by beta connie Rx 4. Chronic kidney disease 5. Dysmetabolic syndrome with hypertensive heart disease, dyslipidemia, diabetes mellitus and obesity. PLAN: 1. Continue on medical management. 2. Pending enzymes trending, plan to pursue noninvasive cardiac evaluation as the patient currently is reluctant to proceed with cardiac catheterizations by her unstable symptoms. 3. Dual antiplatelet therapy -- continue on aspirin & add Brilinta or Plavix 4. Further cardiac workup and evaluation pending clinical course and cardiac enzymes.
--- OUTSIDE RECORDS SUMMARY | 2017-12-18 07:02 | XMS REPORT | CCD ---
Author Author Auto Generated Organization [facility] Address Unknown Phone Unavailable Care Team Providers Care Tissue Technician Name Role Phone KarlaMi shenjason Hess RP Allergies, Adverse Reactions, Alerts Substance Reaction Status iodine Active sulfa drugs Active Problem List Condition Effective Dates Status Diabetes mellitus Resolved Diabetes mellitus Active Hypertension Resolved Hypertension Active Hypothyroid Resolved Medications Medication Instructions Start Date End Date Status Omniscan 5,740 mg, 20 mL, Route: IV, Drug 12/10/2012 12/11/2012 Discontinued form: INJ, ONCALL, Start date: 12/10/12 20:00:00, Duration: 1 day, Stop date: 12/11/12 19:59:00(Same as: Omniscan).
--- OUTSIDE RECORDS SUMMARY | 2017-12-18 07:02 | XMS REPORT | CCD ---
Author Author Auto Generated Organization [facility] Address Unknown Phone Unavailable Care Team Providers Care [place] Line Attendant Name Role Phone Becca Acosta RP Allergies, Adverse Reactions, Alerts Substance Reaction Status iodine Active sulfa drugs Active Problem List Condition Effective Dates Status Diabetes mellitus Resolved Diabetes mellitus Active Hypertension Resolved Hypertension Active Hypothyroid Resolved
--- OUTSIDE RECORDS SUMMARY | 2017-12-18 07:02 | XMS REPORT | CCD ---
Author Author Auto Generated Organization [facility] Address Unknown Phone Unavailable Care Team Providers Care Media Buyer Name Role Phone Tina Saavedra RP Allergies, Adverse Reactions, Alerts Substance Reaction Status iodine Active sulfa drugs Active Problem List Condition Effective Dates Status Diabetes mellitus Resolved Diabetes mellitus Active Hypertension Resolved Hypertension Active Hypothyroid Resolved
--- OUTSIDE RECORDS SUMMARY | 2017-12-18 07:02 | XMS REPORT | CCD ---
Author Author Auto Generated Organization [facility] Address Unknown Phone Unavailable Care Team Providers Care Booking Prizer Name Role Phone Cristobal Lamar Loyd CP Allergies, Adverse Reactions, Alerts Substance Reaction Status iodine Active sulfa drugs Active Problem List Condition Effective Dates Status Diabetes mellitus Resolved Diabetes mellitus Active Hypertension Resolved Hypertension Active Hypothyroid Resolved Medications Medication Instructions Start Date End Date Status Macrobid 100 mg oral 100 mg=1 cap, PO, BID, # 20 cap, 0 01/24/2013 02/03/2013 Ordered capsule Refill(s) Vital Signs Most recent to oldest [Reference Range]: 1 2 3 Height 167.64 cm (01/24/2013 12:51:00) Temperature Oral [96.4-99.1 DegF] 97.5 DegF (01/24/2013 18:00:00) Systolic Blood Pressure [90-140 mmHg] 145 mmHg *HI* (01/24/2013 21:57:00) 157 mmHg *HI* (01/24/2013 18:00:00) 143 mmHg *HI* (01/24/2013 12:51:00) Diastolic Blood Pressure [60-90 mmHg] 82 mmHg (01/24/2013 21:57:00) 98 mmHg *HI* (01/24/2013 18:00:00) 91 mmHg *HI* (01/24/2013 12:51:00) Respiratory Rate [14-20 BRMIN] 18 BRMIN (01/24/2013 21:57:00) 18 BRMIN (01/24/2013 18:00:00) 18 BRMIN (01/24/2013 12:51:00) Peripheral Pulse Rate [60-100 bpm] 98 bpm (01/24/2013 21:57:00) 97 bpm (01/24/2013 18:00:00) 90 bpm (01/24/2013 12:51:00) Weight 79.545 kg (01/24/2013 12:51:00) Results BEDSIDE GLUCOSE TESTING Most recent to oldest [Reference Range]: 1 2 Glucose POC [70-99 mg/dL] 168 mg/dL 1 *HI* (01/24/2013 17:36:00) Gluc POC Comment 1 Notified RN/MD *NA* (01/24/2013 17:36:00) Gluc POC Comment 2 Cleaned Meter *NA* (01/24/2013 17:36:00) 1Interpretive Data: Upper Reportable Limit: 200 mg/dL. URINALYSIS Most recent to oldest [Reference Range]: 1 2 UA Turbidity [Clear] Marked *ABN* (01/24/2013 18:00:00) UA Color [Yellow] Yellow *NA* (01/24/2013 18:00:00) UA pH [5.0-8.0] 5.0 (01/24/2013 18:00:00) UA Spec Grav [<=1.030] 1.020 (01/24/2013 18:00:00) UA Glucose [Negative mg/dL] 50 mg/dL *ABN* (01/24/2013 18:00:00) UA Blood [Negative] Small *ABN* (01/24/2013 18:00:00) UA Ketones [Negative mg/dL] Trace mg/dL *ABN* (01/24/2013 18:00:00) UA Protein [Negative mg/dL] Negative mg/dL (01/24/2013 18:00:00) UA Urobilinogen [0.1-1.0 mg/dL] <=1.0 mg/dL *NA* (01/24/2013 18:00:00) UA Bili [Negative] Negative *NA* (01/24/2013 18:00:00) UA Leuk Est [Negative] Large *ABN* (01/24/2013 18:00:00) UA Nitrite [Negative] Negative (01/24/2013 18:00:00) UA WBC [0-5 /HPF] 86 /HPF *HI* (01/24/2013 18:00:00) UA RBC [0-2 /HPF] 6 /HPF *HI* (01/24/2013 18:00:00) UA Bacteria [None Seen /HPF] Occasional /HPF *NA* (01/24/2013 18:00:00) UA Sq Epi [Few /LPF] Occasional /LPF *NA* (01/24/2013 18:00:00) UA Mucus [None Seen /LPF] Few /LPF *NA* (01/24/2013 18:00:00) UA [place] Yeast [None Seen /HPF] Many /HPF *ABN* (01/24/2013 18:00:00) CHEMISTRY Most recent to oldest [Reference Range]: 1 2 Sodium Lvl [135-145 mEq/L] 143 mEq/L (01/24/2013 15:30:00) Potassium Lvl [3.5-5.1 mEq/L] 4.4 mEq/L (01/24/2013 15:30:00) Chloride Lvl [95-109 mEq/L] 107 mEq/L (01/24/2013 15:30:00) CO2 [24-32 mEq/L] 27 mEq/L (01/24/2013 15:30:00) AGAP [10.0-20.0 mEq/L] 13.4 mEq/L (01/24/2013 15:30:00) Creatinine Lvl [0.5-1.4 mg/dL] 1.2 mg/dL (01/24/2013 15:30:00) eGFR 49 mL/min/1.73m2 2 *NA* (01/24/2013 15:30:00) BUN [7-22 mg/dL] 28 mg/dL *HI* (01/24/2013 15:30:00) B/C Ratio [6-25] 23 (01/24/2013 15:30:00) Glucose Lvl [70-99 mg/dL] 178 mg/dL 3 *HI* (01/24/2013 15:30:00) Total Protein [6.4-8.4 g/dL] 7.4 g/dL (01/24/2013 15:30:00) Albumin Lvl [3.5-5.0 g/dL] 3.8 g/dL (01/24/2013 15:30:00) Globulin [2.0-4.0 g/dL] 3.6 g/dL (01/24/2013 15:30:00) A/G Ratio [0.7-1.6] 1.1 (01/24/2013:00) Calcium Lvl [8.5-10.5 mg/dL] 9.4 mg/dL (01/24/2013:30:00) ALT [0-65 unit/L] 31 unit/L (01/24/2013:) AST [0-37 unit/L] 27 unit/L (01/24/2013:) Alk Phos [39-136 unit/L] 261 unit/L *HI* (01/24/2013:) Bili Total [0.2-1.3 mg/dL] 0.5 mg/dL (01/24/2013:) Total CK [12-191 unit/L] 33 unit/L (01/24/2013:) CK MB [0.5-3.6 ng/mL] <0.5 ng/mL (01/24/2013:54:00) <0.5 ng/mL (01/24/2013:) CK MB Index [0.0-2.5] <1.5 (01/24/2013:30:) Troponin-I [0.00-0.40 ng/mL] <0.02 ng/mL (01/24/2013:54:00) <0.02 ng/mL (01/24/2013:) 2Result Comment: The eGFR is calculated using [...] be mul tiplied by the estimated BMI. 3Interpretive Data: Adult reference range values reflect the clinical guidelines of the [place] [employer]. HEMATOLOGY Most recent to oldest [Reference Range]: 1 2 WBC [3.7-10.4 K/CMM] 7.8 K/CMM (01/24/2013 15:30:00) RBC [4.20-5.40 M/CMM] 4.86 M/CMM (01/24/2013 15:30:00) Hgb [12.0-16.0 g/dL] 14.8 g/dL (01/24/2013:30:00) Hct [36.0-48.0 %] 44.7 % (01/24/2013:30:00) MCV [81.0-99.0 fL] 91.9 fL (01/24/2013:30:00) MCH [27.0-31.0 pg] 30.5 pg (01/24/2013:30:00) MCHC [32.0-36.0 g/dL] 33.2 g/dL (01/24/2013:30:00) RDW [11.5-14.5 %] 14.5 % (01/24/2013:30:00) Platelet [133-450 K/CMM] 189 K/CMM (01/24/2013:30:00) MPV [7.4-10.4 fL] 10.1 fL (01/24/2013:30:00) Segs [45.0-75.0 %] 61.7 % (01/24/2013 15:30:00) Lymphocytes [20.0-40.0 %] 29.6 % (01/24/2013:30:00) Monocytes [2.0-12.0 %] 7.0 % (01/24/2013:30:00) Eosinophils [0.0-4.0 %] 1.4 % (01/24/2013:30:00) Basophils [0.0-1.0 %] 0.3 % (01/24/2013:30:00) Segs-Bands # [1.5-8.1 K/CMM] 4.8 K/CMM (01/24/2013 15:30:00) Lymphocytes # [1.0-5.5 K/CMM] 2.3 K/CMM (01/24/2013 15:30:00) Monocytes # [0.0-0.8 K/CMM] 0.5 K/CMM (01/24/2013 15:30:00) Eosinophils # [0.0-0.5 K/CMM] 0.1 K/CMM (01/24/2013 15:30:00) Basophils # [0.0-0.2 K/CMM] 0.0 K/CMM (01/24/2013 15:30:00) PT [12.0-14.7 seconds] 12.5 seconds (01/24/2013 15:30:00) INR [0.85-1.17] 0.94 4 (01/24/2013 15:30:00) PTT [22.9-35.8 seconds] 32.2 seconds 5 (01/24/2013 15:30:00) 4Interpretive Data: RECOMMENDED RANGES FOR PROTIME INR: 2.0-3.0 for most medical and surgical thromboembolic states. 2.5-3.5 for artificial heart valves and recurrent embolism. INR SHOULD BE USED ONLY FOR PATIENTS ON STABLE ANTICOAGULANT THERAPY. 5Interpretive Data: Heparin Therapeutic Range: 57 - 92 Seconds Microbiology Reports PROCEDURE:Culture: Urine STATUS: Auth (Verified) BODY SITE: COLLECTED DATE/TIME: 01/24/2013 18:00:00 SOURCE: Urine, Clean Catch FREE TEXT SOURCE: FINAL REPORTS Final Report 10,000 - 50,000 CFU/mL Skin Winter PRELIMINARY REPORTS Preliminary Report No Growth; Holding
--- OUTSIDE RECORDS SUMMARY | 2017-12-18 07:02 | XMS REPORT | Summary of Care ---
Author Organization Unknown Address Unknown Phone Unavailable Encounter [facility] Anabelar_lashon(FIN) [id number] Date(s): 05/17/13 - 06/15/13 [facility] Discharge Disposition: Home Physician Attending: Gallo Sheets Reason for Visit LUMBAGO . Problem List Condition Effective Dates Status Health Status Informant Diabetes Resolved mellitus(Confirmed) Diabetes Active mellitus(Confirmed) Hypertension(Confirm Resolved ed) Hypertension(Confirm Active ed) Hypothyroid(Confirme Resolved d) Allergies, Adverse Reactions, Alerts Substance Reaction Severity Status iodine Active sulfa drugs Active Medications No data available for this section Medications Administered During Your Visit No data available for this section Immunizations No data available for this section
--- OUTSIDE RECORDS SUMMARY | 2017-12-18 07:02 | XMS REPORT | CCD ---
Author Author Auto Generated Organization [facility] Address Unknown Phone Unavailable Care Team Providers Care Buyer Name Role Phone KarlaAmna shenBeccarosibel Hess RP Allergies, Adverse Reactions, Alerts Substance [...]
--- OUTSIDE RECORDS SUMMARY | 2017-12-18 07:02 | XMS REPORT | CCD ---
Author Author Auto Generated Organization [facility] Address Unknown Phone Unavailable Care Team Providers Care Solar Development Engineer Name Role Phone KarlaAmnaBeccarosibel Hess RP Allergies, Adverse Reactions, Alerts Substance [...]
--- OUTSIDE RECORDS SUMMARY | 2017-12-18 07:02 | XMS REPORT | CCD ---
Author Author Auto Generated Organization [facility] Address Unknown Phone Unavailable Care Team Providers Care Livestock Inspector Name Role Phone Geoff Knox CP Allergies, Adverse Reactions, Alerts Substance Reaction Status iodine Active sulfa drugs Active Problem List Condition Effective Dates Status Diabetes mellitus Resolved Diabetes mellitus Active Hypertension Resolved Hypertension Active Hypothyroid Resolved Medications Medication Instructions Start Date End Date Status Saline Flush 0.9% 5 ml, Route: IVP, Drug Form: INJ, 07/31/2012 08/03/2012 Discontinued Dosing Weight 100, kg, Q12H, Start date: 07/31/12 9:00:00, Duration: 30 day, Stop date: 08/29/12 21:00:00 Saline Flush 0.9% 5 ml, Route: IVP, Drug Form: INJ, 07/31/2012 08/03/2012 Discontinued Dosing Weight 100, kg, PRN, PRN Line Flush, Start date: 07/31/12 8:38:00, Duration: 30 day, Stop date: 08/30/12 8:37:00 aspirin 325 mg 325 mg, 1 tab, Route: PO, Drug 07/31/2012 08/03/2012 Discontinued tablet, enteric form: ECTAB, Daily, Dosing Weight coated 100, kg, Start date: 07/31/12 9:00:00, Duration: 30 day, Stop date: 08/29/12 9:00:00 Sodium Chloride 0.9% 1,000 mL, Rate: 50 ml/hr, Infuse 07/31/2012 08/03/2012 Discontinued IV 1,000 mL over: 20 hr, Route: IV, Dosing Weight 100 kg, Total Volume: 1,000, Start date: 07/31/12 8:38:00, Duration: 30 day, Stop date: 08/30/12 8:37:00 Lovenox 40 mg, 0.4 mL, Route: SUB-Q, Drug 07/31/2012 08/03/2012 Discontinued form: INJ, [id number], Dosing Weight 101.364, kg, Start date: 07/31/12 19:00:00, Duration: 30 day, Stop date: 08/29/12 19:00:00 NovoLog PRN, before meals, Substitution 07/31/2012 Ordered Allowed magnesium sulfate 1 gm, 50 mL, Route: IVPB, Drug 07/31/2012 07/31/2012 Completed form: INJ, ONCE, Dosing Weight 101.364, kg, Start date: 07/31/12 16:08:00, Stop date: 07/31/12 16:08:00 Pravachol 40 mg, 2 tab, Route: PO, Drug form: 08/01/2012 08/03/2012 Discontinued TAB, QPM, Dosing Weight 101.364, kg, Start date: 08/01/12 17:00:00, Duration: 30 day, Stop date: 08/30/12 17:00:00 Levemir FlexPen 23 unit, 0.23 mL, Route: SUB-Q, 08/02/2012 08/03/2012 Discontinued Drug form: INJ, Daily, Start date: 08/02/12 9:00:00, Duration: 30 day, Stop date: 08/31/12 9:00:00 Ambien 10 mg, 1 tab, Route: PO, Drug form: 07/31/2012 08/03/2012 Discontinued TAB, Bedtime, Dosing Weight 101.364, kg, PRN Insomnia, Start date: 07/31/12 21:51:00, Duration: 30 day, Stop date: 08/30/12 21:50:00 Lyrica 75 mg oral 75 mg, 1 cap, PO, TID, 90 cap, 07/31/2012 Ordered capsule Substitution Allowed, CAP Synthroid 75 mcg 75 microgram, 1 tab, PO, Daily, 30 07/31/2012 Ordered (0.075 mg) oral tab, Substitution Allowed, TAB tablet Pepcid 20 mg oral 20 mg, 1 tab, Route: PO, Drug form: 07/31/2012 08/03/2012 Discontinued tablet TAB, Daily, Dosing Weight 101.364, kg, Start date: 07/31/12 11:00:00, Duration: 30 day, Stop date: 08/30/12 9:00:00 Pepcid 20 mg oral 20 mg, 1 tab, PO, BID, 60 tab, 07/31/2012 Ordered tablet Substitution Allowed Dextrose 50% in 50 mL, Route: IVP, Start date: 07/31/2012 08/03/2012 Discontinued Water IV 07/31/12 13:10:00, Duration: 30 day, Stop date: 08/30/12 13:09:00, PRN Blood Glucose Results Metoprolol Tartrate 50 mg, 1 tab, PO, BID, 60 tab, 07/31/2012 Ordered 50 mg oral tablet Substitution Allowed pravastatin 20 mg 40 mg, 2 tab, PO, QPM, 30 tab, 08/03/2012 Ordered oral tablet Substitution Allowed, TAB Avapro Substitution Allowed 07/31/2012 Ordered aspirin 325 mg 325 mg, 1 tab, PO, Daily, 30 tab, 08/03/2012 Ordered tablet, enteric Substitution Allowed, ECTAB coated Lantus 20 unit, SUB-Q, Daily, Substitution 07/31/2012 Ordered Allowed NovoLog FlexPen 12 unit, 0.12 mL, Route: SUB-Q, 07/31/2012 08/03/2012 Discontinued Drug form: SOLN, Sliding Scale, PRN Blood Glucose Results, Start date: 07/31/12 13:10:00, Duration: 30 day, Stop date: 08/30/12 13:09:00 glucagon 1 mg, Route: IM, Drug form: 07/31/2012 08/03/2012 Discontinued PDR/INJ, PRN, PRN Blood Glucose Results, Start date: 07/31/12 13:10:00, Duration: 30 day, Stop date: 08/30/12 13:09:00 NovoLog FlexPen 10 unit, 0.1 mL, Route: SUB-Q, Drug 07/31/2012 08/03/2012 Discontinued form: SOLN, Sliding Scale, PRN Blood Glucose Results, Start date: 07/31/12 13:10:00, Duration: 30 day, Stop date: 08/30/12 13:09:00 NovoLog FlexPen 8 unit, 0.08 mL, Route: SUB-Q, Drug 07/31/2012 08/03/2012 Discontinued form: SOLN, Sliding Scale, PRN Blood Glucose Results, Start date: 07/31/12 13:10:00, Duration: 30 day, Stop date: 08/30/12 13:09:00 NovoLog FlexPen 6 unit, 0.06 mL, Route: SUB-Q, Drug 07/31/2012 08/03/2012 Discontinued form: SOLN, Sliding Scale, PRN Blood Glucose Results, Start date: 07/31/12 13:10:00, Duration: 30 day, Stop date: 08/30/12 13:09:00 NovoLog FlexPen 4 unit, 0.04 mL, Route: SUB-Q, Drug 07/31/2012 08/03/2012 Discontinued form: SOLN, Sliding Scale, PRN Blood Glucose Results, Start date: 07/31/12 13:10:00, Duration: 30 day, Stop date: 08/30/12 13:09:00 diazepam 5 mg, 1 tab, Route: PO, Drug form: 08/02/2012 08/03/2012 Discontinued TAB, Q6H, Dosing Weight 101.364, kg, PRN as needed for anxiety, Start date: 08/02/12 13:28:00, Duration: 30 day, Stop date: 09/01/12 13:27:00 glipiZIDE 10 mg oral PO, BID, Substitution Allowed 07/31/2012 Ordered tablet NovoLog 2 unit, 0.02 mL, Route: SUB-Q, Drug 07/31/2012 08/03/2012 Discontinued form: SOLN, TID-Before Meals, Dosing Weight 101.364, kg, PRN Other -See Comment, Start date: 07/31/12 18:29:00, Duration: 30 day, Stop date: 08/30/12 18:28:00, high sugar Levaquin 500 mg oral 500 mg, 1 tab, PO, [id number], 7 tab, 08/03/2012 Ordered tablet Substitution Allowed, TAB NovoLog FlexPen 2 unit, 0.02 mL, Route: SUB-Q, Drug 07/31/2012 08/03/2012 Discontinued form: SOLN, Sliding Scale, PRN Blood Glucose Results, Start date: 07/31/12 13:09:00, Duration: 30 day, Stop date: 08/30/12 13:08:00 Levaquin 500 mg, Route: PO, Drug form: TAB, 08/03/2012 08/03/2012 Deleted [id number], Dosing Weight 101.364, kg, Start date: 08/03/12 16:00:00, Duration: 30 day, Stop date: 09/01/12 16:00:00 nitroglycerin 0.4 mg 0.4 mg, 1 tab, Route: SL, Drug 07/31/2012 08/03/2012 Discontinued sublingual tablet form: TAB, Q5Min, PRN Chest Pain, Start date: 07/31/12 8:52:00, Duration: 30 day, Stop date: 08/30/12 8:51:00 atropine 0.5 mg, 5 mL, Route: IVP, Drug 07/31/2012 08/03/2012 Discontinued form: INJ, PRN, PRN Bradycardia, Start date: 07/31/12 8:52:00, Duration: 30 day, Stop date: 08/30/12 8:51:00 clonidine 0.1 mg 0.1 mg, 1 tab, Route: PO, Drug 07/31/2012 08/03/2012 Discontinued oral tablet form: TAB, TID, Dosing Weight 101.364, kg, PRN Hypertension, Start date: 07/31/12 13:42:00, Duration: 30 day, Stop date: 08/30/12 13:41:00 Saline Flush 0.9% 5 ml, Route: IVP, Drug Form: INJ, 08/02/2012 08/03/2012 Discontinued Dosing Weight 101.364, kg, Q12H, Start date: 08/02/12 21:00:00, Duration: 30 day, Stop date: 09/01/12 9:00:00 Saline Flush 0.9% 5 ml, Route: IVP, Drug Form: INJ, 08/02/2012 08/03/2012 Discontinued Dosing Weight 101.364, kg, PRN, PRN Line Flush, Start date: 08/02/12 12:30:00, Duration: 30 day, Stop date: 09/01/12 12:29:00 Levaquin 250 mg, 1 tab, Route: PO, Drug 08/04/2012 08/03/2012 Canceled form: TAB, Q24H, Start date: 08/04/12 17:00:00, Duration: 30 day, Stop date: 09/02/12 17:00:00 [place] 7.5/325 oral 2 tab, PO, Q4H, PRN, Pain, 07/31/2012 Ordered tablet Substitution Allowed, Maintenance Rocephin 1 g/ NS 1 gm, Route: IVPB, [id number], Dosing 08/01/2012 08/03/2012 Discontinued (NaCl 0.9%) 50 mL IV Weight 100, kg, Start date: solution + Sodium 08/01/12 6:00:00, Duration: 30 day, Chloride 0.9% IV 100 Stop date: 08/30/12 6:00:00 mL Rocephin 1 g/ NS 1 gm, Route: IVPB, Drug form: 07/31/2012 07/31/2012 Completed (NaCl 0.9%) 50 mL IV PDR/INJ, ONCE, Dosing Weight 100, solution kg, Priority: STAT, Start date: 07/31/12 6:48:00, Stop date: 07/31/12 6:48:00 Lyrica 75 mg, 1 cap, Route: PO, Drug form: 07/31/2012 08/03/2012 Discontinued CAP, TID, Dosing Weight 101.364, kg, Start date: 07/31/12 14:00:00, Duration: 30 day, Stop date: 08/30/12 6:00:00 Toprol-XL 50 mg oral 50 mg, 1 tab, Route: PO, Drug form: 07/31/2012 08/03/2012 Discontinued tablet, extended ERTAB, Daily, Start date: 07/31/12 release 10:15:00, Duration: 30 day, Stop date: 08/30/12 9:00:00 Synthroid 75 microgram, 1 tab, Route: PO, 08/01/2012 08/03/2012 Discontinued Drug form: TAB, [id number], Dosing Weight 101.364, kg, Start date: 08/01/12 6:30:00, Duration: 30 day, Stop date: 08/30/12 6:30:00 Avapro 150 mg, 1 tab, Route: PO, Drug 07/31/2012 08/03/2012 Discontinued form: TAB, Daily, Dosing Weight 101.364, kg, Start date: 07/31/12 10:15:00, Duration: 30 day, Stop date: 08/30/12 9:00:00 Lantus 20 unit, Route: SUB-Q, Daily, 08/01/2012 07/31/2012 Deleted Dosing Weight 101.364, kg, Start date: 08/01/12 9:00:00, Duration: 30 day, Stop date: 08/30/12 9:00:00 glipiZIDE 10 mg oral 10 mg, 1 tab, Route: PO, Drug form: 07/31/2012 08/03/2012 Discontinued tablet TAB, BID, Dosing Weight 101.364, kg, Start date: 07/31/12 17:00:00, Duration: 30 day, Stop date: 08/30/12 9:00:00 Levaquin 500 mg, 2 tab, Route: PO, Drug 08/03/2012 08/03/2012 Completed form: TAB, ONCE, Start date: 08/03/12 17:00:00, Stop date: 08/03/12 17:00:00 [place] 7.5/325 oral 2 tab, Route: PO, Drug Form: TAB, 07/31/2012 08/03/2012 Discontinued tablet Dosing Weight 101.364, kg, Q4H, PRN as needed for pain, Start date: 07/31/12 9:47:00, Duration: 30 day, Stop date: 08/30/12 9:46:00 Norvasc 10 mg, 2 tab, Route: PO, Drug form: 07/31/2012 08/03/2012 Discontinued TAB, Daily, Dosing Weight 101.364, kg, Start date: 07/31/12 13:40:00, Duration: 30 day, Stop date: 08/30/12 9:00:00 Saline Flush 0.9% 5 mL, Route: IVP, Drug Form: INJ, 07/31/2012 07/31/2012 Discontinued Dosing Weight 100, kg, Q8H, PRN Line Flush, Start date: 07/31/12 5:33:00, Duration: 30 day, Stop date: 08/30/12 5:32:00, Administer at least once every 8 hours Administer at least once every 8 hours aspirin 324 mg, Route: PO, ONCE, Dosing 07/31/2012 07/31/2012 Completed Weight 100, kg, Priority: STAT, Start date: 07/31/12 5:33:00, Stop date: 07/31/12 5:33:00 Levemir FlexPen 20 unit, 0.2 mL, Route: SUB-Q, Drug 08/01/2012 08/01/2012 Discontinued form: INJ, Daily, Start date: 08/01/12 9:00:00, Duration: 30 day, Stop date: 08/30/12 9:00:00 Vital Signs Most recent to oldest [Reference Range]: 1 2 3 Height 170.18 cm (07/31/2012 08:40:00) Temperature Oral [96.4-99.1 DegF] 98.5 DegF (08/03/2012 16:00:00) 97.7 DegF (08/03/2012 08:00:00) 97.8 DegF (08/03/2012 04:00:00) Systolic Blood Pressure [90-140 mmHg] 138 mmHg (08/03/2012 16:00:00) 137 mmHg (08/03/2012 08:00:00) 157 mmHg *HI* (08/03/2012 04:00:00) Diastolic Blood Pressure [60-90 mmHg] 81 mmHg (08/03/2012 16:00:00) 75 mmHg (08/03/2012 08:00:00) 81 mmHg (08/03/2012 04:00:00) Respiratory Rate [14-20 BRMIN] 18 BRMIN (08/03/2012 16:00:00) 16 BRMIN (08/03/2012 08:45:00) 18 BRMIN (08/03/2012 08:00:00) Peripheral Pulse Rate [60-100 bpm] 87 bpm (08/03/2012 16:00:00) 73 bpm (08/03/2012 08:00:00) 85 bpm (08/03/2012 04:00:00) Weight 101.364 kg (07/31/2012 08:40:00) 100 kg (07/31/2012 05:09:00) Results BEDSIDE GLUCOSE TESTING Most recent to oldest [Reference Range]: 1 2 3 Gluc POC Lifscn [70-99 mg/dL] 201 mg/dL 1 *HI* (08/03/2012 12:30:00) 206 mg/dL 2 *HI* (08/03/2012 07:42:00) 224 mg/dL 3 *HI* (08/03/2012 06:01:00) Comment1 Notify RN/MD *NA* (08/03/2012 12:30:00) Notify RN/MD *NA* (08/03/2012 07:42:00) Notify RN/MD *NA* (08/03/2012 06:01:00) 1Interpretive Data: Upper Reportable Limit: 200 mg/dL. 2Interpretive Data: Upper Reportable Limit: 200 mg/dL. 3Interpretive Data: Upper Reportable Limit: 200 mg/dL. URINALYSIS Most recent to oldest [Reference Range]: 1 2 3 UA Turbidity [Clear] Marked *ABN* (07/31/2012 06:00:00) UA Color [Yellow] Yellow *NA* (07/31/2012 06:00:00) UA pH [5.0-8.0] 5.0 (07/31/2012 06:00:00) UA Spec Grav [<=1.030] 1.012 (07/31/2012 06:00:00) UA Glucose [Negative mg/dL] 500 mg/dL *ABN* (07/31/2012 06:00:00) UA Blood [Negative] Moderate *ABN* (07/31/2012 06:00:00) UA Ketones [Negative mg/dL] Trace mg/dL *ABN* (07/31/2012 06:00:00) UA Protein [Negative mg/dL] Negative mg/dL (07/31/2012 06:00:00) UA Urobilinogen [0.1-1.0 mg/dL] <=1.0 mg/dL *NA* (07/31/2012 06:00:00) UA Bili [Negative] Negative *NA* (07/31/2012 06:00:00) UA Leuk Est [Negative] Small *ABN* (07/31/2012 06:00:00) UA Nitrite [Negative] Negative (07/31/2012 06:00:00) UA WBC [0-5 /HPF] 30 /HPF *HI* (07/31/2012 06:00:00) UA RBC [0-2 /HPF] 2 /HPF (07/31/2012 06:00:00) UA Bacteria [None Seen /HPF] Moderate /HPF *ABN* (07/31/2012 06:00:00) UA Sq Epi [Few /LPF] Occasional /LPF *NA* (07/31/2012 06:00:00) UA Mucus [None Seen /LPF] Few /LPF *NA* (07/31/2012 06:00:00) CHEMISTRY Most recent to oldest [Reference Range]: 1 2 3 Sodium Lvl [135-145 mEq/L] 141 mEq/L (07/31/2012 05:25:00) Potassium Lvl [3.5-5.1 mEq/L] 4.0 mEq/L (07/31/2012 05:25:00) Chloride Lvl [95-109 mEq/L] 105 mEq/L (07/31/2012 05:25:00) CO2 [24-32 mEq/L] 26 mEq/L (07/31/2012 05:25:00) AGAP [10.0-20.0 mEq/L] 14.0 mEq/L (07/31/2012 05:25:00) Creatinine Lvl [0.5-1.4 mg/dL] 1.7 mg/dL *HI* (07/31/2012 05:25:00) eGFR 32 mL/min/1.73m2 4 *NA* (07/31/2012 05:25:00) BUN [7-22 mg/dL] 30 mg/dL *HI* (07/31/2012 05:25:00) B/C Ratio [6-25] 18 (07/31/2012 05:25:00) Glucose Lvl [70-99 mg/dL] 249 mg/dL 5 *HI* (07/31/2012 05:25:00) Total Protein [6.4-8.4 g/dL] 6.9 g/dL (07/31/2012 05:25:00) Albumin Lvl [3.5-5.0 g/dL] 3.6 g/dL (07/31/2012 05:25:00) Globulin [2.0-4.0 g/dL] 3.3 g/dL (07/31/2012 05:25:00) A/G Ratio [0.7-1.6] 1.1 (07/31/2012 05:25:00) Calcium Lvl [8.5-10.5 mg/dL] 9.8 mg/dL (07/31/2012 05:25:00) Phosphorus [2.5-4.5 mg/dL] 3.7 mg/dL (07/31/2012 05:25:00) Magnesium Lvl [1.8-2.4 mg/dL] 1.4 mg/dL *LOW* (07/31/2012 05:25:00) ALT [0-65 unit/L] 34 unit/L (07/31/2012 05:25:00) AST [0-37 unit/L] 21 unit/L (07/31/2012 05:25:00) Alk Phos [39-136 unit/L] 112 unit/L (07/31/2012 05:25:00) Bili Total [0.2-1.3 mg/dL] 0.4 mg/dL (07/31/2012 05:25:00) Total CK [12-191 unit/L] 54 unit/L (07/31/2012 17:14:00) 60 unit/L (07/31/2012 12:32:00) 74 unit/L (07/31/2012 05:25:00) CK MB [0.5-3.6 ng/mL] 0.8 ng/mL (07/31/2012 05:25:00) CK MB Index [0.0-2.5] 1.1 (07/31/2012 05:25:00) Troponin-I [0.00-0.40 ng/mL] <0.02 ng/mL (07/31/2012 17:14:00) <0.02 ng/mL (07/31/2012 12:32:00) <0.02 ng/mL (07/31/2012 05:25:00) BNP [<=100 pg/mL] 6 pg/mL 6 (07/31/2012 05:25:00) CHD Risk [3.90-5.80] 5.24 (08/02/2012 13:16:00) 5.29 (08/01/2012 04:15:00) Chol [<=199 mg/dL] 178 mg/dL 7 (08/02/2012 13:16:00) 180 mg/dL 8 (08/01/2012 04:15:00) Trig [<=149 mg/dL] 263 mg/dL 9 *HI* (08/02/2012 13:16:00) 201 mg/dL 10 *HI* (08/01/2012 04:15:00) HDL [>=61 mg/dL] 34 mg/dL 11 *LOW* (08/02/2012 13:16:00) 34 mg/dL 12 *LOW* (08/01/2012 04:15:00) LDL [<=99 mg/dL] 91 mg/dL 13 (08/02/2012 13:16:00) 106 mg/dL 14 *HI* (08/01/2012 04:15:00) Hgb A1C [<=5.6 %] 10.3 % 15 *HI* (08/01/2012 04:15:00) 4Result Comment: The eGFR is calculated using [...] be mul tiplied by the estimated BMI. 5Interpretive Data: Adult reference range values reflect the clinical guidelines of the [place] [employer]. 6Interpretive Data: Elevated results are in line with increasing severity of congestive heart failure. Minor elevations between 100 and 300 may be seen with Myocardial Ischemia, Sodium retaining drugs, and compensated/treated heart failure. 7Interpretive Data: Reference ranges are based on the clinical guidelines of the [employer] National Cholesterol Education Program (ATP III, 2001). 8Interpretive Data: Reference ranges are based on the clinical guidelines of the [employer] National Cholesterol Education Program (ATP III, 2001). 9Interpretive Data: Reference ranges are based on the clinical guidelines of the [employer] National Cholesterol Education Program (ATP III, 2001). 10Interpretive Data: Reference ranges are based on the clinical guidelines of the [employer] National Cholesterol Education Program (ATP III, 2001). 11Interpretive Data: Reference ranges are based on the clinical guidelines of the [employer] National Cholesterol Education Program (ATP III, 2001). 12Interpretive Data: Reference ranges are based on the clinical guidelines of the [employer] National Cholesterol Education Program (ATP III, 2001). 13Interpretive Data: Reference ranges are based on the clinical guidelines of the [employer] National Cholesterol Education Program (ATP III, 2001). 14Interpretive Data: Reference ranges are based on the clinical guidelines of the [employer] National Cholesterol Education Program (ATP III, 2001). 15Interpretive Data: The reference range is based on the clinical practice guidelines of the [place] [employer] for diabetes screening; levels of 5.7%-6.4% are indicative of pre-diabetes. HEMATOLOGY Most recent to oldest [Reference Range]: 1 2 3 WBC [3.7-10.4 K/CMM] 7.8 K/CMM (07/31/2012 05:25:00) RBC [4.20-5.40 M/CMM] 4.57 M/CMM (07/31/2012 05:25:00) Hgb [12.0-16.0 g/dL] 13.9 g/dL (07/31/2012 05:25:00) Hct [36.0-48.0 %] 41.6 % (07/31/2012 05:25:00) MCV [81.0-99.0 fL] 91.1 fL (07/31/2012 05:25:00) MCH [27.0-31.0 pg] 30.4 pg (07/31/2012 05:25:00) MCHC [32.0-36.0 g/dL] 33.3 g/dL (07/31/2012 05:25:00) RDW [11.5-14.5 %] 14.6 % *HI* (07/31/2012 05:25:00) Platelet [133-450 K/CMM] 158 K/CMM (07/31/2012 05:25:00) MPV [7.4-10.4 fL] 9.9 fL (07/31/2012 05:25:00) Segs [45.0-75.0 %] 43.7 % *LOW* (07/31/2012 05:25:00) Lymphocytes [20.0-40.0 %] 38.8 % (07/31/2012 05:25:00) Monocytes [2.0-12.0 %] 10.0 % (07/31/2012 05:25:00) Eosinophils [0.0-4.0 %] 6.9 % *HI* (07/31/2012 05:25:00) Basophils [0.0-1.0 %] 0.6 % (07/31/2012 05:25:00) Segs-Bands # [1.5-8.1 K/CMM] 3.4 K/CMM (07/31/2012 05:25:00) Lymphocytes # [1.0-5.5 K/CMM] 3.0 K/CMM (07/31/2012 05:25:00) Monocytes # [0.0-0.8 K/CMM] 0.8 K/CMM (07/31/2012 05:25:00) Eosinophils # [0.0-0.5 K/CMM] 0.5 K/CMM (07/31/2012 05:25:00) Basophils # [0.0-0.2 K/CMM] 0.0 K/CMM (07/31/2012 05:25:00) PT [12.0-14.7 seconds] 12.8 seconds (08/02/2012 13:16:00) 14.0 seconds (07/31/2012 05:25:00) INR [0.85-1.17] 0.94 16 (08/02/2012 13:16:00) 1.06 17 (07/31/2012 05:25:00) PTT [22.9-35.8 seconds] 31.3 seconds 18 (08/02/2012 13:16:00) 33.5 seconds 19 (07/31/2012 05:25:00) 16Interpretive Data: RECOMMENDED RANGES FOR PROTIME INR: 2.0-3.0 for most medical and surgical thromboembolic states. 2.5-3.5 for artificial heart valves and recurrent embolism. INR SHOULD BE USED ONLY FOR PATIENTS ON STABLE ANTICOAGULANT THERAPY. 17Interpretive Data: RECOMMENDED RANGES FOR PROTIME INR: 2.0-3.0 for most medical and surgical thromboembolic states. 2.5-3.5 for artificial heart valves and recurrent embolism. INR SHOULD BE USED ONLY FOR PATIENTS ON STABLE ANTICOAGULANT THERAPY. 18Interpretive Data: Heparin Therapeutic Range: 57 - 92 Seconds 19Interpretive Data: Heparin Therapeutic Range: 57 - 92 Seconds Microbiology Reports PROCEDURE:Culture: Urine STATUS: Auth (Verified) BODY SITE: COLLECTED DATE/TIME: 08/01/2012 18:35:28 SOURCE: Urine, Clean Catch FREE TEXT SOURCE: FINAL REPORTS Final Report No Growth PRELIMINARY REPORTS Preliminary Report No Growth Preliminary Report No Growth; Holding PROCEDURE:Culture: Urine STATUS: In Progress BODY SITE: COLLECTED DATE/TIME: 07/31/2012 06:00:00 SOURCE: Urine, Clean Catch FREE TEXT SOURCE: FINAL REPORTS Final Report >100,000 CFU/mL Klebsiella pneumoniae ssp pneumoniae 10,000 - 50,000 CFU/mL Enterococcus Species 10,000 - 50,000 CFU/mL Skin Winter PRELIMINARY REPORTS Preliminary Report >100,000 CFU/mL Klebsiella pneumoniae ssp pneumoniae . 10,000 - 50,000 CFU/mL Enterococcus Species Sensitivity Pending Preliminary Report >100,000 CFU/mL Gram Negative Rods, Lactose Fermenters Identification And Sensitivity Pending . 10,000 - 50,000 CFU/mL Enterococcus Species Subculture In Progress Preliminary Report >100,000 CFU/mL Gram Negative Rods, Lactose Fermenters Subculture In Progress SUSCEPTIBILITY REPORT ENTERO Antibiotic INTERP. VDIL Ampicillin S Levofloxacin S Nitrofurantoin S Tetracycline R Vancomycin S KLEPNE Antibiotic INTERP., LES., Amikacin S <=16 Ampicillin R >16 Ampicillin/Sulbactam S <=8/4 Cefazolin S <=8 Cefepime S <=4 Ceftriaxone S <=8 Gentamicin S <=4 Levofloxacin S <=2 Meropenem S <=1 Nitrofurantoin S <=32 Piperacillin/Tazobactam S <=16 Tetracycline S <=4 Tobramycin S <=4 Trimethoprim/Sulfamethoxazole S <=2/38 Procedures Procedures Date Related Diagnosis Cholecystectomy Open heart surgery
--- OUTSIDE RECORDS SUMMARY | 2017-12-18 07:02 | XMS REPORT | Summary of Care ---
Author Organization Unknown Address Unknown Phone Unavailable Encounter KEVON Moreno(BLESSING) [id number] Date(s): 10/06/13 - 10/06/13 [facility] [address] Discharge Diagnosis: Chest pain Discharge Disposition: Home Physician Attending: Bari Martinez DO Reason for Visit CHEST PAINS Vital Signs Most recent to 1 oldest [Reference Range]: Height 170.18 cm (10/06/13 11:09 AM) Temperature Oral 97.8 DegF [96.4-99.1 DegF] (10/06/13 11:09 AM) Systolic Blood 187 mmHg Pressure [90-140 *HI* mmHg] (10/06/13 11:09 AM) Diastolic Blood 93 mmHg Pressure [60-90 *HI* mmHg] (10/06/13 11:09 AM) Respiratory Rate 20 BRMIN [14-20 BRMIN] (10/06/13 11:09 AM) Peripheral Pulse 74 bpm Rate [60-100 bpm] (10/06/13 11:09 AM) Weight 93.182 kg (10/06/13 11:09 AM) Body Mass Index 32.17 m2 (10/06/13 11:09 AM) Problem List Condition Effective Dates Status Health Status Informant Diabetes Resolved mellitus(Confirmed) Diabetes Active mellitus(Confirmed) Hypertension(Confirm Resolved ed) Hypertension(Confirm Active ed) Hypothyroid(Confirme Resolved d) Allergies, Adverse Reactions, Alerts Substance Reaction Severity Status sulfa drugs Active Medications aspirin 324 mg, Route: CHEW, Drug form: CHEWTAB, ONCE, Dosing Weight 93.182, kg, Priorit y: STAT, Start date: 10/06/13 11:48:00, Stop date: 10/06/13 11:48:00 Start Date: 10/06/13 Stop Date: 10/06/13 Status: Discontinued nitroglycerin 0.4 mg, Route: SL, Q5Min, Dosing Weight 93.182, kg, PRN Chest Pain, Priority: ST AT, Start date: 10/06/13 11:49:00, Duration: 3 doses or times, Stop date: Limite d # of times Start Date: 10/06/13 Stop Date: 10/06/13 Status: Discontinued Saline Flush 0.9% 10 mL, Route: IVP, Drug Form: INJ, Dosing Weight 93.182, kg, PRN, PRN Line Flush , Start date: 10/06/13 11:18:00, Duration: 30 day, Stop date: 11/05/13 11:17:00 Start Date: 10/06/13 Stop Date: 10/06/13 Status: Discontinued Results ELECTROLYTES Most recent to 1 oldest [Reference Range]: Sodium Lvl [135-145 143 mEq/L mEq/L] (10/06/13 11:24 AM) Potassium Lvl 3.9 mEq/L [3.5-5.1 mEq/L] (10/06/13 11:24 AM) Chloride Lvl [95-109 108 mEq/L mEq/L] (10/06/13 11:24 AM) CO2 [24-32 mEq/L] 27 mEq/L (10/06/13 11:24 AM) AGAP [10.0-20.0 11.9 mEq/L mEq/L] (10/06/13 11:24 AM) CHEM PANEL Most recent to 1 oldest [Reference Range]: Creatinine Lvl 1.2 mg/dL [0.5-1.4 mg/dL] (10/06/13 11:24 AM) eGFR 48 mL/min/1.73m2 1 *NA* (10/06/13 11:24 AM) BUN [7-22 mg/dL] 31 mg/dL *HI* (10/06/13 11:24 AM) Glucose Lvl [70-99 137 mg/dL 2 mg/dL] *HI* (10/06/13 11:24 AM) Calcium Lvl 9.3 mg/dL [8.5-10.5 mg/dL] (10/06/13 11:24 AM) 1Result Comment: The eGFR is calculated using [...] be mul tiplied by the estimated BMI. 2Interpretive Data: Adult reference range values reflect the clinical guidelines of the [place] [employer]. CARDIAC ENZYMES Most recent to 1 oldest [Reference Range]: Total CK [12-191 64 unit/L unit/L] (10/06/13 11:24 AM) CK MB [0.5-3.6 1.3 ng/mL ng/mL] (10/06/13 11:24 AM) CK MB Index 2.0 [0.0-2.5] (10/06/13 11:24 AM) Troponin-I <0.02 ng/mL [0.00-0.40 ng/mL] (10/06/13 11:24 AM) HEMATOLOGY Most recent to 1 oldest [Reference Range]: WBC [3.7-10.4 K/CMM] 8.5 K/CMM (10/06/13 11:24 AM) RBC [4.20-5.40 4.55 M/CMM M/CMM] (10/06/13 11:24 AM) Hgb [12.0-16.0 g/dL] 14.1 g/dL (10/06/13 11:24 AM) Hct [36.0-48.0 %] 43.2 % (10/06/13 11:24 AM) MCV [80.0-98.0 fL] 94.9 fL (10/06/13 11:24 AM) MCH [27.0-31.0 pg] 31.1 pg *HI* (10/06/13 11:24 AM) MCHC [32.0-36.0 32.7 g/dL g/dL] (10/06/13 11:24 AM) RDW [11.5-14.5 %] 14.5 % (10/06/13 11:24 AM) Platelet [133-450 165 K/CMM K/CMM] (10/06/13 11:24 AM) MPV [7.4-10.4 fL] 10.1 fL (10/06/13 11:24 AM) Segs [45.0-75.0 %] 59.9 % (10/06/13 11:24 AM) Lymphocytes 30.3 % [20.0-40.0 %] (10/06/13 11:24 AM) Monocytes [2.0-12.0 7.2 % %] (10/06/13 11:24 AM) Eosinophils [0.0-4.0 1.9 % %] (10/06/13 11:24 AM) Basophils [0.0-1.0 0.7 % %] (10/06/13 11:24 AM) Segs-Bands # 5.1 K/CMM [1.5-8.1 K/CMM] (10/06/13 11:24 AM) Lymphocytes # 2.6 K/CMM [1.0-5.5 K/CMM] (10/06/13 11:24 AM) Monocytes # [0.0-0.8 0.6 K/CMM K/CMM] (10/06/13 11:24 AM) Eosinophils # 0.2 K/CMM [0.0-0.5 K/CMM] (10/06/13 11:24 AM) Basophils # [0.0-0.2 0.1 K/CMM K/CMM] (10/06/13 11:24 AM) Medications Administered During Your Visit No data available for this section Immunizations No data available for this section
--- OUTSIDE RECORDS SUMMARY | 2017-12-18 07:02 | XMS REPORT | CCD ---
Author Author Auto Generated Organization [facility] Address Unknown Phone Unavailable Care Team Providers Care Lace Weaver Name Role Phone Becca Acosta RP Allergies, Adverse Reactions, Alerts Substance Reaction Status iodine Active sulfa drugs Active Problem List Condition Effective Dates Status Diabetes mellitus Resolved Diabetes mellitus Active Hypertension Resolved Hypertension Active Hypothyroid Resolved
--- OUTSIDE RECORDS SUMMARY | 2017-12-18 07:02 | XMS REPORT | CCD ---
Author Author Auto Generated Organization [facility] Address Unknown Phone Unavailable Care Team Providers Care Ncqa Specialist Name Role Phone Becca Acosta RP Allergies, Adverse Reactions, Alerts Substance Reaction Status iodine Active sulfa drugs Active Problem List Condition Effective Dates Status Diabetes mellitus Resolved Diabetes mellitus Active Hypertension Resolved Hypertension Active Hypothyroid Resolved
--- OUTSIDE RECORDS SUMMARY | 2017-12-18 07:02 | XMS REPORT | Summary of Care ---
Author Organization Unknown Address Unknown Phone Unavailable Encounter HQ Cheri_lashon(BLESSING) [id number] Date(s): 01/20/14 - 01/20/14 [facility] [address] Discharge Disposition: Home Physician Attending: Fer Gutierrez MD Physician_Referring: Fer Gutierrez MD Reason for Visit SPONDYLOLISTHESIS / POST LAMINECTOMY SYNDROME Problem List Condition Effective Dates Status Health Status Informant Diabetes Resolved mellitus(Confirmed) Diabetes Active mellitus(Confirmed) Hypertension(Confirm Resolved ed) Hypertension(Confirm Active ed) Hypothyroid(Confirme Resolved d) Allergies, Adverse Reactions, Alerts Substance Reaction Severity Status sulfa drugs Active Medications Omniscan 2,583 mg, 9 mL, Route: INJ, Drug form: INJ, ONCALL, Start date: 01/21/14 17:00:0 0, Duration: 1 day, Stop date: 01/22/14 16:59:00 Notes: (Same as: Omniscan). Start Date: 01/21/14 Stop Date: 01/21/14 Status: Canceled Medications Administered During Your Visit No data available for this section Immunizations No data available for this section
--- OUTSIDE RECORDS SUMMARY | 2017-12-18 07:02 | XMS REPORT | CCD ---
Author Author Auto Generated Organization [facility] Address Unknown Phone Unavailable Care Team Providers Care Call Center Supervisor Name Role Phone KarlaMi shenjason Hess RP [...]
--- OUTSIDE RECORDS SUMMARY | 2017-12-18 07:02 | XMS REPORT | CCD ---
Author Author Auto Generated Organization [facility] Address Unknown Phone Unavailable Care Team Providers Care Harness Installer Name Role Phone KarlaAmna shenBeccarosibel Hess RP [...]
--- OUTSIDE RECORDS SUMMARY | 2017-12-18 07:02 | XMS REPORT | Summary of Care ---
Author Organization Unknown Address Unknown Phone Unavailable Encounter KEVON Moreno(BLESSING) [id number] Date(s): 07/30/13 - 07/30/13 [facility] [address] Discharge Diagnosis: Gastroenteritis Discharge Diagnosis: Vomiting and diarrhea Discharge Disposition: Home Physician Attending: Cristobal Rose MD Reason for Visit RECTAL BLEED Vital Signs 1 2 3 Most recent to oldest [Reference Range]: 170.18 cm (07/30/13 6:29 AM) Height 98.2 DegF (07/30/13 5:00 PM) 98 DegF (07/30/13 3:32 PM) 98.2 DegF (07/30/13 2:43 PM) Temperature Oral [96.4-99.1 DegF] 138 mmHg (07/30/13 5:00 PM) 138 mmHg (07/30/13 3:32 PM) 155 mmHg *HI* (07/30/13 2:43 PM) Systolic Blood Pressure [90-140 mmHg] 66 mmHg (07/30/13 5:00 PM) 68 mmHg (07/30/13 3:32 PM) 66 mmHg (07/30/13 2:43 PM) Diastolic Blood Pressure [60-90 mmHg] 18 BRMIN (07/30/13 5:00 PM) 18 BRMIN (07/30/13 3:32 PM) 18 BRMIN (07/30/13 2:43 PM) Respiratory Rate [14-20 BRMIN] 89 bpm (07/30/13 5:00 PM) 89 bpm (07/30/13 3:32 PM) 85 bpm (07/30/13 2:43 PM) Peripheral Pulse Rate [60-100 bpm] 90.909 kg (07/30/13 6:29 AM) Weight 31.39 m2 (07/30/13 6:29 AM) Body Mass Index Problem List Condition Effective Dates Status Health Status Informant Diabetes Resolved mellitus(Confirmed) Diabetes Active mellitus(Confirmed) Hypertension(Confirm Resolved ed) Hypertension(Confirm Active ed) Hypothyroid(Confirme Resolved d) Allergies, Adverse Reactions, Alerts Substance Reaction Severity Status sulfa drugs Active Medications GI cocktail 30 mL, Route: PO, Drug Form: SUSP, Dosing Weight 90.909, kg, ONCE, STAT, Start d ate: 07/30/13 17:48:00, Stop date: 07/30/13 17:48:00 Notes: G.I. Cocktail=antacid with simethicone 22.5 mL - lidocaine viscous 7.5 mL Start Date: 07/30/13 Stop Date: 07/30/13 Status: Completed morphine Sulfate 4 mg, Route: IVP, Drug form: INJ, ONCE, Dosing Weight 90.909, kg, Priority: STAT , Start date: 07/30/13 11:22:00, Stop date: 07/30/13 11:22:00 Start Date: 07/30/13 Stop Date: 07/30/13 Status: Completed ondansetron 4 mg, Route: IVP, Drug form: INJ, ONCE, Dosing Weight 90.909, kg, Priority: STAT , Start date: 07/30/13 11:22:00, Stop date: 07/30/13 11:22:00 Start Date: 07/30/13 Stop Date: 07/30/13 Status: Completed ondansetron 4 mg oral tablet, disintegrating 4 mg=1 tab, PO, TID, Nausea / Vomiting, Dissolve tab under tongue, # 10 tab, 0 R efill(s) Special Instructions: Dissolve tab under tongue Start Date: 07/30/13 Stop Date: 08/02/13 Status: Ordered promethazine 12.5 mg rectal suppository 12.5 mg=1 supp, [place], Q4H, Nausea & Vomiting, # 12 supp, 0 Refill(s) Start Date: 07/30/13 Status: Ordered Saline Flush 0.9% 5 ml, Route: IVP, Drug Form: INJ, Dosing Weight 90.909, kg, Q8H, PRN Line Flush, STAT, Start date: 07/30/13 11:22:00, Duration: 30 day, Stop date: 08/29/13 11:2 1:00 Notes: Same as: BD Posiflush Sterile Start Date: 07/30/13 Stop Date: 07/30/13 Status: Discontinued Sodium Chloride 0.9% (Bolus) IV - - 1,000 mL, 1,000 ml/hr, Infuse Over: 1 hr, Route: IV, ONCE, Priority: STAT, Dosin g Weight 90.909 kg, Start date: 07/30/13 11:22:00, Duration: 1 doses or times, S top date: 07/30/13 11:22:00 Start Date: 07/30/13 Stop Date: 07/30/13 Status: Completed Zantac 75 oral tablet 75 mg=1 tab, PO, BID, # 14 tab, 0 Refill(s) Start Date: 07/30/13 Stop Date: 08/06/13 Status: Ordered Results ELECTROLYTES Most recent to 1 oldest [Reference Range]: Sodium Lvl [135-145 138 mEq/L mEq/L] (07/30/13 12:00 PM) Potassium Lvl 4.2 mEq/L [3.5-5.1 mEq/L] (07/30/13 12:00 PM) Chloride Lvl [95-109 103 mEq/L mEq/L] (07/30/13 12:00 PM) CO2 [24-32 mEq/L] 27 mEq/L (07/30/13 12:00 PM) AGAP [10.0-20.0 12.2 mEq/L mEq/L] (07/30/13 12:00 PM) CHEM PANEL Most recent to 1 oldest [Reference Range]: Creatinine Lvl 1.1 mg/dL [0.5-1.4 mg/dL] (07/30/13 12:00 PM) eGFR 54 mL/min/1.73m2 1 *NA* (07/30/13 12:00 PM) BUN [7-22 mg/dL] 20 mg/dL (07/30/13 12:00 PM) B/C Ratio [6-25] 18 (07/30/13 12:00 PM) Glucose Lvl [70-99 215 mg/dL 2 mg/dL] *HI* (07/30/13 12:00 PM) Total Protein 7.5 g/dL [6.4-8.4 g/dL] (07/30/13 12:00 PM) Albumin Lvl [3.5-5.0 3.7 g/dL g/dL] (07/30/13 12:00 PM) Globulin [2.0-4.0 3.8 g/dL g/dL] (07/30/13 12:00 PM) A/G Ratio [0.7-1.6] 1.0 (07/30/13 12:00 PM) Calcium Lvl 9.8 mg/dL [8.5-10.5 mg/dL] (07/30/13 12:00 PM) ALT [0-65 unit/L] 44 unit/L (07/30/13 12:00 PM) AST [0-37 unit/L] 32 unit/L (07/30/13 12:00 PM) Alk Phos [39-136 92 unit/L unit/L] (07/30/13 12:00 PM) Bili Total [0.2-1.3 0.5 mg/dL mg/dL] (07/30/13 12:00 PM) 1Result Comment: The eGFR is calculated using [...] values reflect the clinical guidelines of the [place] [employer]. URINE AND STOOL Most recent to 1 oldest [Reference Range]: UA Turbidity [Clear] Clear (07/30/13 11:28 AM) UA Color [Yellow] Yellow *NA* (07/30/13 11:28 AM) UA pH [5.0-8.0] 5.5 (07/30/13 11:28 AM) UA Spec Grav >=1.030 [<=1.030] *ABN* (07/30/13 11:28 AM) UA Glucose Negative [Negative] (07/30/13 11:28 AM) UA Blood [Negative] Negative (07/30/13 11:28 AM) UA Ketones Trace [Negative] *ABN* (07/30/13 11:28 AM) UA Protein Negative [Negative] (07/30/13 11:28 AM) UA Urobilinogen 0.2 EU/dL [0.1-1.0 EU/dL] (07/30/13 11:28 AM) UA Bili [Negative] Moderate *ABN* (07/30/13 11:28 AM) UA Leuk Est Trace [Negative] *ABN* (07/30/13 11:28 AM) UA Nitrite Negative [Negative] (07/30/13 11:28 AM) UA WBC [0-5 /HPF] 6-10 /HPF *ABN* (07/30/13 11:28 AM) UA RBC [0-2] None Seen (07/30/13 11:28 AM) UA Bacteria [None None Seen Seen] (07/30/13 11:28 AM) UA Sq Epi [Few /LPF] Occasional /LPF (07/30/13 11:28 AM) UA Mucus [None Seen Few /LPF /LPF] (07/30/13 11:28 AM) HEMATOLOGY Most recent to 1 oldest [Reference Range]: WBC [3.7-10.4 K/CMM] 11.0 K/CMM *HI* (07/30/13 7:30 AM) RBC [4.20-5.40 5.09 M/CMM M/CMM] (07/30/13 7:30 AM) Hgb [12.0-16.0 g/dL] 15.7 g/dL (07/30/13 7:30 AM) Hct [36.0-48.0 %] 47.4 % (07/30/13 7:30 AM) MCV [81.0-99.0 fL] 93.2 fL (07/30/13 7:30 AM) MCH [27.0-31.0 pg] 30.8 pg (07/30/13 7:30 AM) MCHC [32.0-36.0 33.1 g/dL g/dL] (07/30/13 7:30 AM) RDW [11.5-14.5 %] 15.2 % *HI* (07/30/13 7:30 AM) Platelet [133-450 156 K/CMM K/CMM] (07/30/13 7:30 AM) MPV [7.4-10.4 fL] 10.7 fL *HI* (07/30/13 7:30 AM) Segs [45.0-75.0 %] 59.6 % (07/30/13 7:30 AM) Lymphocytes 30.1 % [20.0-40.0 %] (07/30/13 7:30 AM) Monocytes [2.0-12.0 6.1 % %] (07/30/13 7:30 AM) Eosinophils [0.0-4.0 3.3 % %] (07/30/13 7:30 AM) Basophils [0.0-1.0 0.9 % %] (07/30/13 7:30 AM) Segs-Bands # 6.6 K/CMM [1.5-8.1 K/CMM] (07/30/13 7:30 AM) Lymphocytes # 3.3 K/CMM [1.0-5.5 K/CMM] (07/30/13 7:30 AM) Monocytes # [0.0-0.8 0.7 K/CMM K/CMM] (07/30/13 7:30 AM) Eosinophils # 0.4 K/CMM [0.0-0.5 K/CMM] (07/30/13 7:30 AM) Basophils # [0.0-0.2 0.1 K/CMM K/CMM] (07/30/13 7:30 AM) PT [12.0-14.7 13.0 seconds seconds] (07/30/13 7:30 AM) INR [0.85-1.17] 0.99 3 (07/30/13 7:30 AM) PTT [22.9-35.8 33.4 seconds 4 seconds] (07/30/13 7:30 AM) 3Interpretive Data: RECOMMENDED RANGES FOR PROTIME INR: 2.0-3.0 for most medical and surgical thromboembolic states. 2.5-3.5 for artificial heart valves and recurrent embolism. INR SHOULD BE USED ONLY FOR PATIENTS ON STABLE ANTICOAGULANT THERAPY. 4Interpretive Data: Heparin Therapeutic Range: 57 - 92 Seconds Medications Administered During Your Visit No data available for this section Immunizations No data available for this section
--- OUTSIDE RECORDS SUMMARY | 2017-12-18 07:03 | XMS REPORT | Summary of Care ---
Author Author [facility] Organization [facility] Address Unknown Phone Unavailable Encounter HQ Josh(BLESSING) [id number] Date(s): 11/28/16 - 11/28/16 [facility] [address] [place] [address]- Discharge Diagnosis: Orthostasis Discharge Diagnosis: Syncope, vasovagal Discharge Diagnosis: Dehydration Discharge Disposition: Home or Self Care Attending Physician: Ambrosio Tan MD Vital Signs 1 2 3 Most recent to oldest [Reference Range]: 170.18 cm (11/28/16 2:48 PM) Height 98.2 DegF (11/28/16 10:30 PM) 98.4 DegF (11/28/16 6:00 PM) 98.2 DegF (11/28/16 2:48 PM) Temperature Oral [96.4-99.1 DegF] 165/70 mmHg *HI* (11/28/16 10:30 PM) 162/73 mmHg *HI* (11/28/16 8:03 PM) 151/67 mmHg *HI* (11/28/16 6:00 PM) Blood Pressure [90-140/60-90 mmHg] 16 BRMIN (11/28/16 10:30 PM) 15 BRMIN (11/28/16 8:03 PM) 18 BRMIN (11/28/16 6:00 PM) Respiratory Rate [14-20 BRMIN] 65 bpm (11/28/16 10:30 PM) 75 bpm (11/28/16 8:03 PM) 74 bpm (11/28/16 2:48 PM) Peripheral Pulse Rate [60-100 bpm] 100 kg (11/28/16 2:48 PM) Weight 34.53 m2 (11/28/16 2:48 PM) Body Mass Index Problem List Condition Effective Dates Status Health Status Informant Diabetes Active mellitus(Confirmed) Diabetes Active mellitus(Confirmed) Escherichia 02/08/16 Active coli(Confirmed)1, 2 Hyperlipidemia(Confi Active rmed) Hypertension(Confirm Active ed) Hypertension(Confirm Active ed) Hypothyroid(Confirme Active d) Lumbar Active spondylosis(Confirme d) Obesity(Confirmed) Active Pinched Resolved nerve(Confirmed)3 1urine (ESBL+), 02/08/2016 2Problem added by Discern Expert. 3L5 Allergies, Adverse Reactions, Alerts Substance Reaction Severity Status Levaquin Active sulfa drugs Active Medications Sodium Chloride 0.9% (Bolus) IV 500 mL, 500 ml/hr, Infuse Over: 1 hr, Route: IV, ONCE, Priority: STAT, Dosing We ight 100 kg, Start date: 11/28/16 20:55:00 CDT, Duration: 1 doses or times, Stop date: 11/28/16 20:55:00 CDT Start Date: 11/28/16 Stop Date: 11/28/16 Status: Completed Sodium Chloride 0.9% (Bolus) IV 1,000 mL, 1,000 ml/hr, Infuse Over: 1 hr, Route: IV, 1,000, Drug form: INJ, ONCE , Priority: STAT, Dosing Weight 100 kg, Start date: 11/28/16 15:53:00 CDT, Durat ion: 1 doses or times, Stop date: 11/28/16 15:53:00 CDT Start Date: 11/28/16 Stop Date: 11/28/16 Status: Completed Sodium Chloride 0.9% (Bolus) IV 1,000 mL, 5000 ml/hr, Infuse Over: 0.2 hr, Route: IV, 1,000, Drug form: INJ, ONC E, Priority: STAT, Dosing Weight 100 kg, Start date: 11/28/16 18:23:00 CDT, Dura tion: 1 doses or times, Stop date: 11/28/16 18:23:00 CDT Start Date: 11/28/16 Stop Date: 11/28/16 Status: Discontinued Results ELECTROLYTES Most recent to 1 oldest [Reference Range]: Sodium Lvl [135-145 143 mEq/L mEq/L] (11/28/16 5:02 PM) Potassium Lvl 3.8 mEq/L [3.5-5.1 mEq/L] (11/28/16 5:02 PM) Chloride Lvl [95-109 111 mEq/L mEq/L] *HI* (11/28/16 5:02 PM) CO2 [24-32 mEq/L] 22 mEq/L *LOW* (11/28/16 5:02 PM) AGAP [10.0-20.0 13.8 mEq/L mEq/L] (11/28/16 5:02 PM) CHEM PANEL Most recent to 1 oldest [Reference Range]: Creatinine Lvl 1.30 mg/dL [0.50-1.40 mg/dL] (11/28/16 5:02 PM) eGFR 43 mL/min/1.73m2 1 *NA* (11/28/16 5:02 PM) BUN [7-22 mg/dL] 34 mg/dL *HI* (11/28/16 5:02 PM) B/C Ratio [6-25] 26 *HI* (11/28/16 5:02 PM) Glucose Lvl [70-99 119 mg/dL mg/dL] *HI* (11/28/16 5:02 PM) Total Protein 6.2 g/dL [6.4-8.4 g/dL] *LOW* (11/28/16 5:02 PM) Albumin Lvl [3.5-5.0 3.1 g/dL g/dL] *LOW* (11/28/16 5:02 PM) Globulin [2.7-4.2 3.1 g/dL g/dL] (11/28/16 5:02 PM) A/G Ratio [0.7-1.6] 1.0 (11/28/16 5:02 PM) Calcium Lvl 7.3 mg/dL [8.5-10.5 mg/dL] *LOW* (11/28/16 5:02 PM) Magnesium Lvl 1.9 mg/dL [1.8-2.4 mg/dL] (11/28/16 5:02 PM) ALT [0-65 unit/L] 32 unit/L (11/28/16 5:02 PM) AST [0-37 unit/L] 21 unit/L (11/28/16 5:02 PM) Alk Phos [39-136 72 unit/L unit/L] (11/28/16 5:02 PM) Bili Total [0.2-1.3 0.8 mg/dL mg/dL] (11/28/16 5:02 PM) 1Result Comment: The eGFR is calculated [...] tiplied by the estimated BMI. CARDIAC ENZYMES Most recent to 1 oldest [Reference Range]: CK MB [0.5-3.6 2.3 ng/mL ng/mL] (11/28/16 5:02 PM) Troponin-I <0.02 ng/mL [0.00-0.40 ng/mL] (11/28/16 5:02 PM) BNP [<=100 pg/mL] 14 pg/mL (11/28/16 5:02 PM) URINE AND STOOL Most recent to 1 oldest [Reference Range]: UA Turbidity [Clear] Slight *ABN* (11/28/16 5:40 PM) UA Color [Yellow] Yellow *NA* (11/28/16 5:40 PM) UA pH [5.0-8.0] 5.0 (11/28/16 5:40 PM) UA Spec Grav 1.013 [<=1.030] (11/28/16 5:40 PM) UA Glucose [Negative Negative mg/dL mg/dL] *NA* (11/28/16 5:40 PM) UA Blood [Negative] Negative (11/28/16 5:40 PM) UA Ketones [Negative Trace mg/dL mg/dL] *ABN* (11/28/16 5:40 PM) UA Protein [Negative Negative mg/dL mg/dL] (11/28/16 5:40 PM) UA Urobilinogen <=1.0 mg/dL [0.1-1.0 mg/dL] *NA* (11/28/16 5:40 PM) UA Bili [Negative] Negative *NA* (11/28/16 5:40 PM) UA Leuk Est Moderate [Negative] *ABN* (11/28/16 5:40 PM) UA Nitrite Negative [Negative] (11/28/16 5:40 PM) UA WBC [0-5 /HPF] 6 /HPF *HI* (11/28/16 5:40 PM) UA RBC [0-2 /HPF] 3 /HPF *HI* (11/28/16 5:40 PM) UA Bacteria [None Occasional /HPF Seen /HPF] *NA* (11/28/16 5:40 PM) UA Sq Epi [Few /LPF] Occasional /LPF *NA* (11/28/16 5:40 PM) UA Hyal Cast [0-2 12 /LPF /LPF] *HI* (11/28/16 5:40 PM) UA Mucus [None Seen Few /LPF /LPF] *NA* (11/28/16 5:40 PM) HEMATOLOGY Most recent to 1 oldest [Reference Range]: WBC [3.7-10.4 K/CMM] 11.4 K/CMM *HI* (11/28/16 5:02 PM) RBC [4.20-5.40 4.75 M/CMM M/CMM] (11/28/16 5:02 PM) Hgb [12.0-16.0 g/dL] 15.3 g/dL (11/28/16 5:02 PM) Hct [36.0-48.0 %] 46.5 % (11/28/16 5:02 PM) MCV [80.0-98.0 fL] 97.9 fL (11/28/16 5:02 PM) MCH [27.0-31.0 pg] 32.2 pg *HI* (11/28/16 5:02 PM) MCHC [32.0-36.0 32.9 g/dL g/dL] (11/28/16 5:02 PM) RDW [11.5-14.5 %] 15.8 % *HI* (11/28/16 5:02 PM) Platelet [133-450 176 K/CMM K/CMM] (11/28/16 5:02 PM) MPV [7.4-10.4 fL] 10.1 fL (11/28/16 5:02 PM) Segs [45.0-75.0 %] 78.2 % *HI* (11/28/16 5:02 PM) Lymphocytes 13.0 % [20.0-40.0 %] *LOW* (11/28/16 5:02 PM) Monocytes [2.0-12.0 8.0 % %] (11/28/16 5:02 PM) Eosinophils [0.0-4.0 0.4 % %] (11/28/16 5:02 PM) Basophils [0.0-1.0 0.4 % %] (11/28/16 5:02 PM) Segs-Bands # 8.9 K/CMM [1.5-8.1 K/CMM] *HI* (11/28/16 5:02 PM) Lymphocytes # 1.5 K/CMM [1.0-5.5 K/CMM] (11/28/16 5:02 PM) Monocytes # [0.0-0.8 0.9 K/CMM K/CMM] *HI* (11/28/16 5:02 PM) Basophils # [0.0-0.2 0.1 K/CMM K/CMM] (11/28/16 5:02 PM) PT [12.0-14.7 13.9 seconds seconds] (11/28/16 5:02 PM) INR [0.85-1.17] 1.07 (11/28/16 5:02 PM) PTT [22.9-35.8 29.2 seconds seconds] (11/28/16 5:02 PM) Immunizations No data available for this section Procedures Procedure Date Related Diagnosis Body Site Cardiac catheterization Cholecystectomy Excision of disc for intervertebral herniated disc, nucleus pulposus Gastric stapling Hysterectomy Open heart surgery Tonsillectomy Social History Social History Type Response Alcohol Never, Previous treatment: None. Alcohol use interferes with work or home: No. Drinks more than intended: No. Others hurt by drinking: No. Ready to change: No. Household alcohol concerns: No. Smoking Status Never smoker; Previous treatment: None; Ready to change: No; Concerns about tobacco use in household: No; Exposure to Tobacco Smoke None; Cigarette Smoking Last 365 Days No; Reg Smoking Cessation Counseling No Assessment and Plan No data available for this section
--- OUTSIDE RECORDS SUMMARY | 2017-12-18 07:03 | XMS REPORT | Summary of Care ---
Author Author [facility] Organization [facility] Address Unknown Phone Unavailable Encounter HQ Josh(BLESSING) [id number] Date(s): 11/26/16 - 11/27/16 [facility] [address] [place] [address]- Discharge Disposition: Home or Self Care Attending Physician: Katie Spencer MD Admitting Physician: Katie Spencer MD Vital Signs 1 2 3 Most recent to oldest [Reference Range]: 170.18 cm (11/26/16 10:49 AM) 170.18 cm (11/26/16 3:30 AM) Height 97.6 DegF (11/27/16 10:18 AM) 97.7 DegF (11/27/16 6:55 AM) 97.6 DegF (11/27/16 3:34 AM) Temperature Oral [96.4-99.1 DegF] 158/78 mmHg *HI* (11/27/16 5:03 PM) 132/63 mmHg (11/27/16 4:10 PM) 107/48 mmHg (11/27/16 3:55 PM) Blood Pressure [90-140/60-90 mmHg] 18 BRMIN (11/27/16 5:03 PM) 15 BRMIN (11/27/16 4:10 PM) 19 BRMIN (11/27/16 3:55 PM) Respiratory Rate [14-20 BRMIN] 66 bpm (11/27/16 5:03 PM) 74 bpm (11/27/16 3:55 PM) 81 bpm (11/27/16 2:48 PM) Peripheral Pulse Rate [60-100 bpm] 103.182 kg (11/26/16 10:49 AM) 103.182 kg (11/26/16 3:30 AM) Weight 35.63 m2 (11/26/16 10:49 AM) 35.63 m2 (11/26/16 3:30 AM) Body Mass Index Problem List Condition [...] Status Levaquin Active sulfa drugs Active Medications aspirin 324 mg, 4 tab, Route: PO, Drug form: CHEWTAB, ONCE, Dosing Weight 103.182, kg, P riority: STAT, Start date: 11/26/16 4:07:00 CDT, Stop date: 11/26/16 4:07:00 CDT Notes: Take with food. Start Date: 11/26/16 Stop Date: 11/26/16 Status: Completed aspirin 81 mg tablet, enteric coated 81 mg, 1 tab, Route: PO, Drug form: ECTAB, Daily, Dosing Weight 103.182, kg, Sta rt date: 11/27/16 9:00:00 CDT, Duration: 30 day, Stop date: 12/26/16 9:00:00 ABATTOIR MANAGER Notes: Do not crush or chew.(Same As: Ecotrin) Start Date: 11/27/16 Stop Date: 11/27/16 Status: Discontinued Dextrose 50% Syringe 12.5 gm, 25 mL, Route: IVP, Drug Form: INJ, Dosing Weight 103.182, kg, PRN, PRN Blood Glucose Results, Start date: 11/26/16 8:20:00 CDT, Duration: 30 day, Stop date: 12/26/16 7:19:00 ABATTOIR MANAGER Start Date: 11/26/16 Stop Date: 11/27/16 Status: Discontinued Dextrose 50% Syringe 25 gm, 50 mL, Route: IVP, Drug Form: INJ, Dosing Weight 103.182, kg, PRN, PRN Bl ood Glucose Results, Start date: 11/26/16 8:20:00 CDT, Duration: 30 day, Stop da te: 12/26/16 7:19:00 ABATTOIR MANAGER Start Date: 11/26/16 Stop Date: 11/27/16 Status: Discontinued GI cocktail 30 mL, Route: PO, Drug Form: SUSP, Dosing Weight 103.182, kg, ONCE, STAT, Start date: 11/26/16 5:52:00 CDT, Stop date: 11/26/16 5:52:00 CDT Notes: G.I. Cocktail=antacid with simethicone 22.5 mL - lidocaine viscous 7.5 mL Start Date: 11/26/16 Stop Date: 11/26/16 Status: Completed glucagon 1 mg, Route: IM, Drug form: PDR/INJ, PRN, Dosing Weight 103.182, kg, PRN Blood G lucose Results, Start date: 11/26/16 8:20:00 CDT, Duration: 30 day, Stop date: 02/26/16 7:19:00 ABATTOIR MANAGER Start Date: 11/26/16 Stop Date: 11/27/16 Status: Discontinued insulin lispro 3 unit, 0.03 mL, Route: SUB-Q, Drug form: SOLN, TID-Before Meals, Dosing Weight 103.182, kg, PRN Blood Glucose Results, Start date: 11/26/16 8:20:00 CDT, Durati on: 30 day, Stop date: 12/26/16 8:19:00 ABATTOIR MANAGER Notes: Roll in palms of hands gently; Do not shake `vigorously. (Same as: Marya fishman )"Single Patient Use Only "WASTE: F/P - Black; E - [employer] [address] Trash Bin Sta e for 28 days at room temperature.Expires in days from Date Start Date: 11/26/16 Stop Date: 11/27/16 Status: Discontinued insulin lispro 2 unit, 0.02 mL, Route: SUB-Q, Drug form: SOLN, TID-Before Meals, Dosing Weight 103.182, kg, PRN Blood Glucose Results, Start date: 11/26/16 8:20:00 CDT, Durati on: 30 day, Stop date: 12/26/16 8:19:00 ABATTOIR MANAGER Notes: Roll in palms of hands gently; Do not shake `vigorously. (Same as: Humal og )"Single Patient Use Only "WASTE: F/P - Black; E - [facility] Trash Bin Stabl e for 28 days at room temperature.Expires in days from Date Start Date: 11/26/16 Stop Date: 11/27/16 Status: Discontinued insulin lispro 5 unit, 0.05 mL, Route: SUB-Q, Drug form: SOLN, TID-Before Meals, Dosing Weight 103.182, kg, PRN Blood Glucose Results, Start date: 11/26/16 8:20:00 CDT, Durati on: 30 day, Stop date: 12/26/16 8:19:00 ABATTOIR MANAGER Notes: Roll in palms of hands gently; Do not shake `vigorously. (Same as: Humal og )"Single Patient Use Only "WASTE: F/P - Black; E - [facility] Trash Bin Stabl e for 28 days at room temperature.Expires in days from Date Start Date: 11/26/16 Stop Date: 11/27/16 Status: Discontinued insulin lispro 4 unit, 0.04 mL, Route: SUB-Q, Drug form: SOLN, TID-Before Meals, Dosing Weight 103.182, kg, PRN Blood Glucose Results, Start date: 11/26/16 8:20:00 CDT, Durati on: 30 day, Stop date: 12/26/16 8:19:00 ABATTOIR MANAGER Notes: Roll in palms of hands gently; Do not shake `vigorously. (Same as: Humal )"Single Patient Use Only "WASTE: F/P - Black; E - [facility] Trash Bin Stabl e for 28 days at room temperature.Expires in days from Date Start Date: 11/26/16 Stop Date: 11/27/16 Status: Discontinued insulin lispro 4 unit, 0.04 mL, Route: SUB-Q, Drug form: SOLN, Bedtime, Dosing Weight 103.182, kg, PRN Blood Glucose Results, Start date: 11/26/16 8:20:00 CDT, Duration: 30 da y, Stop date: 12/26/16 8:19:00 ABATTOIR MANAGER Notes: Roll in palms of hands gently; Do not shake `vigorously. (Same as: Humal og )"Single Patient Use Only "WASTE: F/P - Black; E - [facility] Trash Bin Stabl e for 28 days at room temperature.Expires in days from Date Start Date: 11/26/16 Stop Date: 11/27/16 Status: Discontinued insulin lispro 3 unit, 0.03 mL, Route: SUB-Q, Drug form: SOLN, Bedtime, Dosing Weight 103.182, kg, PRN Blood Glucose Results, Start date: 11/26/16 8:20:00 CDT, Duration: 30 da y, Stop date: 12/26/16 8:19:00 ABATTOIR MANAGER Notes: Roll in palms of hands gently; Do not shake `vigorously. (Same as: Humal og )"Single Patient Use Only "WASTE: F/P - Black; E - [facility] Trash Bin Stabl e for 28 days at room temperature.Expires in days from Date Start Date: 11/26/16 Stop Date: 11/27/16 Status: Discontinued insulin lispro 2 unit, 0.02 mL, Route: SUB-Q, Drug form: SOLN, Bedtime, Dosing Weight 103.182, kg, PRN Blood Glucose Results, Start date: 11/26/16 8:20:00 CDT, Duration: 30 da y, Stop date: 12/26/16 8:19:00 ABATTOIR MANAGER Notes: Roll in palms of hands gently; Do not shake `vigorously. (Same as: Humal og )"Single Patient Use Only "WASTE: F/P - Black; E - [facility] Trash Bin Stabl e for 28 days at room temperature.Expires in days from Date Start Date: 11/26/16 Stop Date: 11/27/16 Status: Discontinued insulin lispro 1 unit, 0.01 mL, Route: SUB-Q, Drug form: SOLN, Bedtime, Dosing Weight 103.182, kg, PRN Blood Glucose Results, Start date: 11/26/16 8:20:00 CDT, Duration: 30 da y, Stop date: 12/26/16 8:19:00 ABATTOIR MANAGER Notes: Roll in palms of hands gently; Do not shake `vigorously. (Same as: Marya og )"Single Patient Use Only "WASTE: F/P - Black; E - Municipal Trash Bin Stabl e for 28 days at room temperature.Expires in days from Date Start Date: 11/26/16 Stop Date: 11/27/16 Status: Discontinued insulin lispro 1 unit, 0.01 mL, Route: SUB-Q, Drug form: SOLN, TID-Before Meals, Dosing Weight 103.182, kg, PRN Blood Glucose Results, Start date: 11/26/16 8:20:00 CDT, Durati on: 30 day, Stop date: 12/26/16 8:19:00 ABATTOIR MANAGER Notes: Roll in palms of hands gently; Do not shake `vigorously. (Same as: Marya fishman )"Single Patient Use Only "WASTE: F/P - Black; E - Municipal Trash Bin Stabl e for 28 days at room temperature.Expires in days from Date Start Date: 11/26/16 Stop Date: 11/27/16 Status: Discontinued lisinopril 20 mg, 1 tab, Route: PO, Drug form: TAB, BID, Dosing Weight 103.182, kg, Start d ate: 11/26/16 21:00:00 CDT, Duration: 30 day, Stop date: 12/26/16 9:00:00 ABATTOIR MANAGER Notes: (Same as: Prinivfern Zestril) Start Date: 11/26/16 Stop Date: 11/27/16 Status: Discontinued morphine Sulfate 4 mg, 1 mL, Route: IVP, Drug form: SOLN, ONCE, Dosing Weight 103.182, kg, Priori ty: STAT, Start date: 11/26/16 4:07:00 CDT, Stop date: 11/26/16 4:07:00 CDT Notes: (Same as:MORPhine Sulfate) Start Date: 11/26/16 Stop Date: 11/26/16 Status: Completed nitroglycerin 0.4 mg, 1 tab, Route: SL, Drug form: TAB, Q5Min, Dosing Weight 103.182, kg, PRN Chest Pain, Start date: 11/26/16 4:07:00 CDT, Duration: 3 doses or times, Stop d ate: Limited # of times Notes: (Same as:Nitroquick, Nitrostat)"Do Not Crush" Sublingual tablet Start Date: 11/26/16 Stop Date: 11/26/16 Status: Deleted nitroglycerin SL Tab 0.4 mg, 1 tab, Route: SL, Drug form: TAB, Q5Min, Dosing Weight 103.182, kg, PRN Chest Pain, Start date: 11/26/16 8:19:00 CDT, Duration: 3 doses or times, Stop d ate: Limited # of times Notes: (Same as:Nitroquick, Nitrostat)"Do Not Crush" Sublingual tablet Start Date: 11/26/16 Stop Date: 11/27/16 Status: Discontinued ondansetron 4 mg, 2 mL, Route: IVP, Drug form: INJ, ONCE, Dosing Weight 103.182, kg, Priorit y: STAT, Start date: 11/26/16 4:07:00 CDT, Stop date: 11/26/16 4:07:00 CDT Notes: (Same as: Buffy) MEDICATION WASTE Product Size: 4 mgProduct Was florencio: ___ mg Start Date: 11/26/16 Stop Date: 11/26/16 Status: Completed pantoprazole 40 mg oral enteric coated tablet 40 mg=1 tab, PO, BID, # 60 tab, 1 Refill(s), Pharmacy: [id number] Start Date: 11/27/16 Status: Ordered Plavix 75 mg, 1 tab, Route: PO, Drug form: TAB, Daily, Dosing Weight 103.182, kg, Start date: 11/26/16 20:00:00 CDT, Duration: 30 day, Stop date: 12/26/16 9:00:00 ABATTOIR MANAGER Notes: (Same As: Plavix) Start Date: 11/26/16 Stop Date: 11/27/16 Status: Discontinued Protonix 40 mg, 1 tab, Route: PO, Drug form: ECTAB, BID, Dosing Weight 103.182, kg, Start date: 11/26/16 17:00:00 CDT, Duration: 30 day, Stop date: 12/26/16 9:00:00 ABATTOIR MANAGER Notes: Tablet should not be chewed or crushed.(Same as: Protonix) Start Date: 11/26/16 Stop Date: 11/27/16 Status: Discontinued Protonix 40 mg, Route: IV, Drug form: INJ, Daily, Dosing Weight 103.182, kg, Priority: Ro utine, Start date: 11/26/16 9:00:00 CDT, Duration: 30 day, Stop date: 12/25/16 9 :00:00 ABATTOIR MANAGER Start Date: 11/26/16 Stop Date: 11/26/16 Status: Discontinued Saline Flush 0.9% 10 mL, Route: IVP, Drug Form: INJ, Dosing Weight 103.182, kg, PRN, PRN Line Flus h, Start date: 11/26/16 4:07:00 CDT, Duration: 30 day, Stop date: 12/26/16 3:06: 00 ABATTOIR MANAGER Notes: (Same as: BD Posiflush) Start Date: 11/26/16 Stop Date: 11/27/16 Status: Discontinued Saline Flush 0.9% 10 ml, Route: IVP, Drug Form: INJ, Dosing Weight 103.182, kg, PRN, PRN Line Flus h, Start date: 11/26/16 8:19:00 CDT, Duration: 30 day, Stop date: 12/26/16 7:18: 00 ABATTOIR MANAGER Notes: (Same as: BD Posiflush) Start Date: 11/26/16 Stop Date: 11/27/16 Status: Discontinued Saline Flush 0.9% 10 ml, Route: IVP, Drug Form: INJ, Dosing Weight 103.182, kg, Q12H, Start date: 11/26/16 9:00:00 CDT, Duration: 30 day, Stop date: 12/25/16 21:00:00 ABATTOIR MANAGER Notes: (Same as: BD Posiflush) Start Date: 11/26/16 Stop Date: 11/27/16 Status: Discontinued sodium chloride 0.9% 1000 ml INJ 1,000 mL 1,000 mL, Rate: 25 ml/hr, Infuse over: 40 hr, Route: IV, Dosing Weight 103.182 k g, Total Volume: 1,000, Start date: 11/27/16 14:44:00 CDT, Duration: 1 day, Stop date: 11/28/16 14:43:00 CDT Start Date: 11/27/16 Stop Date: 11/27/16 Status: Discontinued Sodium Chloride 0.9% IV (Sodium Chloride 0.9% (Bolus) IV) 500 mL, 500 ml/hr, Infuse Over: 1 hr, Route: IV, 500, Drug form: INJ, ONCE, Prio rity: STAT, Dosing Weight 103.182 kg, Start date: 11/26/16 4:07:00 CDT, Duration : 1 doses or times, Stop date: 11/26/16 4:07:00 CDT Start Date: 11/26/16 Stop Date: 11/26/16 Status: Completed sucralfate 1 gm, 1 tab, Route: PO, Drug form: TAB, QID, Dosing Weight 103.182, kg, Start da te: 11/27/16 17:00:00 CDT, Duration: 30 day, Stop date: 12/27/16 13:00:00 ABATTOIR MANAGER Notes: May interfere w/enteral feeds - Take 1 hr before or 2 hr after antacids, dairy pdt, meals & minerals - On empty stomach.For patients unable to swallow tablet, dissolve in 10mL - 30mL of water or juice and stir before giving. (Same As: Carafate) Start Date: 11/27/16 Stop Date: 11/27/16 Status: Discontinued Zofran 4 mg, 2 mL, Route: IVP, Drug form: INJ, ONCE, Dosing Weight 103.182, kg, Priorit y: STAT, Start date: 11/26/16 5:56:00 CDT, Stop date: 11/26/16 5:56:00 CDT Notes: (Same as: Zofran) MEDICATION WASTE Product Size: 4 mgProduct Was florencio: ___ mg Start Date: 11/26/16 Stop Date: 11/26/16 Status: Completed Results ELECTROLYTES 1 2 3 Most recent to oldest [Reference Range]: 137 mEq/L (11/27/16 11:02 AM) 142 mEq/L (11/26/16:00 AM) Sodium Lvl [135-145 mEq/L] 4.6 mEq/L (11/27/16:02 AM) 4.4 mEq/L (11/26/16:00 AM) Potassium Lvl [3.5-5.1 mEq/L] 103 mEq/L (11/27/16: AM) 110 mEq/L *HI* (11/26/16: AM) Chloride Lvl [95-109 mEq/L] 27 mEq/L (11/27/16:02 AM) 26 mEq/L (11/26/16:00 AM) CO2 [24-32 mEq/L] 11.6 mEq/L (11/27/16: AM) 10.4 mEq/L (11/26/16:00 AM) AGAP [10.0-20.0 mEq/L] CHEM PANEL 1 2 3 Most recent to oldest [Reference Range]: 1.30 mg/dL (11/27/16:02 AM) 1.10 mg/dL (11/26/16:00 AM) Creatinine Lvl [0.50-1.40 mg/dL] 43 mL/min/1.73m2 1 *NA* (11/27/16: AM) 52 mL/min/1.73m2 2 *NA* (11/26/16:00 AM) eGFR 31 mg/dL *HI* (11/27/16: AM) 36 mg/dL *HI* (11/26/16:00 AM) BUN [7-22 mg/dL] 24 (11/27/16:02 AM) 33 *HI* (11/26/16:00 AM) B/C Ratio [6-25] 97 mg/dL (11/27/16:02 AM) 76 mg/dL (11/26/16:00 AM) Glucose Lvl [70-99 mg/dL] 7.6 g/dL (11/27/16 11:02 AM) 6.4 g/dL (11/26/16:00 AM) Total Protein [6.4-8.4 g/dL] 3.6 g/dL (11/27/16 11:02 AM) 2.9 g/dL *LOW* (11/26/16 5:00 AM) Albumin Lvl [3.5-5.0 g/dL] 4.0 g/dL (11/27/16 11:02 AM) 3.5 g/dL (11/26/16 5:00 AM) Globulin [2.7-4.2 g/dL] 0.9 (11/27/16 11:02 AM) 0.8 (11/26/16:00 AM) A/G Ratio [0.7-1.6] 9.2 mg/dL (11/27/16:02 AM) 8.4 mg/dL *LOW* (11/26/16:00 AM) Calcium Lvl [8.5-10.5 mg/dL] 1.9 mg/dL (11/26/16 5:00 AM) Magnesium Lvl [1.8-2.4 mg/dL] 37 unit/L (11/27/16 11:02 AM) 21 unit/L (11/26/16:00 AM) ALT [0-65 unit/L] 37 unit/L (11/27/16 11:02 AM) 18 unit/L (11/26/16:00 AM) AST [0-37 unit/L] 81 unit/L (11/27/16 11:02 AM) 75 unit/L (11/26/16 5:00 AM) Alk Phos [39-136 unit/L] 0.5 mg/dL (11/27/16 11:02 AM) 0.3 mg/dL (11/26/16:00 AM) Bili Total [0.2-1.3 mg/dL] 78 unit/L (11/26/16 5:00 AM) Lipase Lvl [73-393 unit/L] 1Result Comment: The eGFR is calculated using [...] 3 Most recent to oldest [Reference Range]: 65 unit/L (11/26/16 4:20 PM) 78 unit/L (11/26/16 11:51 AM) 70 unit/L (11/26/16 5:00 AM) Total CK [12-191 unit/L] 1.4 ng/mL (11/26/16 11:51 AM) CK MB [0.5-3.6 ng/mL] 1.8 (11/26/16 11:51 AM) CK MB Index [0.0-2.5] <0.02 ng/mL (11/26/16 4:20 PM) <0.02 ng/mL (11/26/16 11:51 AM) <0.02 ng/mL (11/26/16 5:00 AM) Troponin-I [0.00-0.40 ng/mL] 22 pg/mL (11/26/16 4:33 AM) BNP [<=100 pg/mL] LIPIDS 1 2 3 Most recent to oldest [Reference Range]: 2.75 *LOW* (11/27/16 3:15 AM) CHD Risk [3.90-5.80] 154 mg/dL (11/27/16 3:15 AM) Chol [<=199 mg/dL] 71 mg/dL (11/27/16 3:15 AM) Trig [<=149 mg/dL] 56 mg/dL *LOW* (11/27/16 3:15 AM) HDL [>=61 mg/dL] 84 mg/dL (11/27/16 3:15 AM) LDL (Calculated) [<=99 mg/dL] 14 *NA* (11/27/16 3:15 AM) VLDL URINE AND STOOL 1 2 3 Most recent to oldest [Reference Range]: Clear (11/26/16 6:04 PM) UA Turbidity [Clear] Ltyellow *NA* (11/26/16 6:04 PM) UA Color 5.0 (11/26/16 6:04 PM) UA pH [5.0-8.0] 1.015 (11/26/16 6:04 PM) UA Spec Grav [<=1.030] Negative mg/dL *NA* (11/26/16 6:04 PM) UA Glucose [Negative mg/dL] Small *ABN* (11/26/16 6:04 PM) UA Blood [Negative] Negative mg/dL *NA* (11/26/16 6:04 PM) UA Ketones [Negative mg/dL] Negative mg/dL (11/26/16 6:04 PM) UA Protein [Negative mg/dL] <=1.0 mg/dL *NA* (11/26/16 6:04 PM) UA Urobilinogen [0.1-1.0 mg/dL] Negative *NA* (11/26/16 6:04 PM) UA Bili [Negative] Trace *ABN* (11/26/16 6:04 PM) UA Leuk Est [Negative] Negative (11/26/16 6:04 PM) UA Nitrite [Negative] 3 /HPF (11/26/16 6:04 PM) UA WBC [0-5 /HPF] 1 /HPF (11/26/16 6:04 PM) UA RBC [0-2 /HPF] Occasional /HPF *NA* (11/26/16 6:04 PM) UA Bacteria [None Seen /HPF] Few /LPF *NA* (11/26/16 6:04 PM) UA Sq Epi [Few /LPF] 3 /LPF *HI* (11/26/16 6:04 PM) UA Trans Epi [<=0 /LPF] HEMATOLOGY 1 2 3 Most recent to oldest [Reference Range]: 6.9 K/CMM (11/27/16 11:02 AM) 7.8 K/CMM (11/26/16 4:33 AM) WBC [3.7-10.4 K/CMM] 4.50 M/CMM (11/27/16 11:02 AM) 4.42 M/CMM (11/26/16 4:33 AM) RBC [4.20-5.40 M/CMM] 14.3 g/dL (11/27/16 11:02 AM) 14.2 g/dL (11/26/16 4:33 AM) Hgb [12.0-16.0 g/dL] 43.5 % (11/27/16 11:02 AM) 42.6 % (11/26/16 4:33 AM) Hct [36.0-48.0 %] 96.5 fL (11/27/16 11:02 AM) 96.4 fL (11/26/16 4:33 AM) MCV [80.0-98.0 fL] 31.7 pg *HI* (11/27/16 11:02 AM) 32.1 pg *HI* (11/26/16 4:33 AM) MCH [27.0-31.0 pg] 32.9 g/dL (11/27/16 11:02 AM) 33.3 g/dL (11/26/16 4:33 AM) MCHC [32.0-36.0 g/dL] 16.1 % *HI* (11/27/16 11:02 AM) 16.3 % *HI* (11/26/16 4:33 AM) RDW [11.5-14.5 %] 159 K/CMM (11/27/16 11:02 AM) 166 K/CMM (11/26/16 4:33 AM) Platelet [133-450 K/CMM] 9.8 fL (11/27/16 11:02 AM) 9.8 fL (11/26/16 4:33 AM) MPV [7.4-10.4 fL] 60.5 % (11/27/16 11:02 AM) 59.3 % (11/26/16 4:33 AM) Segs [45.0-75.0 %] 28.8 % (11/27/16 11:02 AM) 29.3 % (11/26/16 4:33 AM) Lymphocytes [20.0-40.0 %] 7.8 % (11/27/16 11:02 AM) 8.2 % (11/26/16 4:33 AM) Monocytes [2.0-12.0 %] 2.5 % (11/27/16 11:02 AM) 2.5 % (11/26/16 4:33 AM) Eosinophils [0.0-4.0 %] 0.4 % (11/27/16 11:02 AM) 0.7 % (11/26/16 4:33 AM) Basophils [0.0-1.0 %] 4.2 K/CMM (11/27/16 11:02 AM) 4.6 K/CMM (11/26/16 4:33 AM) Segs-Bands # [1.5-8.1 K/CMM] 2.0 K/CMM (11/27/16 11:02 AM) 2.3 K/CMM (11/26/16 4:33 AM) Lymphocytes # [1.0-5.5 K/CMM] 0.5 K/CMM (11/27/16 11:02 AM) 0.6 K/CMM (11/26/16 4:33 AM) Monocytes # [0.0-0.8 K/CMM] 0.2 K/CMM (11/27/16 11:02 AM) 0.2 K/CMM (11/26/16 4:33 AM) Eosinophils # [0.0-0.5 K/CMM] 0.1 K/CMM (11/26/16 4:33 AM) Basophils # [0.0-0.2 K/CMM] 12.3 seconds (11/27/16 11:02 AM) 13.2 seconds (11/26/16 5:00 AM) PT [12.0-14.7 seconds] 0.91 (11/27/16 11:02 AM) 0.98 (11/26/16 5:00 AM) INR [0.85-1.17] 23.0 seconds (11/27/16 11:02 AM) 32.1 seconds (11/26/16 5:00 AM) PTT [22.9-35.8 seconds] Immunizations No data [...] Plan Extracted from: Title: Clinical Document Author: Katie Spencer MD Date: 11/27/16 Progress Note - Daily [facility] Completed: Friday, NOV 27, 2016, 14:32 by Katie Spencer MD RM: CCDU - 18, SE LALITHA [id number] (: 1950) F Attending: Katie Spencer MDPhone: Service: Internal Medicine Reason for Admission: CP Working DRG: Chest pain Code status: Full Code [Ordered]Current diet: Isolation: Contact [Ordered] Allergies: Levaquin, sulfa drugs SUBJECTIVE OBJECTIVE 24hr Labs 11/27 1145 POC Performing LocatioSee Note Glucose POC87 11/27 1102 Sodium Gho958 Potassium Lvl4.6 Chloride Hoa511 CO227 AGAP11.6 Glucose Lvl97 Creatinine Lvl1.30 BUN31 H B/C Ratio24 Total Protein7.6 Albumin Lvl3.6 Globulin4.0 A/G Ratio0.9 Calcium Lvl9.2 ALT37 AST37 Alk Phos81 Bili Total0.5 eGFR43 WBC6.9 RBC4.50 Hgb14.3 Hct43.5 MCV96.5 MCH31.7 H MCHC32.9 RDW16.1 H Unzndkua280 MPV9.8 Segs60.5 Monocytes7.8 Eskvhcvtspm90.8 Eosinophils2.5 Basophils0.4 Segs-Bands #4.2 Lymphocytes #2.0 Monocytes #0.5 Eosinophils #0.2 PT12.3 INR0.91 PTT23.0 11/27 0701 POC Performing LocatioSee Note Glucose XVC750 H 11/27 0315 Aewm828 Trig71 HDL56 L LDL (Calculated)84 VLDL14 CHD Risk2.75 L 11/27 0313 POC Performing LocatioSee Note Glucose PUH352 H 11/26 2057 POC Performing LocatioSee Note Glucose BNF605 H 11/26 1804 UA ColorLtyellow UA TurbidityClear UA Spec Grav1.015 UA pH5.0 UA ProteinNegative UA GlucoseNegative UA KetonesNegative UA BiliNegative UA BloodSmall UA Urobilinogen<=1.0 UA NitriteNegative UA Leuk EstTrace UA RBC1 UA WBC3 UA BacteriaOccasional UA Sq EpiFew UA Trans Epi3 H 11/26 1633 POC Performing LocatioSee Note Glucose MPA959 H 11/26 1620 Total CK65 Troponin-I<0.02 Bobo still necessary (Yes/No): Line still necessary (Yes/No): VitalsTmp(F)SdiazJONSIiF0VZA8 11/27 11:26 97--- 11/27 10:1897.341930/251882--- 11/27 06:5597.767795/799888--- 11/27 03:3497.872302/254597--- 11/26 23:285775687/286202--- 24 Hr Tmax: 98F (36.67c) at 11/26 23:01Vital Signs are the last 5 in the past 48 hours. DateWt(kg)Wt(lb)Ht(cm)Ht(in)Method 11/26 (initial)103.18 227.00Estimated 70. 67.00Stated I&ORecordInOutBal 10/1824hr Tot 10 0 10 4hr Tot 10 0 10 Medications (25) Active Scheduled Meds (5): 11/27/16 aspirin (aspirin 81 mg tablet, enteric coated) 81 mg PO Daily 11/26/16 clopidogrel (Plavix) 75 mg PO Daily 11/26/16 lisinopril 20 mg PO BID 11/26/16 pantoprazole (Protonix) 40 mg PO BID 11/26/16 sodium chloride (Saline Flush 0.9%) 10 ml IVP Q12H Unscheduled Meds: None PRN Meds (14): 11/26/16 Dextrose 50% in Water IV (Dextrose 50% Syringe) 12.5 gm IVP PRN 11/26/16 Dextrose 50% in Water IV (Dextrose 50% Syringe) 25 gm IVP PRN 11/26/16 glucagon 1 mg IM PRN 11/26/16 insulin lispro 1 unit SUB-Q TID-Before Meals 11/26/16 insulin lispro 2 unit SUB-Q TID-Before Meals 11/26/16 insulin lispro 3 unit SUB-Q TID-Before Meals 11/26/16 insulin lispro 4 unit SUB-Q TID-Before Meals 11/26/16 insulin lispro 5 unit SUB-Q TID-Before Meals 11/26/16 insulin lispro 1 unit SUB-Q Bedtime 11/26/16 insulin lispro 2 unit SUB-Q Bedtime 11/26/16 insulin lispro 3 unit SUB-Q Bedtime 11/26/16 insulin lispro 4 unit SUB-Q Bedtime 11/26/16 nitroglycerin (nitroglycerin SL Tab) 0.4 mg SL Q5Min 11/26/16 sodium chloride (Saline Flush 0.9%) 10 ml IVP PRN One Time Meds (6): 11/26/16 (Completed) GI cocktail 30 mL PO ONCE 11/26/16 (Completed) Sodium Chloride 0.9% IV (Sodium Chloride 0.9% IV (Sodium Chloride 0.9% (Bolus) IV)) 500 mL IV ONCE 500 ml/hr 11/26/16 (Completed) aspirin 324 mg PO ONCE 11/26/16 (Completed) morphine Sulfate 4 mg IVP ONCE 11/26/16 (Completed) ondansetron 4 mg IVP ONCE 11/26/16 (Completed) ondansetron (Zofran) 4 mg IVP ONCE Continuous Infusions: None ASSESSMENT & EXAM PLAN & TREATMENT DIAGNOSES & PROBLEMS 1303102 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 Extracted from: Title: GI Consult * Author: Tanvir Andres MD Date: 11/26/16 Impression and Plan IMPRESSION 1. Epigastric Pain 2. H/O CAD with stent placement, on antiplatelet therapy 3. Atypical chest pain: Dysmoltility vs ulcer disease RECOMMENDATIONS 1. PPI BID 2. Consents for EGD tomorrow, alternatives, risks and complications discussed with patient 3. Clear liquids today, NPO after MN 4. Cardiac clearance prior to procedure d/w patient d/w nurse to obtain cardiac clearance.
--- OUTSIDE RECORDS SUMMARY | 2017-12-18 07:03 | XMS REPORT | Summary of Care ---
Author Author [facility] Organization [facility] Address Unknown Phone Unavailable Encounter HQ [email or web address](FIN) [id number] Date(s): 07/11/16 - 07/11/16 [facility] [address] [place] [address]- Discharge Disposition: Home or Self Care Attending Physician: Dilip Ness MD Referring Physician: Dilip Ness MD Vital Signs No data available for [...] alcohol concerns: No. Smoking Status Never smoker; Type: Cigars; Exposure to Tobacco Smoke None; Cigarette Smoking Last 365 Days No; Reg Smoking Cessation Counseling No Assessment and Plan No data available for this section
--- OUTSIDE RECORDS SUMMARY | 2017-12-18 07:03 | XMS REPORT | Summary of Care ---
Author Author [facility] Organization [facility] Address Unknown Phone Unavailable Encounter KEVON Moreno(BLESSING) [id number] Date(s): 02/08/16 - 02/08/16 [facility] [address] [place] [address]- Discharge Disposition: Home or Self Care Attending Physician: Diego Merchant MD Admitting Physician: Diego Merchant MD Vital Signs 1 2 3 Most recent to oldest [Reference Range]: 170.18 cm (02/08/16 4:33 PM) 170.18 cm (02/08/16 6:31 AM) Height 97.9 DegF (02/08/16 4:48 PM) 98.7 DegF (02/08/16 6:31 AM) Temperature Oral [96.4-99.1 DegF] 135/80 mmHg (02/08/16 4:48 PM) 136/70 mmHg (02/08/16 2:18 PM) 136/69 mmHg (02/08/16 11:00 AM) Blood Pressure [90-140/60-90 mmHg] 16 BRMIN (02/08/16 4:48 PM) 18 BRMIN (02/08/16 2:18 PM) 19 BRMIN (02/08/16 11:00 AM) Respiratory Rate [14-20 BRMIN] 60 bpm (02/08/16 4:48 PM) 70 bpm (02/08/16 6:46 AM) 67 bpm (02/08/16 6:31 AM) Peripheral Pulse Rate [60-100 bpm] 100.455 kg (02/08/16 4:33 PM) 100.455 kg (02/08/16 6:31 AM) Weight 34.69 m2 (02/08/16 4:33 PM) 34.69 m2 (02/08/16 6:31 AM) Body Mass Index Problem List Condition Effective Dates Status Health Status Informant Diabetes Active mellitus(Confirmed) Diabetes Active mellitus(Confirmed) Escherichia Active coli(Confirmed)1 Hyperlipidemia(Confi Active rmed) Hypertension(Confirm Active ed) Hypertension(Confirm Active ed) Hypothyroid(Confirme Active d) Pinched Resolved nerve(Confirmed)2 1Problem added by Discern Expert. 2L5 Allergies, Adverse Reactions, Alerts Substance Reaction Severity Status Levaquin Active sulfa drugs Active Medications acetaminophen 650 mg, 2 tab, Route: PO, Drug form: TAB, Q4H, Dosing Weight 100.455, kg, PRN Pa in 1-3/Temp > 100.4 F, Start date: 02/08/16 9:15:00 TRUCK [employer]ER, Duration: 30 day, Stop date: 03/09/16 9:14:00 [employer]ER Notes: Do not exceed 4 gm/day. (Same as: Tylenol) Start Date: 02/08/16 Stop Date: 02/08/16 Status: Discontinued aspirin 324 mg, Route: CHEW, Drug form: CHEWTAB, ONCE, Dosing Weight 100.455, kg, Priori ty: STAT, Start date: 02/08/16 6:54:00 TRUCK CAT[employer]ER, Stop date: 02/08/16 6:54:00 [employer]ER Start Date: 02/08/16 Stop Date: 02/08/16 Status: Completed Bystolic 10 mg oral tablet 10 mg=1 tab, PO, Daily, # 30 tab, 0 Refill(s) Start Date: 02/08/16 Status: Ordered docusate 100 mg, 1 cap, Route: PO, Drug form: CAP, BID, Dosing Weight 100.455, kg, PRN Co nstipation, Start date: 02/08/16 9:15:00 TRUCK CAT[employer]ER, Duration: 30 day, Stop date: 03/09 9:14:00 TRUCK CATERER Notes: (Same as: Colace) (Do Not Crush) Start Date: 02/08/16 Stop Date: 02/08/16 Status: Discontinued Humalog Pen 100 units/mL subcutaneous injection 30 unit, SUB-Q, TID-Before Meals, # 10 mL, 0 Refill(s) Start Date: 02/08/16 Status: Ordered hydrochlorothiazide 12.5 mg oral capsule 12.5 mg=1 cap, PO, PRN, # 30 cap, 0 Refill(s) Start Date: 02/08/16 Status: Ordered morphine Sulfate 2 mg, Route: IVP, ONCE, Dosing Weight 100.455, kg, Priority: STAT, Start date: 04/10/15 6:54:00 TRUCK CATERER, Stop date: 02/08/16 6:54:00 TRUCK CAT[employer]ER Start Date: 02/08/16 Stop Date: 02/08/16 Status: Completed morphine Sulfate 2 mg, 1 mL, Route: IVP, Drug form: INJ, Q4H, Dosing Weight 100.455, kg, PRN Pain Score 7-10, Start date: 02/08/16 9:15:00 TRUCK CAT[employer]ER, Duration: 30 day, Stop date: 02/11 09/26 9:14:00 TRUCK CATERER Notes: (Same as:MORPhine Sulfate) Start Date: 02/08/16 Stop Date: 02/08/16 Status: Discontinued Multiple Vitamins oral capsule 1 cap, PO, Daily, # 30 cap, 0 Refill(s) Start Date: 02/08/16 Status: Ordered ondansetron 4 mg, 2 mL, Route: IVP, Drug form: INJ, Q6H, Dosing Weight 100.455, kg, PRN Naus ea & Vomiting, Start date: 02/08/16 9:15:00 TRUCK CAT[employer]ER, Duration: 30 day, Stop date: 03/09/16 9:14:00 TRUCK CATERER Notes: (Same as: Buffy) MEDICATION WASTE Product Size: 4 mgProduct Was florencio: ___ mg Start Date: 02/08/16 Stop Date: 02/08/16 Status: Discontinued pneumococcal 13-valent vaccine 0.5 mL, Route: IM, Drug Form: INJ, Daily, Start date: 02/09/16 9:00:00 TRUCK CATERER, Dura tion: 1 doses or times, Stop date: 02/09/16 9:00:00 TRUCK CATERER Notes: Lightly roll vial (DO NOT SHAKE) before administration. (Same as: Prevna r 13) Start Date: 02/09/16 Stop Date: 02/08/16 Status: Canceled Saline Flush 0.9% 10 mL, Route: IVP, Drug Form: INJ, Dosing Weight 100.455, kg, PRN, PRN Line Flus h, Start date: 02/08/16 6:35:00 TRUCK CATERER, Duration: 30 day, Stop date: 03/09/16 6:34: 00 TRUCK CATERER Notes: (Same as: BD Posiflush) Start Date: 02/08/16 Stop Date: 02/08/16 Status: Discontinued trazodone 50 mg oral tablet 50 mg=1 tab, PO, Bedtime, # 30 tab, 1 Refill(s) Start Date: 02/08/16 Status: Ordered Vitamin D3 2000 intl units oral tablet 2,000 IntlUnit=1 tab, PO, Daily, 0 Refill(s) Start Date: 02/08/16 Status: Ordered Zofran 4 mg, Route: IVP, Drug form: INJ, ONCE, Dosing Weight 100.455, kg, Priority: STA T, Start date: 02/08/16 6:54:00 TRUCK CATERER, Stop date: 02/08/16 6:54:00 TRUCK CATERER Start Date: 02/08/16 Stop Date: 02/08/16 Status: Completed Results ELECTROLYTES Most recent to 1 2 oldest [Reference Range]: Sodium Lvl [135-145 140 mEq/L mEq/L] (02/08/16 6:44 AM) Potassium Lvl 4.3 mEq/L [3.5-5.1 mEq/L] (02/08/16 6:44 AM) Chloride Lvl [95-109 107 mEq/L mEq/L] (02/08/16 6:44 AM) CO2 [24-32 mEq/L] 22 mEq/L *LOW* (02/08/16 6:44 AM) AGAP [10.0-20.0 15.3 mEq/L mEq/L] (02/08/16 6:44 AM) CHEM PANEL Most recent to 1 2 oldest [Reference Range]: Creatinine Lvl 1.40 mg/dL [0.50-1.40 mg/dL] (02/08/16 6:44 AM) eGFR 39 mL/min/1.73m2 1 *NA* (02/08/16 6:44 AM) BUN [7-22 mg/dL] 38 mg/dL *HI* (02/08/16 6:44 AM) B/C Ratio [6-25] 27 *HI* (02/08/16 6:44 AM) Glucose Lvl [70-99 137 mg/dL mg/dL] *HI* (02/08/16 6:44 AM) Total Protein 7.3 g/dL [6.4-8.4 g/dL] (02/08/16 6:44 AM) Albumin Lvl [3.5-5.0 3.6 g/dL g/dL] (02/08/16 6:44 AM) Globulin [2.7-4.2 3.7 g/dL g/dL] (02/08/16 6:44 AM) A/G Ratio [0.7-1.6] 1.0 (02/08/16 6:44 AM) Calcium Lvl 9.0 mg/dL [8.5-10.5 mg/dL] (02/08/16 6:44 AM) Phosphorus [2.5-4.5 4.2 mg/dL mg/dL] (02/08/16 6:44 AM) Magnesium Lvl 1.6 mg/dL [1.8-2.4 mg/dL] *LOW* (02/08/16 6:44 AM) ALT [0-65 unit/L] 28 unit/L (02/08/16 6:44 AM) AST [0-37 unit/L] 22 unit/L (02/08/16 6:44 AM) Alk Phos [39-136 81 unit/L unit/L] (02/08/16 6:44 AM) Bili Total [0.2-1.3 0.5 mg/dL mg/dL] (02/08/16 6:44 AM) 1Result Comment: The eGFR is calculated [...] BMI. CARDIAC ENZYMES Most recent to 1 2 oldest [Reference Range]: Total CK [12-191 122 unit/L 141 unit/L unit/L] (02/08/16 11:09 AM) (02/08/16 6:44 AM) CK MB [0.5-3.6 2.7 ng/mL 3.2 ng/mL ng/mL] (02/08/16 11:09 AM) (02/08/16 6:44 AM) CK MB Index 2.2 2.3 [0.0-2.5] (02/08/16 11:09 AM) (02/08/16 6:44 AM) Troponin-I <0.02 ng/mL <0.02 ng/mL [0.00-0.40 ng/mL] (02/08/16 11:09 AM) (02/08/16 6:44 AM) BNP [<=100 pg/mL] 19 pg/mL (02/08/16 11:09 AM) URINE AND STOOL Most recent to 1 2 oldest [Reference Range]: UA Turbidity [Clear] Clear (02/08/16 11:09 AM) UA Color Ltyellow *NA* (02/08/16 11:09 AM) UA pH [5.0-8.0] 5.0 (02/08/16 11:09 AM) UA Spec Grav 1.016 [<=1.030] (02/08/16 11:09 AM) UA Glucose [Negative Negative mg/dL mg/dL] *NA* (02/08/16 11:09 AM) UA Blood [Negative] Negative (02/08/16 11:09 AM) UA Ketones [Negative Negative mg/dL mg/dL] *NA* (02/08/16 11:09 AM) UA Protein [Negative Negative mg/dL mg/dL] (02/08/16 11:09 AM) UA Urobilinogen <=1.0 mg/dL [0.1-1.0 mg/dL] *NA* (02/08/16 11:09 AM) UA Bili [Negative] Negative *NA* (02/08/16 11:09 AM) UA Leuk Est Small [Negative] *ABN* (02/08/16 11:09 AM) UA Nitrite Negative [Negative] (02/08/16 11:09 AM) UA WBC [0-5 /HPF] 4 /HPF (02/08/16 11:09 AM) UA RBC [0-2 /HPF] 1 /HPF (02/08/16 11:09 AM) UA Bacteria [None Moderate /HPF Seen /HPF] *ABN* (02/08/16 11:09 AM) UA Sq Epi [Few /LPF] Occasional /LPF *NA* (02/08/16 11:09 AM) UA Mucus [None Seen Few /LPF /LPF] *NA* (02/08/16 11:09 AM) HEMATOLOGY Most recent to 1 2 oldest [Reference Range]: WBC [3.7-10.4 K/CMM] 10.4 K/CMM (02/08/16 6:44 AM) RBC [4.20-5.40 4.62 M/CMM M/CMM] (02/08/16 6:44 AM) Hgb [12.0-16.0 g/dL] 14.1 g/dL (02/08/16 6:44 AM) Hct [36.0-48.0 %] 42.7 % (02/08/16 6:44 AM) MCV [80.0-98.0 fL] 92.5 fL (02/08/16 6:44 AM) MCH [27.0-31.0 pg] 30.5 pg (02/08/16 6:44 AM) MCHC [32.0-36.0 33.0 g/dL g/dL] (02/08/16 6:44 AM) RDW [11.5-14.5 %] 15.5 % *HI* (02/08/16 6:44 AM) Platelet [133-450 152 K/CMM K/CMM] (02/08/16 6:44 AM) MPV [7.4-10.4 fL] 10.0 fL (02/08/16 6:44 AM) Segs [45.0-75.0 %] 51.3 % (02/08/16 6:44 AM) Lymphocytes 36.1 % [20.0-40.0 %] (02/08/16 6:44 AM) Monocytes [2.0-12.0 8.9 % %] (02/08/16 6:44 AM) Eosinophils [0.0-4.0 2.6 % %] (02/08/16 6:44 AM) Basophils [0.0-1.0 1.1 % %] *HI* (02/08/16 6:44 AM) Segs-Bands # 5.3 K/CMM [1.5-8.1 K/CMM] (02/08/16 6:44 AM) Lymphocytes # 3.8 K/CMM [1.0-5.5 K/CMM] (02/08/16 6:44 AM) Monocytes # [0.0-0.8 0.9 K/CMM K/CMM] *HI* (02/08/16 6:44 AM) Eosinophils # 0.3 K/CMM [0.0-0.5 K/CMM] (02/08/16 6:44 AM) Basophils # [0.0-0.2 0.1 K/CMM K/CMM] (02/08/16 6:44 AM) Plt Morph Normal (02/08/16 6:44 AM) PT [12.0-14.7 12.7 seconds seconds] (02/08/16 6:44 AM) INR [0.85-1.17] 0.93 (02/08/16 6:44 AM) PTT [22.9-35.8 23.7 seconds seconds] (02/08/16 6:44 AM) Immunizations No data available for this section [...] Plan Extracted from: Title: Clinical Document Author: Diego Merchant MD Date: 02/08/16 Cardiology Note Diego Merchant MD, PA THIS IS A COMBINED H&P AND DISCHARGE SUMMARY SUBJECTIVE: CC: chest pain HISTORY OF PRESENT ILLNESS: A 65-year-old female well known to me who presented c/o bilateral chest pain. She denies any shortness of breath. She is clearly anxious but feels better now. She had a cardiac cath in 07/2015 and no PCI was needed. PAST MEDICAL HISTORY: 1. Diabetes mellitus. 2. Hypothyroidism. 3. Hypertension. 4. Pinched nerve. 5. Hyperlipidemia. 6. Coronary artery disease. PAST SURGICAL HISTORY: Cholecystectomy, gastric stapling, hysterectomy, open heart surgery. ALLERGIES: Levaquin and sulfa OUTPATIENT HOME MEDICATIONS: Please see the medication reconciliation list. FAMILY HISTORY: Positive for mother, heart attack, and father, heart attack. SOCIAL HISTORY: Does not smoke, does not drink, . REVIEW OF SYSTEMS: CONSTITUTIONAL: Denies any fever. Denies any chills. CARDIOVASCULAR: Denies any shortness of breath. GASTROINTESTINAL: no abd pain or N/V. GENITOURINARY: None. PSYCHOLOGICAL: anxiety Vitals and Temp: VitalsTmp(F)[id number] 02/07 16:[id number]--- 02/07 14:18----[id number]--- 02/07 11:00----[id number]--- 02/07 07:55----[id number]--- 02/07 06:46----[id number]--- 24 Hr Tmax: 98.7F (37.06c) at 02/07 06:31Vital Signs are the last 5 in the past 48 hours. Scheduled Meds (1): 02/09/16 pneumococcal 13-valent vaccine 0.5 mL IM Daily Continuous Infusions: None Labs (Last four charted values) WBC 10.4(FEB 07) Hgb 14.1(FEB 07) Hct 42.7(FEB 07) Plt 152(FEB 07) Na 140(FEB 07) K 4.3(FEB 07) CO2 L 22(FEB 07) Cl 107(FEB 07) Cr 1.40(FEB 07) BUN H 38(FEB 07) Glucose Random H 137(FEB 07) Mg L 1.6(FEB 07) Phos 4.2(FEB 07) Ca 9.0(FEB 07) PT 12.7(FEB 07) INR 0.93(FEB 07) PTT 23.7(FEB 07) Troponin <0.02(FEB 07)<0.02(FEB 07) CK MB 2.7(FEB 07)3.2(FEB 07) Total CK 122(FEB 07)141(FEB 07) EXAM: Good BP control; NSR; afebrile Head: normocephalic and atraumatic Neck: no carotid bruit; no JVD CV: Regular; -S3; no significant murmurs Lungs: Clear; no wheezing; good air entry Abd: soft and no organomegaly; + bowel sounds Ext: no CCE; good pulses distally Neuro: nonfocal; oriented *3 Psych: appropriate but anxious ASSESSMENT: Atypical chest pain- now mostly resolved Negative CE Anxiety due to multiple family members who of CAD Stable CAD- cath in 07/2015 showed the followin. Left main: The left main has about a 20% ostial plaque. 2. The ostial LAD has a subtotal narrowing and diffuse disease in the proximal segment. There is a patent left internal mammary bypass that inserts into the mid LAD with competitive flow seen proximal to the insertion. The remainder of the LAD is patent. 3. Circumflex and its obtuse marginal branch are patent without any significant obstruction. 4. RCA. The RCA is a large, dominant vessel. The ostial RCA has a 70% stenosis, which is unchanged from a previous catheterization a year ago. There is a widely patent stent at the distal RCA going into the posterior descending artery without any significant obstruction. There is a 40% stenosis at the ostium of the posterolateral branch which comes across the stent and then more distally, there is more diffuse disease in the posterolateral branch. 5. Left ventricle hand injection was done, ejection fraction is about 60%. Left ventricular end-diastolic pressure 20 mmHg. No pressure gradient upon pullback of the pigtail catheter to the aorta. PLAN: DC home No new meds Cardiac diet Activity as tolerated F/U as previously scheduled.
--- OUTSIDE RECORDS SUMMARY | 2017-12-18 07:03 | XMS REPORT | Summary of Care ---
Author Author [facility] Organization [facility] Address Unknown Phone Unavailable Encounter HQ Cheri_lashon(FIN) [id number] Date(s): 01/18/16 - 01/18/16 [facility] [address] [place] [address]- Discharge Disposition: Home or Self Care Attending Physician: Dilip Ness MD Referring Physician: Dilip Ness MD Vital Signs No data available for this section Problem List Condition Effective Dates Status Health Status Informant Diabetes Active mellitus(Confirmed) Diabetes Active mellitus(Confirmed) Hyperlipidemia(Confi Active rmed) Hypertension(Confirm Active ed) Hypertension(Confirm Active ed) Hypothyroid(Confirme Active d) Pinched Resolved nerve(Confirmed)1 1L5 Allergies, Adverse Reactions, Alerts Substance Reaction Severity Status Levaquin Active sulfa drugs Active Medications No data available for this section Results No data available for this section Immunizations No data available for this section Procedures Procedure Date Related Diagnosis Body Site Cholecystectomy Gastric stapling Hysterectomy Open heart surgery Social History Social History Type Response Alcohol [...]
--- OUTSIDE RECORDS SUMMARY | 2017-12-18 07:03 | XMS REPORT | Summary of Care ---
Author Author [facility] Organization [facility] Address Unknown Phone Unavailable Encounter HQ Josh(BLESSING) [id number] Date(s): 11/20/15 - 11/21/15 [facility] [id number] [place] [address]- [phone] Discharge Disposition: Home or Self Care Attending Physician: Katie Spencer MD Admitting Physician: Katie Spencer MD Vital Signs 1 2 3 Most recent to oldest [Reference Range]: 170.18 cm (11/20/15 12:53 PM) 170.18 cm (11/20/15 6:18 AM) Height 97.7 DegF (11/21/15 10:51 AM) 97.9 DegF (11/21/15 7:16 AM) 98.6 DegF (11/21/15 12:26 AM) Temperature Oral [96.4-99.1 DegF] 157/83 mmHg *HI* (11/21/15 10:51 AM) 155/83 mmHg *HI* (11/21/15 7:16 AM) 141/70 mmHg *HI* (11/21/15 12:26 AM) Blood Pressure [90-140/60-90 mmHg] 18 BRMIN (11/21/15 10:51 AM) 16 BRMIN (11/21/15 7:16 AM) 18 BRMIN (11/21/15 12:26 AM) Respiratory Rate [14-20 BRMIN] 77 bpm (11/21/15 10:51 AM) 68 bpm (11/21/15 7:16 AM) 76 bpm (11/21/15 12:26 AM) Peripheral Pulse Rate [60-100 bpm] 100 kg (11/20/15 12:53 PM) 10 kg (11/20/15 6:18 AM) Weight 34.53 m2 (11/20/15 12:53 PM) 3.45 m2 (11/20/15 6:18 AM) Body Mass Index Problem List Condition Effective Dates Status Health Status Informant Diabetes Active mellitus(Confirmed) Diabetes Active mellitus(Confirmed) Hyperlipidemia(Confi Active rmed) Hypertension(Confirm Active ed) Hypertension(Confirm Active ed) Hypothyroid(Confirme Active d) Pinched Resolved nerve(Confirmed)1 1L5 Allergies, Adverse Reactions, Alerts Substance Reaction Severity Status Levaquin Active sulfa drugs Active Medications allopurinol 100 mg, 1 tab, Route: PO, Drug form: TAB, BID, Dosing Weight 100, kg, Start date : 11/21/15 9:00:00 CDT, Duration: 30 day, Stop date: 12/20/15 17:00:00 ORE ROASTER Notes: (Same as: Zyloprim) Start Date: 11/21/15 Stop Date: 11/21/15 Status: Discontinued aspirin 81 mg tablet, enteric coated 81 mg, 1 tab, Route: PO, Drug form: ECTAB, Daily, Dosing Weight 100, kg, Start d ate: 11/21/15 9:00:00 CDT, Duration: 30 day, Stop date: 12/20/15 9:00:00 ORE ROASTER Notes: Do not crush or chew.(Same As: Ecotrin) Start Date: 11/21/15 Stop Date: 11/21/15 Status: Discontinued Bystolic 10 mg, 1 tab, Route: PO, Drug form: TAB, Daily, Dosing Weight 100, kg, Start sunday e: 11/21/15 9:00:00 CDT, Duration: 30 day, Stop date: 12/20/15 9:00:00 ORE ROASTER Notes: (same as: Bystolic) Start Date: 11/21/15 Stop Date: 11/21/15 Status: Discontinued clopidogrel 75 mg, 1 tab, Route: PO, Drug form: TAB, Bedtime, Dosing Weight 100, kg, Start d ate: 11/21/15 21:00:00 CDT, Duration: 30 day, Stop date: 12/20/15 21:00:00 ORE ROASTER Notes: (Same As: Plavix) Start Date: 11/21/15 Stop Date: 11/21/15 Status: Canceled Dextrose 50% Syringe 25 gm, 50 mL, Route: IVP, Drug Form: INJ, Dosing Weight 10, kg, PRN, PRN Blood G lucose Results, Start date: 11/20/15 11:47:00 CDT, Duration: 30 day, Stop date: 12/20/15 10:46:00 ORE ROASTER Start Date: 11/20/15 Stop Date: 11/21/15 Status: Discontinued Dextrose 50% Syringe 12.5 gm, 25 mL, Route: IVP, Drug Form: INJ, Dosing Weight 10, kg, PRN, PRN Blood Glucose Results, Start date: 11/20/15 11:47:00 CDT, Duration: 30 day, Stop date: 12/20/15 10:46:00 ORE ROASTER Start Date: 11/20/15 Stop Date: 11/21/15 Status: Discontinued glucagon 1 mg, Route: IM, Drug form: PDR/INJ, PRN, Dosing Weight 10, kg, PRN Blood Glucos e Results, Start date: 11/20/15 11:47:00 CDT, Duration: 30 day, Stop date: 12/19 10:46:00 ORE ROASTER Start Date: 11/20/15 Stop Date: 11/21/15 Status: Discontinued insulin aspart 3 unit, 0.03 mL, Route: SUB-Q, Drug form: SOLN, Bedtime, Dosing Weight 10, kg, P RN Blood Glucose Results, Start date: 11/20/15 11:47:00 CDT, Duration: 30 day, S top date: 12/20/15 11:46:00 ORE ROASTER Notes: Roll in palms of hands gently; Do not shake vigorously. (Same as: NovoLO G)"single patient use only"WASTE: F/P - Black; E - Municipal Trash Bin Stable f or 28 days at room temperature.Expires in days from Date Start Date: 11/20/15 Stop Date: 11/21/15 Status: Discontinued insulin aspart 2 unit, 0.02 mL, Route: SUB-Q, Drug form: SOLN, Bedtime, Dosing Weight 10, kg, P RN Blood Glucose Results, Start date: 11/20/15 11:47:00 CDT, Duration: 30 day, S top date: 12/20/15 11:46:00 ORE ROASTER Notes: Roll in palms of hands gently; Do not shake vigorously. (Same as: NovoJENNIFER Ramirez)"single patient use only"WASTE: F/P - Black; E - Municipal Trash Bin Stable f or 28 days at room temperature.Expires in days from Date Start Date: 11/20/15 Stop Date: 11/21/15 Status: Discontinued insulin aspart 4 unit, 0.04 mL, Route: SUB-Q, Drug form: SOLN, Bedtime, Dosing Weight 10, kg, P RN Blood Glucose Results, Start date: 11/20/15 11:47:00 CDT, Duration: 30 day, S top date: 12/20/15 11:46:00 ORE ROASTER Notes: Roll in palms of hands gently; Do not shake vigorously. (Same as: Niki Ramirez)"single patient use only"WASTE: F/P - Black; E - Municipal Trash Bin Stable f or 28 days at room temperature.Expires in days from Date Start Date: 11/20/15 Stop Date: 11/21/15 Status: Discontinued insulin aspart 1 unit, 0.01 mL, Route: SUB-Q, Drug form: SOLN, TID-Before Meals, Dosing Weight 10, kg, PRN Blood Glucose Results, Start date: 11/20/15 11:47:00 CDT, Duration: 30 day, Stop date: 12/20/15 11:46:00 ORE ROASTER Notes: Roll in palms of hands gently; Do not shake vigorously. (Same as: Niki Ramirez)"single patient use only"WASTE: F/P - Black; E - Municipal Trash Bin Stable f or 28 days at room temperature.Expires in days from Date Start Date: 11/20/15 Stop Date: 11/21/15 Status: Discontinued insulin aspart 2 unit, 0.02 mL, Route: SUB-Q, Drug form: SOLN, TID-Before Meals, Dosing Weight 10, kg, PRN Blood Glucose Results, Start date: 11/20/15 11:47:00 CDT, Duration: 30 day, Stop date: 12/20/15 11:46:00 ORE ROASTER Notes: Roll in palms of hands gently; Do not shake vigorously. (Same as: Niki Ramirez)"single patient use only"WASTE: F/P - Black; E - Municipal Trash Bin Stable f or 28 days at room temperature.Expires in days from Date Start Date: 11/20/15 Stop Date: 11/21/15 Status: Discontinued insulin aspart 1 unit, 0.01 mL, Route: SUB-Q, Drug form: SOLN, Bedtime, Dosing Weight 10, kg, P RN Blood Glucose Results, Start date: 11/20/15 11:47:00 CDT, Duration: 30 day, S top date: 12/20/15 11:46:00 ORE ROASTER Notes: Roll in palms of hands gently; Do not shake vigorously. (Same as: Niki Ramirez)"single patient use only"WASTE: F/P - Black; E - Municipal Trash Bin Stable f or 28 days at room temperature.Expires in days from Date Start Date: 11/20/15 Stop Date: 11/21/15 Status: Discontinued insulin aspart 5 unit, 0.05 mL, Route: SUB-Q, Drug form: SOLN, TID-Before Meals, Dosing Weight 10, kg, PRN Blood Glucose Results, Start date: 11/20/15 11:47:00 CDT, Duration: 30 day, Stop date: 12/20/15 11:46:00 ORE ROASTER Notes: Roll in palms of hands gently; Do not shake vigorously. (Same as: Niki Ramirez)"single patient use only"WASTE: F/P - Black; E - Municipal Trash Bin Stable f or 28 days at room temperature.Expires in days from Date Start Date: 11/20/15 Stop Date: 11/21/15 Status: Discontinued insulin aspart 3 unit, 0.03 mL, Route: SUB-Q, Drug form: SOLN, TID-Before Meals, Dosing Weight 10, kg, PRN Blood Glucose Results, Start date: 11/20/15 11:47:00 CDT, Duration: 30 day, Stop date: 12/20/15 11:46:00 ORE ROASTER Notes: Roll in palms of hands gently; Do not shake vigorously. (Same as: Niki Ramirez)"single patient use only"WASTE: F/P - Black; E - Municipal Trash Bin Stable f or 28 days at room temperature.Expires in days from Date Start Date: 11/20/15 Stop Date: 11/21/15 Status: Discontinued insulin aspart 4 unit, 0.04 mL, Route: SUB-Q, Drug form: SOLN, TID-Before Meals, Dosing Weight 10, kg, PRN Blood Glucose Results, Start date: 11/20/15 11:47:00 CDT, Duration: 30 day, Stop date: 12/20/15 11:46:00 ORE ROASTER Notes: Roll in palms of hands gently; Do not shake vigorously. (Same as: Niki Ramirez)"single patient use only"WASTE: F/P - Black; E - Municipal Trash Bin Stable f or 28 days at room temperature.Expires in days from Date Start Date: 11/20/15 Stop Date: 11/21/15 Status: Discontinued irbesartan 150 mg, 1 tab, Route: PO, Drug form: TAB, Daily, Dosing Weight 100, kg, Start da te: 11/21/15 9:00:00 CDT, Duration: 30 day, Stop date: 12/20/15 9:00:00 ORE ROASTER Notes: (Same as:Avapro) Start Date: 11/21/15 Stop Date: 11/21/15 Status: Discontinued isosorbide mononitrate 60 mg, 2 tab, Route: PO, Drug form: ERTAB, BID, Dosing Weight 100, kg, Start sunday e: 11/21/15 9:00:00 CDT, Duration: 30 day, Stop date: 12/20/15 17:00:00 ORE ROASTER Notes: (Same as:Imdur)"Do Not Crush" Take on empty stomach/ full glass of water . Do not crush Start Date: 11/21/15 Stop Date: 11/21/15 Status: Discontinued levothyroxine 75 microgram, 1 tab, Route: PO, Drug form: TAB, Q630AM, Dosing Weight 100, kg, S tart date: 11/22/15 6:30:00 CDT, Duration: 30 day, Stop date: 12/21/15 6:30:[address] Notes: Take 1 hour before or 2 hours after meal; Enteral feeds may interefere wi th the absorption of this medication. (Same as:Synthroid, Levothroid) Start Date: 11/22/15 Stop Date: 11/21/15 Status: Canceled metoprolol extended release 50 mg, 1 tab, Route: PO, Drug form: ERTAB, ONCE, Start date: 11/21/15 12:45:00 C DT, Stop date: 11/21/15 12:45:00 CDT Notes: (Same as: Toprol XL) May split tab, but do not crush. Start Date: 11/21/15 Stop Date: 11/21/15 Status: Completed metoprolol extended release 50 mg, 1 tab, Route: PO, Drug form: ERTAB, Daily, Start date: 11/22/15 9:00:00 C DT, Duration: 30 day, Stop date: 12/21/15 9:00:00 ORE ROASTER Notes: (Same as: Toprol XL) May split tab, but do not crush. Start Date: 11/22/15 Stop Date: 11/21/15 Status: Canceled metoprolol extended release 50 mg, PO, Daily, 0 Refill(s) Start Date: 11/21/15 Status: Ordered morphine Sulfate 4 mg, 2 mL, Route: IVP, Drug form: INJ, Q4H, Dosing Weight 10, kg, PRN Pain Scor e 7-10, Start date: 11/20/15 12:04:00 CDT, Duration: 30 day, Stop date: 12/20/15 12:03:00 ORE ROASTER Notes: (Same as:MORPhine Sulfate) Start Date: 11/20/15 Stop Date: 11/21/15 Status: Discontinued NS + KCL 20mEq/L 1000ml (Premix) 1,000 mL 1,000 mL, Rate: 100 ml/hr, Infuse over: 10 hr, Route: IV, Dosing Weight 10 kg, T otal Volume: 1,000, Start date: 11/20/15 11:37:00 CDT, Duration: 30 day, Stop da te: 12/20/15 11:36:00 ORE ROASTER Notes: PREMIX IV - Do Not AlterWASTE: F/P - Sink; E - Municipal Trash Bin Start Date: 11/20/15 Stop Date: 11/21/15 Status: Discontinued omeprazole 30 mg, Route: PO, Daily, Dosing Weight 100, kg, Start date: 11/21/15 9:00:00 CDT , Duration: 30 day, Stop date: 12/20/15 9:00:00 ORE ROASTER Start Date: 11/21/15 Stop Date: 11/21/15 Status: Deleted ondansetron 4 mg, 2 mL, Route: IVP, Drug form: INJ, Q6H, Dosing Weight 10, kg, PRN Nausea & Vomiting, Start date: 11/20/15 12:04:00 CDT, Duration: 30 day, Stop date: 12/19 12:03:00 ORE ROASTER Notes: (Same as: Buffy) MEDICATION WASTE Product Size: 4 mgProduct Was florencio: ___ mg Start Date: 11/20/15 Stop Date: 11/21/15 Status: Discontinued ondansetron 4 mg, Route: IVP, ONCE, Dosing Weight 10, kg, Priority: STAT, Start date: 7:18:00 CDT, Stop date: 11/20/15 7:18:00 CDT Start Date: 11/20/15 Stop Date: 11/20/15 Status: Completed pravastatin 40 mg, 2 tab, Route: PO, Drug form: TAB, BID, Dosing Weight 100, kg, Start date: 11/21/15 9:00:00 CDT, Duration: 30 day, Stop date: 12/20/15 17:00:00 ORE ROASTER Notes: (Same as: Pravachol) Start Date: 11/21/15 Stop Date: 11/21/15 Status: Discontinued Protonix 40 mg, 1 tab, Route: PO, Drug form: ECTAB, Before Dinner, Start date: 11/21/15 1 6:30:00 CDT, Duration: 30 day, Stop date: 12/20/15 16:30:00 ORE ROASTER Notes: Tablet should not be chewed or crushed.(Same as: Protonix) Start Date: 11/21/15 Stop Date: 11/21/15 Status: Discontinued Rocephin + sodium chloride 0.9% INJ 100 mL 1 gm, Route: IVPB, [id number], Dosing Weight 10, kg, Start date: 11/20/15 12:00:00 CDT, Duration: 30 day, Stop date: 12/19/15 12:00:00 ORE ROASTER Notes: (Same As: Rocephin).Use with 100 mL NS and infuse over 30 min MEDICA TION WASTE Product Size: 1000 mgProduct Wasted: ___ mg Start Date: 11/20/15 Stop Date: 11/21/15 Status: Discontinued Saline Flush 0.9% 10 ml, Route: IVP, Drug Form: INJ, Dosing Weight 10, kg, PRN, PRN Line Flush, St art date: 11/20/15 12:04:00 CDT, Duration: 30 day, Stop date: 12/20/15 11:03:00 ORE ROASTER Notes: (Same as: BD Posiflush) Start Date: 11/20/15 Stop Date: 11/21/15 Status: Discontinued Saline Flush 0.9% 10 mL, Route: IVP, Drug Form: INJ, Dosing Weight 10, kg, PRN, PRN Line Flush, St art date: 11/20/15 7:18:00 CDT, Duration: 30 day, Stop date: 12/20/15 6:17:00 CS T Start Date: 11/20/15 Stop Date: 11/20/15 Status: Discontinued Sodium Chloride 0.9% (Bolus) IV 1,000 mL, Infuse Over: 1 hr, Route: IV, ONCE, Priority: STAT, Dosing Weight 10 k g, Start date: 11/20/15 7:18:00 CDT, Duration: 1 doses or times, Stop date: 11/10 7:18:00 CDT Start Date: 11/20/15 Stop Date: 11/20/15 Status: Completed sodium chloride 0.9% 1000 ml INJ 1,000 mL 1,000 mL, Rate: 100 ml/hr, Infuse over: 10 hr, Route: IV, Dosing Weight 10 kg, T otal Volume: 1,000, Start date: 11/20/15 12:04:00 CDT, Duration: 30 day, Stop da te: 12/20/15 12:03:00 ORE ROASTER Start Date: 11/20/15 Stop Date: 11/21/15 Status: Discontinued Results ELECTROLYTES 1 2 3 Most recent to oldest [Reference Range]: 144 mEq/L (11/21/15 4:46 AM) 139 mEq/L (11/20/15 7:50 AM) Sodium Lvl [135-145 mEq/L] 3.9 mEq/L (11/21/15 4:46 AM) 3.8 mEq/L (11/20/15 7:50 AM) Potassium Lvl [3.5-5.1 mEq/L] 112 mEq/L *HI* (11/21/15 4:46 AM) 106 mEq/L (11/20/15 7:50 AM) Chloride Lvl [95-109 mEq/L] 23 mEq/L *LOW* (11/21/15 4:46 AM) 20 mEq/L *LOW* (11/20/15 7:50 AM) CO2 [24-32 mEq/L] 12.9 mEq/L (11/21/15 4:46 AM) 16.8 mEq/L (11/20/15 7:50 AM) AGAP [10.0-20.0 mEq/L] CHEM PANEL 1 2 3 Most recent to oldest [Reference Range]: 1.10 mg/dL (11/21/15 4:46 AM) 1.60 mg/dL *HI* (11/20/15 7:50 AM) Creatinine Lvl [0.50-1.40 mg/dL] 53 mL/min/1.73m2 1 *NA* (11/21/15 4:46 AM) 34 mL/min/1.73m2 2 *NA* (11/20/15 7:50 AM) eGFR 25 mg/dL *HI* (11/21/15 4:46 AM) 47 mg/dL *HI* (11/20/15 7:50 AM) BUN [7-22 mg/dL] 29 *HI* (11/20/15 7:50 AM) B/C Ratio [6-25] 91 mg/dL (11/21/15 4:46 AM) 145 mg/dL *HI* (11/20/15 7:50 AM) Glucose Lvl [70-99 mg/dL] 6.7 g/dL (11/20/15 7:50 AM) Total Protein [6.4-8.4 g/dL] 3.3 g/dL *LOW* (11/20/15 7:50 AM) Albumin Lvl [3.5-5.0 g/dL] 3.4 g/dL (11/20/15 7:50 AM) Globulin [2.7-4.2 g/dL] 1.0 (11/20/15 7:50 AM) A/G Ratio [0.7-1.6] 7.8 mg/dL *LOW* (11/21/15 4:46 AM) 8.8 mg/dL (11/20/15 7:50 AM) Calcium Lvl [8.5-10.5 mg/dL] 1.9 mg/dL (11/20/15 7:50 AM) Magnesium Lvl [1.8-2.4 mg/dL] 30 unit/L (11/20/15 7:50 AM) ALT [0-65 unit/L] 25 unit/L (11/20/15 7:50 AM) AST [0-37 unit/L] 81 unit/L (11/20/15 7:50 AM) Alk Phos [39-136 unit/L] 0.4 mg/dL (11/20/15 7:50 AM) Bili Total [0.2-1.3 mg/dL] 84 unit/L (11/20/15 7:50 AM) Lipase Lvl [73-393 unit/L] 1Result Comment: [...] 3 Most recent to oldest [Reference Range]: 53 unit/L (11/20/15 8:28 PM) 61 unit/L (11/20/15 1:19 PM) 67 unit/L (11/20/15 7:50 AM) Total CK [12-191 unit/L] 1.4 ng/mL (11/20/15 8:28 PM) 1.5 ng/mL (11/20/15 1:19 PM) 1.7 ng/mL (11/20/15 7:50 AM) CK MB [0.5-3.6 ng/mL] 2.5 (11/20/15 7:50 AM) CK MB Index [0.0-2.5] <0.02 ng/mL (11/20/15 8:28 PM) <0.02 ng/mL (11/20/15 1:19 PM) <0.02 ng/mL (11/20/15 7:50 AM) Troponin-I [0.00-0.40 ng/mL] URINE AND STOOL 1 2 3 Most recent to oldest [Reference Range]: Clear (11/20/15 10:39 AM) UA Turbidity [Clear] Ltyellow *NA* (11/20/15 10:39 AM) UA Color 5.0 (11/20/15 10:39 AM) UA pH [5.0-8.0] 1.017 (11/20/15 10:39 AM) UA Spec Grav [<=1.030] Negative mg/dL *NA* (11/20/15 10:39 AM) UA Glucose [Negative mg/dL] Negative (11/20/15 10:39 AM) UA Blood [Negative] Trace mg/dL *ABN* (11/20/15 10:39 AM) UA Ketones [Negative mg/dL] Negative mg/dL (11/20/15 10:39 AM) UA Protein [Negative mg/dL] <=1.0 mg/dL *NA* (11/20/15 10:39 AM) UA Urobilinogen [0.1-1.0 mg/dL] Negative *NA* (11/20/15 10:39 AM) UA Bili [Negative] Negative (11/20/15 10:39 AM) UA Leuk Est [Negative] Negative (11/20/15 10:39 AM) UA Nitrite [Negative] 5 /HPF (11/20/15 10:39 AM) UA WBC [0-5 /HPF] <1 /HPF (11/20/15 10:39 AM) UA RBC [0-2 /HPF] Occasional /HPF *NA* (11/20/15 10:39 AM) UA Bacteria [None Seen /HPF] Occasional /LPF *NA* (11/20/15 10:39 AM) UA Sq Epi [Few /LPF] HEMATOLOGY 1 2 3 Most recent to oldest [Reference Range]: 5.3 K/CMM (11/21/15 4:46 AM) 7.2 K/CMM (11/20/15 7:50 AM) WBC [3.7-10.4 K/CMM] 4.37 M/CMM (11/21/15 4:46 AM) 4.69 M/CMM (11/20/15 7:50 AM) RBC [4.20-5.40 M/CMM] 13.2 g/dL (11/21/15 4:46 AM) 14.0 g/dL (11/20/15 7:50 AM) Hgb [12.0-16.0 g/dL] 40.9 % (11/21/15 4:46 AM) 43.5 % (11/20/15 7:50 AM) Hct [36.0-48.0 %] 93.5 fL (11/21/15 4:46 AM) 92.8 fL (11/20/15 7:50 AM) MCV [80.0-98.0 fL] 30.1 pg (11/21/15 4:46 AM) 29.9 pg (11/20/15 7:50 AM) MCH [27.0-31.0 pg] 32.2 g/dL (11/21/15 4:46 AM) 32.2 g/dL (11/20/15 7:50 AM) MCHC [32.0-36.0 g/dL] 15.2 % *HI* (11/21/15 4:46 AM) 15.4 % *HI* (11/20/15 7:50 AM) RDW [11.5-14.5 %] 152 K/CMM (11/21/15 4:46 AM) 155 K/CMM (11/20/15 7:50 AM) Platelet [133-450 K/CMM] 9.7 fL (11/21/15 4:46 AM) 10.0 fL (11/20/15 7:50 AM) MPV [7.4-10.4 fL] 49.5 % (11/21/15 4:46 AM) 64.2 % (11/20/15 7:50 AM) Segs [45.0-75.0 %] 34.9 % (11/21/15 4:46 AM) 22.8 % (11/20/15 7:50 AM) Lymphocytes [20.0-40.0 %] 12.8 % *HI* (11/21/15 4:46 AM) 11.1 % (11/20/15 7:50 AM) Monocytes [2.0-12.0 %] 2.4 % (11/21/15 4:46 AM) 1.6 % (11/20/15 7:50 AM) Eosinophils [0.0-4.0 %] 0.4 % (11/21/15 4:46 AM) 0.3 % (11/20/15 7:50 AM) Basophils [0.0-1.0 %] 2.6 K/CMM (11/21/15 4:46 AM) 4.6 K/CMM (11/20/15 7:50 AM) Segs-Bands # [1.5-8.1 K/CMM] 1.9 K/CMM (11/21/15 4:46 AM) 1.6 K/CMM (11/20/15 7:50 AM) Lymphocytes # [1.0-5.5 K/CMM] 0.7 K/CMM (11/21/15 4:46 AM) 0.8 K/CMM (11/20/15 7:50 AM) Monocytes # [0.0-0.8 K/CMM] 0.1 K/CMM (11/21/15 4:46 AM) 0.1 K/CMM (11/20/15 7:50 AM) Eosinophils # [0.0-0.5 K/CMM] 14.0 seconds (11/20/15 7:50 AM) PT [12.0-14.7 seconds] 1.06 (11/20/15 7:50 AM) INR [0.85-1.17] 33.6 seconds (11/20/15 7:50 AM) PTT [22.9-35.8 seconds] Immunizations No data [...] Clinical Document Author: Diego Merchant MD Date: 11/21/15 Cardiology Note Diego Merchant MD, PA SUBJECTIVE: Reason for consult: CAD & chest pain HISTORY OF PRESENT ILLNESS: A 65-year-old female who presented after she had been having nausea and vomiting all day long with diarrhea. She started becoming very weak. Her blood pressure dropped down at home to 82/64 per patient. She describes the pain as in the epigastric area. She denies any shortness of breath, denies any chest pain. She had a cardiac cath in 07/2015 and no PCI was needed. She feels much better today after IV fluids. PAST MEDICAL HISTORY: 1. Diabetes mellitus. 2. [...] any chills. CARDIOVASCULAR: Denies any shortness of breath, denies any chest pain or radiation of the pain. GASTROINTESTINAL: As above. GENITOURINARY: None. PSYCHOLOGICAL: None. Vitals and Temp: VitalsTmp(F)[id number] 11/20 10:[id number]--- 11/20 07:[id number]--- 11/20 00:[id number]--- 11/19 20:[id number]--- 11/19 15:08----[id number]--- 24 Hr Tmax: 98.6F (37.00c) at 11/20 00:26Vital Signs are the last 5 in the past 48 hours. Scheduled Meds (10): 11/21/15 allopurinol 100 mg PO BID 11/21/15 aspirin (aspirin 81 mg tablet, enteric coated) 81 mg PO Daily 11/20/15 cefTRIAXone + sodium chloride 0.9% INJ 100 mL (Rocephin + sodium chloride 0.9% INJ 100 mL) 1 gm IVPB [id number] 200 ml/hr 11/21/15 clopidogrel 75 mg PO Bedtime 11/21/15 irbesartan 150 mg PO Daily 11/21/15 isosorbide mononitrate 60 mg PO BID 11/22/15 levothyroxine 75 microgram PO Q630AM 11/22/15 metoprolol (metoprolol extended release) 50 mg PO Daily 11/21/15 pantoprazole (Protonix) 40 mg PO Before Dinner 11/21/15 pravastatin 40 mg PO BID Continuous Infusions (2): 11/20/15 NS + KCL 20mEq/L 1000ml (Premix) 1,000 mL 1,000 mL 100 ml/hr 11/20/15 sodium chloride 0.9% 1000 ml INJ 1,000 mL 1,000 mL 100 ml/hr Labs (Last four charted values) WBC 5.3(NOV 20)7.2(NOV 19) Hgb 13.2(NOV 20)14.0(NOV 10) Hct 40.9(NOV 11)43.5(NOV 10) Plt 152(NOV 20)155(NOV 10) Na 144(NOV 20)139(NOV 10) K 3.9(NOV 20)3.8(NOV 19) CO2 L 23(NOV 20)L 20(NOV 10) Cl H 112(NOV 11)106(NOV 10) Cr 1.10(NOV 11)H 1.60(NOV 10) BUN H 25(NOV 11)H 47(NOV 19) Glucose Random 91(NOV 11)H 145(NOV 10) Mg 1.9(NOV 19) Ca L 7.8(NOV 11)8.8(NOV 10) PT 14.0(NOV 19) INR 1.06(NOV 10) PTT 33.6(NOV 19) Troponin <0.02(NOV 19)<0.02(NOV 10)<0.02(NOV 10) CK MB 1.4(NOV 19)1.5(NOV 10)1.7(NOV 10) Total CK 53(NOV 19)61(NOV 19)67(NOV 19) EXAM: Good BP control; NSR; afebrile Head: normocephalic and atraumatic Neck: no carotid bruit; no JVD CV: Regular; -S3; no significant murmurs Lungs: Clear; no wheezing; good air entry Abd: soft and no organomegaly; + bowel sounds Ext: no CCE; good pulses distally Neuro: nonfocal; oriented *3 Psych: appropriate ASSESSMENT: Resolving gasteroenteritis with N/V/D and dehydration Stable CAD- cath in 07/2015 showed the [...] the pigtail catheter to the aorta. PLAN: OK to dc home today from cardiac standpoint F/U as previously scheduled. Extracted from: Title: Clinical Document Author: Katie Spencer MD Date: 11/21/15 Progress Note - Daily [facility] Completed: Nov, 13:03 by Katie Spencer MD RM: CCDU - 02, SE LALITHA [id number] (: 1950) F Attending: Katie Spencer MDPhone: Service: Emergency Medicine Reason for Admission: CHEST PAIN Working DRG: None Documented Code status: None Specified=FULL CODECurrent diet: Isolation: None Documented Allergies: Levaquin, sulfa drugs SUBJECTIVE OBJECTIVE 24hr Labs 11/20 1054 Glucose VRV814 H 11/20 0719 Glucose POC93 11/20 0446 Glucose Lvl91 BUN25 H Creatinine Lvl1.10 Sodium Kga351 Potassium Lvl3.9 Chloride Veb775 H CO223 L AGAP12.9 Calcium Lvl7.8 L eGFR53 WBC5.3 RBC4.37 Hgb13.2 Hct40.9 MCV93.5 MCH30.1 MCHC32.2 RDW15.2 H Tbhhiygj312 MPV9.7 Segs49.5 Oypatgqxe54.8 H Izjbeinrsfd07.9 Eosinophils2.4 Basophils0.4 Segs-Bands #2.6 Lymphocytes #1.9 Monocytes #0.7 Eosinophils #0.1 11/19 2207 Glucose POC91 11/19 2028 Total CK53 Troponin-I<0.02 CK MB1.4 11/19 1622 Glucose JIN785 H 11/19 1319 Total CK61 Troponin-I<0.02 CK MB1.5 Bobo still necessary (Yes/No): Line still necessary (Yes/No): VitalsTmp(F)YlzjfFEAKGtO3XEF5 11/20 10:5197.501055/3490413--- 11/20 07:1697.345360/847613--- 11/20 00:2698.526103/790093--- 11/19 20:1997.130956/633451--- 11/19 15:08----[id number]--- 24 Hr Tmax: 98.6F (37.00c) at 11/20 00:26Vital Signs are the last 5 in the past 48 hours. DateWt(kg)Wt(lb)Ht(cm)Ht(in)Method 11/19 (initial) 10.00 22.00Estimated 70.18 67.00Stated I&ORecordInOutBal 1124hr Tot 100 0 100 1024hr Tot 1100 0 1100 Medications (30) Active Scheduled Meds (10): 11/21/15 allopurinol 100 mg PO BID 11/21/15 aspirin (aspirin 81 mg tablet, enteric coated) 81 mg PO Daily 11/20/15 cefTRIAXone + sodium chloride 0.9% INJ 100 mL (Rocephin + sodium chloride 0.9% INJ 100 mL) 1 gm IVPB [id number] 200 ml/hr 11/21/15 clopidogrel 75 mg PO Bedtime 11/21/15 irbesartan 150 mg PO Daily 11/21/15 isosorbide mononitrate 60 mg PO BID 11/22/15 levothyroxine 75 microgram PO Q630AM 11/22/15 metoprolol (metoprolol extended release) 50 mg PO Daily 11/21/15 pantoprazole (Protonix) 40 mg PO Before Dinner 11/21/15 pravastatin 40 mg PO BID Unscheduled Meds: None PRN Meds (15): 11/20/15 Dextrose 50% in Water IV (Dextrose 50% Syringe) 12.5 gm IVP PRN 11/20/15 Dextrose 50% in Water IV (Dextrose 50% Syringe) 25 gm IVP PRN 11/20/15 glucagon 1 mg IM PRN 11/20/15 insulin aspart 1 unit SUB-Q TID-Before Meals 11/20/15 insulin aspart 2 unit SUB-Q TID-Before Meals 11/20/15 insulin aspart 3 unit SUB-Q TID-Before Meals 11/20/15 insulin aspart 4 unit SUB-Q TID-Before Meals 11/20/15 insulin aspart 5 unit SUB-Q TID-Before Meals 11/20/15 insulin aspart 1 unit SUB-Q Bedtime 11/20/15 insulin aspart 2 unit SUB-Q Bedtime 11/20/15 insulin aspart 3 unit SUB-Q Bedtime 11/20/15 insulin aspart 4 unit SUB-Q Bedtime 11/20/15 morphine Sulfate 4 mg IVP Q4H 11/20/15 ondansetron 4 mg IVP Q6H 11/20/15 sodium chloride (Saline Flush 0.9%) 10 ml IVP PRN One Time Meds (3): 11/20/15 (Completed) Sodium Chloride 0.9% IV (Sodium Chloride 0.9% (Bolus) IV) 1,000 mL IV ONCE 11/21/15 (Ordered) metoprolol (metoprolol extended release) 50 mg PO ONCE 11/20/15 (Completed) ondansetron 4 mg IVP ONCE Continuous Infusions (2): 11/20/15 NS + KCL 20mEq/L 1000ml (Premix) 1,000 mL 1,000 mL 100 ml/hr 11/20/15 sodium chloride 0.9% 1000 ml INJ 1,000 mL 1,000 mL 100 ml/hr ASSESSMENT & EXAM PLAN & TREATMENT DIAGNOSES & PROBLEMS [id number]? 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
--- OUTSIDE RECORDS SUMMARY | 2017-12-18 07:03 | XMS REPORT | Summary of Care ---
Author Author [facility] Organization [facility] Address Unknown Phone Unavailable Encounter HQ Josh(BLESSING) [id number] Date(s): 10/18/14 - 10/19/14 [facility] [address] [place] [address]- Discharge Disposition: Home Attending Physician: Armin Singleton MD Admitting Physician: Armin Singleton MD Referring Physician: Armin Singleton MD Vital Signs 1 2 3 Most recent to oldest [Reference Range]: 170.18 cm (10/18/14 11:54 AM) Height 1 2 3 Most recent to oldest [Reference Range]: 97.4 DegF (10/19/14 8:04 AM) 97.5 DegF (10/19/14 4:00 AM) 98.2 DegF (10/19/14 12:00 AM) Temperature Oral [96.4-99.1 DegF] 1 2 3 Most recent to oldest [Reference Range]: 120/65 mmHg (10/19/14 8:04 AM) 119/68 mmHg (10/19/14 4:00 AM) 146/78 mmHg *HI* (10/19/14 12:00 AM) Blood Pressure [90-140/60-90 mmHg] 1 2 3 Most recent to oldest [Reference Range]: 16 BRMIN (10/19/14 8:04 AM) 16 BRMIN (10/19/14 4:00 AM) 16 BRMIN (10/19/14 12:00 AM) Respiratory Rate [14-20 BRMIN] 1 2 3 Most recent to oldest [Reference Range]: 64 bpm (10/19/14 8:04 AM) 58 bpm *LOW* (10/19/14 4:00 AM) 61 bpm (10/19/14 12:00 AM) Peripheral Pulse Rate [60-100 bpm] 1 2 3 Most recent to oldest [Reference Range]: 97.273 kg (10/18/14 11:54 AM) Weight 1 2 3 Most recent to oldest [Reference Range]: 33.59 m2 (10/18/14 11:54 AM) Body Mass Index Problem List Condition [...] 14:02:00, Duration: 30 day, Stop date: 11/17/14 14:01: 00 Notes: (Same as: [place] 325/5) Do not exceed 4gm/day of acetaminophen. Start Date: 10/18/14 Stop Date: 10/19/14 Status: Discontinued allopurinol 100 mg, 1 tab, Route: PO, Drug form: TAB, Daily, Dosing Weight 97.273, kg, Start date: 10/19/14 9:00:00, Duration: 30 day, Stop date: 11/17/14 9:00:00 Notes: (Same as: Zyloprim) Start Date: 10/19/14 Stop Date: 10/19/14 Status: Discontinued Ambien 5 mg, 1 tab, Route: PO, Drug form: TAB, Bedtime, Start date: 10/18/14 22:00:00, Duration: 30 day, Stop date: 11/17/14 21:00:00 Notes: (Same As: Ambien) Start Date: 10/18/14 Stop Date: 10/19/14 Status: Discontinued Ambien 10 mg, Route: PO, Bedtime, Dosing Weight 97.273, kg, Priority: NOW, Start date: 10/18/14 21:32:00, Duration: 30 day, Stop date: 11/17/14 21:00:00 Start Date: 10/18/14 Stop Date: 10/18/14 Status: Deleted aspirin 81 mg tablet, enteric coated 81 mg, 1 tab, Route: PO, Drug form: ECTAB, Daily, Dosing Weight 97.273, kg, Star t date: 10/19/14 9:00:00, Duration: 30 day, Stop date: 11/17/14 9:00:00 Notes: Do not crush or chew.(Same As: Ecotrin) Start Date: 10/19/14 Stop Date: 10/19/14 Status: Discontinued atropine 0.5 mg, 5 mL, Route: IVP, Drug form: INJ, PRN, PRN Bradycardia, Start date: 09/24 20:57:00, Duration: 30 day, Stop date: 11/17/14 20:56:00 Start Date: 10/18/14 Stop Date: 10/19/14 Status: Discontinued Brilinta 90 mg, 1 tab, Route: PO, Drug form: TAB, Q12H, Dosing Weight 97.273, kg, Start d ate: 10/18/14 21:00:00, Duration: 30 day, Stop date: 11/17/14 9:00:00 Notes: (Same as: Brilinta) Start Date: 10/18/14 Stop Date: 10/19/14 Status: Discontinued Bystolic 10 mg, 1 tab, Route: PO, Drug form: TAB, Daily, Dosing Weight 97.273, kg, Start date: 10/19/14 9:00:00, Duration: 30 day, Stop date: 11/17/14 9:00:00 Notes: (same as: Bystolic) Start Date: 10/19/14 Stop Date: 10/19/14 Status: Discontinued Bystolic 10 mg oral tablet 10 mg=1 tab, PO, Daily, # 30 tab, 0 Refill(s) Start Date: 10/18/14 Status: Ordered Imdur 60 mg, 1 tab, Route: PO, Drug form: ERTAB, BID, Dosing Weight 97.273, kg, Start date: 10/18/14 17:00:00, Duration: 30 day, Stop date: 11/17/14 9:00:00 Notes: (Same as:Imdur)"Do Not Crush" Take on empty stomach/ full glass of water . Do not crush Start Date: 10/18/14 Stop Date: 10/19/14 Status: Discontinued insulin aspart 4 unit, 0.04 mL, Route: SUB-Q, Drug form: SOLN, PRN, Dosing Weight 97.273, kg, P RN Blood Glucose Results, Start date: 10/18/14 15:23:00, Duration: 30 day, Stop date: 11/17/14 15:22:00 Notes: Roll in palms of hands gently; Do not shake vigorously. (Same as: NovoLO G)"single patient use only" Stable for 28 days at room temperature.Expires in _ ____ days from Date Start Date: 10/18/14 Stop Date: 10/19/14 Status: Discontinued insulin aspart 5 unit, 0.05 mL, Route: SUB-Q, Drug form: SOLN, PRN, Dosing Weight 97.273, kg, P RN Blood Glucose Results, Start date: 10/18/14 15:23:00, Duration: 30 day, Stop date: 11/17/14 15:22:00 Notes: Roll in palms of hands gently; Do not shake vigorously. (Same as: NovoLO G)"single patient use only" Stable for 28 days at room temperature.Expires in _ ____ days from Date Start Date: 10/18/14 Stop Date: 10/19/14 Status: Discontinued insulin aspart 2 unit, 0.02 mL, Route: SUB-Q, Drug form: SOLN, PRN, Dosing Weight 97.273, kg, P RN Blood Glucose Results, Start date: 10/18/14 15:23:00, Duration: 30 day, Stop date: 11/17/14 15:22:00 Notes: Roll in palms of hands gently; Do not shake vigorously. (Same as: NovoLO G)"single patient use only" Stable for 28 days at room temperature.Expires in _ ____ days from Date Start Date: 10/18/14 Stop Date: 10/19/14 Status: Discontinued insulin aspart 1 unit, 0.01 mL, Route: SUB-Q, Drug form: SOLN, PRN, Dosing Weight 97.273, kg, P RN Blood Glucose Results, Start date: 10/18/14 15:23:00, Duration: 30 day, Stop date: 11/17/14 15:22:00 Notes: Roll in palms of hands gently; Do not shake vigorously. (Same as: NovoLO G)"single patient use only" Stable for 28 days at room temperature.Expires in _ ____ days from Date Start Date: 10/18/14 Stop Date: 10/19/14 Status: Discontinued insulin aspart 3 unit, 0.03 mL, Route: SUB-Q, Drug form: SOLN, PRN, Dosing Weight 97.273, kg, P RN Blood Glucose Results, Start date: 10/18/14 15:23:00, Duration: 30 day, Stop date: 11/17/14 15:22:00 Notes: Roll in palms of hands gently; Do not shake vigorously. (Same as: NovoLO G)"single patient use only" Stable for 28 days at room temperature.Expires in _ ____ days from Date Start Date: 10/18/14 Stop Date: 10/19/14 Status: Discontinued irbesartan 150 mg, 1 tab, Route: PO, Drug form: TAB, Daily, Dosing Weight 97.273, kg, Start date: 10/19/14 9:00:00, Duration: 30 day, Stop date: 11/17/14 9:00:00 Notes: (Same as:Avapro) Start Date: 10/19/14 Stop Date: 10/19/14 Status: Discontinued isosorbide mononitrate 60 mg oral tablet, extended release 60 mg=1 tab, PO, BID, # 60 tab, 11 Refill(s) Start Date: 10/19/14 Status: Ordered levothyroxine 75 microgram, 1 tab, Route: PO, Drug form: TAB, Q6AM, Dosing Weight 97.273, kg, Start date: 10/19/14 6:00:00, Duration: 30 day, Stop date: 11/17/14 6:00:00 Notes: Take 1 hour before or 2 hours after meal; Enteral feeds may interefere wi th the absorption of this medication. (Same as:Synthroid, Levothroid) Start Date: 10/19/14 Stop Date: 10/19/14 Status: Discontinued Lyrica 50 mg, 1 cap, Route: PO, Drug form: CAP, BID, Dosing Weight 97.273, kg, Start da te: 10/18/14 21:00:00, Duration: 30 day, Stop date: 11/17/14 9:00:00 Notes: Same as Lyrica Start Date: 10/18/14 Stop Date: 10/19/14 Status: Discontinued Lyrica 50 mg oral capsule 50 mg=1 cap, PO, BID, 0 Refill(s) Start Date: 10/18/14 Status: Ordered magnesium sulfate 2 gm, 50 mL, Route: IVPB, Drug form: INJ, ONCE, Dosing Weight 97.273, kg, Total dose=2 gm, Priority: NOW, Start date: 10/19/14 6:30:00, Duration: 1 doses or lianne es, Stop date: 10/19/14 6:30:00 Start Date: 10/19/14 Stop Date: 10/19/14 Status: Completed Mylicon 160 mg, 2 tab, Route: PO, Drug form: CHEWTAB, ONCE, Dosing Weight 97.273, kg, Pr iority: NOW, Start date: 10/18/14 21:31:00, Stop date: 10/18/14 21:31:00 Notes: (Same as: Mylicon) Start Date: 10/18/14 Stop Date: 10/18/14 Status: Completed nitroglycerin SL Tab 0.4 mg, 1 tab, Route: SL, Drug form: TAB, Q5Min, Dosing Weight 97.273, kg, PRN C hest Pain, Start date: 10/18/14 14:01:00, Duration: 3 doses or times, Stop date: Limited # of times Notes: (Same as:Nitroquick, Nitrostat)"Do Not Crush" Sublingual tablet Start Date: 10/18/14 Stop Date: 10/19/14 Status: Discontinued normal saline 0.9% IV 1000 mL 1,000 mL, Rate: 100 ml/hr, Infuse over: 10 hr, Route: IV, Dosing Weight 97.273 k g, Total Volume: 1,000, Start date: 10/18/14 13:49:00, Duration: 30 day, Stop da te: 11/17/14 13:48:00 Start Date: 10/18/14 Stop Date: 10/18/14 Status: Discontinued NS 1,000 mL 1,000 mL, Rate: 100 ml/hr, Infuse over: 10 hr, Route: IV, Dosing Weight 97.273 k g, Total Volume: 1,000, Start date: 10/18/14 14:04:00, Duration: 10 hr, Stop sunday e: 10/19/14 0:03:00 Start Date: 10/18/14 Stop Date: 10/19/14 Status: Completed pravastatin 20 mg, 1 tab, Route: PO, Drug form: TAB, Bedtime, Dosing Weight 97.273, kg, Star t date: 10/18/14 21:00:00, Duration: 30 day, Stop date: 11/16/14 21:00:00 Notes: (Same as: Pravachol) Start Date: 10/18/14 Stop Date: 10/19/14 Status: Discontinued Prevacid 30 mg, Route: PO, Drug form: DRC, Daily, Dosing Weight 97.273, kg, Start date: 0 10/19/14 9:00:00, Duration: 30 day, Stop date: 11/17/14 9:00:00 Start Date: 10/19/14 Stop Date: 10/18/14 Status: Deleted Protonix 40 mg, 1 tab, Route: PO, Drug form: ECTAB, ONCE, Dosing Weight 97.273, kg, Prior ity: NOW, Start date: 10/18/14 21:31:00, Stop date: 10/18/14 21:31:00 Notes: Tablet should not be chewed or crushed.(Same as: Protonix) Start Date: 10/18/14 Stop Date: 10/18/14 Status: Completed Protonix 40 mg, 1 tab, Route: PO, Drug form: ECTAB, Daily, Start date: 10/19/14 9:00:00, Duration: 30 day, Stop date: 11/17/14 9:00:00 Notes: Tablet should not be chewed or crushed.(Same as: Protonix) Start Date: 10/19/14 Stop Date: 10/19/14 Status: Discontinued Ranexa 500 mg oral tablet, extended release 500 mg=1 tab, PO, Q12H, # 60 tab, 11 Refill(s) Start Date: 10/19/14 Status: Ordered Ranexa 500 mg oral tablet, extended release 500 mg, 1 tab, Route: PO, Drug form: TAB, Q12H, Dosing Weight 97.273, kg, Start date: 10/18/14 21:00:00, Duration: 30 day, Stop date: 11/17/14 9:00:00 Notes: Same as Ranexa"Do Not Crush" Start Date: 10/18/14 Stop Date: 10/19/14 Status: Discontinued ticagrelor 90 mg oral tablet 90 mg=1 tab, PO, Q12H, # 60 tab, 11 Refill(s) Start Date: 10/19/14 Status: Ordered Results ELECTROLYTES Most recent to 1 2 oldest [Reference Range]: Sodium Lvl [135-145 140 mEq/L 140 mEq/L mEq/L] (10/19/14 3:41 AM) (10/18/14 11:57 AM) Potassium Lvl 4.3 mEq/L 4.2 mEq/L [3.5-5.1 mEq/L] (10/19/14 3:41 AM) (10/18/14 11:57 AM) Chloride Lvl [95-109 112 mEq/L 109 mEq/L mEq/L] *HI* (10/18/14 11:57 AM) (10/19/14 3:41 AM) CO2 [24-32 mEq/L] 21 mEq/L 25 mEq/L *LOW* (10/18/14 11:57 AM) (10/19/14 3:41 AM) AGAP [10.0-20.0 11.3 mEq/L 10.2 mEq/L mEq/L] (10/19/14 3:41 AM) (10/18/14 11:57 AM) CHEM PANEL Most recent to 1 2 oldest [Reference Range]: Creatinine Lvl 1.2 mg/dL 1.5 mg/dL [0.5-1.4 mg/dL] (10/19/14 3:41 AM) *HI* (10/18/14 11:57 AM) eGFR 48 mL/min/1.73m2 1 37 mL/min/1.73m2 2 *NA* *NA* (10/19/14 3:41 AM) (10/18/14 11:57 AM) BUN [7-22 mg/dL] 35 mg/dL 47 mg/dL *HI* *HI* (10/19/14 3:41 AM) (10/18/14 11:57 AM) Glucose Lvl [70-99 184 mg/dL 153 mg/dL mg/dL] *HI* *HI* (10/19/14 3:41 AM) (10/18/14 11:57 AM) Calcium Lvl 8.5 mg/dL 9.2 mg/dL [8.5-10.5 mg/dL] (10/19/14 3:41 AM) (10/18/14 11:57 AM) Magnesium Lvl 1.7 mg/dL [1.8-2.4 mg/dL] *LOW* (10/19/14 3:41 AM) 1Result Comment: The eGFR is calculated [...] be mul tiplied by the estimated BMI. LIPIDS Most recent to 1 2 oldest [Reference Range]: CHD Risk [3.90-5.80] 3.49 *LOW* (10/19/14 3:41 AM) Chol [<=199 mg/dL] 143 mg/dL (10/19/14 3:41 AM) Trig [<=149 mg/dL] 97 mg/dL (10/19/14 3:41 AM) HDL [>=61 mg/dL] 41 mg/dL *LOW* (10/19/14 3:41 AM) LDL (Calculated) 83 mg/dL [<=99 mg/dL] (10/19/14 3:41 AM) VLDL 19 *NA* (10/19/14 3:41 AM) SPECIAL CHEMISTRY Most recent to 1 2 oldest [Reference Range]: Hgb A1C [<=5.6 %] 7.9 % *HI* (10/19/14 3:41 AM) THYROID PANEL Most recent to 1 2 oldest [Reference Range]: TSH [0.360-3.740 0.390 uIU/mL uIU/mL] (10/19/14 3:41 AM) HEMATOLOGY Most recent to 1 2 oldest [Reference Range]: WBC [3.7-10.4 K/CMM] 10.1 K/CMM 11.1 K/CMM (10/19/14 3:41 AM) *HI* (10/18/14 11:57 AM) RBC [4.20-5.40 4.10 M/CMM 5.09 M/CMM M/CMM] *LOW* (10/18/14 11:57 AM) (10/19/14 3:41 AM) Hgb [12.0-16.0 g/dL] 12.7 g/dL 15.5 g/dL (10/19/14 3:41 AM) (10/18/14 11:57 AM) Hct [36.0-48.0 %] 38.1 % 47.5 % (10/19/14 3:41 AM) (10/18/14 11:57 AM) MCV [80.0-98.0 fL] 92.8 fL 93.3 fL (10/19/14 3:41 AM) (10/18/14 11:57 AM) MCH [27.0-31.0 pg] 30.9 pg 30.4 pg (10/19/14 3:41 AM) (10/18/14 11:57 AM) MCHC [32.0-36.0 33.3 g/dL 32.6 g/dL g/dL] (10/19/14 3:41 AM) (10/18/14 11:57 AM) RDW [11.5-14.5 %] 14.4 % 14.4 % (10/19/14 3:41 AM) (10/18/14 11:57 AM) Platelet [133-450 97 K/CMM 195 K/CMM K/CMM] *LOW* (10/18/14 11:57 AM) (10/19/14 3:41 AM) MPV [7.4-10.4 fL] 10.0 fL 9.9 fL (10/19/14 3:41 AM) (10/18/14 11:57 AM) Segs [45.0-75.0 %] 84.2 % 70.2 % *HI* (10/18/14 11:57 AM) (10/19/14 3:41 AM) Lymphocytes 8.4 % 21.8 % [20.0-40.0 %] *LOW* (10/18/14 11:57 AM) (10/19/14 3:41 AM) Monocytes [2.0-12.0 6.7 % 7.1 % %] (10/19/14 3:41 AM) (10/18/14 11:57 AM) Eosinophils [0.0-4.0 0.4 % 0.3 % %] (10/19/14 3:41 AM) (10/18/14 11:57 AM) Basophils [0.0-1.0 0.3 % 0.6 % %] (10/19/14 3:41 AM) (10/18/14 11:57 AM) Segs-Bands # 8.5 K/CMM 7.8 K/CMM [1.5-8.1 K/CMM] *HI* (10/18/14 11:57 AM) (10/19/14 3:41 AM) Lymphocytes # 0.9 K/CMM 2.4 K/CMM [1.0-5.5 K/CMM] *LOW* (10/18/14 11:57 AM) (10/19/14 3:41 AM) Monocytes # [0.0-0.8 0.7 K/CMM 0.8 K/CMM K/CMM] (10/19/14 3:41 AM) (10/18/14 11:57 AM) Basophils # [0.0-0.2 0.1 K/CMM K/CMM] (10/18/14 11:57 AM) PT [12.0-14.7 13.0 seconds seconds] (10/18/14 11:57 AM) INR [0.85-1.17] 0.95 (10/18/14 11:57 AM) PTT [22.9-35.8 31.6 seconds seconds] (10/18/14 11:57 AM) Immunizations No data available for this [...] alcohol concerns: No. Smoking Status Never smoker; Exposure to Tobacco Smoke None; Cigarette Smoking Last 365 Days No; Reg Smoking Cessation Counseling No Assessment and Plan No data available for this section
--- OUTSIDE RECORDS SUMMARY | 2017-12-18 07:03 | XMS REPORT | Summary of Care ---
Author Author [facility] Organization [facility] Address Unknown Phone Unavailable Encounter HQ Josh(BLESSING) [id number] Date(s): 08/06/15 - 08/06/15 [facility] [address] [place] [address]- [phone] Discharge Disposition: Home Attending Physician: Diego Merchant MD Admitting Physician: Diego Merchant MD Vital Signs 1 2 3 Most recent to oldest [Reference Range]: 170.18 cm (08/06/15 12:34 PM) 170.18 cm (08/06/15 9:05 AM) Height 98.1 DegF (08/07/15 7:47 PM) 97.7 DegF (08/07/15 4:23 PM) 97.8 DegF (08/07/15 7:48 AM) Temperature Oral [96.4-99.1 DegF] 115/70 mmHg (08/07/15 7:47 PM) 139/68 mmHg (08/07/15 4:23 PM) 149/70 mmHg *HI* (08/07/15 7:48 AM) Blood Pressure [90-140/60-90 mmHg] 18 BRMIN (08/07/15 7:47 PM) 18 BRMIN (08/07/15 4:23 PM) 18 BRMIN (08/07/15 7:48 AM) Respiratory Rate [14-20 BRMIN] 63 bpm (08/07/15 7:47 PM) 67 bpm (08/07/15 4:23 PM) 62 bpm (08/07/15 7:48 AM) Peripheral Pulse Rate [60-100 bpm] 104.091 kg (08/06/15 12:34 PM) 104.091 kg (08/06/15 9:05 AM) Weight 35.94 m2 (08/06/15 12:34 PM) 35.94 m2 (08/06/15 9:05 AM) Body Mass Index Problem List Condition [...] CDT, Duration: 30 day, Stop date: 09/05/15 1 3:08:00 CDT Notes: (Same as: [place] 325/5) Do not exceed 4gm/day of acetaminophen. Start Date: 08/06/15 Stop Date: 08/07/15 Status: Discontinued allopurinol 100 mg, 1 tab, Route: PO, Drug form: TAB, BID, Dosing Weight 104.091, kg, Start date: 08/06/15 17:00:00 CDT, Duration: 30 day, Stop date: 09/05/15 9:00:00 CDT Notes: (Same as: Zyloprim) Start Date: 08/06/15 Stop Date: 08/07/15 Status: Discontinued aspirin 324 mg, 4 tab, Route: PO, Drug form: CHEWTAB, ONCE, Dosing Weight 104.091, kg, P riority: STAT, Start date: 08/06/15 9:28:00 CDT, Stop date: 08/06/15 9:28:00 CDT Notes: Take with food. Start Date: 08/06/15 Stop Date: 08/06/15 Status: Completed aspirin 81 mg tablet, enteric coated 81 mg, 1 tab, Route: PO, Drug form: ECTAB, Daily, Dosing Weight 104.091, kg, Sta rt date: 08/07/15 9:00:00 CDT, Duration: 30 day, Stop date: 09/05/15 9:00:00 CDT Notes: Do not crush or chew.(Same As: Ecotrin) Start Date: 08/07/15 Stop Date: 08/07/15 Status: Discontinued Bystolic 10 mg, 1 tab, Route: PO, Drug form: TAB, Daily, Dosing Weight 104.091, kg, Start date: 08/07/15 9:00:00 CDT, Duration: 30 day, Stop date: 09/05/15 9:00:00 CDT Notes: (same as: Bystolic) Start Date: 08/07/15 Stop Date: 08/07/15 Status: Discontinued clopidogrel 75 mg oral tablet 75 mg=1 tab, PO, Bedtime, 0 Refill(s) Start Date: 08/07/15 Status: Ordered Dextrose 50% Syringe 25 gm, 50 mL, Route: IVP, Drug Form: INJ, Dosing Weight 104.091, kg, PRN, PRN Bl ood Glucose Results, Start date: 08/07/15 4:11:00 CDT, Duration: 30 day, Stop da te: 09/06/15 4:10:00 CDT Start Date: 08/07/15 Stop Date: 08/07/15 Status: Discontinued Dextrose 50% Syringe 12.5 gm, 25 mL, Route: IVP, Drug Form: INJ, Dosing Weight 104.091, kg, PRN, PRN Blood Glucose Results, Start date: 08/07/15 4:11:00 CDT, Duration: 30 day, Stop date: 09/06/15 4:10:00 CDT Start Date: 08/07/15 Stop Date: 08/07/15 Status: Discontinued Dextrose 50% Syringe 12.5 gm, 25 mL, Route: IVP, Drug Form: INJ, Dosing Weight 104.091, kg, PRN, PRN Blood Glucose Results, Start date: 08/06/15 17:55:00 CDT, Duration: 30 day, Stop date: 09/05/15 17:54:00 CDT Start Date: 08/06/15 Stop Date: 08/07/15 Status: Discontinued Dextrose 50% Syringe 25 gm, 50 mL, Route: IVP, Drug Form: INJ, Dosing Weight 104.091, kg, PRN, PRN Bl ood Glucose Results, Start date: 08/06/15 17:55:00 CDT, Duration: 30 day, Stop d ate: 09/05/15 17:54:00 CDT Start Date: 08/06/15 Stop Date: 08/07/15 Status: Discontinued Dextrose 50% Syringe 12.5 gm, 25 mL, Route: IVP, Drug Form: INJ, Dosing Weight 104.091, kg, PRN, PRN Blood Glucose Results, Start date: 08/06/15 12:02:00 CDT, Duration: 30 day, Stop date: 09/05/15 12:01:00 CDT Start Date: 08/06/15 Stop Date: 08/06/15 Status: Discontinued Dextrose 50% Syringe 25 gm, 50 mL, Route: IVP, Drug Form: INJ, Dosing Weight 104.091, kg, PRN, PRN Bl ood Glucose Results, Start date: 08/06/15 12:02:00 CDT, Duration: 30 day, Stop d ate: 09/05/15 12:01:00 CDT Start Date: 08/06/15 Stop Date: 08/06/15 Status: Discontinued enoxaparin 40 mg, 0.4 mL, Route: SUB-Q, Drug form: INJ, rienP10V, Dosing Weight 104.091, kg , Start date: 08/06/15 16:00:00 CDT, Duration: 30 day, Stop date: 09/04/15 16:00 :00 CDT Notes: (Same as: Lovenox) Start Date: 08/06/15 Stop Date: 08/07/15 Status: Discontinued fentaNYL 50 microgram, Route: IV, Q3H, Dosing Weight 104.091, kg, Start date: 08/07/15 14 :00:00 CDT, Duration: 30 day, Stop date: 09/06/15 11:00:00 CDT Start Date: 08/07/15 Stop Date: 08/07/15 Status: Discontinued glucagon 1 mg, Route: IM, Drug form: PDR/INJ, PRN, Dosing Weight 104.091, kg, PRN Blood G lucose Results, Start date: 08/07/15 4:11:00 CDT, Duration: 30 day, Stop date: 0 09/06/15 4:10:00 CDT Start Date: 08/07/15 Stop Date: 08/07/15 Status: Discontinued glucagon 1 mg, Route: IM, Drug form: PDR/INJ, PRN, Dosing Weight 104.091, kg, PRN Blood G lucose Results, Start date: 08/06/15 17:55:00 CDT, Duration: 30 day, Stop date: 09/05/15 17:54:00 CDT Start Date: 08/06/15 Stop Date: 08/07/15 Status: Discontinued glucagon 1 mg, Route: IM, Drug form: PDR/INJ, PRN, Dosing Weight 104.091, kg, PRN Blood G lucose Results, Start date: 08/06/15 12:02:00 CDT, Duration: 30 day, Stop date: 09/05/15 12:01:00 CDT Start Date: 08/06/15 Stop Date: 08/06/15 Status: Discontinued insulin aspart 10 unit, 0.1 mL, Route: SUB-Q, Drug form: SOLN, Sliding Scale, Dosing Weight 104 .091, kg, PRN Blood Glucose Results, Start date: 08/07/15 4:11:00 CDT, Duration: 30 day, Stop date: 09/06/15 4:10:00 CDT Notes: Roll in palms of hands gently; Do not shake vigorously. (Same as: NovoJENNIFER G)"single patient use only"WASTE: F/P - Black; E - Municipal Trash Bin Stable f or 28 days at room temperature.Expires in days from Date Start Date: 08/07/15 Stop Date: 08/07/15 Status: Discontinued insulin aspart 8 unit, 0.08 mL, Route: SUB-Q, Drug form: SOLN, Sliding Scale, Dosing Weight 104 .091, kg, PRN Blood Glucose Results, Start date: 08/07/15 4:11:00 CDT, Duration: 30 day, Stop date: 09/06/15 4:10:00 CDT Notes: Roll in palms of hands gently; Do not shake vigorously. (Same as: NovoLO G)"single patient use only"WASTE: F/P - Black; E - Municipal Trash Bin Stable f or 28 days at room temperature.Expires in days from Date Start Date: 08/07/15 Stop Date: 08/07/15 Status: Discontinued insulin aspart 2 unit, 0.02 mL, Route: SUB-Q, Drug form: SOLN, Sliding Scale, Dosing Weight 104 .091, kg, PRN Blood Glucose Results, Start date: 08/07/15 4:11:00 CDT, Duration: 30 day, Stop date: 09/06/15 4:10:00 CDT Notes: Roll in palms of hands gently; Do not shake vigorously. (Same as: Niki Ramirez)"single patient use only"WASTE: F/P - Black; E - Municipal Trash Bin Stable f or 28 days at room temperature.Expires in days from Date Start Date: 08/07/15 Stop Date: 08/07/15 Status: Discontinued insulin aspart 6 unit, 0.06 mL, Route: SUB-Q, Drug form: SOLN, Sliding Scale, Dosing Weight 104 .091, kg, PRN Blood Glucose Results, Start date: 08/07/15 4:11:00 CDT, Duration: 30 day, Stop date: 09/06/15 4:10:00 CDT Notes: Roll in palms of hands gently; Do not shake vigorously. (Same as: Niki Ramirez)"single patient use only"WASTE: F/P - Black; E - Municipal Trash Bin Stable f or 28 days at room temperature.Expires in days from Date Start Date: 08/07/15 Stop Date: 08/07/15 Status: Discontinued insulin aspart 4 unit, 0.04 mL, Route: SUB-Q, Drug form: SOLN, Sliding Scale, Dosing Weight 104 .091, kg, PRN Blood Glucose Results, Start date: 08/07/15 4:11:00 CDT, Duration: 30 day, Stop date: 09/06/15 4:10:00 CDT Notes: Roll in palms of hands gently; Do not shake vigorously. (Same as: Niki Ramirez)"single patient use only"WASTE: F/P - Black; E - Municipal Trash Bin Stable f or 28 days at room temperature.Expires in days from Date Start Date: 08/07/15 Stop Date: 08/07/15 Status: Discontinued insulin aspart 10 unit, Route: SUB-Q, PRN, Dosing Weight 104.091, kg, PRN Abnormal Lab Result, Start date: 08/06/15 16:12:00 CDT, Duration: 30 day, Stop date: 09/05/15 16:11:0 0 CDT Start Date: 08/06/15 Stop Date: 08/06/15 Status: Deleted insulin aspart 5 unit, Route: SUB-Q, PRN, Dosing Weight 104.091, kg, PRN Abnormal Lab Result, S tart date: 08/06/15 16:12:00 CDT, Duration: 30 day, Stop date: 09/05/15 16:11:00 CDT Start Date: 08/06/15 Stop Date: 08/06/15 Status: Deleted insulin aspart 3 unit, 0.03 mL, Route: SUB-Q, Drug form: SOLN, TID-Before Meals, Dosing Weight 104.091, kg, PRN Blood Glucose Results, Start date: 08/06/15 17:55:00 CDT, Durat ion: 30 day, Stop date: 09/05/15 17:54:00 CDT Notes: Roll in palms of hands gently; Do not shake vigorously. (Same as: Niki Ramirez)"single patient use only"WASTE: F/P - Black; E - Municipal Trash Bin Stable f or 28 days at room temperature.Expires in days from Date Start Date: 08/06/15 Stop Date: 08/07/15 Status: Discontinued insulin aspart 12 unit, 0.12 mL, Route: SUB-Q, Drug form: SOLN, TID-Before Meals, Dosing Weight 104.091, kg, PRN Blood Glucose Results, Start date: 08/06/15 17:55:00 CDT, Dura tion: 30 day, Stop date: 09/05/15 17:54:00 CDT Notes: Roll in palms of hands gently; Do not shake vigorously. (Same as: Niki Ramirez)"single patient use only"WASTE: F/P - Black; E - Municipal Trash Bin Stable f or 28 days at room temperature.Expires in days from Date Start Date: 08/06/15 Stop Date: 08/07/15 Status: Discontinued insulin aspart 15 unit, 0.15 mL, Route: SUB-Q, Drug form: SOLN, TID-Before Meals, Dosing Weight 104.091, kg, PRN Blood Glucose Results, Start date: 08/06/15 17:55:00 CDT, Dura tion: 30 day, Stop date: 09/05/15 17:54:00 CDT Notes: Roll in palms of hands gently; Do not shake vigorously. (Same as: Niki Ramirez)"single patient use only"WASTE: F/P - Black; E - Municipal Trash Bin Stable f or 28 days at room temperature.Expires in days from Date Start Date: 08/06/15 Stop Date: 08/07/15 Status: Discontinued insulin aspart 6 unit, 0.06 mL, Route: SUB-Q, Drug form: SOLN, TID-Before Meals, Dosing Weight 104.091, kg, PRN Blood Glucose Results, Start date: 08/06/15 17:55:00 CDT, Durat ion: 30 day, Stop date: 09/05/15 17:54:00 CDT Notes: Roll in palms of hands gently; Do not shake vigorously. (Same as: Niki Ramirez)"single patient use only"WASTE: F/P - Black; E - Municipal Trash Bin Stable f or 28 days at room temperature.Expires in days from Date Start Date: 08/06/15 Stop Date: 08/07/15 Status: Discontinued insulin aspart 9 unit, 0.09 mL, Route: SUB-Q, Drug form: SOLN, TID-Before Meals, Dosing Weight 104.091, kg, PRN Blood Glucose Results, Start date: 08/06/15 17:55:00 CDT, Durat ion: 30 day, Stop date: 09/05/15 17:54:00 CDT Notes: Roll in palms of hands gently; Do not shake vigorously. (Same as: NovoLO G)"single patient use only"WASTE: F/P - Black; E - Municipal Trash Bin Stable f or 28 days at room temperature.Expires in days from Date Start Date: 08/06/15 Stop Date: 08/07/15 Status: Discontinued insulin aspart 1 unit, 0.01 mL, Route: SUB-Q, Drug form: SOLN, TID-Before Meals, Dosing Weight 104.091, kg, PRN Blood Glucose Results, Start date: 08/06/15 12:02:00 CDT, Durat ion: 30 day, Stop date: 09/05/15 12:01:00 CDT Notes: Roll in palms of hands gently; Do not shake vigorously. (Same as: NovoJENNIFER G)"single patient use only"WASTE: F/P - Black; E - Municipal Trash Bin Stable f or 28 days at room temperature.Expires in days from Date Start Date: 08/06/15 Stop Date: 08/06/15 Status: Discontinued insulin aspart 3 unit, 0.03 mL, Route: SUB-Q, Drug form: SOLN, TID-Before Meals, Dosing Weight 104.091, kg, PRN Blood Glucose Results, Start date: 08/06/15 12:02:00 CDT, Durat ion: 30 day, Stop date: 09/05/15 12:01:00 CDT Notes: Roll in palms of hands gently; Do not shake vigorously. (Same as: NovoJENNIFER G)"single patient use only"WASTE: F/P - Black; E - Municipal Trash Bin Stable f or 28 days at room temperature.Expires in days from Date Start Date: 08/06/15 Stop Date: 08/06/15 Status: Discontinued insulin aspart 2 unit, 0.02 mL, Route: SUB-Q, Drug form: SOLN, TID-Before Meals, Dosing Weight 104.091, kg, PRN Blood Glucose Results, Start date: 08/06/15 12:02:00 CDT, Durat ion: 30 day, Stop date: 09/05/15 12:01:00 CDT Notes: Roll in palms of hands gently; Do not shake vigorously. (Same as: Niki Ramirez)"single patient use only"WASTE: F/P - Black; E - Municipal Trash Bin Stable f or 28 days at room temperature.Expires in days from Date Start Date: 08/06/15 Stop Date: 08/06/15 Status: Discontinued insulin aspart 4 unit, 0.04 mL, Route: SUB-Q, Drug form: SOLN, TID-Before Meals, Dosing Weight 104.091, kg, PRN Blood Glucose Results, Start date: 08/06/15 12:02:00 CDT, Durat ion: 30 day, Stop date: 09/05/15 12:01:00 CDT Notes: Roll in palms of hands gently; Do not shake vigorously. (Same as: Niki Ramirez)"single patient use only"WASTE: F/P - Black; E - Municipal Trash Bin Stable f or 28 days at room temperature.Expires in days from Date Start Date: 08/06/15 Stop Date: 08/06/15 Status: Discontinued insulin aspart 5 unit, 0.05 mL, Route: SUB-Q, Drug form: SOLN, TID-Before Meals, Dosing Weight 104.091, kg, PRN Blood Glucose Results, Start date: 08/06/15 12:02:00 CDT, Durat ion: 30 day, Stop date: 09/05/15 12:01:00 CDT Notes: Roll in palms of hands gently; Do not shake vigorously. (Same as: Niki Ramirez)"single patient use only"WASTE: F/P - Black; E - Municipal Trash Bin Stable f or 28 days at room temperature.Expires in days from Date Start Date: 08/06/15 Stop Date: 08/06/15 Status: Discontinued insulin aspart 5 unit, SUB-Q, PRN, 0 Refill(s) Start Date: 08/06/15 Status: Ordered insulin aspart 10 unit, SUB-Q, PRN, 0 Refill(s) Start Date: 08/06/15 Status: Ordered insulin glargine 22 unit, Route: SUB-Q, BID, Dosing Weight 104.091, kg, Start date: 08/06/15 17:0 0:00 CDT, Duration: 30 day, Stop date: 09/05/15 9:00:00 CDT Start Date: 08/06/15 Stop Date: 08/06/15 Status: Deleted irbesartan 150 mg, 1 tab, Route: PO, Drug form: TAB, Daily, Dosing Weight 104.091, kg, Star t date: 08/06/15 15:00:00 CDT, Duration: 30 day, Stop date: 09/05/15 9:00:00 CDT Notes: (Same as:Avapro) Start Date: 08/06/15 Stop Date: 08/07/15 Status: Discontinued isosorbide mononitrate 60 mg, 1 tab, Route: PO, Drug form: ERTAB, BID, Dosing Weight 104.091, kg, Start date: 08/06/15 21:00:00 CDT, Duration: 30 day, Stop date: 09/05/15 9:00:00 CDT Notes: (Same as:Imdur)"Do Not Crush" Take on empty stomach/ full glass of water . Do not crush Start Date: 08/06/15 Stop Date: 08/07/15 Status: Discontinued Lantus 22 unit, SUB-Q, BID, 0 Refill(s) Start Date: 08/06/15 Status: Ordered Levemir FlexPen 22 unit, 0.22 mL, Route: SUB-Q, Drug form: INJ, Q12H, Start date: 08/06/15 21:00 :00 CDT, Duration: 30 day, Stop date: 09/05/15 9:00:00 CDT Notes: Same as LevemirDo not hold insulin without contacting prescriberWASTE: F/ P - Black; E - Municipal Trash Bin "single patient use only" Start Date: 08/06/15 Stop Date: 08/07/15 Status: Discontinued levothyroxine 75 microgram, 1 tab, Route: PO, Drug form: TAB, Q630AM, Dosing Weight 104.091, k g, Start date: 08/07/15 6:30:00 CDT, Duration: 30 day, Stop date: 09/05/15 6:30: 00 CDT Notes: Take 1 hour before or 2 hours after meal; Enteral feeds may interefere wi th the absorption of this medication. (Same as:Synthroid, Levothroid) Start Date: 08/07/15 Stop Date: 08/07/15 Status: Discontinued morphine Sulfate 2 mg, 1 mL, Route: IV, Drug form: INJ, Q3H, Dosing Weight 104.091, kg, PRN Pain Score 1-5, Start date: 08/07/15 15:40:00 CDT, Duration: 30 day, Stop date: 09/05 15:39:00 CDT Notes: (Same as:MORPhine Sulfate) Start Date: 08/07/15 Stop Date: 08/07/15 Status: Discontinued nitroglycerin SL Tab 0.4 mg, 1 tab, Route: SL, Drug form: TAB, Q5Min, Dosing Weight 104.091, kg, PRN Chest Pain, Start date: 08/07/15 11:56:00 CDT, Duration: 3 doses or times, Stop date: Limited # of times Notes: (Same as:Nitroquick, Nitrostat)"Do Not Crush" Sublingual tablet Start Date: 08/07/15 Stop Date: 08/07/15 Status: Discontinued nitroglycerin SL Tab 0.4 mg, 1 tab, Route: SL, Drug form: TAB, Q5Min, Dosing Weight 104.091, kg, PRN Chest Pain, Start date: 08/06/15 12:02:00 CDT, Duration: 3 doses or times, Stop date: Limited # of times Notes: (Same as:Nitroquick, Nitrostat)"Do Not Crush" Sublingual tablet Start Date: 08/06/15 Stop Date: 08/07/15 Status: Discontinued omeprazole 30 mg, Route: PO, Daily, Dosing Weight 104.091, kg, Start date: 08/07/15 9:00:00 CDT, Duration: 30 day, Stop date: 09/05/15 9:00:00 CDT Start Date: 08/07/15 Stop Date: 08/06/15 Status: Deleted omeprazole 30 mg, PO, Daily, 0 Refill(s) Start Date: 08/06/15 Status: Ordered Plavix 75 mg, 1 tab, Route: PO, Drug form: TAB, Bedtime, Dosing Weight 104.091, kg, Sta rt date: 08/06/15 21:00:00 CDT, Duration: 30 day, Stop date: 09/04/15 21:00:00 C DT Notes: (Same As: Plavix) Start Date: 08/06/15 Stop Date: 08/07/15 Status: Discontinued pravastatin 40 mg, 2 tab, Route: PO, Drug form: TAB, BID, Dosing Weight 104.091, kg, Start d ate: 08/06/15 17:00:00 CDT, Duration: 30 day, Stop date: 09/05/15 9:00:00 CDT Notes: (Same as: Pravachol) Start Date: 08/06/15 Stop Date: 08/06/15 Status: Canceled pravastatin 40 mg, 2 tab, Route: PO, Drug form: TAB, Bedtime, Dosing Weight 104.091, kg, Sta rt date: 08/06/15 21:00:00 CDT, Duration: 30 day, Stop date: 09/04/15 21:00:00 C DT Notes: (Same as: Pravachol) Start Date: 08/06/15 Stop Date: 08/07/15 Status: Discontinued Protonix 40 mg, 1 tab, Route: PO, Drug form: ECTAB, Before Dinner, Start date: 08/06/15 1 6:30:00 CDT, Duration: 30 day, Stop date: 09/04/15 16:30:00 CDT Notes: Tablet should not be chewed or crushed.(Same as: Protonix) Start Date: 08/06/15 Stop Date: 08/07/15 Status: Discontinued Saline Flush 0.9% 10 ml, Route: IVP, Drug Form: INJ, Dosing Weight 104.091, kg, Q12H, Start date: 08/06/15 21:00:00 CDT, Duration: 30 day, Stop date: 09/05/15 9:00:00 CDT Notes: (Same as: BD Posiflush) Start Date: 08/06/15 Stop Date: 08/07/15 Status: Discontinued Saline Flush 0.9% 10 ml, Route: IVP, Drug Form: INJ, Dosing Weight 104.091, kg, PRN, PRN Line Flus h, Start date: 08/06/15 12:02:00 CDT, Duration: 30 day, Stop date: 09/05/15 12:0 1:00 CDT Notes: (Same as: BD Posiflush) Start Date: 08/06/15 Stop Date: 08/07/15 Status: Discontinued Saline Flush 0.9% 10 mL, Route: IVP, Drug Form: INJ, Dosing Weight 104.091, kg, PRN, PRN Line Flus h, Start date: 08/06/15 9:28:00 CDT, Duration: 30 day, Stop date: 09/05/15 9:27: 00 CDT Notes: (Same as: BD Posiflush) Start Date: 08/06/15 Stop Date: 08/06/15 Status: Discontinued Sodium Chloride 0.9% (Bolus) IV 1,000 mL, 1000 ml/hr, Infuse Over: 1 hr, Route: IV, 1,000, Drug form: INJ, ONCE, Priority: STAT, Dosing Weight 104.091 kg, Start date: 08/06/15 9:28:00 CDT, Dur ation: 1 doses or times, Stop date: 08/06/15 9:28:00 CDT Start Date: 08/06/15 Stop Date: 08/06/15 Status: Completed Sodium Chloride 0.9% (Bolus) IV 250 mL, 250 ml/hr, Infuse Over: 1 hr, Route: IV, 250, Drug form: INJ, ONCALL, Pr iority: Routine, Dosing Weight 104.091 kg, Start date: 08/06/15 16:00:00 CDT, Du ration: 1 doses or times Start Date: 08/06/15 Stop Date: 08/07/15 Status: Discontinued sodium chloride 0.9% 1000 ml INJ 750 mL 750 mL, Rate: 75 ml/hr, Infuse over: 10 hr, Route: IV, Dosing Weight 104.091 kg, Total Volume: 750, Start date: 08/06/15 15:08:00 CDT, Duration: 10 hr, Stop sunday e: 08/07/15 1:07:00 CDT Start Date: 08/06/15 Stop Date: 08/07/15 Status: Completed sodium chloride 0.9% 500 ml INJ 500 mL 500 mL, Rate: 75 ml/hr, Infuse over: 6.7 hr, Route: IV, Dosing Weight 104.091 kg , Total Volume: 500, Start date: 08/07/15 11:56:00 CDT, Duration: 10 hr, Stop da te: 08/07/15 21:55:00 CDT Start Date: 08/07/15 Stop Date: 08/07/15 Status: Discontinued Results ELECTROLYTES 1 2 3 Most recent to oldest [Reference Range]: 140 mEq/L (08/06/15 9:42 AM) Sodium Lvl [135-145 mEq/L] 4.4 mEq/L (08/06/15 9:42 AM) Potassium Lvl [3.5-5.1 mEq/L] 106 mEq/L (08/06/15 9:42 AM) Chloride Lvl [95-109 mEq/L] 25 mEq/L (08/06/15 9:42 AM) CO2 [24-32 mEq/L] 13.4 mEq/L (08/06/15 9:42 AM) AGAP [10.0-20.0 mEq/L] CHEM PANEL 1 2 3 Most recent to oldest [Reference Range]: 1.16 mg/dL (08/06/15 5:47 PM) 1.25 mg/dL (08/06/15 9:42 AM) Creatinine Lvl [0.50-1.40 mg/dL] 50 mL/min/1.73m2 1 *NA* (08/06/15 5:47 PM) 46 mL/min/1.73m2 2 *NA* (08/06/15 9:42 AM) eGFR 39 mg/dL *HI* (08/06/15 9:42 AM) BUN [7-22 mg/dL] 31 *HI* (08/06/15 9:42 AM) B/C Ratio [6-25] 180 mg/dL *HI* (08/06/15 9:42 AM) Glucose Lvl [70-99 mg/dL] 7.1 g/dL (08/06/15 9:42 AM) Total Protein [6.4-8.4 g/dL] 3.5 g/dL (08/06/15 9:42 AM) Albumin Lvl [3.5-5.0 g/dL] 3.6 g/dL (08/06/15 9:42 AM) Globulin [2.0-4.0 g/dL] 1.0 (08/06/15 9:42 AM) A/G Ratio [0.7-1.6] 9.5 mg/dL (08/06/15 9:42 AM) Calcium Lvl [8.5-10.5 mg/dL] 58 unit/L (08/06/15 9:42 AM) ALT [0-65 unit/L] 53 unit/L *HI* (08/06/15 9:42 AM) AST [0-37 unit/L] 88 unit/L (08/06/15 9:42 AM) Alk Phos [39-136 unit/L] 0.5 mg/dL (08/06/15 9:42 AM) Bili Total [0.2-1.3 mg/dL] 1Result Comment: The eGFR is calculated using [...] 3 Most recent to oldest [Reference Range]: 76 unit/L (08/06/15 8:49 PM) 79 unit/L (08/06/15 2:14 PM) 97 unit/L (08/06/15 9:42 AM) Total CK [12-191 unit/L] 2.0 ng/mL (08/06/15 8:49 PM) 2.8 ng/mL (08/06/15 2:14 PM) 2.9 ng/mL (08/06/15 9:42 AM) CK MB [0.5-3.6 ng/mL] 2.6 *HI* (08/06/15 8:49 PM) 3.5 *HI* (08/06/15 2:14 PM) 3.0 *HI* (08/06/15 9:42 AM) CK MB Index [0.0-2.5] <0.02 ng/mL (08/06/15 8:49 PM) <0.02 ng/mL (08/06/15 2:14 PM) <0.02 ng/mL (08/06/15 9:42 AM) Troponin-I [0.00-0.40 ng/mL] 50 pg/mL (08/06/15 9:42 AM) BNP [<=100 pg/mL] URINE AND STOOL 1 2 3 Most recent to oldest [Reference Range]: Clear (08/06/15 10:13 AM) UA Turbidity [Clear] Ltyellow *NA* (08/06/15 10:13 AM) UA Color 5.0 (08/06/15 10:13 AM) UA pH [5.0-8.0] 1.015 (08/06/15 10:13 AM) UA Spec Grav [<=1.030] Negative mg/dL *NA* (08/06/15 10:13 AM) UA Glucose [Negative mg/dL] Small *ABN* (08/06/15 10:13 AM) UA Blood [Negative] Negative mg/dL *NA* (08/06/15 10:13 AM) UA Ketones [Negative mg/dL] Negative mg/dL (08/06/15 10:13 AM) UA Protein [Negative mg/dL] <=1.0 mg/dL *NA* (08/06/15 10:13 AM) UA Urobilinogen [0.1-1.0 mg/dL] Negative *NA* (08/06/15 10:13 AM) UA Bili [Negative] Large *ABN* (08/06/15 10:13 AM) UA Leuk Est [Negative] Negative (08/06/15 10:13 AM) UA Nitrite [Negative] 12 /HPF *HI* (08/06/15 10:13 AM) UA WBC [0-5 /HPF] 1 /HPF (08/06/15 10:13 AM) UA RBC [0-2 /HPF] Occasional /HPF *NA* (08/06/15 10:13 AM) UA Bacteria [None Seen /HPF] Occasional /LPF *NA* (08/06/15 10:13 AM) UA Sq Epi [Few /LPF] HEMATOLOGY 1 2 3 Most recent to oldest [Reference Range]: 9.2 K/CMM (08/06/15 9:42 AM) WBC [3.7-10.4 K/CMM] 4.57 M/CMM (08/06/15 9:42 AM) RBC [4.20-5.40 M/CMM] 14.2 g/dL (08/06/15 9:42 AM) Hgb [12.0-16.0 g/dL] 43.0 % (08/06/15 9:42 AM) Hct [36.0-48.0 %] 94.1 fL (08/06/15 9:42 AM) MCV [80.0-98.0 fL] 31.0 pg (08/06/15 9:42 AM) MCH [27.0-31.0 pg] 32.9 g/dL (08/06/15 9:42 AM) MCHC [32.0-36.0 g/dL] 15.8 % *HI* (08/06/15 9:42 AM) RDW [11.5-14.5 %] 140 K/CMM (08/06/15 5:47 PM) 139 K/CMM (08/06/15 9:42 AM) Platelet [133-450 K/CMM] 10.0 fL (08/06/15 9:42 AM) MPV [7.4-10.4 fL] 76.6 % *HI* (08/06/15 9:42 AM) Segs [45.0-75.0 %] 14.7 % *LOW* (08/06/15 9:42 AM) Lymphocytes [20.0-40.0 %] 6.4 % (08/06/15 9:42 AM) Monocytes [2.0-12.0 %] 2.0 % (08/06/15 9:42 AM) Eosinophils [0.0-4.0 %] 0.3 % (08/06/15 9:42 AM) Basophils [0.0-1.0 %] 7.0 K/CMM (08/06/15 9:42 AM) Segs-Bands # [1.5-8.1 K/CMM] 1.3 K/CMM (08/06/15 9:42 AM) Lymphocytes # [1.0-5.5 K/CMM] 0.6 K/CMM (08/06/15 9:42 AM) Monocytes # [0.0-0.8 K/CMM] 0.2 K/CMM (08/06/15 9:42 AM) Eosinophils # [0.0-0.5 K/CMM] 34.0 seconds (08/06/15 5:47 PM) PTT [22.9-35.8 seconds] Immunizations No data available [...] Clinical Document Author: Diego Merchant MD Date: 08/07/15 The patient is doing well. Cardiac catheterization was done as scheduled and the patient did not require any coronary intervention. Will discharge today after completing bed rest. 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 Pain is described as a pressure in the left side of her chest. Pt c/o nausea and dizziness but denies SOB, vomiting, diarrhea, fever, chills. Pt reports she had heart cath. in Oct 2014 with stent placed. Pt took an ASA at home yesterday with mild relief. and is still present. It was gradual in onset. The patient has had nausea. No vomiting, difficulty breathing or diaphoresis. REVIEW OF SYSTEMS The patient has had chest pain and nausea. No cough, difficulty breathing, abdominal pain, diarrhea or vomiting. All systems otherwise negative, except as recorded above. PAST HISTORY Hypertension. Diabetes mellitus. Hyperlipidemia. Hypothyroidism Medications: ASA, Plavix, Bystolic Allergies: Levaquin, sulfa drugs. Surgeries: Coronary artery bypass graft surgery (2003). Cholecystectomy. Heart catheterization. Angioplasty with stent placement performed (October 2014). Had hysterectomy. (Stomach reconstruction). SOCIAL HISTORY Never smoker. No alcohol use or drug use. Is a local resident. FAMILY HISTORY Heart disease in first-degree relative (mother and father). Vitals and Temp: VitalsTmp(F)[id number] 08/05 12:[id number]--- 08/05 11:3598.579455/253735--- 08/05 09:2998.117265/857597 2.0L/m 08/05 09:0597.767033/508477--- 24 Hr Tmax: 98.1F (36.72c) at 08/05 11:35Vital Signs are the last 5 in the past 48 hours. Scheduled Meds (10): 08/06/15 allopurinol 100 mg PO BID 08/07/15 aspirin (aspirin 81 mg tablet, enteric coated) 81 mg PO Daily 08/06/15 insulin detemir (Levemir FlexPen) 22 unit SUB-Q Q12H 08/06/15 irbesartan 150 mg PO Daily 08/06/15 isosorbide mononitrate 60 mg PO BID 08/07/15 levothyroxine 75 microgram PO Q630AM 08/07/15 nebivolol (Bystolic) 10 mg PO Daily 08/06/15 pantoprazole (Protonix) 40 mg PO Before Dinner 08/06/15 pravastatin 40 mg PO BID 08/06/15 sodium chloride (Saline Flush 0.9%) 10 ml IVP Q12H Continuous Infusions: None Labs (Last four charted values) WBC 9.2(AUG 05) Hgb 14.2(AUG 05) Hct 43.0(AUG 05) Plt 139(AUG 05) Na 140(AUG 05) K 4.4(AUG 05) CO2 25(AUG 05) Cl 106(AUG 05) Cr 1.25(AUG 05) BUN H 39(AUG 05) Glucose Random H 180(AUG 05) Ca 9.5(AUG 05) Troponin <0.02(AUG 05)<0.02(AUG 05) CK MB 2.8(AUG 05)2.9(AUG 05) Total CK 79(AUG 05)97(AUG 05) EXAM: Good BP control; NSR; afebrile Head: normocephalic and atraumatic Neck: no carotid bruit; no JVD CV: Regular; -S3; no significant murmurs Lungs: Clear; no wheezing; good air entry Abd: soft and no organomegaly; + bowel sounds Ext: no CCE; good pulses distally Neuro: nonfocal; oriented *3 Psych: appropriate ASSESSMENT: Angina CAD s/p CABG*2 in 2003 s/p PCI dRCA/PDA in 10/[address] MAHESH Singleton using СЕРГЕЙ EF 50% by echo in 10/2014 CRI- stage II-III Morbid obesity IDDM PLAN: Discussed with her extensively; will schedule for cath tomorrow as she still has on and off chest pain and her morbid obesity decreases the reliability of nuclear stress testing. Will hydrate given her CRI Resume Plavix
--- OUTSIDE RECORDS SUMMARY | 2017-12-18 07:04 | XMS REPORT ---
Author Author Macy Weeks [facility] [place] eClinicalWorks Address Unknown Phone Unavailable Care Team Providers Care Predatory Animal Hunter Name Role Phone Macy Weeks CP Unavailable Allergies, Adverse Reactions, Alerts Substance Reaction Event Type sulfa rash Drug Allergy Levaquin rash Drug Allergy Problems Problem Type Condition Code Onset Dates Condition Status Problem GERD (gastroesophageal reflux disease) K21.9 Active Problem Type 2 diabetes mellitus without complications E11.9 Active Problem HLD (hyperlipidemia) E78.5 Active Problem CKD (chronic kidney disease) stage 3, GFR 30-59 ml/min N18.3 Active Assessment Chronic UTI N39.0 Active Problem Sinusitis, unspecified chronicity, unspecified location J32.9 Active Problem Peripheral vascular disease I73.9 Active Problem HNP (herniated nucleus pulposus), lumbar M51.26 Active Problem Personal history of other specified conditions Z87.898 Active Problem BMI 35.0-35.9,adult Z68.35 Active Problem 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 Active Assessment Type 2 diabetes mellitus without complications E11.9 Active Assessment Acute cystitis without hematuria N30.00 Active Assessment CKD (chronic kidney disease) stage 3, GFR 30-59 ml/min N18.3 Active Assessment CAD (coronary artery disease) I25.10 Active Problem Neuropathy G62.9 Active Problem CAD (coronary artery disease) I25.10 Active Assessment Other gastritis without hemorrhage, unspecified chronicity K29.60 Active Problem Hypothyroid E03.9 Active Assessment Hospital discharge follow-up Z09 Active Problem HTN (hypertension) I10 Active Medications Medication Code System Code Instructions Start Date End Date Status Dosage Trazodone HCl [facility] 36009208766 50 mg Orally q Oct 02, 2015 Active 1 tablet at bedtime as needed Vitamin D [facility] 57290704480 2000 UNIT Orally once a day Active 1 tablet Levothyroxine Sodium [facility] 43209932686 75 MCG Orally Once a day Active 1 tablet Pravastatin Sodium [facility] 97720574262 40 MG Orally Once a day Active 1 tablet Humalog KwikPen [facility] 09258638387 100 UNIT/ML Subcutaneous before each meal Active 1-30 units Bromfed DM [facility] 02958470424 30-2-10 MG/5ML Orally every 4 hrs prn cough Nov 04, 2016 Jan 03, 2017 Active 10 ml as needed Lantus SuzioStar [facility] 44401594744 100 UNIT/ML Subcutaneous once a day Active 22 units am and 12 units at night Lyrica [facility] 66151121427 75 mg Orally Twice a day Active 1 capsule Clopidogrel Bisulfate [facility] 14530033378 75 MG Orally Once a day Active 1 tablet Aspir-[address] [facility] 22511435762 81 MG Orally Once a day Active [address] [facility] 80029405402 10 mg Active 1 TABLET ONCE A DAY ORALLY [address] [facility] 59807762129 500 MG Orally every 12 hrs Nov 04, 2016 Dec 14, 2016 Active 1 capsule Metoprolol Tartrate [facility] 39801679639 50 MG Orally once a day Active [address] [facility] 47496567766 12.5 MG Orally Once a day Active [address] [facility] 33219494906 20 MG Orally Once a day Active 1 capsule Multi For Her [address]+ [facility] 68309864884 Orally Active not defined Humalog KwikPen [facility] 76360807786 100 UNIT/ML Active 1-30 UNITS BEFORE EACH MEAL SUBCUTANEOUS [address] [facility] 30617540803 20 MG Orally daily Active [address] [facility] 57972631051 100 MG Orally Once a day Feb 11, 2017 Active 2 tablet Cyclobenzaprine HCl [facility] 42063357316 10 MG Orally once a day as needed Active [address] [facility] 53297098899 300 MG Orally Once a day August 01, 2016 Active 1 tablet Vital Signs Date/Time: Nov 28, 2016 BMI 34.45 Index Weight 220 lbs Height 67 in Cardiac Monitoring Heart Rate 67 /min Blood Pressure Diastolic 70 mm Hg Blood Pressure Systolic 126 mm Hg Results No Known Results Summary Purpose eClinicalWorks Submission
--- OUTSIDE RECORDS SUMMARY | 2017-12-18 07:04 | XMS REPORT ---
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 Active Problem Sinusitis, unspecified chronicity, unspecified location J32.9 Active Problem Type 2 diabetes mellitus without complications E11.9 Active Problem CAD (coronary artery disease) I25.10 Active Problem HNP (herniated nucleus pulposus), lumbar M51.26 Active Problem Personal history of other specified conditions Z87.898 Active Assessment Acute bilateral low back pain without sciatica M54.5 Active Assessment 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 Active Assessment BMI 35.0-35.9,adult Z68.35 Active Assessment Acute cystitis without hematuria N30.00 Active Assessment HTN (hypertension) I10 Active Assessment Type 2 diabetes mellitus without complications E11.9 Active Assessment HLD (hyperlipidemia) E78.5 Active Problem Neuropathy G62.9 Active Assessment Hypothyroid E03.9 Active Problem GERD (gastroesophageal reflux disease) K21.9 Active Medications Medication Code System Code Instructions Start Date End Date Status Dosage Levothyroxine Sodium [facility] [address]-33 75 MCG Orally Once a day Active 1 tablet Pravastatin Sodium [facility] [address]-19 40 MG Orally Once a day Active 1 tablet Allopurinol [facility] [address]-36 100 MG Orally Once a day April 28, 2017 Active 2 tablet Vitamin D [facility] [address]-65 2000 UNIT Orally once a day Active 1 tablet Bystolic [facility] [address]-11 10 MG Orally Once a day Active 1 tablet Lantus SoloStar [facility] [address]-62 100 UNIT/ML Subcutaneous once a day Active 30 units Tizanidine HCl [facility] [address]-18 2 MG Orally every 8 hrs Nov 16, 2015 Active 1 tablet as needed Trazodone HCl [facility] [address]-53 50 mg Orally qhs Oct 02, 2015 Active 1 tablet at bedtime as needed Aspir-81 [facility] [address]-83 81 MG Orally Once a day Active 1 tablet Multi For Her 50+ [facility] [address] Orally Active not defined Hydrochlorothiazide [facility] [address]-51 12.5 MG Orally Once a day Active 1 capsule Irbesartan [facility] [address]-13 150 MG Orally Once a day Inactive 1 tablet Humalog KwikPen [facility] [address]-18 100 UNIT/ML Subcutaneous before each meal Active 1-30 units Omeprazole [facility] [address]-64 20 MG Orally Once a day Active 1 capsule Cipro [facility] [address]-17 250 MG Orally every 12 hrs August 01, 2016 August 11, 2016 Active 1 tablet Irbesartan [facility] [address]-71 300 MG Orally Once a day August 01, 2016 Active 1 tablet Lyrica [facility] [address]-34 75 mg Orally Twice a day Active 1 capsule Clopidogrel Bisulfate [facility] [address]-52 75 MG Orally Once a day Active 1 tablet Victoza [facility] [address]-39 18 MG/3ML Subcutaneous Once a day Active 0.2 ml Vital Signs Date/Time: August 01, 2016 BMI 35.71 Index Weight 228 lbs Height 67 in Cardiac Monitoring Heart Rate 69 /min Blood Pressure Diastolic 98 mm Hg Blood Pressure Systolic 160 mm Hg Results Name Result Date Reference Range Unit Abnormality Flag Comp. Metabolic Panel (14) ----Calcium, Serum 10.2 20160801 8.7-10.3 mg/dL ----Carbon Dioxide, Total 24 20160801 18-29 mmol/L ----ALT (SGPT) 20 20160801 0-32 IU/L ----Creatinine, Serum 1.21 20160801 0.57-1.00 mg/dL H ----AST (SGOT) 23 20160801 0-40 IU/L ----eGFR If NonAfricn Am 47 20160801 >59 mL/min/1.73 L ----Alkaline Phosphatase, S 79 20160801 39-117 IU/L ----eGFR If Africn Am 54 20160801 >59 mL/min/1.73 L ----Bilirubin, Total 0.4 20160801 0.0-1.2 mg/dL ----BUN/Creatinine Ratio 27 20160801 12-28 ----A/G Ratio 2.0 20160801 1.2-2.2 ----Sodium, Serum 142 86236418 134-144 mmol/L ----Globulin, Total 2.4 27012773 1.5-4.5 g/dL ----Potassium, Serum 5.3 27207419 3.5-5.2 mmol/L H ----Glucose, Serum 109 48966010 65-99 mg/dL H ----Chloride, Serum 101 56878910 96-106 mmol/L ----Albumin, Serum 4.8 28681297 3.6-4.8 g/dL ----BUN 33 20160801 8-27 mg/dL H ----Protein, Total, Serum 7.2 75991416 6.0-8.5 g/dL TSH ----TSH 2.800 20160801 0.450-4.500 uIU/mL Urine Culture, Routine ----Urine Culture, Routine Final report [id number] ----Result 1 Escherichia coli [id number] A ----Antimicrobial Susceptibility Comment [id number] URINE AUTO W/O SCOPE ----Glucose NEG 20160803 ----Ketones NEG 20160803 ----Turbidity CLOUDY 20160803 ----Protein TRACE 20160803 ----Blood MODERATE 20160803 ----Leuk Est SMALL 20160803 ----Nitrite POSITIVE 20160803 ----Color DARK YELLOW 20160803 Lipid Panel ----LDL Cholesterol Calc 89 90121192 0-99 mg/dL ----VLDL Cholesterol Joaquim 15 20160801 5-40 mg/dL ----HDL Cholesterol 79 60817862 >39 mg/dL ----Triglycerides 77 99733035 0-149 mg/dL ----Cholesterol, Total 183 20160801 100-199 mg/dL Summary Purpose eClinicalWorks Submission
--- OUTSIDE RECORDS SUMMARY | 2017-12-18 07:04 | XMS REPORT | Summary of Care ---
Author Author [facility] Organization [facility] Address Unknown Phone Unavailable Encounter HQ Josh(FIN) [id number] Date(s): 08/05/16 - 08/05/16 [facility] [address] [place] [address]- Discharge Disposition: Home or Self Care Attending Physician: Conchita Winter MD Referring Physician: Conchita Winter MD Vital Signs No data available for [...]
--- OUTSIDE RECORDS SUMMARY | 2017-12-18 07:04 | XMS REPORT ---
Author Author Macy Weeks [facility] [place] eClinicalWorks Address Unknown Phone Unavailable Care Team Providers Care Sponge Diver Name Role Phone Macy Weeks CP Unavailable Allergies, Adverse Reactions, Alerts Substance Reaction Event Type sulfa rash Drug Allergy Levaquin rash Drug Allergy Problems Problem Type Condition Code Onset Dates Condition Status Problem Neuropathy G62.9 Active Problem HLD (hyperlipidemia) E78.5 Active Problem GERD (gastroesophageal reflux disease) K21.9 Active Problem HNP (herniated nucleus pulposus), lumbar M51.26 Active Problem Personal history of other specified conditions Z87.898 Active Problem 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 Active Problem HTN (hypertension) I10 Active Problem Hypothyroid E03.9 Active Problem Type 2 diabetes mellitus without complications E11.9 Active Problem CAD (coronary artery disease) I25.10 Active Assessment Acute bilateral low back pain with left-sided sciatica M54.42 Active Assessment HNP (herniated nucleus pulposus), lumbar M51.26 Active Assessment Recurrent UTI N39.0 Active Assessment HLD (hyperlipidemia) E78.5 Active Assessment Hypothyroid E03.9 Active Assessment GERD (gastroesophageal reflux disease) K21.9 Active Assessment HTN (hypertension) I10 Active Assessment CAD (coronary artery disease) I25.10 Active Assessment Type 2 diabetes mellitus without complications E11.9 Active Medications Medication Code System Code Instructions Start Date End Date Status Dosage Humalog KwikPen [facility] [address]-93 100 UNIT/ML Subcutaneous before each meal Active 1-30 units Lantus SoloStar [facility] [address]-47 100 UNIT/ML Subcutaneous once a day Active 30 units Irbesartan [facility] [address]-39 150 MG Orally Once a day Active 1 tablet Allopurinol [facility] [address]-30 100 MG Orally Once a day April 28, 2017 Active 2 tablet Hydrochlorothiazide [facility] [address]-24 12.5 MG Orally Once a day Active 1 capsule Aspir-81 [facility] [address]-62 81 MG Orally Once a day Active 1 tablet Omeprazole [facility] [address]-22 20 MG Orally Once a day Active 1 capsule Bystolic [facility] [address]-37 10 MG Orally Once a day Active 1 tablet Trazodone HCl [facility] [address]-75 50 mg Orally qhs Oct 02, 2015 Active 1 tablet at bedtime as needed Lyrica [facility] [address]-20 75 mg Orally Twice a day Active 1 capsule Levothyroxine Sodium [facility] [address]-01 75 MCG Orally Once a day Active 1 tablet Tizanidine HCl [facility] [address]-17 2 MG Orally every 8 hrs Nov 16, 2015 Active 1 tablet as needed Vitamin D [facility] [address]-91 2000 UNIT Orally once a day Active 1 tablet Pravastatin Sodium [facility] [address]-97 40 MG Orally Once a day Active 1 tablet Clopidogrel Bisulfate [facility] [address]-71 75 MG Orally Once a day Active 1 tablet Multi For Her 50+ [facility] 50344-[address]71 Orally Active not defined Vital Signs Date/Time: May 03, 2016 BMI 36.65 Index Weight 234 lbs Height 67 in Cardiac Monitoring Heart Rate 59 /min Blood Pressure Diastolic 88 mm Hg Blood Pressure Systolic 160 mm Hg Results Name Result Date Reference Range Unit Abnormality Flag Urine Culture, Routine ----Urine Culture, Routine Final report [id number] ----Result 1 No growth [id number] Urinalysis, Routine ----Glucose Negative 20160503 Negative ----Protein Negative 20160503 Negative/Trace ----Occult Blood Negative 20160503 Negative ----Ketones Negative 20160503 Negative ----Urobilinogen,Semi-Qn 0.2 06704709 0.2-1.0 mg/dL ----Nitrite, Urine Negative 20160503 Negative ----Bilirubin Negative 20160503 Negative ----Appearance Clear 20160503 Clear ----WBC Esterase Negative 20160503 Negative ----pH 5.5 04689179 5.0-7.5 ----Microscopic Examination Comment 20160503 ----Urine-Color Yellow 20160503 Yellow ----Specific [place] 1.019 46028574 1.005-1.030 Summary Purpose eClinicalWorks Submission
--- OUTSIDE RECORDS SUMMARY | 2017-12-18 07:04 | XMS REPORT | Summary of Care ---
Author Author [facility] Organization [facility] Address Unknown Phone Unavailable Encounter HQ Josh(BLESSING) [id number] Date(s): 11/05/16 - 11/06/16 [facility] [address] [place] [address]- Discharge Disposition: Home or Self Care Attending Physician: Diego Merchant MD Admitting Physician: Diego Merchant MD Vital Signs 1 2 3 Most recent to oldest [Reference Range]: 170.18 cm (11/05/16 6:11 AM) Height 98.3 DegF (11/06/16 12:15 PM) 98.1 DegF (11/06/16 8:40 AM) 97.9 DegF (11/06/16 4:00 AM) Temperature Oral [96.4-99.1 DegF] 158/74 mmHg *HI* (11/06/16 12:15 PM) 174/74 mmHg *HI* (11/06/16 8:40 AM) 129/64 mmHg (11/06/16 4:00 AM) Blood Pressure [90-140/60-90 mmHg] 18 BRMIN (11/06/16 12:15 PM) 18 BRMIN (11/06/16 8:40 AM) 18 BRMIN (11/06/16 4:00 AM) Respiratory Rate [14-20 BRMIN] 65 bpm (11/06/16 12:15 PM) 64 bpm (11/06/16 8:40 AM) 54 bpm *LOW* (11/06/16 4:00 AM) Peripheral Pulse Rate [60-100 bpm] 100.909 kg (11/05/16 6:11 AM) Weight 34.84 m2 (11/05/16 6:11 AM) Body Mass Index Problem List Condition [...] Duration: 30 day, Stop date: 12/05/16 9:00:00 CDT Notes: (Same as: Zyloprim) Start Date: 11/05/16 Stop Date: 11/06/16 Status: Discontinued aspirin 324 mg, Route: PO, ONCE, Dosing Weight 100.909, kg, Priority: STAT, Start date: 11/05/16 6:21:00 CDT, Stop date: 11/05/16 6:21:00 CDT Start Date: 11/05/16 Stop Date: 11/05/16 Status: Completed aspirin 81 mg tablet, enteric coated 81 mg, 1 tab, Route: PO, Drug form: ECTAB, Daily, Dosing Weight 100.909, kg, Sta rt date: 11/06/16 9:00:00 CDT, Duration: 30 day, Stop date: 12/05/16 9:00:00 CDT Notes: Do not crush or chew.(Same As: Ecotrin) Start Date: 11/06/16 Stop Date: 11/06/16 Status: Discontinued aspirin 81 mg tablet, enteric coated 81 mg, Route: PO, Drug form: ECTAB, Daily, Dosing Weight 100.909, kg, Start date : 11/06/16 9:00:00 CDT, Duration: 30 day, Stop date: 12/05/16 9:00:00 CDT Start Date: 11/06/16 Stop Date: 11/05/16 Status: Deleted cloNIDine 0.2 mg oral tablet 0.1 mg, 1 tab, Route: PO, Drug form: TAB, Q2H, Dosing Weight 100.909, kg, PRN Hy pertension, Start date: 11/05/16 10:00:00 CDT, Duration: 30 day, Stop date: 11/11 07/27 9:59:00 CDT Notes: (Same As: Catapres) Start Date: 11/05/16 Stop Date: 11/06/16 Status: Discontinued clopidogrel 75 mg, 1 tab, Route: PO, Drug form: TAB, Daily, Dosing Weight 100.909, kg, Start date: 11/06/16 9:00:00 CDT, Duration: 30 day, Stop date: 12/05/16 9:00:00 CDT Notes: (Same As: Plavix) Start Date: 11/06/16 Stop Date: 11/06/16 Status: Discontinued clopidogrel 75 mg, Route: PO, Drug form: TAB, Daily, Dosing Weight 100.909, kg, Start date: 11/06/16 9:00:00 CDT, Duration: 30 day, Stop date: 12/05/16 9:00:00 CDT Start Date: 11/06/16 Stop Date: 11/05/16 Status: Deleted clopidogrel 75 mg oral tablet 75 mg=1 tab, PO, Daily, # 30 tab, 0 Refill(s) Start Date: 11/05/16 Status: Ordered cyclobenzaprine 10 mg oral tablet 10 mg=1 tab, PO, Bedtime, # 30 tab, 0 Refill(s) Start Date: 11/05/16 Stop Date: 12/05/16 Status: Ordered famotidine 20 mg, 1 tab, Route: PO, Drug form: TAB, Q12H, Dosing Weight 100.909, kg, Start date: 11/05/16 21:00:00 CDT, Duration: 30 day, Stop date: 12/05/16 9:00:00 CDT Notes: (Same as: Pepcid) Start Date: 11/05/16 Stop Date: 11/06/16 Status: Discontinued Humalog SUB-Q, 0 Refill(s) Start Date: 11/06/16 Status: Ordered hydrochlorothiazide 12.5 mg oral capsule 12.5 mg=1 cap, PO, Daily, # 30 cap, 0 Refill(s) Start Date: 11/05/16 Status: Ordered irbesartan 300 mg, 2 tab, Route: PO, Drug form: TAB, Daily, Dosing Weight 100.909, kg, Star t date: 11/06/16 9:00:00 CDT, Duration: 30 day, Stop date: 12/05/16 9:00:00 CDT Notes: (Same as:Avapro) Start Date: 11/06/16 Stop Date: 11/06/16 Status: Discontinued irbesartan 300 mg oral tablet 300 mg=1 tab, PO, Daily, # 30 tab, 0 Refill(s) Start Date: 11/05/16 Status: Ordered Lantus 100 units/mL 22 unit, 0.22 mL, Route: SUB-Q, Drug form: SOLN, QAM, Dosing Weight 100.909, kg, Start date: 11/06/16 9:00:00 CDT, Duration: 30 day, Stop date: 12/05/16 9:00:00 CDT Notes: (Same as: Lantus)Do not hold insulin without contacting prescriberWASTE: F/P - Black; E - Municipal Trash Bin "single patient use only" Start Date: 11/06/16 Stop Date: 11/06/16 Status: Discontinued Lantus 100 units/mL 22 unit, SUB-Q, QAM, 0 Refill(s) Start Date: 11/05/16 Status: Ordered Lantus 100 units/mL 12 unit, 0.12 mL, Route: SUB-Q, Drug form: SOLN, QPM, Dosing Weight 100.909, kg, Start date: 11/05/16 17:00:00 CDT, Duration: 30 day, Stop date: 12/04/16 17:00: 00 CDT Notes: (Same as: Lantus)Do not hold insulin without contacting prescriberWASTE: F/P - Black; E - Municipal Trash Bin "single patient use only" Start Date: 11/05/16 Stop Date: 11/06/16 Status: Discontinued Lantus 100 units/mL 12 unit, SUB-Q, QPM, 0 Refill(s) Start Date: 11/05/16 Status: Ordered Levothroid 75 microgram, 1 tab, Route: PO, Drug form: TAB, Q630AM, Dosing Weight 100.909, k g, Start date: 11/06/16 6:30:00 CDT, Duration: 30 day, Stop date: 12/05/16 6:30: 00 CDT Notes: Take 1 hour before or 2 hours after meal; Enteral feeds may interefere wi th the absorption of this medication. (Same as:Synthroid, Levothroid) Start Date: 11/06/16 Stop Date: 11/06/16 Status: Discontinued Levothroid 75 mcg (0.075 mg) oral tablet 75 microgram=1 tab, PO, Daily, # 30 tab, 0 Refill(s) Start Date: 11/05/16 Status: Ordered metoprolol 50 mg oral tablet, extended release 50 mg=1 tab, PO, Daily, # 30 tab, 0 Refill(s) Start Date: 11/05/16 Status: Ordered metoprolol extended release 50 mg, 1 tab, Route: PO, Drug form: ERTAB, Daily, Start date: 11/06/16 9:00:00 C DT, Duration: 30 day, Stop date: 12/05/16 9:00:00 CDT Notes: (Same as: Toprol XL) May split tab, but do not crush. Start Date: 11/06/16 Stop Date: 11/06/16 Status: Discontinued nitroglycerin 0.4 mg, 1 tab, Route: SL, Drug form: TAB, Q5Min, Dosing Weight 100.909, kg, PRN Chest Pain, Start date: 11/05/16 6:21:00 CDT, Duration: 3 doses or times, Stop d ate: Limited # of times Notes: (Same as:Nitroquick, Nitrostat)"Do Not Crush" Sublingual tablet Start Date: 11/05/16 Stop Date: 11/05/16 Status: Discontinued nitroglycerin SL Tab 0.4 mg, 1 tab, Route: SL, Drug form: TAB, Q5Min, Dosing Weight 100.909, kg, PRN Chest Pain, Start date: 11/05/16 15:45:00 CDT, Duration: 3 doses or times, Stop date: Limited # of times Notes: (Same as:Nitroquick, Nitrostat)"Do Not Crush" Sublingual tablet Start Date: 11/05/16 Stop Date: 11/06/16 Status: Discontinued nitroglycerin SL Tab 0.4 mg, Route: SL, Drug form: TAB, Q5Min, Dosing Weight 100.909, kg, PRN Chest P ain, Start date: 11/05/16 17:37:00 CDT, Duration: 3 doses or times, Stop date: L imited # of times Start Date: 11/05/16 Stop Date: 11/05/16 Status: Deleted ondansetron 4 mg, Route: IVP, Drug form: INJ, ONCE, Dosing Weight 100.909, kg, Priority: STA T, Start date: 11/05/16 17:50:00 CDT, Stop date: 11/05/16 17:50:00 CDT Start Date: 11/05/16 Stop Date: 11/05/16 Status: Completed pravastatin 40 mg, 2 tab, Route: PO, Drug form: TAB, Bedtime, Dosing Weight 100.909, kg, Sta rt date: 11/05/16 21:00:00 CDT, Duration: 30 day, Stop date: 12/04/16 21:00:00 C DT Notes: (Same as: Pravachol) Start Date: 11/05/16 Stop Date: 11/06/16 Status: Discontinued pravastatin 20 mg oral tablet 40 mg=2 tab, PO, Bedtime, # 30 tab, 0 Refill(s) Start Date: 11/05/16 Status: Ordered Saline Flush 0.9% 10 mL, Route: IVP, Drug Form: INJ, Dosing Weight 100.909, kg, PRN, PRN Line Flus h, Start date: 11/05/16 6:21:00 CDT, Duration: 30 day, Stop date: 12/05/16 6:20: 00 CDT Notes: (Same as: BD Posiflush) Start Date: 11/05/16 Stop Date: 11/05/16 Status: Discontinued Sodium Chloride 0.9% (Bolus) IV 500 mL, Infuse Over: 1 hr, Route: IV, ONCE, Priority: STAT, Dosing Weight 100.90 9 kg, Start date: 11/05/16 6:21:00 CDT, Duration: 1 doses or times, Stop date: 0 11/05/16 6:21:00 CDT Start Date: 11/05/16 Stop Date: 11/05/16 Status: Completed Sodium Chloride 0.9% (Bolus) IV 250 mL, 250 ml/hr, Infuse Over: 1 hr, Route: IV, 250, Drug form: INJ, ONCALL, Pr iority: Routine, Dosing Weight 100.909 kg, Start date: 11/05/16 10:00:00 CDT, Du ration: 1 doses or times Start Date: 11/05/16 Stop Date: 11/05/16 Status: Discontinued sodium chloride 0.9% 1000 ml INJ 1,000 mL 1,000 mL, Rate: 75 ml/hr, Infuse over: 13.3 hr, Route: IV, Dosing Weight 100.909 kg, Total Volume: 1,000, Start date: 11/05/16 15:45:00 CDT, Duration: 10 hr, St op date: 11/06/16 1:44:00 CDT Start Date: 11/05/16 Stop Date: 11/06/16 Status: Completed sodium chloride 0.9% 1000 ml INJ 1,000 mL 1,000 mL, Rate: 100 ml/hr, Infuse over: 10 hr, Route: IV, Dosing Weight 100.909 kg, Total Volume: 1,000, Start date: 11/05/16 17:37:00 CDT, Duration: 10 hr, Sto p date: 11/06/16 3:36:00 CDT Start Date: 11/05/16 Stop Date: 11/06/16 Status: Completed sodium chloride 0.9% 1000 ml INJ 750 mL 750 mL, Rate: 75 ml/hr, Infuse over: 10 hr, Route: IV, Dosing Weight 100.909 kg, Total Volume: 750, Start date: 11/05/16 9:59:00 CDT, Duration: 24 hr, Stop date: 11/06/16 9:58:00 CDT Start Date: 11/05/16 Stop Date: 11/05/16 Status: Discontinued Tylenol 650 mg, 2 tab, Route: PO, Drug form: TAB, Q6H, Dosing Weight 100.909, kg, PRN Pa in Score 1-5, Start date: 11/05/16 10:00:00 CDT, Duration: 30 day, Stop date: 9:59:00 CDT Notes: Do not exceed 4 gm/day. (Same as: Tylenol) Start Date: 11/05/16 Stop Date: 11/06/16 Status: Discontinued Victoza 18 mg/3 mL subcutaneous injection 1.2 mg=0.2 mL, SUB-Q, Daily, 0 Refill(s) Start Date: 11/05/16 Stop Date: 11/06/16 Status: Discontinued Results ELECTROLYTES 1 2 3 Most recent to oldest [Reference Range]: 140 mEq/L (11/06/16 7:00 AM) 140 mEq/L (11/05/16 6:50 AM) Sodium Lvl [135-145 mEq/L] 5.0 mEq/L (11/06/16 7:00 AM) 4.5 mEq/L (11/05/16 6:50 AM) Potassium Lvl [3.5-5.1 mEq/L] 108 mEq/L (11/06/16 7:00 AM) 106 mEq/L (11/05/16 6:50 AM) Chloride Lvl [95-109 mEq/L] 25 mEq/L (11/06/16 7:00 AM) 26 mEq/L (11/05/16 6:50 AM) CO2 [24-32 mEq/L] 12.0 mEq/L (11/06/16 7:00 AM) 12.5 mEq/L (11/05/16 6:50 AM) AGAP [10.0-20.0 mEq/L] CHEM PANEL 1 2 3 Most recent to oldest [Reference Range]: 1.20 mg/dL (11/06/16 7:00 AM) 1.00 mg/dL (11/05/16 8:36 PM) 1.30 mg/dL (11/05/16 6:50 AM) Creatinine Lvl [0.50-1.40 mg/dL] 47 mL/min/1.73m2 1 *NA* (11/06/16 7:00 AM) 59 mL/min/1.73m2 2 *NA* (11/05/16 8:36 PM) 43 mL/min/1.73m2 3 *NA* (11/05/16 6:50 AM) eGFR 28 mg/dL *HI* (11/06/16 7:00 AM) 38 mg/dL *HI* (11/05/16 6:50 AM) BUN [7-22 mg/dL] 29 *HI* (11/05/16 6:50 AM) B/C Ratio [6-25] 136 mg/dL *HI* (11/06/16 7:00 AM) 160 mg/dL *HI* (11/05/16 6:50 AM) Glucose Lvl [70-99 mg/dL] 7.2 g/dL (11/05/16 6:50 AM) Total Protein [6.4-8.4 g/dL] 3.4 g/dL *LOW* (11/05/16 6:50 AM) Albumin Lvl [3.5-5.0 g/dL] 3.8 g/dL (11/05/16 6:50 AM) Globulin [2.7-4.2 g/dL] 0.9 (11/05/16 6:50 AM) A/G Ratio [0.7-1.6] 9.1 mg/dL (11/06/16 7:00 AM) 9.6 mg/dL (11/05/16 6:50 AM) Calcium Lvl [8.5-10.5 mg/dL] 2.2 mg/dL (11/05/16 6:50 AM) Magnesium Lvl [1.8-2.4 mg/dL] 20 unit/L (11/05/16 6:50 AM) ALT [0-65 unit/L] 15 unit/L (11/05/16 6:50 AM) AST [0-37 unit/L] 84 unit/L (11/05/16 6:50 AM) Alk Phos [39-136 unit/L] 0.4 mg/dL (11/05/16 6:50 AM) Bili Total [0.2-1.3 mg/dL] 103 unit/L (11/05/16 6:50 AM) Lipase Lvl [73-393 unit/L] 1Result Comment: [...] be mul tiplied by the estimated BMI. 3Result Comment: The eGFR is calculated using the [...] 3 Most recent to oldest [Reference Range]: 95 unit/L (11/05/16 6:50 AM) Total CK [12-191 unit/L] 2.1 ng/mL (11/05/16 6:50 AM) CK MB [0.5-3.6 ng/mL] 2.2 (11/05/16 6:50 AM) CK MB Index [0.0-2.5] <0.02 ng/mL (11/05/16 6:50 AM) Troponin-I [0.00-0.40 ng/mL] URINE AND STOOL 1 2 3 Most recent to oldest [Reference Range]: Clear (11/05/16 8:41 AM) UA Turbidity [Clear] Ltyellow *NA* (11/05/16 8:41 AM) UA Color 5.0 (11/05/16 8:41 AM) UA pH [5.0-8.0] 1.013 (11/05/16 8:41 AM) UA Spec Grav [<=1.030] Negative mg/dL *NA* (11/05/16 8:41 AM) UA Glucose [Negative mg/dL] Small *ABN* (11/05/16 8:41 AM) UA Blood [Negative] Negative mg/dL *NA* (11/05/16 8:41 AM) UA Ketones [Negative mg/dL] Negative mg/dL (11/05/16 8:41 AM) UA Protein [Negative mg/dL] <=1.0 mg/dL *NA* (11/05/16 8:41 AM) UA Urobilinogen [0.1-1.0 mg/dL] Negative *NA* (11/05/16 8:41 AM) UA Bili [Negative] Negative (11/05/16 8:41 AM) UA Leuk Est [Negative] Negative (11/05/16 8:41 AM) UA Nitrite [Negative] 1 /HPF (11/05/16 8:41 AM) UA WBC [0-5 /HPF] 1 /HPF (11/05/16 8:41 AM) UA RBC [0-2 /HPF] Occasional /HPF *NA* (11/05/16 8:41 AM) UA Bacteria [None Seen /HPF] Occasional /LPF *NA* (11/05/16 8:41 AM) UA Sq Epi [Few /LPF] HEMATOLOGY 1 2 3 Most recent to oldest [Reference Range]: 9.2 K/CMM (11/06/16 7:00 AM) 7.9 K/CMM (11/05/16 6:50 AM) WBC [3.7-10.4 K/CMM] 4.17 M/CMM *LOW* (11/06/16 7:00 AM) 4.41 M/CMM (11/05/16 6:50 AM) RBC [4.20-5.40 M/CMM] 13.4 g/dL (11/06/16 7:00 AM) 13.8 g/dL (11/05/16 8:36 PM) 14.1 g/dL (11/05/16 6:50 AM) Hgb [12.0-16.0 g/dL] 39.8 % (11/06/16 7:00 AM) 42.2 % (11/05/16 6:50 AM) Hct [36.0-48.0 %] 95.5 fL (11/06/16 7:00 AM) 95.8 fL (11/05/16 6:50 AM) MCV [80.0-98.0 fL] 32.0 pg *HI* (11/06/16 7:00 AM) 32.0 pg *HI* (11/05/16 6:50 AM) MCH [27.0-31.0 pg] 33.5 g/dL (11/06/16 7:00 AM) 33.4 g/dL (11/05/16 6:50 AM) MCHC [32.0-36.0 g/dL] 15.8 % *HI* (11/06/16 7:00 AM) 15.7 % *HI* (11/05/16 6:50 AM) RDW [11.5-14.5 %] 120 K/CMM *LOW* (11/06/16 7:00 AM) 210 K/CMM (11/05/16 6:50 AM) Platelet [133-450 K/CMM] 9.5 fL (11/06/16 7:00 AM) 9.4 fL (11/05/16 6:50 AM) MPV [7.4-10.4 fL] 70.7 % (11/06/16 7:00 AM) 62.6 % (11/05/16 6:50 AM) Segs [45.0-75.0 %] 20.3 % (11/06/16 7:00 AM) 28.1 % (11/05/16 6:50 AM) Lymphocytes [20.0-40.0 %] 7.6 % (11/06/16 7:00 AM) 6.1 % (11/05/16 6:50 AM) Monocytes [2.0-12.0 %] 0.9 % (11/06/16 7:00 AM) 2.6 % (11/05/16 6:50 AM) Eosinophils [0.0-4.0 %] 0.5 % (11/06/16 7:00 AM) 0.6 % (11/05/16 6:50 AM) Basophils [0.0-1.0 %] 6.5 K/CMM (11/06/16 7:00 AM) 5.0 K/CMM (11/05/16 6:50 AM) Segs-Bands # [1.5-8.1 K/CMM] 1.9 K/CMM (11/06/16 7:00 AM) 2.2 K/CMM (11/05/16 6:50 AM) Lymphocytes # [1.0-5.5 K/CMM] 0.7 K/CMM (11/06/16 7:00 AM) 0.5 K/CMM (11/05/16 6:50 AM) Monocytes # [0.0-0.8 K/CMM] 0.1 K/CMM (11/06/16 7:00 AM) 0.2 K/CMM (11/05/16 6:50 AM) Eosinophils # [0.0-0.5 K/CMM] 14.0 seconds (11/05/16 6:50 AM) PT [12.0-14.7 seconds] 1.06 (11/05/16 6:50 AM) INR [0.85-1.17] 33.1 seconds (11/05/16 6:50 AM) PTT [22.9-35.8 seconds] Immunizations No data [...] Clinical Document Author: Diego Merchant MD Date: 11/06/16 Cardiology Note Diego Merchant MD, PA SUBJECTIVE: She feels well overall. She notes occasional mild atypical brief chest pains. Vitals and Temp: VitalsTmp(F)[id number] 11/06 08:[id number]--- 11/06 04:[id number]--- 11/06 00:0098.262108/[id number]--- 11/05 22:[id number]--- 11/05 21:30----[id number]/[id number]--- 24 Hr Tmax: 98.7F (37.06c) at 11/05 20:00Vital Signs are the last 5 in the past 48 hours. Scheduled Meds (10): 11/05/16 allopurinol 100 mg PO BID 11/06/16 aspirin (aspirin 81 mg tablet, enteric coated) 81 mg PO Daily 11/06/16 clopidogrel 75 mg PO Daily 11/05/16 famotidine 20 mg PO Q12H 11/05/16 insulin glargine (Lantus 100 units/mL) 12 unit SUB-Q QPM 0 ml/hr 11/06/16 insulin glargine (Lantus 100 units/mL) 22 unit SUB-Q QAM 0 ml/hr 11/06/16 irbesartan 300 mg PO Daily 11/06/16 levothyroxine (Levothroid) 75 microgram PO Q630AM 11/06/16 metoprolol (metoprolol extended release) 50 mg PO Daily 11/05/16 pravastatin 40 mg PO Bedtime Continuous Infusions: None Labs (Last four charted values) WBC 9.2(NOV 06)7.9(NOV 05) Hgb 13.4(NOV 06)13.8(NOV 05)14.1(NOV 05) Hct 39.8(NOV 06)42.2(NOV 05) Plt L 120(NOV 06)210(NOV 05) Na 140(NOV 06)140(NOV 05) K 5.0(NOV 06)4.5(NOV 05) CO2 25(NOV 06)26(NOV 05) Cl 108(NOV 06)106(NOV 05) Cr 1.20(NOV 06)1.00(NOV 05)1.30(NOV 05) BUN H 28(NOV 06)H 38(NOV 05) Glucose Random H 136(NOV 06)H 160(NOV 05) Mg 2.2(NOV 05) Ca 9.1(NOV 06)9.6(NOV 05) PT 14.0(NOV 05) INR 1.06(NOV 05) PTT 33.1(NOV 05) Troponin <0.02(NOV 05) CK MB 2.1(NOV 05) Total CK 95(NOV 05) EXAM: Good BP control; NSR; afebrile Neck: no carotid bruit; no JVD CV: Regular; -S3; no significant murmurs Lungs: Clear; no wheezing; good air entry Abd: soft ; + bowel sounds Ext: no CCE; good pulses distally Neuro: nonfocal; oriented *3 ASSESSMENT: Status post PCI of the RCA including both the ostial RCA and the PDA in-stent restenosis done by Dr. Barnett using СЕРГЕЙ. The diagnostic catheterization was done by myself CAD status post CABG in 2003. Cath in 2016 showed subtotal ostial LAD with patent MG to the mid LAD, normal circumflex, 70% ostial RCA, and patent stent in the distal RCA. She was treated medically at that time but then had angina and a nuclear stress test in 09/2016 showed inferior ischemia. Normal LV systolic function with EF 50% by recent echo in the office. Mild PAD below the knees. PLAN: DC home today No new meds; she is already on a statin, beta-connie, and Plavix Cardiac diet Activity as tolerated; avoid stress to the right groin area F/U in 1 month Extracted from: Title: Clinical Document Author: Diego Merchant MD Date: 9/26/17 Cardiology Note Diego Merchant MD, PA SUBJECTIVE: Chief complaint: Chest pain HPI: 66-year-old female well-known to me from the office who I actually distal in my office 5 days ago presenting with recurrent chest pain. She recently had an abnormal nuclear stress test with inferior ischemia and I recommended cardiac catheterization but she wanted to wait until mid November because of family issues. She now comes through the ER complaining of recurrent chest pain. Past medical history: CAD status post CABG in 2003. Cath in 2016 showed subtotal ostial LAD with patent MG to the mid LAD, normal circumflex, 70% ostial RCA, and patent stent in the distal RCA. She was treated medically at that time but then had angina and a nuclear stress test in 09/2016 showed inferior ischemia. Hypertension Hyperlipidemia Diabetes Neuropathy Hypothyroidism Obesity Past surgical history: CABG in 2003 Cholecystectomy 1974 Hysterectomy 1986 Gastric stapling 1996 Disc surgery 2003 Family history: Mother with diabetes and heart disease; father with hypertension and heart disease; siblings with diabetes and heart disease Social history: The patient is a non-smoker does not drink she is Allergies: These include sulfa and Levaquin Review of systems: Notable for the above-mentioned chest pain. the remainder of her 12 point review of systems is unremarkable. Vitals and Temp: VitalsTmp(F)[id number] 11/05 08:57----[id number]--- 11/05 07:57----54514/[id number]--- 11/05 06:5197.761605/[id number]--- 11/05 06:1197.089927/[id number]--- 24 Hr Tmax: 97.9F (36.61c) at 11/05 06:51Vital Signs are the last 5 in the past 48 hours. Labs (Last four charted values) WBC 7.9(NOV 05) Hgb 14.1(NOV 05) Hct 42.2(NOV 05) Plt 210(NOV 05) Na 140(NOV 05) K 4.5(NOV 05) CO2 26(NOV 05) Cl 106(NOV 05) Cr 1.30(NOV 05) BUN H 38(NOV 05) Glucose Random H 160(NOV 05) Mg 2.2(NOV 05) Ca 9.6(NOV 05) PT 14.0(NOV 05) INR 1.06(NOV 05) PTT 33.1(NOV 05) Troponin <0.02(NOV 05) CK MB 2.1(NOV 05) Total CK 95(NOV 05) EXAM: Good BP control; NSR; afebrile Head: normocephalic and atraumatic Neck: no carotid bruit; no JVD CV: Regular; -S3; no significant murmurs Lungs: Clear; no wheezing; good air entry Abd: soft and no organomegaly; + bowel sounds Ext: no CCE; good pulses distally Neuro: nonfocal; oriented *3 Psych: appropriate ASSESSMENT: CAD status post CABG in 2004. Cath in 2016 showed subtotal ostial LAD with patent MG to the mid LAD, normal circumflex, 70% ostial RCA, and patent stent in the distal RCA. She was treated medically at that time but then had angina and a nuclear stress test in 09/2016 showed inferior ischemia. Normal LV systolic function with EF 50% by recent echo in the office. Mild PAD below the knees. PLAN: We will proceed with cardiac catheterization that today. It had already been scheduled for mid-November as per her request but now that she is here with recurrent angina she is agreeable to proceed today.
--- OUTSIDE RECORDS SUMMARY | 2017-12-18 07:04 | XMS REPORT ---
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 Active Assessment HTN (hypertension) I10 Active Problem Neuropathy G62.9 Active Problem CAD (coronary artery disease) I25.10 Active Assessment Discoloration of tongue K14.8 Active Problem Hypothyroid E03.9 Active Assessment Chronic UTI N39.0 Active Problem HTN (hypertension) I10 Active Medications Medication Code System Code Instructions Start Date End Date Status Dosage Irbesartan [facility] 15292444769 300 MG Orally Once a day August 01, 2016 Active 1 tablet Multi For Her 50+ [facility] 28018238590 Orally Active not defined Metoprolol Succinate NDC 0 50 mg Orally daily Dec 23, 2016 Active 1 tablet Humalog KwikPen [facility] 62680345402 100 UNIT/ML Subcutaneous before each meal Active 1-30 units Pravastatin Sodium ND 94040026208 40 MG Orally Once a day Active 1 tablet Trazodone HCl ND 39237986042 50 mg Orally qhs Oct 02, 2015 Active 1 tablet at bedtime as needed Aspir-81 [facility] 84231650503 81 MG Orally Once a day Active 1 tablet Bystolic [facility] 66421773940 10 mg Inactive 1 TABLET ONCE A DAY ORALLY 90 DAYS Lyrica [facility] 34730039451 75 mg Orally Twice a day Active 1 capsule Levothyroxine Sodium [facility] 18816395518 75 MCG Orally Once a day Active 1 tablet Carafate [facility] 49815976875 1 GM Orally Twice a day Active 1 tablet on an empty stomach Clopidogrel Bisulfate [facility] 62059802185 75 MG Orally Once a day Active 1 tablet Lantus SoloStar [facility] 55281313057 100 UNIT/ML Subcutaneous once a day Active 22 units am and 12 units at night Humalog KwikPen [facility] 00804387076 100 UNIT/ML Active 1-30 UNITS BEFORE EACH MEAL SUBCUTANEOUS 90 DAYS Hydrochlorothiazide [facility] 23641572872 12.5 MG Orally Once a day prn Active 1 capsule Vitamin D [facility] 25029783093 2000 UNIT Orally once a day Active 1 tablet Pantoprazole Sodium [facility] 07747214983 40 MG Orally Active 1 capsule Metoprolol Succinate ER [facility] [address]-52 50 mg Orally Once a day Active 1 tablet Cyclobenzaprine HCl [facility] 37234179438 10 MG Orally once a day as needed Active 1 tablet Allopurinol [facility] 82379300194 100 MG Orally Once a day Feb 11, 2017 Active 2 tablet Metoprolol Tartrate [facility] 58708575426 50 MG Orally once a day Active 1 tablet Vital Signs Date/Time: Dec 23, 2016 BMI 37.02 Index Weight 236.4 lbs Height 67 in Cardiac Monitoring Heart Rate 56 /min Blood Pressure Diastolic 64 mm Hg Blood Pressure Systolic 160 mm Hg Results No Known Results Summary Purpose eClinicalWorks Submission
--- OUTSIDE RECORDS SUMMARY | 2017-12-18 07:04 | XMS REPORT | Summary of Care ---
Author Author [facility] Organization [facility] Address Unknown Phone Unavailable Encounter KEVON Moreno(FIN) [id number] Date(s): 08/14/16 - 08/14/16 [facility] [address] [place] [address]- Discharge Disposition: Home or Self Care Attending Physician: Johanna Doss MD Admitting Physician: Johanna Doss MD Vital Signs 1 2 3 Most recent to oldest [Reference Range]: 170.18 cm (08/14/16 9:55 AM) Height 97.9 DegF (08/14/16 2:40 PM) 99 DegF (08/14/16 9:55 AM) Temperature Oral [96.4-99.1 DegF] 150/74 mmHg *HI* (08/14/16 8:00 PM) 161/73 mmHg *HI* (08/14/16 5:40 PM) 161/73 mmHg *HI* (08/14/16 5:10 PM) Blood Pressure [90-140/60-90 mmHg] 18 BRMIN (08/14/16 8:00 PM) 18 BRMIN (08/14/16 5:40 PM) 16 BRMIN (08/14/16 5:10 PM) Respiratory Rate [14-20 BRMIN] 74 bpm (08/14/16 11:19 AM) 74 bpm (08/14/16 10:49 AM) 82 bpm (08/14/16 10:19 AM) Peripheral Pulse Rate [60-100 bpm] 100 kg (08/14/16 9:55 AM) Weight 34.53 m2 (08/14/16 9:55 AM) Body Mass Index Problem List Condition [...] Dosing Weight 100, kg, Start da te: 08/15/16 9:00:00 CDT, Duration: 30 day, Stop date: 09/13/16 9:00:00 CDT Notes: (Same as: Zyloprim) Start Date: 08/15/16 Stop Date: 08/16/16 Status: Discontinued aspirin 81 mg tablet, enteric coated 81 mg, 1 tab, Route: PO, Drug form: ECTAB, Daily, Dosing Weight 100, kg, Start d ate: 08/15/16 9:00:00 CDT, Duration: 30 day, Stop date: 09/13/16 9:00:00 CDT Notes: Do not crush or chew.(Same As: Ecotrin) Start Date: 08/15/16 Stop Date: 08/16/16 Status: Discontinued Bystolic 10 mg, 1 tab, Route: PO, Drug form: TAB, Daily, Dosing Weight 100, kg, Start sunday e: 08/15/16 9:00:00 CDT, Duration: 30 day, Stop date: 09/13/16 9:00:00 CDT Notes: (same as: Bystolic) Start Date: 08/15/16 Stop Date: 08/16/16 Status: Discontinued clopidogrel 75 mg, 1 tab, Route: PO, Drug form: TAB, Bedtime, Dosing Weight 100, kg, Start d ate: 08/14/16 21:00:00 CDT, Duration: 30 day, Stop date: 09/12/16 21:00:00 CDT Notes: (Same As: Plavix) Start Date: 08/14/16 Stop Date: 08/16/16 Status: Discontinued irbesartan 150 mg, 1 tab, Route: PO, Drug form: TAB, Daily, Dosing Weight 100, kg, Start da te: 08/15/16 9:00:00 CDT, Duration: 30 day, Stop date: 09/13/16 9:00:00 CDT Notes: (Same as:Avapro) Start Date: 08/15/16 Stop Date: 08/16/16 Status: Discontinued levothyroxine 75 microgram, 1 tab, Route: PO, Drug form: TAB, Q630AM, Dosing Weight 100, kg, S tart date: 08/15/16 6:30:00 CDT, Duration: 30 day, Stop date: 09/13/16 6:30:00 C DT Notes: Take 1 hour before or 2 hours after meal; Enteral feeds may interefere wi th the absorption of this medication. (Same as:Synthroid, Levothroid) Start Date: 08/15/16 Stop Date: 08/16/16 Status: Discontinued pravastatin 40 mg, 2 tab, Route: PO, Drug form: TAB, Daily, Dosing Weight 100, kg, Start sunday e: 08/15/16 9:00:00 CDT, Duration: 30 day, Stop date: 09/13/16 9:00:00 CDT Notes: (Same as: Pravachol) Start Date: 08/15/16 Stop Date: 08/16/16 Status: Discontinued Saline Flush 0.9% 10 mL, Route: IVP, Drug Form: INJ, Dosing Weight 100, kg, PRN, PRN Line Flush, S tart date: 08/14/16 11:07:00 CDT, Duration: 30 day, Stop date: 09/13/16 11:06:00 CDT Notes: (Same as: BD Posiflush) Start Date: 08/14/16 Stop Date: 08/16/16 Status: Discontinued Sodium Chloride 0.9% (Bolus) IV 1,000 mL, 1000 ml/hr, Infuse Over: 1 hr, Route: IV, 1,000, Drug form: INJ, ONCE, Priority: STAT, Dosing Weight 100 kg, Start date: 08/14/16 11:07:00 CDT, Durati on: 1 doses or times, Stop date: 08/14/16 11:07:00 CDT Start Date: 08/14/16 Stop Date: 08/14/16 Status: Completed Vitamin D3 2000 intl units oral tablet 2,000 IntlUnit, 2 tab, Route: PO, Drug form: TAB, Daily, Dosing Weight 100, kg, Start date: 08/15/16 9:00:00 CDT, Duration: 30 day, Stop date: 09/13/16 9:00:00 CDT Notes: Same as : Vitamin D3 Start Date: 08/15/16 Stop Date: 08/16/16 Status: Discontinued Results ELECTROLYTES Most recent to 1 oldest [Reference Range]: Sodium Lvl [135-145 141 mEq/L mEq/L] (08/14/16 11:28 AM) Potassium Lvl 4.4 mEq/L [3.5-5.1 mEq/L] (08/14/16 11:28 AM) Chloride Lvl [95-109 105 mEq/L mEq/L] (08/14/16 11:28 AM) CO2 [24-32 mEq/L] 30 mEq/L (08/14/16 11:28 AM) AGAP [10.0-20.0 10.4 mEq/L mEq/L] (08/14/16 11:28 AM) CHEM PANEL Most recent to 1 oldest [Reference Range]: Creatinine Lvl 1.40 mg/dL [0.50-1.40 mg/dL] (08/14/16 11:28 AM) eGFR 39 mL/min/1.73m2 1 *NA* (08/14/16 11:28 AM) BUN [7-22 mg/dL] 30 mg/dL *HI* (08/14/16 11:28 AM) B/C Ratio [6-25] 21 (08/14/16 11:28 AM) Glucose Lvl [70-99 79 mg/dL mg/dL] (08/14/16 11:28 AM) Total Protein 7.2 g/dL [6.4-8.4 g/dL] (08/14/16 11:28 AM) Albumin Lvl [3.5-5.0 3.6 g/dL g/dL] (08/14/16 11:28 AM) Globulin [2.7-4.2 3.6 g/dL g/dL] (08/14/16 11:28 AM) A/G Ratio [0.7-1.6] 1.0 (08/14/16 11:28 AM) Calcium Lvl 9.3 mg/dL [8.5-10.5 mg/dL] (08/14/16 11:28 AM) ALT [0-65 unit/L] 35 unit/L (08/14/16 11:28 AM) AST [0-37 unit/L] 24 unit/L (08/14/16 11:28 AM) Alk Phos [39-136 77 unit/L unit/L] (08/14/16 11:28 AM) Bili Total [0.2-1.3 0.6 mg/dL mg/dL] (08/14/16 11:28 AM) 1Result Comment: The eGFR is calculated [...] 1 oldest [Reference Range]: Total CK [12-191 66 unit/L unit/L] (08/14/16 11:28 AM) CK MB [0.5-3.6 2.4 ng/mL ng/mL] (08/14/16 11:28 AM) CK MB Index 3.6 [0.0-2.5] *HI* (08/14/16 11:28 AM) Troponin-I <0.02 ng/mL [0.00-0.40 ng/mL] (08/14/16 11:28 AM) URINE AND STOOL Most recent to 1 oldest [Reference Range]: UA Turbidity [Clear] Clear (08/14/16 1:12 PM) UA Color Ltyellow *NA* (08/14/16 1:12 PM) UA pH [5.0-8.0] 5.0 (08/14/16 1:12 PM) UA Spec Grav 1.012 [<=1.030] (08/14/16 1:12 PM) UA Glucose [Negative Negative mg/dL mg/dL] *NA* (08/14/16 1:12 PM) UA Blood [Negative] Small *ABN* (08/14/16 1:12 PM) UA Ketones [Negative Negative mg/dL mg/dL] *NA* (08/14/16 1:12 PM) UA Protein [Negative Negative mg/dL mg/dL] (08/14/16 1:12 PM) UA Urobilinogen <=1.0 mg/dL [0.1-1.0 mg/dL] *NA* (08/14/16 1:12 PM) UA Bili [Negative] Negative *NA* (08/14/16 1:12 PM) UA Leuk Est Moderate [Negative] *ABN* (08/14/16 1:12 PM) UA Nitrite Negative [Negative] (08/14/16 1:12 PM) UA WBC [0-5 /HPF] 6 /HPF *HI* (08/14/16 1:12 PM) UA RBC [0-2 /HPF] 2 /HPF (08/14/16 1:12 PM) UA Bacteria [None Many /HPF Seen /HPF] *ABN* (08/14/16 1:12 PM) UA Sq Epi [Few /LPF] Occasional /LPF *NA* (08/14/16 1:12 PM) HEMATOLOGY Most recent to 1 oldest [Reference Range]: WBC [3.7-10.4 K/CMM] 6.2 K/CMM (08/14/16 11:28 AM) RBC [4.20-5.40 4.73 M/CMM M/CMM] (08/14/16 11:28 AM) Hgb [12.0-16.0 g/dL] 14.6 g/dL (08/14/16 11:28 AM) Hct [36.0-48.0 %] 44.7 % (08/14/16 11:28 AM) MCV [80.0-98.0 fL] 94.4 fL (08/14/16 11:28 AM) MCH [27.0-31.0 pg] 30.9 pg (08/14/1628 AM) MCHC [32.0-36.0 32.7 g/dL g/dL] (08/14/16:28 AM) RDW [11.5-14.5 %] 15.3 % *HI* (08/14/1628 AM) Platelet [133-450 166 K/CMM K/CMM] (08/14/16:28 AM) MPV [7.4-10.4 fL] 9.9 fL (08/14/16: AM) Segs [45.0-75.0 %] 61.8 % (08/14/16: AM) Lymphocytes 28.4 % [20.0-40.0 %] (08/14/16 AM) Monocytes [2.0-12.0 8.1 % %] (08/14/16: AM) Eosinophils [0.0-4.0 1.3 % %] (08/14/16: AM) Basophils [0.0-1.0 0.4 % %] (08/14/16: AM) Segs-Bands # 3.9 K/CMM [1.5-8.1 K/CMM] (08/14/16:28 AM) Lymphocytes # 1.8 K/CMM [1.0-5.5 K/CMM] (08/14/16:28 AM) Monocytes # [0.0-0.8 0.5 K/CMM K/CMM] (08/14/16:28 AM) Eosinophils # 0.1 K/CMM [0.0-0.5 K/CMM] (08/14/16:28 AM) PT [12.0-14.7 12.2 seconds seconds] (08/14/16 11:28 AM) INR [0.85-1.17] 0.89 (08/14/16: AM) PTT [22.9-35.8 33.2 seconds seconds] (08/14/16 11:28 AM) Immunizations No data available for this [...] No. Smoking Status Never smoker; Type: Cigars; Previous treatment: None; Ready to change: No; Concerns about tobacco use in household: No; Exposure to Tobacco Smoke None; Cigarette Smoking Last 365 Days No; Reg Smoking Cessation Counseling No Assessment and Plan Extracted from: Title: Clinical Document Author: Katie Spencer MD Date: 08/14/16 History and Physical Chief Complaint History of Present Illness 65-year-old female with history of diabetes mellitus hypertension hypogonadism coronary artery disease. Patient accidentally today took 22 units of Humalog insulin versus 5 units of Humalog instead of taking the Levemir subsequently her blood sugars dropped down to the 30s and was brought into the emergency room. In the emergency room earlier hours blood sugar was around 43 now the latest blood suga rs around 143 time of accidental ingestion was around 9:30 in the morning Past Medical History Diabetes mellitus, hypertension, hyperlipidemia, hypothyroidism, Past surgical history Open heart surgery Cholecystectomy Hysterectomy Gastric stapling Tonsillectomy Cardiac catheterization Allergies Levaquin and sulfa, iodine Medications See reconciliation form Social history Does not smoke does not drink Family history Noncontributory Review Of Systems Nervous no neurological symptoms Endocrine none Skin no skin rash Cardiovascular no chest pain, no shortness of breath, no palpitation Hematology/Coagulation no bleeding Urinary no burning with urination Genital none Metabolic Musculoskeletal no pain GI / Alimentary no nausea no vomiting no diarrhea no constipation no blood in the stools Respiratory no shortness of breath, no wheezing Infection no fever no chills Physical Exam Head PERRLA EOMI Neck no JVD no bruit thyroid within normal no lymph nodes Chest: Clear to auscultation and percussion no adventurous sounds Heart RRR S1-S2 normal no murmurs Abdomen positive for bowel sounds no tenderness no rebound no rigidity no guarding Lower limbs no edema no cyanosis pulses intact Neurological exam grossly intact sensory or motor Labs (Last four charted values) WBC 6.2(AUG 14) Hgb 14.6(AUG 14) Hct 44.7(AUG 14) Plt 166(AUG 14) Na 141(AUG 14) K 4.4(AUG 14) CO2 30(AUG 14) Cl 105(AUG 14) Cr 1.40(AUG 14) BUN H 30(AUG 14) Glucose Random 79(AUG 14) Ca 9.3(AUG 14) PT 12.2(AUG 14) INR 0.89(AUG 14) PTT 33.2(AUG 14) Troponin <0.02(AUG 14) CK MB 2.4(AUG 14) Total CK 66(AUG 14) Problems Accidental overdosing of insulin Diabetes mellitus Hypertension Hyperlipidemia Hypothyroidism 6. Spondylosis Plan Patient received IV fluids received sugar. Her latest blood sugar was 147. The patient does not want to stay in the hospital. Will go ahead and discharge the patient to follow-up in my office in a.m. if patient was advised not to take any further insulin for the day. I will see her in a.m. and adjust insulin accordingly. This was discussed with patient in details of the questions has been answered in details thank you again patient had declined being admitted
--- OUTSIDE RECORDS SUMMARY | 2017-12-18 07:04 | XMS REPORT | Summary of Care ---
Author Author [facility] Organization [facility] Address Unknown Phone Unavailable Encounter KEVON Moreno(BLESSING) [id number] Date(s): 07/22/17 - 07/22/17 [facility] [address] [place] [address]- [phone] Discharge Disposition: Home or Self Care Attending Physician: Jose Eisenberg MD Referring Physician: Jose Eisenberg MD Vital Signs No data [...] Substance Reaction Severity Status sulfa drugs Active Levaquin Active Medications No data available for this section Results CHEM PANEL Most recent to 1 oldest [Reference Range]: eGFR 47 mL/min/1.73m2 1 *NA* (07/22/17 12:49 PM) POC Creatinine 1.2 mg/dL [0.5-1.4 mg/dL] (07/22/17 12:49 PM) 1Result Comment: The eGFR is calculated [...] be mul tiplied by the estimated BMI. Immunizations No data available for this section Procedures Procedure Date Related Diagnosis Body Site Status Cardiac catheterization Completed Cholecystectomy Completed Excision of disc for intervertebral herniated Completed disc, nucleus pulposus Gastric stapling Completed Hysterectomy Completed Open heart surgery Completed Tonsillectomy Completed Social History Social History Type Response Alcohol [...] Days No; Reg Smoking Cessation Counseling No entered on: 11/28/16 Assessment and Plan No data available for this section
--- OUTSIDE RECORDS SUMMARY | 2017-12-18 07:04 | XMS REPORT ---
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 Active Problem HNP (herniated nucleus pulposus), lumbar M51.26 Active Problem Sinusitis, unspecified chronicity, unspecified location J32.9 Active Problem CAD (coronary artery disease) I25.10 Active Problem HTN (hypertension) I10 Active Problem Personal history of other specified conditions Z87.898 Active Problem Type 2 diabetes mellitus without complications E11.9 Active Assessment Other specified soft tissue disorders M79.89 Active Assessment Soft tissue mass M79.9 Active Problem Neuropathy G62.9 Active Medications Medication Code System Code Instructions Start Date End Date Status Dosage Lyrica [facility] [address]-73 75 mg Orally Twice a day Active 1 capsule Clopidogrel Bisulfate [facility] [address]-61 75 MG Orally Once a day Active [address] [facility] [address]-81 150 MG Orally Once a day Active 1 tablet Tizanidine HCl [facility] [address]-16 2 MG Orally every 8 hrs Nov 16, 2015 Active 1 tablet as needed Omeprazole [facility] [address]-82 20 MG Orally Once a day Active 1 capsule Pravastatin Sodium [facility] [address]-91 40 MG Orally Once a day Active 1 tablet Humalog KwikPen [facility] [address]-58 100 UNIT/ML Subcutaneous before each meal Active 1-30 units [address] [facility] [address]-98 12.5 MG Orally Once a day Active 1 capsule Multi For Her [address]+ [facility] [address] Orally Active not defined Vitamin D [facility] [address]-31 2000 UNIT Orally once a day Active 1 tablet Levothyroxine Sodium [facility] [address]-54 75 MCG Orally Once a day Active [address] [facility] [address]-23 10 MG Orally Once a day Active 1 tablet Lantus SoloStar [facility] [address]-31 100 UNIT/ML Subcutaneous once a day Active 30 units Trazodone HCl [facility] [address]-51 50 mg Orally qhs Oct 02, 2015 Active 1 tablet at bedtime as needed Allopurinol [facility] [address]-22 100 MG Orally Once a day April 28, 2017 Active 2 tablet Aspir-[address] [facility] [address]-56 81 MG Orally Once a day Active 1 tablet Results No Known Results Summary Purpose [employer] Submission
--- OUTSIDE RECORDS SUMMARY | 2017-12-18 07:04 | XMS REPORT ---
Author Will Sage Organization [employer] Address Unknown Phone Unavailable Care Team Providers Care Water Systems Engineer Name Role Phone Will Mclean CP Unavailable Allergies, Adverse Reactions, Alerts Substance [...] diabetes mellitus without complications E11.9 Active Assessment HNP (herniated nucleus pulposus), lumbar M51.26 Active Assessment Type 2 diabetes mellitus without complications E11.9 Active Assessment Other specified soft tissue disorders M79.89 Active Assessment Sinusitis, unspecified chronicity, unspecified location J32.9 Active Assessment CAD (coronary artery disease) I25.10 Active Problem Neuropathy G62.9 Active Medications Medication Code System Code Instructions Start Date End Date Status Dosage Bystolic [facility] [address]-81 10 MG Orally Once a day Active 1 tablet Vitamin D [facility] [address]-78 2000 UNIT Orally once a day Active 1 tablet Clopidogrel Bisulfate [facility] [address]-12 75 MG Orally Once a day Active 1 tablet Irbesartan [facility] [address]-25 150 MG Orally Once a day Active 1 tablet Levothyroxine Sodium [facility] [address]-35 75 MCG Orally Once a day Active 1 tablet Multi For Her 50+ [facility] [address]35-[address] Orally Active not defined Trazodone HCl [facility] [address]-15 50 mg Orally q Oct 02, 2015 Active 1 tablet at bedtime as needed Pravastatin Sodium [facility] [address]-64 40 MG Orally Once a day Active 1 tablet Omeprazole [facility] [address]-96 20 MG Orally Once a day Active 1 capsule Humalog KwikPen [facility] [address]-87 100 UNIT/ML Subcutaneous before each meal Active 1-30 units Allopurinol [facility] [address]-80 100 MG Orally Once a day April 28, 2017 Active 2 tablet Lantus SoloStar [facility] [address]-36 100 UNIT/ML Subcutaneous once a day Active 30 units Lyrica [facility] [address]-17 75 mg Orally Twice a day Active 1 capsule Aspir-81 [facility] [address]-70 81 MG Orally Once a day Active 1 tablet Tizanidine HCl [facility] [address]-00 2 MG Orally every 8 hrs Nov 16, 2015 Active 1 tablet as needed Hydrochlorothiazide [facility] [address]-48 12.5 MG Orally Once a day Active 1 capsule Vital Signs Date/Time: July 10, 2016 BMI 35.86 Index Weight 229 lbs Height 67 in Cardiac Monitoring Heart Rate 61 /min Blood Pressure Diastolic 80 mm Hg Blood Pressure Systolic 160 mm Hg Results No Known Results Summary Purpose [employer] Submission
--- OUTSIDE RECORDS SUMMARY | 2017-12-18 07:04 | XMS REPORT | Summary of Care ---
Author Author [facility] Address Unknown Phone Unavailable Encounter HQ Josh(FIN) [id number] Date(s): 06/16/16 - 06/16/16 [facility] Out[facility] [address] [place] [address]- Discharge Disposition: Home or Self Care Attending Physician: Becca Acosta MD Vital Signs No data available for [...]
--- OUTSIDE RECORDS SUMMARY | 2017-12-18 07:04 | XMS REPORT ---
Author Author Macy Weeks [facility] [employer] Address Unknown Phone Unavailable Care Team Providers Care Sterilization Technician Name Role Phone Macy Weeks CP [...] E11.9 Active Assessment HLD (hyperlipidemia) E78.5 Active Assessment Hypothyroid E03.9 Active Assessment Sinusitis, unspecified chronicity, unspecified location J32.9 Active Assessment HNP (herniated nucleus pulposus), lumbar M51.26 Active Assessment HTN (hypertension) I10 Active Assessment CAD (coronary artery disease) I25.10 Active Assessment GERD (gastroesophageal reflux disease) K21.9 Active Assessment Type 2 diabetes mellitus without complications E11.9 Active Assessment Upper respiratory tract infection, unspecified type J06.9 Active Problem Neuropathy G62.9 Active Medications Medication Code System Code Instructions Start Date End Date Status Dosage Omeprazole [facility] [address]-82 20 MG Orally Once a day Active 1 capsule Humalog KwikPen [facility] [address]-30 100 UNIT/ML Subcutaneous before each meal Active 1-30 units Augmentin [facility] [address]-02 875-125 MG Orally once a day June 24, 2016 July 04, 2016 Active 1.25 tab(s) Vitamin D [facility] [address]-74 2000 UNIT Orally once a day Active 1 tablet Aspir-81 [facility] [address]-35 81 MG Orally Once a day Active 1 tablet Lantus SoloStar [facility] [address]-94 100 UNIT/ML Subcutaneous once a day Active 30 units Trazodone HCl [facility] [address]-38 50 mg Orally qhs Oct 02, 2015 Active 1 tablet at bedtime as needed Allopurinol [facility] [address]-30 100 MG Orally Once a day April 28, 2017 Active 2 tablet Pravastatin Sodium [facility] [address]-90 40 MG Orally Once a day Active 1 tablet Levothyroxine Sodium [facility] [address]-29 75 MCG Orally Once a day Active 1 tablet Bystolic [facility] [address]-02 10 MG Orally Once a day Active 1 tablet Hydrochlorothiazide [facility] [address]-77 12.5 MG Orally Once a day Active 1 capsule Tizanidine HCl [facility] [address]-70 2 MG Orally every 8 hrs Nov 16, 2015 Active 1 tablet as needed Lyrica [facility] [address]-66 75 mg Orally Twice a day Active 1 capsule Irbesartan [facility] [address]-38 150 MG Orally Once a day Active 1 tablet Multi For Her 50+ [facility] 78333-[address]76 Orally Active not defined Clopidogrel Bisulfate [facility] [address]-29 75 MG Orally Once a day Active 1 tablet Vital Signs Date/Time: June 24, 2016 BMI 35.39 Index Weight 226 lbs Height 67 in Temperature 97.7 F Cardiac Monitoring Heart Rate 68 /min Blood Pressure Diastolic 82 mm Hg Blood Pressure Systolic 168 mm Hg Results Name Result Date Reference Range Unit Abnormality Flag Sinus 3 Views- Xray Summary Purpose [employer] Submission
--- OUTSIDE RECORDS SUMMARY | 2017-12-18 07:05 | XMS REPORT ---
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
--- OUTSIDE RECORDS SUMMARY | 2017-12-18 07:05 | XMS REPORT ---
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 Active Assessment HNP (herniated nucleus pulposus), lumbar M51.26 Active Assessment Neuropathy G62.9 Active Assessment CAD (coronary artery disease) I25.10 Active Assessment Cough R05 Active Problem HLD (hyperlipidemia) E78.5 Active Assessment Upper respiratory tract infection, unspecified type J06.9 Active Problem Hypothyroid E03.9 Active Assessment Screening for colon cancer Z12.11 Active Problem HTN (hypertension) I10 Active Problem Type 2 diabetes mellitus without complications E11.9 Active Problem CAD (coronary artery disease) I25.10 Active Problem CKD (chronic kidney disease) stage 3, GFR 30-59 ml/min N18.3 Active Problem Sinusitis, unspecified chronicity, unspecified location J32.9 Active Assessment BMI 35.0-35.9,adult Z68.35 Active Assessment Screening for malignant neoplasm of breast Z12.39 Active Problem Peripheral vascular disease I73.9 Active Assessment Asymptomatic menopausal state Z78.0 Active Problem HNP (herniated nucleus pulposus), lumbar M51.26 Active Problem Personal history of other specified conditions Z87.898 Active Problem BMI 35.0-35.9,adult Z68.35 Active Problem 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 Active Assessment Hypothyroid E03.9 Active Assessment HTN (hypertension) I10 Active Assessment GERD (gastroesophageal reflux disease) K21.9 Active Assessment HLD (hyperlipidemia) E78.5 Active Problem Neuropathy G62.9 Active Problem GERD (gastroesophageal reflux disease) K21.9 Active Assessment Type 2 diabetes mellitus without complications E11.9 Active Assessment Routine general medical examination at a health care facility Z00.00 Active Medications Medication Code System Code Instructions Start Date End Date Status Dosage Levothyroxine Sodium [facility] [address]-07 75 MCG Orally Once a day Active 1 tablet Victoza [facility] [address]-14 18 MG/3ML Subcutaneous Once a day Inactive 1.2 Trazodone HCl [facility] [address]-47 50 mg Orally qhs Oct 02, 2015 Active 1 tablet at bedtime as needed Aspir-81 [facility] [address]-26 81 MG Orally Once a day Active 1 tablet Lantus SoloStar [facility] [address]-30 100 UNIT/ML Subcutaneous once a day Active 22 units am and 12 units at night Tizanidine HCl [facility] [address]-62 2 MG Orally every 8 hrs Nov 16, 2015 Inactive 1 tablet as needed Clopidogrel Bisulfate [facility] [address]-55 75 MG Orally Once a day Active 1 tablet Pravastatin Sodium [facility] [address]-28 40 MG Orally Once a day Active 1 tablet Lyrica [facility] [address]-82 75 mg Orally Twice a day Active 1 capsule Irbesartan [facility] [address]-98 300 MG Orally Once a day August 01, 2016 Active 1 tablet Multi For Her 50+ [facility] 59[address] Orally Active not defined Vitamin D [facility] [address]-57 2000 UNIT Orally once a day Active 1 tablet Metoprolol Tartrate [facility] [address]-59 50 MG Orally once a day Active 1 tablet Hydrochlorothiazide [facility] [address]-56 12.5 MG Orally Once a day Active 1 capsule Allopurinol [facility] [address]-03 100 MG Orally Once a day Feb 11, 2017 Active 2 tablet Cyclobenzaprine HCl [facility] [address]-42 10 MG Orally once a day as needed Active 1 tablet Amoxicillin [facility] [address]-06 500 MG Orally every 12 hrs Nov 04, 2016 Dec 14, 2016 Active 1 capsule Omeprazole [facility] [address]-68 20 MG Orally Once a day Active 1 capsule Humalog KwikPen [facility] [address]-01 100 UNIT/ML Subcutaneous before each meal Active 1-30 units Humalog KwikPen [facility] 73091854955 100 UNIT/ML Active 1-30 UNITS BEFORE EACH MEAL SUBCUTANEOUS 90 DAYS Bromfed DM [facility] [address]-24 30-2-10 MG/5ML Orally every 4 hrs prn cough Nov 04, 2016 Jan 03, 2017 Active 10 ml as needed Vital Signs Date/Time: Nov 04, 2016 BMI 35.24 Index Weight 225 lbs Height 67 in Cardiac Monitoring Heart Rate 62 /min Blood Pressure Diastolic 80 mm Hg Blood Pressure Systolic 146 mm Hg Results Name Result Date Reference Range Unit Abnormality Flag CBC (INCLUDES DIFF/PLT) ----ABSOLUTE NEUTROPHILS 4395 [id number] 8547-6537 cells/uL N ----MPV 11.5 [id number] 7.5-12.5 fL N ----EOSINOPHILS 3.6 48558887 % N ----HEMOGLOBIN 13.5 33688247 11.7-15.5 g/dL N ----MONOCYTES 7.5 78520086 % N ----HEMATOCRIT 40.3 68685287 35.0-45.0 % N ----LYMPHOCYTES 34.4 05390238 % N ----MCV 92.4 13594685 80.0-100.0 fL N ----NEUTROPHILS 53.6 55736389 % N ----MCH 31.0 60859369 27.0-33.0 pg N ----ABSOLUTE BASOPHILS 74 10638074 0-200 cells/uL N ----MCHC 33.5 00140348 32.0-36.0 g/dL N ----BASOPHILS 0.9 22973982 % N ----ABSOLUTE EOSINOPHILS 295 57906262 15-500 cells/uL N ----RDW 13.5 58529684 11.0-15.0 % N ----WHITE BLOOD CELL COUNT 8.2 66739140 3.8-10.8 Thousand/uL N ----PLATELET COUNT 247 30117847 140-400 Thousand/uL N ----ABSOLUTE MONOCYTES 615 79909234 200-950 cells/uL N ----RED BLOOD CELL COUNT 4.36 18025000 3.80-5.10 Million/uL N ----ABSOLUTE LYMPHOCYTES 2821 11387098 850-3900 cells/uL N LIPID PANEL ----NON HDL CHOLESTEROL 94 62569000 <130 mg/dL (calc) N ----CHOL/HDLC RATIO 3.0 77480641 <5.0 (calc) N ----CHOLESTEROL, TOTAL 142 42705646 <200 mg/dL N ----HDL CHOLESTEROL 48 99621268 >50 mg/dL L ----TRIGLYCERIDES 95 58856536 <150 mg/dL N ----LDL-CHOLESTEROL 76 16639857 mg/dL (calc) N TSH ----TSH 1.21 20161104 0.40-4.50 mIU/L N Summary Purpose eClinicalWorks Submission
--- OUTSIDE RECORDS SUMMARY | 2017-12-18 07:05 | XMS REPORT ---
Author Author Macy Weeks [facility] eClinicalWorks Address Unknown Phone Unavailable Care Team Providers Care Manifold Builder Name Role Phone Macy Weeks CP Unavailable Allergies No Known Allergies Problems Problem Type Condition Code Onset Dates Condition Status Problem Hypothyroid E03.9 Active Problem CAD (coronary artery disease) I25.10 Active Problem HTN (hypertension) I10 Active Problem Sinusitis, unspecified chronicity, unspecified location J32.9 Active Problem BMI 35.0-35.9,adult Z68.35 Active Problem CKD (chronic kidney disease) stage 3, GFR 30-59 ml/min N18.3 Active Problem Personal history of other specified conditions Z87.898 Active Problem Type 2 diabetes mellitus without complications E11.9 Active Problem 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
--- OUTSIDE RECORDS SUMMARY | 2017-12-18 07:05 | XMS REPORT ---
Author Author Macy Weeks [facility] eClinicalWorks Address Unknown Phone Unavailable Care Team Providers Care Director Of Social Media Marketing Name Role Phone Macy Weeks CP Unavailable [...] (herniated nucleus pulposus), lumbar M51.26 Active Problem Neuropathy G62.9 Active Problem GERD (gastroesophageal reflux disease) K21.9 Active Problem HLD (hyperlipidemia) E78.5 Active Medications No Known Medications Results No Known Results Summary Purpose eClinicalWorks Submission
--- OUTSIDE RECORDS SUMMARY | 2017-12-18 07:05 | XMS REPORT ---
Author Author Macy Weeks [facility] eClinicalWorks Address Unknown Phone Unavailable Care Team Providers Care Service Operations Manager Name Role Phone Macy Weeks CP Unavailable [...] (herniated nucleus pulposus), lumbar M51.26 Active Assessment Hypothyroid E03.9 Active Problem Neuropathy G62.9 Active Problem GERD (gastroesophageal reflux disease) K21.9 Active Assessment HLD (hyperlipidemia) E78.5 Active Problem HLD (hyperlipidemia) E78.5 Active Medications Medication Code System Code Instructions Start Date End Date Status Dosage Pravastatin Sodium [facility] [address]-65 40 MG Orally Once a day Active 1 tablet Levothyroxine Sodium [facility] [address]-71 75 MCG Orally Once a day Active 1 tablet Results No Known Results Summary Purpose eClinicalWorks Submission
--- OUTSIDE RECORDS SUMMARY | 2017-12-18 07:05 | XMS REPORT ---
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 Problem Type 2 diabetes mellitus with diabetic chronic kidney disease E11.22 Active Problem BMI 37.0-37.9, adult Z68.37 Active Problem CKD (chronic kidney disease) stage 3, GFR 30-59 ml/min N18.3 Active Problem Sinusitis, unspecified chronicity, unspecified location J32.9 Active Problem Type 2 diabetes mellitus with diabetic neuropathy, unspecified E11.40 Active Problem Peripheral vascular disease I73.9 Active Assessment HTN (hypertension) I10 Active Problem Hypothyroid E03.9 Active Problem HTN (hypertension) I10 Active Problem Neuropathy G62.9 Active Problem GERD (gastroesophageal reflux disease) K21.9 Active Problem CAD (coronary artery disease) I25.10 Active Problem HLD (hyperlipidemia) E78.5 Active Medications Medication Code System Code Instructions Start Date End Date Status Dosage Humalog [facility] 29248141774 100 UNIT/ML Subcutaneous as directed Active 10 -20 units before meals Metoprolol Succinate ER [facility] 71739724737 50 mg Orally twice a day (bid) Active 1 tablet Results No Known Results Summary Purpose eClinicalWorks Submission
--- OUTSIDE RECORDS SUMMARY | 2017-12-18 07:05 | XMS REPORT ---
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 Problem Type 2 diabetes mellitus with diabetic chronic kidney disease E11.22 Active Problem BMI 37.0-37.9, adult Z68.37 Active Problem CKD (chronic kidney disease) stage 3, GFR 30-59 ml/min N18.3 Active Problem Sinusitis, unspecified chronicity, unspecified location J32.9 Active Problem Type 2 diabetes mellitus with diabetic neuropathy, unspecified E11.40 Active Problem Peripheral vascular disease I73.9 Active Problem Hypothyroid E03.9 Active Problem HTN (hypertension) I10 Active Problem Neuropathy G62.9 Active Problem GERD (gastroesophageal reflux disease) K21.9 Active Problem CAD (coronary artery disease) I25.10 Active Problem HLD (hyperlipidemia) E78.5 Active Medications No Known Medications Results No Known Results Summary Purpose eClinicalWorks Submission
--- OUTSIDE RECORDS SUMMARY | 2017-12-18 07:05 | XMS REPORT ---
Author Will Sage [facility] eClinicalWorks Address Unknown Phone Unavailable Care Team Providers Care Newspaper Delivery Counselor Name Role Phone Will Mclean CP Unavailable Allergies, Adverse Reactions, Alerts Substance Reaction Event Type sulfa rash Drug Allergy Levaquin rash Drug Allergy Problems Problem Type Condition Code Onset Dates Condition Status Problem Hypothyroid E03.9 Active Problem CAD (coronary artery disease) I25.10 Active Problem HTN (hypertension) I10 Active Problem Sinusitis, unspecified chronicity, unspecified location J32.9 Active Assessment Insulin overdose, accidental or unintentional, subsequent encounter T38.3X1D Active Problem BMI 35.0-35.9,adult Z68.35 Active Problem CKD (chronic kidney disease) stage 3, GFR 30-59 ml/min N18.3 Active Problem Personal history of other specified conditions Z87.898 Active Problem Type 2 diabetes mellitus without complications E11.9 Active Problem 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 Active Problem HNP (herniated nucleus pulposus), lumbar M51.26 Active Assessment GERD (gastroesophageal reflux disease) K21.9 Active Assessment CAD (coronary artery disease) I25.10 Active Assessment HNP (herniated nucleus pulposus), lumbar M51.26 Active Assessment Frequent UTI N39.0 Active Assessment CKD (chronic kidney disease) stage 3, GFR 30-59 ml/min N18.3 Active Problem Neuropathy G62.9 Active Assessment Type 2 diabetes mellitus without complications E11.9 Active Problem GERD (gastroesophageal reflux disease) K21.9 Active Assessment HTN (hypertension) I10 Active Problem HLD (hyperlipidemia) E78.5 Active Medications Medication Code System Code Instructions Start Date End Date Status Dosage Allopurinol [facility] [address]-84 100 MG Orally Once a day Feb 11, 2017 Active 2 tablet Pravastatin Sodium [facility] [address]-54 40 MG Orally Once a day Active 1 tablet Clopidogrel Bisulfate [facility] [address]-54 75 MG Orally Once a day Active 1 tablet Trazodone HCl [facility] [address]-30 50 mg Orally q Oct 02, 2015 Active 1 tablet at bedtime as needed Tizanidine HCl [facility] [address]-35 2 MG Orally every 8 hrs Nov 16, 2015 Active 1 tablet as needed Hydrochlorothiazide [facility] [address]-94 12.5 MG Orally Once a day Active 1 capsule Levothyroxine Sodium [facility] [address]-28 75 MCG Orally Once a day Active 1 tablet Victoza [facility] [address]-43 18 MG/3ML Subcutaneous Once a day Active 1.2 Bystolic [facility] [address]-75 10 MG Orally Once a day Active 1 tablet Humalog KwikPen [facility] [address]-47 100 UNIT/ML Subcutaneous before each meal Active 1-30 units Lantus SoloStar [facility] [address]-59 100 UNIT/ML Subcutaneous once a day Active 22 units am and 12 units at night Multi For Her 50+ [facility] 87[address] Orally Active not defined Vitamin D [facility] [address]-52 2000 UNIT Orally once a day Active 1 tablet Lyrica [facility] [address]-30 75 mg Orally Twice a day Active 1 capsule Aspir-81 [facility] [address]-72 81 MG Orally Once a day Active 1 tablet Nitrofurantoin Monohyd Macro [facility] [address]-62 100 MG Orally every 12 hrs August 15, 2016 August 22, 2016 Active 1 capsule with food Omeprazole [facility] [address]-92 20 MG Orally Once a day Active 1 capsule Irbesartan [facility] [address]-81 300 MG Orally Once a day August 01, 2016 Active 1 tablet Vital Signs Date/Time: August 15, 2016 BMI 34.61 Index Weight 221 lbs Height 67 in Cardiac Monitoring Heart Rate 82 /min Blood Pressure Diastolic 94 mm Hg Blood Pressure Systolic 146 mm Hg Results Name Result Date Reference Range Unit Abnormality Flag GLUCOSE FINGER STICK ----GLUCOSE 144 [id number] Summary Purpose eClinicalWorks Submission
--- OUTSIDE RECORDS SUMMARY | 2017-12-18 07:05 | XMS REPORT ---
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 Problem Type 2 diabetes mellitus with diabetic chronic kidney disease E11.22 Active Problem BMI 37.0-37.9, adult Z68.37 Active Problem CKD (chronic kidney disease) stage 3, GFR 30-59 ml/min N18.3 Active Problem Sinusitis, unspecified chronicity, unspecified location J32.9 Active Problem Type 2 diabetes mellitus with diabetic neuropathy, unspecified E11.40 Active Problem Peripheral vascular disease I73.9 Active Assessment Type 2 diabetes mellitus without complications E11.9 Active Assessment HTN (hypertension) I10 Active Assessment HLD (hyperlipidemia) E78.5 Active Assessment Hypothyroid E03.9 Active Problem Hypothyroid E03.9 Active Problem HTN (hypertension) I10 Active Problem Neuropathy G62.9 Active Problem GERD (gastroesophageal reflux disease) K21.9 Active Problem CAD (coronary artery disease) I25.10 Active Problem HLD (hyperlipidemia) E78.5 Active Medications Medication Code System Code Instructions Start Date End Date Status Dosage Allopurinol [facility] 70183645946 100 mg orally twice a day (bid) Mar 21, 2017 Active 2 tablets Irbesartan ND 25050824151 300 MG Orally Once a day August 01, 2016 Active 1 tablet Pravastatin Sodium ND 19631671063 40 mg Orally Once a day Active 1 tablet Levothyroxine Sodium [facility] 06996987797 75 MCG Orally Once a day Active 1 tablet Lantus SoloStar ND 44792269474 100 UNIT/ML Subcutaneous once a day Active 22 units am and 12 units at night Results No Known Results Summary Purpose eClinicalWorks Submission
--- OUTSIDE RECORDS SUMMARY | 2017-12-18 07:05 | XMS REPORT ---
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 Active Assessment Other gastritis without hemorrhage, unspecified chronicity K29.60 Active Problem Neuropathy G62.9 Active Problem CAD (coronary artery disease) I25.10 Active Assessment Acute cystitis with hematuria N30.01 Active Problem Hypothyroid E03.9 Active Assessment Dehydration E86.0 Active Problem HTN (hypertension) I10 Active Medications Medication Code System Code Instructions Start Date End Date Status Dosage Macrodantin [facility] 75511818990 100 mg Orally twice a day (bid) Dec 05, 2016 Dec 15, 2016 Active 1 capsule with food or milk Trazodone HCl [facility] 21345919965 50 mg Orally qhs Oct 02, 2015 Active 1 tablet at bedtime as needed Multi For Her 50+ ND 58590002143 Orally Active not defined Pravastatin Sodium ND 43127630711 40 MG Orally Once a day Active 1 tablet Humalog KwikPen [facility] 98664970828 100 UNIT/ML Subcutaneous before each meal Active 1-30 units Bystolic ND 58534021889 10 mg Active 1 TABLET ONCE A DAY ORALLY 90 DAYS Metoprolol Tartrate ND 24066140619 50 MG Orally once a day Active 1 tablet Vitamin D [facility] 21227968143 2000 UNIT Orally once a day Active 1 tablet Omeprazole [facility] 07750716853 20 MG Orally Once a day Active 1 capsule Aspir-81 [facility] 16693569616 81 MG Orally Once a day Active 1 tablet Pantoprazole Sodium [facility] 52972490039 40 MG Orally Active 1 capsule Lisinopril [facility] 42601373080 20 MG Orally daily Active 1 tablet Humalog KwikPen [facility] 92969202868 100 UNIT/ML Active 1-30 UNITS BEFORE EACH MEAL SUBCUTANEOUS 90 DAYS Lantus SoloStar [facility] 99656565494 100 UNIT/ML Subcutaneous once a day Active 22 units am and 12 units at night Lyrica [facility] 73651507465 75 mg Orally Twice a day Active 1 capsule Levothyroxine Sodium [facility] 53819156215 75 MCG Orally Once a day Active 1 tablet Irbesartan [facility] 09157948867 300 MG Orally Once a day August 01, 2016 Active 1 tablet Clopidogrel Bisulfate [facility] 98124469789 75 MG Orally Once a day Active 1 tablet Allopurinol [facility] 02546092506 100 MG Orally Once a day Feb 11, 2017 Active 2 tablet Cyclobenzaprine HCl [facility] 82630571132 10 MG Orally once a day as needed Active 1 tablet Hydrochlorothiazide [facility] 36285149916 12.5 MG Orally Once a day Active 1 capsule Vital Signs Date/Time: Dec 05, 2016 BMI 35.24 Index Weight 225 lbs Height 67 in Cardiac Monitoring Heart Rate 66 /min Blood Pressure Diastolic 84 mm Hg Blood Pressure Systolic 132 mm Hg Results No Known Results Summary Purpose eClinicalWorks Submission
--- OUTSIDE RECORDS SUMMARY | 2017-12-18 07:05 | XMS REPORT ---
Author Author Diandra Mccallum [facility] [place] eClinicalWorks Address Unknown Phone Unavailable Care Team Providers Care Dub Room Engineer Name Role Phone Diandra Mccallum Unavailable Allergies, Adverse Reactions, Alerts Substance Reaction [...] (herniated nucleus pulposus), lumbar M51.26 Active Assessment Neck mass R22.1 Active Assessment HTN (hypertension) I10 Active Problem Neuropathy G62.9 Active Assessment Impacted cerumen of left ear H61.22 Active Problem GERD (gastroesophageal reflux disease) K21.9 Active Assessment Sore throat J02.9 Active Problem HLD (hyperlipidemia) E78.5 Active Medications Medication Code System Code Instructions Start Date End Date Status Dosage Omeprazole [facility] [address]-32 20 MG Orally Once a day Active [address] [facility] [address]-38 75 mg Orally Twice a day Active 1 capsule Trazodone HCl [facility] [address]-68 50 mg Orally qhs Oct 02, 2015 Active 1 tablet at bedtime as needed Victoza [facility] [address]-70 18 MG/3ML Subcutaneous Once a day Active 1.[address] [facility] [address]-18 300 MG Orally Once a day August 01, 2016 Active 1 tablet Cyclobenzaprine HCl [facility] [address]-00 10 MG Orally once a day as needed Active 1 tablet Levothyroxine Sodium [facility] [address]-87 75 MCG Orally Once a day Active 1 tablet Tizanidine HCl [facility] [address]-90 2 MG Orally every 8 hrs Nov 16, 2015 Active 1 tablet as needed Bystolic [facility] [address]-52 10 MG Orally Once a day Active 1 tablet Metoprolol Tartrate [facility] [address]-23 50 MG Orally once a day Active 1 tablet Clopidogrel Bisulfate [facility] [address]-11 75 MG Orally Once a day Active 1 tablet Humalog KwikPen [facility] 56010115722 100 UNIT/ML Active 1-30 UNITS BEFORE EACH MEAL SUBCUTANEOUS 90 DAYS Lantus SoloStar [facility] [address]-64 100 UNIT/ML Subcutaneous once a day Active 22 units am and 12 units at night Allopurinol [facility] [address]-77 100 MG Orally Once a day Feb 11, 2017 Active 2 tablet Vitamin D [facility] [address]-28 2000 UNIT Orally once a day Active 1 tablet Multi For Her 50+ [facility] 83[address]62 Orally Active not defined Pravastatin Sodium [facility] [address]-60 40 MG Orally Once a day Active 1 tablet Zithromax Z-Jorge [facility] [address]-83 250 MG Orally Once a day Oct 24, 2016 Oct 29, 2016 Active 2 tablets on the first day, then 1 tablet daily for 4 days Humalog KwikPen [facility] [address]-86 100 UNIT/ML Subcutaneous before each meal Active 1-30 units Hydrochlorothiazide [facility] [address]-73 12.5 MG Orally Once a day Active 1 capsule Aspir-[address] [facility] [address]-14 81 MG Orally Once a day Active 1 tablet Vital Signs Date/Time: Oct 24, 2016 BMI 36.02 Index Weight 230 lbs Height 67 in Temperature 97.8 F Cardiac Monitoring Heart Rate 68 /min Blood Pressure Diastolic 88 mm Hg Blood Pressure Systolic 150 mm Hg Results Name Result Date Reference Range Unit Abnormality Flag RAPID STREP ----Positive positive [id number] Summary Purpose eClinicalWorks Submission
--- OUTSIDE RECORDS SUMMARY | 2017-12-18 07:05 | XMS REPORT ---
Author Author Macy Weeks [facility] eClinicalWorks Address Unknown Phone Unavailable Care Team Providers Care Resident Care Supervisor Name Role Phone Macy Weeks CP Unavailable [...]
--- OUTSIDE RECORDS SUMMARY | 2017-12-18 07:05 | XMS REPORT ---
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 Active Problem HNP (herniated nucleus pulposus), lumbar M51.26 Active Problem oysterman current use of insulin Z79.4 Active Problem Type 2 diabetes mellitus with diabetic chronic kidney disease E11.22 Active Problem BMI 37.0-37.9, adult Z68.37 Active Problem CKD (chronic kidney disease) stage 3, GFR 30-59 ml/min N18.3 Active Problem Sinusitis, unspecified chronicity, unspecified location J32.9 Active Problem Type 2 diabetes mellitus with diabetic neuropathy, unspecified E11.40 Active Problem Peripheral vascular disease I73.9 Active Assessment BMI 37.0-37.9, adult Z68.37 Active Assessment Acute cystitis with hematuria N30.01 Active Problem Hypothyroid E03.9 Active Problem HTN (hypertension) I10 Active Problem Neuropathy G62.9 Active Problem GERD (gastroesophageal reflux disease) K21.9 Active Problem CAD (coronary artery disease) I25.10 Active Problem HLD (hyperlipidemia) E78.5 Active Medications Medication Code System Code Instructions Start Date End Date Status Dosage Vitamin D [facility] 13352809594 2000 UNIT Orally once a day Active 1 tablet Clonidine HCl ND 52202385661 0.1 MG Orally Once a day prn Active 1 tablet Levothyroxine Sodium ND 85318924076 75 MCG Orally Once a day Active 1 tablet [address]alog [facility] 12209334186 100 UNIT/ML Subcutaneous as directed Active 10 -20 units before meals Metoprolol Succinate ER ND 79406887587 50 mg Orally twice a day (bid) Active 1 tablet Hydrochlorothiazide [facility] 06863282839 12.5 MG Orally Once a day prn Active 1 capsule Cyclobenzaprine HCl [facility] 54948009838 10 mg Orally qd prn Jan 21, 2017 Active 1 tablet Lantus SoloStar [facility] 61848338860 100 UNIT/ML Subcutaneous once a day Active 22 units am and 12 units at night Allopurinol [facility] 88550673567 100 mg orally twice a day (bid) Mar 21, 2017 Active 2 tablets Irbesartan [facility] [place] 15218775201 300 MG Orally Once a day August 01, 2016 Active 1 tablet Amlodipine Besylate [facility] [place] 31308195982 5 MG Orally twice a day (bid) Dec 30, 2016 Active 1 tablet Multi For Her 50+ [facility] 81136071206 Orally Active not defined Pravastatin Sodium [facility] 93113687615 40 mg Orally Once a day Active 1 tablet Aspir-[address] [facility] 71244725949 81 MG Orally Once a day Active 1 tablet Pantoprazole Sodium [facility] 65286805679 40 MG Orally Active 1 capsule Macrobid [facility] 41899149059 100 mg Orally every 12 hrs Feb 28, 2017 Mar 07, 2017 Active 1 capsule with food Vital Signs Date/Time: Feb 28, 2017 BMI 37.90 Index Weight 242 lbs Height 67 in Cardiac Monitoring Heart Rate 77 /min Blood Pressure Diastolic 72 mm Hg Blood Pressure Systolic 120 mm Hg Results Name Result Date Reference Range Unit Abnormality Flag URINE AUTO W/O SCOPE ----Spec Barney 1.015 [id number] ----Turbidity clear 20170304 ----Glucose 2000 20170304 ----Ketones neg 20170304 ----Blood trace 20170304 ----Bili small+ 20170304 ----Color yellow 20170304 ----pH 5.0 20170304 ----Leuk Est small+ 20170304 ----Nitrite neg 20170304 ----Urobilinogen 0.2 20170304 ----Protein neg [id number] Summary Purpose eClinicalWorks Submission
--- OUTSIDE RECORDS SUMMARY | 2017-12-18 07:05 | XMS REPORT ---
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
--- OUTSIDE RECORDS SUMMARY | 2017-12-18 07:05 | XMS REPORT ---
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
--- OUTSIDE RECORDS SUMMARY | 2017-12-18 07:05 | XMS REPORT ---
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
--- OUTSIDE RECORDS SUMMARY | 2017-12-18 07:05 | XMS REPORT ---
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
--- OUTSIDE RECORDS SUMMARY | 2017-12-18 07:05 | XMS REPORT ---
Author Author Macy Weeks [facility] [place] eClinicalWorks Address Unknown Phone Unavailable Care Team Providers Care Chemistry Intern Name Role Phone Macy Weeks CP Unavailable [...] (herniated nucleus pulposus), lumbar M51.26 Active Assessment HNP (herniated nucleus pulposus), lumbar M51.26 Active Problem Neuropathy G62.9 Active Problem GERD (gastroesophageal reflux disease) K21.9 Active Assessment Type 2 diabetes mellitus without complications E11.9 Active Problem HLD (hyperlipidemia) E78.5 Active Medications Medication Code System Code Instructions Start Date End Date Status Dosage Lantus SoloStar [facility] [address]-34 100 UNIT/ML Subcutaneous once a day Active 22 units am and 12 units at night Allopurinol [facility] [address]-06 100 MG Orally Once a day Feb 11, 2017 Active 2 tablet Results No Known Results Summary Purpose eClinicalWorks Submission
--- OUTSIDE RECORDS SUMMARY | 2017-12-18 07:05 | XMS REPORT ---
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 Active Problem HNP (herniated nucleus pulposus), lumbar M51.26 Active Problem [facility] current use of insulin Z79.4 Active Assessment Neuropathy G62.9 Active Problem Type 2 diabetes mellitus with diabetic chronic kidney disease E11.22 Active Assessment HLD (hyperlipidemia) E78.5 Active Assessment Hypothyroid E03.9 Active Problem BMI 37.0-37.9, adult Z68.37 Active Problem CKD (chronic kidney disease) stage 3, GFR 30-59 ml/min N18.3 Active Problem Sinusitis, unspecified chronicity, unspecified location J32.9 Active Problem Type 2 diabetes mellitus with diabetic neuropathy, unspecified E11.40 Active Problem Peripheral vascular disease I73.9 Active Assessment CAD (coronary artery disease) I25.10 Active Assessment HTN (hypertension) I10 Active Assessment Type 2 diabetes mellitus without complications E11.9 Active Assessment Other gastritis without hemorrhage, unspecified chronicity K29.60 Active Problem Hypothyroid E03.9 Active Problem HTN (hypertension) I10 Active Problem Neuropathy G62.9 Active Problem GERD (gastroesophageal reflux disease) K21.9 Active Problem CAD (coronary artery disease) I25.10 Active Problem HLD (hyperlipidemia) E78.5 Active Medications Medication Code System Code Instructions Start Date End Date Status Dosage Humalog KwikPen [facility] 59138360944 100 UNIT/ML Subcutaneous before each meal Active 1-30 units Metoprolol Succinate ER ND 45161655676 50 mg Orally Once a day Active 1 tablet Carafate [facility] 99030982610 1 GM Orally Twice a day Active 1 tablet on an empty stomach Hydrochlorothiazide [facility] 41370449379 12.5 MG Orally Once a day prn Active 1 capsule Irbesartan [facility] 41108655202 300 MG Orally Once a day August 01, 2016 Active 1 tablet Pravastatin Sodium [facility] 37163537905 40 MG Orally Once a day Active 1 tablet Pantoprazole Sodium [facility] 84680722740 40 MG Orally Active 1 capsule Metoprolol Succinate NDC 0 50 mg Orally daily Dec 23, 2016 Active 1 tablet Levothyroxine Sodium [facility] 13488986475 75 MCG Orally Once a day Active 1 tablet Clonidine HCl [facility] 82767529386 0.1 MG Orally Once a day prn Active 1 tablet Vitamin D [facility] 07761996153 2000 UNIT Orally once a day Active 1 tablet Multi For Her 50+ ND 89322130068 Orally Active not defined Cyclobenzaprine HCl [facility] 66629180571 10 MG Orally once a day as needed Active 1 tablet Aspir-81 [facility] 33918762022 81 MG Orally Once a day Active 1 tablet Humalog KwikPen [facility] 31132458310 100 UNIT/ML Active 1-30 UNITS BEFORE EACH MEAL SUBCUTANEOUS 90 DAYS Metoprolol Tartrate [facility] 89016134063 50 MG Orally once a day Active 1 tablet Lantus SoloStar [facility] 92097795339 100 UNIT/ML Subcutaneous once a day Active 22 units am and 12 units at night Allopurinol [facility] 22253743069 100 MG Orally Once a day Feb 11, 2017 Active 2 tablet Amlodipine Besylate [facility] 57531380471 5 MG Orally twice a day (bid) Dec 30, 2016 Active 1 tablet Metoprolol Succinate ER ND 36856503364 50 mg Orally twice a day (bid) Active 1 tablet Humalog [facility] [address]-66 Active 10 -20 units before meals Vital Signs Date/Time: Jan 07, 2017 BMI 37.27 Index Weight 238 lbs Height 67 in Cardiac Monitoring Heart Rate 69 /min Blood Pressure Diastolic 84 mm Hg Blood Pressure Systolic 124 mm Hg Results No Known Results Summary Purpose eClinicalWorks Submission
--- OUTSIDE RECORDS SUMMARY | 2017-12-18 07:05 | XMS REPORT ---
Author Author Macy Weeks [facility] eClinicalWorks Address Unknown Phone Unavailable Care Team Providers Care Assistance Representative Name Role Phone Macy Weeks CP Unavailable Allergies, Adverse Reactions, Alerts Substance Reaction Event Type sulfa rash Drug Allergy Levaquin rash Drug Allergy Problems Problem Type Condition Code Onset Dates Condition Status Problem Sinusitis, unspecified chronicity, unspecified location J32.9 Active Problem Peripheral vascular disease I73.9 Active Problem CKD (chronic kidney disease) stage 3, GFR 30-59 ml/min N18.3 Active Problem Acute bilateral low back pain with left-sided sciatica M54.42 Active Assessment Lumbar spondylosis M47.816 Active Problem Right sided sciatica M54.31 Active Assessment Hair thinning L65.9 Active Assessment 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 Active Problem Lumbar spondylosis M47.816 Active Problem penitentiary current use of insulin Z79.4 Active Problem BMI 37.0-37.9, adult Z68.37 Active Problem Type 2 diabetes mellitus with diabetic chronic kidney disease E11.22 Active Problem Type 2 diabetes mellitus with diabetic neuropathy, unspecified E11.40 Active Problem CAD (coronary artery disease) I25.10 Active Problem Hypothyroid E03.9 Active Assessment Acute bilateral low back pain with left-sided sciatica M54.42 Active Problem Neuropathy G62.9 Active Problem HLD (hyperlipidemia) E78.5 Active Problem Personal history of other specified conditions Z87.898 Active Problem HTN (hypertension) I10 Active Problem HNP (herniated nucleus pulposus), lumbar M51.26 Active Problem GERD (gastroesophageal reflux disease) K21.9 Active Problem 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 Active Medications Medication Code System Code Instructions Start Date End Date Status Dosage Vitamin D [facility] 01998776319 2000 UNIT Orally once a day Active 1 tablet Lantus SoloStar [facility] 75456453836 100 UNIT/ML Subcutaneous once a day Active 22 units am and 12 units at night Irbesartan [facility] 73634917744 300 MG Orally Once a day Active 1 tablet Metoprolol Succinate [place] NDC [address]-22 50 mg Orally once a day Active 1 tablet Cyclobenzaprine HCl [facility] 24170564376 10 mg Orally qd prn Active 1 tablet Humalog [facility] 95740404810 100 UNIT/ML Subcutaneous as directed Active 10 -20 units before meals Flexeril NDC 0 10 mg Orally three times a day (tid) as needed (prn) May 01, 2017 May 31, 2017 Active 1 tablet Irbesartan [facility] 57951778811 150 MG Active 1 TABLET ONCE A DAY ORALLY 90 DAYS Multi For Her 50+ [facility] 62753126096 Orally once a day Active 1 tablet Allopurinol [facility] 85826200876 100 mg orally twice a day (bid) Apr 04, 2018 Active 1 tablet Clopidogrel Bisulfate [facility] 12282306837 75 mg Orally daily Active 1 tablet Amlodipine Besylate [facility] 25552413217 5 MG Orally daily Dec 30, 2016 Active 1 tablet Aspir-81 [facility] 17553107259 81 MG Orally Once a day Active 1 tablet Pravastatin Sodium [facility] 36767927864 40 mg Orally Once a day Active 1 tablet Levothyroxine Sodium [facility] 28897735662 75 MCG Orally Once a day Active 1 tablet Hydrochlorothiazide [facility] 40601386604 12.5 MG Orally Once a day prn Active 1 capsule Vital Signs Date/Time: May 26, 2017 BMI 37.12 Index Weight 237.0 lbs Height 67 in Temperature 98.3 F Cardiac Monitoring Heart Rate 72 /min Blood Pressure Diastolic 82 mm Hg Blood Pressure Systolic 130 mm Hg Results Name Result Date Reference Range Unit Abnormality Flag COMPREHENSIVE METABOLIC PANEL ----CALCIUM 9.8 [id number] 8.6-10.4 mg/dL N ----CARBON DIOXIDE 28 39641919 20-31 mmol/L N ----ALT 16 [id number] 6-29 U/L N ----CREATININE 1.35 [id number] 0.50-0.99 mg/dL H ----AST 17 [id number] 10-35 U/L N ----eGFR NON-AFR. [place] 41 [id number] > OR=60 mL/min/1.73m2 L ----ALKALINE PHOSPHATASE 82 [id number] 33-130 U/L N ----eGFR 47 35302309 > OR=60 mL/min/1.73m2 L ----BILIRUBIN, TOTAL 0.6 61576841 0.2-1.2 mg/dL N ----BUN/CREATININE RATIO 23 [id number] 6-22 (calc) H ----ALBUMIN/GLOBULIN RATIO 1.8 [id number] 1.0-2.5 (calc) N ----SODIUM 141 36752804 135-146 mmol/L N ----GLOBULIN 2.4 61313919 1.9-3.7 g/dL (calc) N ----POTASSIUM 4.9 88810106 3.5-5.3 mmol/L N ----GLUCOSE 180 [id number] 65-99 mg/dL H ----CHLORIDE 106 [id number] 98-110 mmol/L N ----ALBUMIN 4.2 44827394 3.6-5.1 g/dL N ----UREA NITROGEN (BUN) 31 74039391 7-25 mg/dL H ----PROTEIN, TOTAL 6.6 42597804 6.1-8.1 g/dL N TSH ----TSH 0.97 [id number] 0.40-4.50 mIU/L N HEMOGLOBIN A1c ----HEMOGLOBIN A1c 7.5 87014846 <5.7 % of total Hgb H Summary Purpose eClinicalWorks Submission
--- OUTSIDE RECORDS SUMMARY | 2017-12-18 07:06 | XMS REPORT ---
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 Active Problem HNP (herniated nucleus pulposus), lumbar M51.26 Active Problem tire groover current use of insulin Z79.4 Active Problem Type 2 diabetes mellitus with diabetic chronic kidney disease E11.22 Active Problem BMI 37.0-37.9, adult Z68.37 Active Problem CKD (chronic kidney disease) stage 3, GFR 30-59 ml/min N18.3 Active Problem Sinusitis, unspecified chronicity, unspecified location J32.9 Active Problem Type 2 diabetes mellitus with diabetic neuropathy, unspecified E11.40 Active Problem Peripheral vascular disease I73.9 Active Assessment HLD (hyperlipidemia) E78.5 Active Problem Hypothyroid E03.9 Active Problem HTN (hypertension) I10 Active Problem Neuropathy G62.9 Active Problem GERD (gastroesophageal reflux disease) K21.9 Active Problem CAD (coronary artery disease) I25.10 Active Problem HLD (hyperlipidemia) E78.5 Active Medications Medication Code System Code Instructions Start Date End Date Status Dosage Pravastatin Sodium [facility] 12355302149 40 mg Orally Once a day Active 1 tablet Results No Known Results Summary Purpose eClinicalWorks Submission
--- OUTSIDE RECORDS SUMMARY | 2017-12-18 07:06 | XMS REPORT ---
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 Active Problem HNP (herniated nucleus pulposus), lumbar M51.26 Active Assessment CAD (coronary artery disease) I25.10 Active Problem 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 Active Assessment Chronic UTI N39.0 Active Problem Sinusitis, unspecified chronicity, unspecified location J32.9 Active Problem Peripheral vascular disease I73.9 Active Problem CKD (chronic kidney disease) stage 3, GFR 30-59 ml/min N18.3 Active Problem Acute bilateral low back pain with left-sided sciatica M54.42 Active Problem Right sided sciatica M54.31 Active Assessment Hypothyroid E03.9 Active Assessment HLD (hyperlipidemia) E78.5 Active Problem Lumbar spondylosis M47.816 Active Assessment 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 Active Problem long term care social worker current use of insulin Z79.4 Active Problem BMI 37.0-37.9, adult Z68.37 Active Problem Type 2 diabetes mellitus with diabetic chronic kidney disease E11.22 Active Problem Type 2 diabetes mellitus with diabetic neuropathy, unspecified E11.40 Active Problem CAD (coronary artery disease) I25.10 Active Problem Hypothyroid E03.9 Active Assessment HTN (hypertension) I10 Active Problem Neuropathy G62.9 Active Problem HLD (hyperlipidemia) E78.5 Active Problem Personal history of other specified conditions Z87.898 Active Problem HTN (hypertension) I10 Active Problem GERD (gastroesophageal reflux disease) K21.9 Active Medications Medication Code System Code Instructions Start Date End Date Status Dosage Levothyroxine Sodium [facility] 03476881543 75 MCG Orally Once a day Active 1 tablet Ciprofloxacin HCl [facility] 47815073171 500 MG Oral Active TK 1 T PO BID Allopurinol [facility] 92355242640 100 mg orally twice a day (bid) Apr 04, 2018 Active 1 tablet Vitamin D [facility] 59683024860 2000 UNIT Orally once a day Active 1 tablet Augmentin [facility] 48823426519 500-125 MG Orally every 12 hrs July 01, 2017 Inactive 1 tablet Aspir-81 [facility] 09736203152 81 MG Orally Once a day Active 1 tablet Amlodipine Besylate [facility] 80434161918 5 MG Orally daily Dec 30, 2016 Active 1 tablet Hydrochlorothiazide [facility] 94224248535 12.5 MG Orally Once a day prn Active 1 capsule Pravastatin Sodium [facility] 53882181189 40 mg Orally Once a day Active 1 tablet Lantus SoloStar [facility] 60504959448 100 UNIT/ML Subcutaneous once a day Active 22 units am and 12 units at night Multi For Her 50+ [facility] 72101260225 Orally once a day Active 1 tablet Metoprolol Succinate ER [facility] 57419696573 50 mg Orally once a day Active 1 tablet Irbesartan [facility] 21848188909 300 MG Orally Once a day Active 1 tablet Clopidogrel Bisulfate [facility] 85558020768 75 mg Orally daily Active 1 tablet Humalog [facility] 71297926708 100 UNIT/ML Subcutaneous as directed Active 10 -20 units before meals Vital Signs Date/Time: July 08, 2017 BMI 38.06 Index Weight 243 lbs Height 67 in Cardiac Monitoring Heart Rate 67 /min Blood Pressure Diastolic 80 mm Hg Blood Pressure Systolic 130 mm Hg Results Name Result Date Reference Range Unit Abnormality Flag URINE AUTO W/O SCOPE ----Spec [place] 1.020 20170713 ----Turbidity slightly cloudy 20170713 ----Glucose neg 20170713 ----Ketones neg 20170713 ----Blood small+ 20170713 ----Bili small+ 20170713 ----Color yellow 20170713 ----pH 5.0 20170713 ----Leuk Est neg 20170713 ----Nitrite neg 20170713 ----Urobilinogen 0.2 20170713 ----Protein trace 20170713 Urine Culture, Routine ----Result 1 No growth [id number] ----Urine Culture, Routine Final report [id number] Summary Purpose eClinicalWorks Submission
--- OUTSIDE RECORDS SUMMARY | 2017-12-18 07:06 | XMS REPORT ---
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
--- OUTSIDE RECORDS SUMMARY | 2017-12-18 07:06 | XMS REPORT ---
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
--- OUTSIDE RECORDS SUMMARY | 2017-12-18 07:06 | XMS REPORT ---
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
--- OUTSIDE RECORDS SUMMARY | 2017-12-18 07:06 | XMS REPORT ---
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 Active Problem Type 2 diabetes mellitus with diabetic chronic kidney disease E11.22 Active Problem Type 2 diabetes mellitus with diabetic neuropathy, unspecified E11.40 Active Problem Right sided sciatica M54.31 Active Problem Peripheral vascular disease I73.9 Active Problem CKD (chronic kidney disease) stage 3, GFR 30-59 ml/min N18.3 Active Problem BMI 37.0-37.9, adult Z68.37 Active Problem jail current use of insulin Z79.4 Active Assessment Right sided sciatica M54.31 Active Problem Neuropathy G62.9 Active Problem HTN (hypertension) I10 Active Problem GERD (gastroesophageal reflux disease) K21.9 Active Problem CAD (coronary artery disease) I25.10 Active Problem HLD (hyperlipidemia) E78.5 Active Problem Hypothyroid E03.9 Active Problem Personal history of other specified conditions Z87.898 Active Medications Medication Code System Code Instructions Start Date End Date Status Dosage Hydrochlorothiazide ND 14471060047 12.5 MG Orally Once a day prn Active 1 capsule Irbesartan ND 23022582117 300 MG Orally Once a day Active 1 tablet Vitamin D ND 14990533566 2000 UNIT Orally once a day Active 1 tablet Humalog ND 40058847568 100 UNIT/ML Subcutaneous as directed Active 10 -20 units before meals Pravastatin Sodium ND 16269856507 40 mg Orally Once a day Active 1 tablet Flexeril NDC 0 10 mg Orally three times a day (tid) as needed (prn) May 01, 2017 May 31, 2017 Active 1 tablet Allopurinol [facility] 93695046989 100 mg orally twice a day (bid) Apr 04, 2018 Active 1 tablet Multi For Her 50+ ND 07811179256 Orally once a day Active 1 tablet Clopidogrel Bisulfate [facility] 11244757291 75 mg Orally daily Active 1 tablet Aspir-81 [facility] 63636660605 81 MG Orally Once a day Active 1 tablet Cyclobenzaprine HCl [facility] 68564973630 10 mg Orally qd prn Active 1 tablet Lantus SoloStar [facility] 84974096837 100 UNIT/ML Subcutaneous once a day Active 22 units am and 12 units at night Amlodipine Besylate [facility] [address]-03 5 MG Orally daily Dec 30, 2016 Active 1 tablet Metoprolol Succinate ER [facility] 44912667330 50 mg Orally twice a day (bid) Active 1 tablet Levothyroxine Sodium [facility] 44243011608 75 MCG Orally Once a day Active 1 tablet Vital Signs Date/Time: May 01, 2017 BMI 37.08 Index Weight 236.8 lbs Height 67 in Cardiac Monitoring Heart Rate 99 /min Blood Pressure Diastolic 70 mm Hg Blood Pressure Systolic 122 mm Hg Results No Known Results Summary Purpose eClinicalWorks Submission
--- OUTSIDE RECORDS SUMMARY | 2017-12-18 07:06 | XMS REPORT ---
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
--- OUTSIDE RECORDS SUMMARY | 2017-12-18 07:06 | XMS REPORT ---
Author Author Macy Weeks [facility] eClinicalWorks Address Unknown Phone Unavailable Care Team Providers Care Electric Shovel Operator Name Role Phone Macy Weeks CP Unavailable Allergies, Adverse Reactions, Alerts Substance Reaction Event Type sulfa rash Drug Allergy Levaquin rash Drug Allergy Problems Problem Type Condition Code Onset Dates Condition Status Assessment Chronic UTI N39.0 Active Assessment Kidney stone N20.0 Active Assessment Idiopathic gout of multiple sites, unspecified chronicity M10.09 Active Assessment Type 2 diabetes mellitus without complications E11.9 Active Assessment CAD (coronary artery disease) I25.10 Active Assessment CAD (coronary artery disease) I25.10 Active Assessment 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 Active Problem Sinusitis, unspecified chronicity, unspecified location J32.9 Active Assessment GERD (gastroesophageal reflux disease) K21.9 Active Problem CKD (chronic kidney disease) stage 3, GFR 30-59 ml/min N18.3 Active Assessment HLD (hyperlipidemia) E78.5 Active Problem Peripheral vascular disease I73.9 Active Problem senior care current use of insulin Z79.4 Active Problem BMI 37.0-37.9, adult Z68.37 Active Problem Type 2 diabetes mellitus without complications E11.9 Active Problem Acute bilateral low back pain with left-sided sciatica M54.42 Active Problem Neuropathy G62.9 Active Assessment HTN (hypertension) I10 Active Problem Kidney stone N20.0 Active Assessment Hypothyroid E03.9 Active Problem Type 2 diabetes mellitus with diabetic chronic kidney disease E11.22 Active Problem Type 2 diabetes mellitus with diabetic neuropathy, unspecified E11.40 Active Problem Lumbar spondylosis M47.816 Active Problem Right sided sciatica M54.31 Active Problem HTN (hypertension) I10 Active Problem GERD (gastroesophageal reflux disease) K21.9 Active Problem CAD (coronary artery disease) I25.10 Active Problem Hypothyroid E03.9 Active Problem HNP (herniated nucleus pulposus), lumbar M51.26 Active Problem 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 Active Problem HLD (hyperlipidemia) E78.5 Active Problem Personal history of other specified conditions Z87.898 Active Medications Medication Code System Code Instructions Start Date End Date Status Dosage Pravastatin Sodium [facility] 63282872601 40 mg Orally Once a day Active 1 tablet Irbesartan [facility] 71576225971 300 MG Orally Once a day Active 1 tablet Premarin [facility] 24956000538 0.625 MG/GM Vaginal Active USE 1 APPLICATOR VAGINALLY THREE TIMES A WEEK Allopurinol [facility] 96419176023 100 mg orally twice a day (bid) September 04, 2018 Active 1 tablet Amlodipine Besylate [facility] 24267487599 5 MG Orally daily Dec 30, 2016 Active 1 tablet Levothyroxine Sodium [facility] 85174019261 75 MCG Orally Once a day Active 1 tablet Doxycycline Hyclate [facility] 31820009603 50 MG Oral Active TK 1 C PO QD Cyclobenzaprine HCl [facility] 19989772198 10 mg by mouth daily prn Nov 08, 2017 Active 1 tablet Clopidogrel Bisulfate [facility] 64941806284 75 mg Orally daily Active 1 tablet Vitamin D [facility] 09606754406 2000 UNIT Orally once a day Active 1 tablet Hydrochlorothiazide [facility] 52595464297 12.5 MG Orally Once a day prn Active 1 capsule Metoprolol Succinate ER [facility] 74610482138 50 mg Orally once a day Active 1 tablet Lantus SoloStar [facility] 52117284003 100 UNIT/ML Subcutaneous once a day Active 22 units am and 12 units at night Diclofenac Sodium [facility] 03561563170 1 % Transdermal Active APPLY TOPICALLY TO AFFECTED AREA FOUR TIMES DAILY Aspir-81 [facility] 79572904766 81 MG Orally Once a day Active 1 tablet Humalog [facility] 48219365540 100 UNIT/ML Subcutaneous as directed Active 10 -20 units before meals Multi For Her 50+ [facility] 54051442391 Orally once a day Active 1 tablet Vital Signs Date/Time: September 09, 2017 BMI 36.65 Index Weight 234 lbs Height 67 in Cardiac Monitoring Heart Rate 67 /min Blood Pressure Diastolic 78 mm Hg Blood Pressure Systolic 130 mm Hg Results Name Result Date Reference Range Unit Abnormality Flag URINALYSIS, COMPLETE ----LEUKOCYTE ESTERASE 2+ [id number] NEGATIVE A ----NITRITE NEGATIVE 20170909 NEGATIVE N ----SPECIFIC GRAVITY 1.020 20170909 1.001-1.035 N ----PH < OR=5.0 58714722 5.0-8.0 N ----GLUCOSE NEGATIVE 20170909 NEGATIVE N ----HYALINE CAST NONE SEEN 20170909 NONE SEEN /LPF N ----BILIRUBIN NEGATIVE 20170909 NEGATIVE N ----BACTERIA NONE SEEN 20170909 NONE SEEN /HPF N ----KETONES NEGATIVE 93776016 NEGATIVE N ----SQUAMOUS EPITHELIAL CELLS 0-5 81749466 < OR=5 /HPF ----OCCULT BLOOD NEGATIVE 20170909 NEGATIVE N ----COLOR DARK YELLOW 20170909 YELLOW N ----PROTEIN TRACE 20170909 NEGATIVE A ----RBC NONE SEEN [id number] < OR=2 /HPF N ----APPEARANCE CLEAR 20170909 CLEAR N ----WBC 20-40 28272442 < OR=5 /HPF A BASIC METABOLIC PANEL ----eGFR 51 20170909 > OR=60 mL/min/1.73m2 L ----eGFR NON-AFR. [place] 44 20170909 > OR=60 mL/min/1.73m2 L ----SODIUM 142 20170909 135-146 mmol/L N ----CALCIUM 9.6 28486824 8.6-10.4 mg/dL N ----BUN/CREATININE RATIO 30 26292138 6-22 (calc) H ----GLUCOSE 104 37514464 65-99 mg/dL H ----CREATININE 1.27 17179332 0.50-0.99 mg/dL H ----UREA NITROGEN (BUN) 38 20170909 7-25 mg/dL H ----CARBON DIOXIDE 25 06586679 20-31 mmol/L N ----POTASSIUM 4.9 19042829 3.5-5.3 mmol/L N ----CHLORIDE 108 32724849 98-110 mmol/L N HEMOGLOBIN A1c ----HEMOGLOBIN A1c 8.0 36749707 <5.7 % of total Hgb H CBC (INCLUDES DIFF/PLT) ----MCHC 34.6 05049863 32.0-36.0 g/dL N ----MCH 31.4 13101962 27.0-33.0 pg N ----PLATELET COUNT 178 20170909 140-400 Thousand/uL N ----RDW 14.2 39723143 11.0-15.0 % N ----BASOPHILS 0.4 32619858 % N ----ABSOLUTE NEUTROPHILS 4047 47979232 9180-0771 cells/uL N ----ABSOLUTE LYMPHOCYTES 2251 20170909 850-3900 cells/uL N ----MPV 11.7 34049077 7.5-12.5 fL N ----ABSOLUTE BASOPHILS 28 80194213 0-200 cells/uL N ----HEMATOCRIT 40.2 17049662 35.0-45.0 % N ----NEUTROPHILS 57 82683759 % N ----MCV 90.7 36729260 80.0-100.0 fL N ----RED BLOOD CELL COUNT 4.43 45335336 3.80-5.10 Million/uL N ----ABSOLUTE MONOCYTES 625 20170909 200-950 cells/uL N ----ABSOLUTE EOSINOPHILS 149 60993166 15-500 cells/uL N ----HEMOGLOBIN 13.9 39717397 11.7-15.5 g/dL N ----EOSINOPHILS 2.1 63586919 % N ----WHITE BLOOD CELL COUNT 7.1 90309642 3.8-10.8 Thousand/uL N ----LYMPHOCYTES 31.7 72723040 % N ----MONOCYTES 8.8 67301158 % N Summary Purpose eClinicalWorks Submission
--- OUTSIDE RECORDS SUMMARY | 2017-12-18 07:06 | XMS REPORT ---
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 Active Problem HNP (herniated nucleus pulposus), lumbar M51.26 Active Problem longterm current use of insulin Z79.4 Active Assessment Type 2 diabetes mellitus with diabetic chronic kidney disease E11.22 Active Problem Type 2 diabetes mellitus with diabetic chronic kidney disease E11.22 Active Assessment Other gastritis without hemorrhage, unspecified chronicity K29.60 Active Assessment HLD (hyperlipidemia) E78.5 Active Problem BMI 37.0-37.9, adult Z68.37 Active Problem CKD (chronic kidney disease) stage 3, GFR 30-59 ml/min N18.3 Active Problem Sinusitis, unspecified chronicity, unspecified location J32.9 Active Problem Type 2 diabetes mellitus with diabetic neuropathy, unspecified E11.40 Active Problem Peripheral vascular disease I73.9 Active Assessment Hypothyroid E03.9 Active Assessment CAD (coronary artery disease) I25.10 Active Assessment 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 Active Assessment HTN (hypertension) I10 Active Problem Hypothyroid E03.9 Active Problem HTN (hypertension) I10 Active Problem Neuropathy G62.9 Active Problem GERD (gastroesophageal reflux disease) K21.9 Active Assessment Idiopathic gout of multiple sites, unspecified chronicity M10.09 Active Problem CAD (coronary artery disease) I25.10 Active Problem HLD (hyperlipidemia) E78.5 Active Medications Medication Code System Code Instructions Start Date End Date Status Dosage Clopidogrel Bisulfate [facility] 66646680525 75 mg Orally daily Active 1 tablet Multi For Her 50+ ND 72952198727 Orally once a day Active 1 tablet Pantoprazole Sodium [facility] 23962018895 40 MG Orally Inactive 1 capsule Lantus SoloStar ND 43998174495 100 UNIT/ML Subcutaneous once a day Active 22 units am and 12 units at night Pravastatin Sodium [facility] 38802962673 40 mg Orally Once a day Active 1 tablet Allopurinol [facility] 64959511215 100 mg orally twice a day (bid) Apr 04, 2018 Active 1 tablet Clonidine HCl [facility] 14506397585 0.1 MG Orally Once a day prn Active 1 tablet Irbesartan [facility] 80705513979 300 MG Orally Once a day Active 1 tablet Levothyroxine Sodium [facility] 24809148767 75 MCG Orally Once a day Active 1 tablet Humalog [facility] 77356870553 100 UNIT/ML Subcutaneous as directed Active 10 -20 units before meals Vitamin D [facility] 99042202509 2000 UNIT Orally once a day Active 1 tablet Amlodipine Besylate [facility] 02336655592 5 MG Orally twice a day (bid) Dec 30, 2016 Active 1 tablet Metoprolol Succinate ER [facility] 50368704779 50 mg Orally twice a day (bid) Active 1 tablet Aspir-81 [facility] 78382614257 81 MG Orally Once a day Active 1 tablet Cyclobenzaprine HCl [facility] 43748648389 10 mg Orally qd prn Jan 21, 2017 Active 1 tablet Hydrochlorothiazide [facility] 63350719196 12.5 MG Orally Once a day prn Active 1 capsule Vital Signs Date/Time: Apr 09, 2017 BMI 37.90 Index Weight 242 lbs Height 67 in Cardiac Monitoring Heart Rate 68 /min Blood Pressure Diastolic 68 mm Hg Blood Pressure Systolic 118 mm Hg Results No Known Results Summary Purpose eClinicalWorks Submission
--- OUTSIDE RECORDS SUMMARY | 2017-12-18 07:06 | XMS REPORT ---
Author Author Macy Weeks [facility] [place] eClinicalWorks Address Unknown Phone Unavailable Care Team Providers Care Lens Edge Grinder Machine Name Role Phone Macy Weeks CP Unavailable Allergies No Known Allergies Problems Problem Type Condition Code Onset Dates Condition Status Assessment Gout M10.9 Active Assessment Routine general medical examination at a health care facility Z00.00 Active Assessment Chronic UTI N39.0 Active Assessment Hair thinning L65.9 Active Assessment HLD (hyperlipidemia) E78.5 Active Problem CKD (chronic kidney disease) stage 3, GFR 30-59 ml/min N18.3 Active Assessment 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 Active Problem Peripheral vascular disease I73.9 Active Assessment Type 2 diabetes mellitus without complications E11.9 Active Problem BMI 37.0-37.9, adult Z68.37 Active Problem Type 2 diabetes mellitus with diabetic neuropathy, unspecified E11.40 Active Problem exterminator helper termite current use of insulin Z79.4 Active Problem Type 2 diabetes mellitus without complications E11.9 Active Problem Gout M10.9 Active Problem CAD (coronary artery disease) I25.10 Active Problem Neuropathy G62.9 Active Problem Kidney stone N20.0 Active Problem Right sided sciatica M54.31 Active Problem Type 2 diabetes mellitus with diabetic chronic kidney disease E11.22 Active Problem Lumbar spondylosis M47.816 Active Problem Acute bilateral low back pain with left-sided sciatica M54.42 Active Problem GERD (gastroesophageal reflux disease) K21.9 Active Problem HLD (hyperlipidemia) E78.5 Active Problem Hypothyroid E03.9 Active Problem HTN (hypertension) I10 Active Problem 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
--- OUTSIDE RECORDS SUMMARY | 2017-12-18 07:06 | XMS REPORT ---
Author Author Macy Weeks [facility] [place] eClinicalWorks Address Unknown Phone Unavailable Care Team Providers Care Chrome Worker Name Role Phone Macy Weeks CP [...] Problem Right sided sciatica M54.31 Active Problem Lumbar spondylosis M47.816 Active Problem senior living current use of insulin Z79.4 Active Problem BMI 37.0-37.9, adult Z68.37 Active Problem Type 2 diabetes mellitus with diabetic chronic kidney disease E11.22 Active Problem Type 2 diabetes mellitus with diabetic neuropathy, unspecified E11.40 Active Problem CAD (coronary artery disease) I25.10 Active Problem Hypothyroid E03.9 Active Problem Neuropathy G62.9 Active Problem HLD (hyperlipidemia) E78.5 Active Problem Personal history of other specified conditions Z87.898 Active Problem HTN (hypertension) I10 Active Problem HNP (herniated nucleus pulposus), lumbar M51.26 Active Problem GERD (gastroesophageal reflux disease) K21.9 Active Problem 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
--- OUTSIDE RECORDS SUMMARY | 2017-12-18 07:06 | XMS REPORT ---
Author Author Macy Weeks [facility] [place] eClinicalWorks Address Unknown Phone Unavailable Care Team Providers Care Funeral Director'S Assistant Name Role Phone Macy Weeks CP Unavailable [...] Active Problem Lumbar spondylosis M47.816 Active Problem [facility] current use of insulin Z79.4 Active Problem [...]
--- OUTSIDE RECORDS SUMMARY | 2017-12-18 07:06 | XMS REPORT ---
Author Author Macy Weeks [facility] eClinicalWorks Address Unknown Phone Unavailable Care Team Providers Care Financial Internship Name Role Phone Macy Weeks CP Unavailable Allergies No Known Allergies Problems Problem Type Condition Code Onset Dates Condition Status Problem Peripheral vascular disease I73.9 Active Problem [facility] current use of insulin Z79.4 Active Problem BMI 37.0-37.9, adult Z68.37 Active Problem Type 2 diabetes mellitus without complications E11.9 Active Problem Neuropathy G62.9 Active Problem Acute bilateral low back pain with left-sided sciatica M54.42 Active Problem Kidney stone N20.0 Active Problem Type 2 diabetes mellitus with [...] Active Problem HLD (hyperlipidemia) E78.5 Active Problem Sinusitis, unspecified chronicity, unspecified location J32.9 Active Problem Personal history of other specified conditions Z87.898 Active Problem CKD (chronic kidney disease) stage 3, GFR 30-59 ml/min N18.3 Active Medications No Known Medications Results No Known Results Summary Purpose eClinicalWorks Submission
--- OUTSIDE RECORDS SUMMARY | 2017-12-18 07:06 | XMS REPORT ---
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
--- OUTSIDE RECORDS SUMMARY | 2017-12-18 07:06 | XMS REPORT ---
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
--- OUTSIDE RECORDS SUMMARY | 2017-12-18 07:06 | XMS REPORT ---
Author Author Macy Weeks Organization eClinicalWorks Address Unknown Phone Unavailable Care Team Providers Care Manager Forms Name Role Phone Macy Weeks CP Unavailable Allergies No Known Allergies Problems Problem Type Condition Code Onset Dates Condition Status Problem BMI 37.0-37.9, adult Z68.37 Active Problem Type 2 diabetes mellitus with diabetic neuropathy, unspecified E11.40 Active Problem [facility] current use of insulin Z79.4 Active Problem Type 2 diabetes mellitus without complications E11.9 Active Problem CAD (coronary artery disease) I25.10 Active Problem Gout M10.9 Active Problem Neuropathy G62.9 Active Problem Kidney [...] 3, GFR 30-59 ml/min N18.3 Active Problem HNP (herniated nucleus pulposus), lumbar M51.26 Active Problem Peripheral vascular disease I73.9 Active Medications No Known Medications Results No Known Results Summary Purpose eClinicalWorks Submission
--- OUTSIDE RECORDS SUMMARY | 2017-12-18 07:06 | XMS REPORT ---
Author Author Macy Weeks [facility] eClinicalWorks Address Unknown Phone Unavailable Care Team Providers Care Vending Machine Mechanic Name Role Phone Macy Weeks CP Unavailable Allergies No Known Allergies Problems Problem Type Condition Code Onset Dates Condition Status Problem BMI 37.0-37.9, adult Z68.37 Active Problem Type 2 diabetes mellitus with diabetic neuropathy, unspecified E11.40 Active Problem [facility] current use of insulin Z79.4 Active Problem [...]
--- OUTSIDE RECORDS SUMMARY | 2017-12-18 07:06 | XMS REPORT ---
Author Author Macy Weeks [facility] eClinicalWorks Address Unknown Phone Unavailable Care Team Providers Care Global Logistics Analyst Name Role Phone Macy Weeks CP Unavailable Allergies, Adverse Reactions, Alerts Substance Reaction Event Type sulfa rash Drug Allergy Levaquin rash Drug Allergy Problems Problem Type Condition Code Onset Dates Condition Status Assessment CAD (coronary artery disease) I25.10 Active Assessment CKD (chronic kidney disease) stage 3, GFR 30-59 ml/min N18.3 Active Assessment Gout M10.9 Active Assessment Type 2 diabetes mellitus without complications E11.9 Active Assessment Type 2 diabetes mellitus with diabetic chronic kidney disease E11.22 Active Assessment HLD (hyperlipidemia) E78.5 Active Assessment Hypothyroid E03.9 Active Assessment HTN (hypertension) I10 Active Problem CKD (chronic kidney disease) stage 3, GFR 30-59 ml/min N18.3 Active Assessment Asymptomatic menopausal state Z78.0 Active Problem Peripheral vascular disease I73.9 Active Assessment Screening for malignant neoplasm of breast Z12.39 Active Problem BMI 37.0-37.9, adult Z68.37 Active Problem Type 2 diabetes mellitus with diabetic neuropathy, unspecified E11.40 Active Problem skilled nursing current use of insulin Z79.4 Active Problem Type 2 diabetes mellitus without complications E11.9 Active Problem Gout M10.9 Active Problem CAD (coronary artery disease) I25.10 Active Problem Neuropathy G62.9 Active Problem Kidney stone N20.0 Active Assessment Routine general medical examination at a health care facility Z00.00 Active Problem Right sided sciatica M54.31 Active [...] (herniated nucleus pulposus), lumbar M51.26 Active Medications Medication Code System Code Instructions Start Date End Date Status Dosage Doxycycline Hyclate [facility] 72850554259 50 MG Oral Active TK 1 C PO QD Metoprolol Succinate ER ND 21484450331 50 mg Orally once a day Active 1 tablet Clopidogrel Bisulfate [facility] 86680188524 75 mg Orally daily Active 1 tablet Pravastatin Sodium [facility] 91399827942 40 mg Orally Once a day Active 1 tablet Allopurinol [facility] 39744943857 100 mg orally twice a day (bid) Oct 29, 2018 Active 1 tablet Cyclobenzaprine HCl [facility] 95865537614 10 mg by mouth daily prn Nov 08, 2017 Active 1 tablet Diclofenac Sodium [facility] 73507898630 1 % Transdermal Active APPLY TOPICALLY TO AFFECTED AREA FOUR TIMES DAILY Multi For Her 50+ ND 63518211969 Orally once a day Active 1 tablet Levothyroxine Sodium [facility] 02162921414 75 MCG Orally Once a day Active 1 tablet Irbesartan [facility] 82450271424 300 MG Orally Once a day Active 1 tablet Premarin [facility] 42107474534 0.625 MG/GM Vaginal Active USE 1 APPLICATOR VAGINALLY THREE TIMES A WEEK Vitamin D [facility] 55295839733 2000 UNIT Orally once a day Active 1 tablet Aspir-81 [facility] 13546864188 81 MG Orally Once a day Active 1 tablet Lantus SoloStar ND 41394021877 100 UNIT/ML Subcutaneous once a day Active 22 units am and 12 units at night Amlodipine Besylate ND 85960390962 5 MG Orally daily Dec 30, 2016 Active 1 tablet Hydrochlorothiazide [facility] 25637258371 12.5 MG Orally Once a day prn Active 1 capsule Humalog [facility] 28000513818 100 UNIT/ML Subcutaneous as directed Active 10 -20 units before meals Vital Signs Date/Time: Nov 03, 2017 BMI 35.71 Index Weight 228 lbs Height 67 in Cardiac Monitoring Heart Rate 68 /min Blood Pressure Diastolic 78 mm Hg Blood Pressure Systolic 130 mm Hg Results No Known Results Summary Purpose eClinicalWorks Submission
--- OUTSIDE RECORDS SUMMARY | 2017-12-18 07:06 | XMS REPORT ---
Author Author Macy Weeks [facility] eClinicalWorks Address Unknown Phone Unavailable Care Team Providers Care Wastewater Operator Name Role Phone Macy Weeks CP Unavailable Allergies No Known Allergies Problems Problem Type Condition Code Onset Dates Condition Status Problem Peripheral vascular disease I73.9 Active Problem correction current use of insulin Z79.4 Active Problem [...]
--- OUTSIDE RECORDS SUMMARY | 2017-12-18 07:07 | XMS REPORT ---
Author Author Macy Weeks [facility] eClinicalWorks Address Unknown Phone Unavailable Care Team Providers Care Traffic Signal Mechanic Name Role Phone Macy Weeks Unavailable Allergies, Adverse Reactions, Alerts Substance Reaction Event Type sulfa rash Drug Allergy Levaquin rash Drug Allergy Encounters Encounter Location Date physical [facility] Oct 02, 2015 Test results [facility] Oct 04, 2015 Abnormal UA [facility] Oct 06, 2015 Unknown [facility] Oct 24, 2015 chest pain and congestion [facility] July 03, 2015 6 week follow up [facility] Jan 23, 2016 2 week follow up [facility] July 11, 2015 New Refill Request [facility] August 21, 2015 follow up test results [facility] Dec 12, 2015 referral for MRI [facility] Nov 16, 2015 Hospital Follow up [facility] Nov 27, 2015 Problems Problem Type Condition ICD-9 Code Onset Dates Condition Status Assessment Type 2 diabetes mellitus without complications E11.9 Active Problem GERD (gastroesophageal reflux disease) K21.9 Active Problem Neuropathy G62.9 Active Problem Personal history of other specified conditions Z87.898 Active Problem Type 2 diabetes mellitus without complications E11.9 Active Problem HNP (herniated nucleus pulposus), lumbar M51.26 Active Problem Hypothyroid E03.9 Active Problem HLD (hyperlipidemia) E78.5 Active Problem CAD (coronary artery disease) I25.10 Active Problem HTN (hypertension) I10 Active Assessment Gout M10.9 Active Assessment Acute bilateral low back pain with left-sided sciatica M54.42 Active Assessment HLD (hyperlipidemia) E78.5 Active Assessment Hypothyroid E03.9 Active Assessment GERD (gastroesophageal reflux disease) K21.9 Active Assessment HTN (hypertension) I10 Active Assessment HNP (herniated nucleus pulposus), lumbar M51.26 Active Assessment CAD (coronary artery disease) I25.10 Active Medications Medication Code System Code Instructions Start Date End Date Status Dosage Multi For Her 50+ [facility] [address] Orally Active Unknown Humalog KwikPen [facility] [address]-27 100 UNIT/ML Subcutaneous before each meal Active 1-30 units Hydrochlorothiazide [facility] [address]-77 12.5 MG Orally Once a day Active 1 capsule Pravastatin Sodium [facility] [address]-89 40 mg Orally Once a day Active 1 tablet Tizanidine HCl [facility] [address]-65 2 MG Orally every 8 hrs Nov 16, 2015 Active 1 tablet as needed Lantus SoloStar [facility] [address]-71 100 UNIT/ML Subcutaneous once a day Active 30 units Allopurinol [facility] [address]-18 100 mg Orally Once a day Sep 26, 2016 Active 2 tablet Vitamin D [facility] [address]-99 2000 UNIT Orally once a day Active 1 tablet Bystolic [facility] [address]-29 10 mg Orally Once a day Active 1 tablet Levothyroxine Sodium [facility] [address]-29 75 MCG Orally Once a day Active 1 tablet Aspir-81 [facility] [address]-58 81 MG Orally Once a day Active 1 tablet Lyrica [facility] [address]-50 75 mg Orally Twice a day Active 1 capsule Trazodone HCl [facility] [address]-80 50 mg Orally qhs Oct 02, 2015 Active 1 tablet at bedtime as needed Clopidogrel Bisulfate [facility] [address]-86 75 mg Orally Once a day Active 1 tablet Irbesartan [facility] [address]-23 150 MG Orally Once a day Active 1 tablet Omeprazole [facility] [address]-67 20 mg Orally Once a day Active 1 capsule Social History Social History Element Qualifiers Date Reported Occupation: . 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 Status , Is malaysian your primary language? Yes Jan 23, 2016 Flu Vaccine: . 2015Jan 23, 2016 children . 1 son Jan 23, 2016 Depression Screening: . negative Jan 23, 2016 Tobacco Use: . Are you a: never smoker Jan 23, 2016 Use of recreational / street drugs? . Answer: No Jan 23, 2016 Last Colonoscopy: . 2010Jan 23, 2016 Marital Status: . Mark Jan 23, 2016 Caffeine intake? . Status: Yes, What type: Tea, Soft Drinks Jan 23, 2016 Do you exercise? . Answer: No Jan 23, 2016 Fall Risk: . none in the past year Jan 23, 2016 Do you drink alcohol? . Status: No Jan 23, 2016 Vital Signs Date/Time: Jan 23, 2016 Weight 233 lbs Height 67 in Cardiac Monitoring Heart Rate 58 /min Blood Pressure Diastolic 70 mm Hg Blood Pressure Systolic 110 mm Hg Summary Purpose eClinicalWorks Submission
--- OUTSIDE RECORDS SUMMARY | 2017-12-18 07:07 | XMS REPORT ---
Author Author Macy Weeks [facility] eClinicalWorks Address Unknown Phone Unavailable Care Team Providers Care Bmet Name Role Phone Macy Weeks Unavailable Encounters Encounter Location Date chest pain and congestion [facility] July 03, 2015 2 week follow up [facility] July 11, 2015 New Refill Request [facility] August 21, 2015 Problems Problem Type Condition ICD-9 Code Onset Dates Condition Status Problem CAD (coronary artery disease) I25.10 Active Problem HTN (hypertension) I10 Active Problem Type 2 diabetes mellitus without complications E11.9 Active Problem GERD (gastroesophageal reflux disease) K21.9 Active Problem Neuropathy G62.9 Active Problem Hypothyroid E03.9 Active Problem HLD (hyperlipidemia) E78.5 Active Medications Medication Code System Code Instructions Start Date End Date Status Dosage Pravastatin Sodium [facility] [address]-22 20 mg Orally Once a day (MUST SEE DOCTOR BEFORE NEXT REFILL) Active 1 tablet Social History Social History Element Qualifiers Date Reported Occupation: . Retired, [employer] August 02, 2015 Ethnicity . Status , Is barbadian your primary language? Yes August 02, 2015 Flu Vaccine: . 2015 August 02, 2015 children . 1 son August 02, 2015 Depression Screening: . negative August 02, 2015 Tobacco Use: . Are you a: never smoker August 02, 2015 Use of recreational / street drugs? . Answer: No August 02, 2015 Last Colonoscopy: . 2010August 02, 2015 Marital Status: . Mark August 02, 2015 Caffeine intake? . Status: Yes, What type: Tea, Soft Drinks August 02, 2015 Do you exercise? . Answer: No August 02, 2015 Fall Risk: . none in the past year August 02, 2015 Last Bone Density: . 2014-osteopenia August 02, 2015 Do you drink alcohol? . Status: No August 02, 2015 Summary Purpose eClinicalWorks Submission
--- OUTSIDE RECORDS SUMMARY | 2017-12-18 07:07 | XMS REPORT ---
Author Author Diandra Mccallum [facility] eClinicalWorks Address Unknown Phone Unavailable Care Team Providers Care Clubhouse Manager Name Role Phone Diandra Mccallum Unavailable Allergies, Adverse Reactions, Alerts Substance Reaction Event Type sulfa rash Drug Allergy Levaquin rash Drug Allergy Encounters Encounter Location Date chest pain and congestion [facility] July 03, 2015 Problems Problem Type Condition ICD-9 Code Onset Dates Condition Status Assessment HTN (hypertension) I10 Active Assessment Type 2 diabetes mellitus without complications E11.9 Active Assessment CAD (coronary artery disease) I25.10 Active Assessment Upper respiratory infection J06.9 Active Problem CAD (coronary artery disease) I25.10 Active Problem HTN (hypertension) I10 Active Problem Type 2 diabetes mellitus without complications E11.9 Active Problem GERD (gastroesophageal reflux disease) K21.9 Active Problem Neuropathy G62.9 Active Problem Hypothyroid E03.9 Active Problem HLD (hyperlipidemia) E78.5 Active Medications Medication Code System Code Instructions Start Date End Date Status Dosage Zithromax Z-Jorge [facility] [address]-31 250 MG Orally Once a day July 03, 2015 July 08, 2015 Active 2 tablets on the first day, then 1 tablet daily for 4 days Allopurinol [facility] [address]-57 100 mg Orally Once a day Active 2 tablet Promethazine-Codeine [facility] [address]-66 10-6.25 MG/5ML Orally every 6 hrs prn cough June 29, 2015 July 29, 2015 Active 5 ml Multi For Her 50+ [facility] [address] Orally Active Unknown Omeprazole [facility] [address]-98 20 MG Orally Once a day Active 1 capsule Levothyroxine Sodium [facility] [address]-82 75 MCG Orally Once a day Active 1 tablet Bystolic [facility] [address]-42 10 MG Orally Once a day Active 1 tablet Lyrica [facility] [address]-22 75 MG Orally Twice a day Active 1 capsule Lantus SoloStar [facility] [address]-63 100 UNIT/ML Subcutaneous once a day Active 30 units Clopidogrel Bisulfate [facility] [address]-91 75 MG Orally Once a day Active 1 tablet Vitamin D [facility] [address]-70 2000 UNIT Orally once a day Active 1 tablet Irbesartan [facility] [address]-55 150 MG Orally Once a day Active 1 tablet Humalog KwikPen [facility] [address]-03 100 UNIT/ML Subcutaneous before each meal Active 30ml Pravastatin Sodium [facility] [address]-04 20 MG Orally Once a day Active 1 tablet Aspir-81 [facility] [address]-31 81 MG Orally Once a day Active 1 tablet Social History Social History Element Qualifiers Date Reported Occupation: . Retired, [employer] July 03, 2015 Ethnicity . Status , Is syriac your primary language? Yes July 03, 2015 Flu Vaccine: . 2014July 03, 2015 children . 1 son July 03, 2015 Depression Screening: . negative July 03, 2015 Tobacco Use: . Are you a: never smoker July 03, 2015 Use of recreational / street drugs? . Answer: No July 03, 2015 Last Colonoscopy: . 2010July 03, 2015 Marital Status: . Mark July 03, 2015 Caffeine intake? . Status: Yes, What type: Tea, Soft Drinks July 03, 2015 Do you exercise? . Answer: No July 03, 2015 Fall Risk: . none in the past year July 03, 2015 Last Bone Density: . 2013-osteopenia July 03, 2015 Do you drink alcohol? . Status: No July 03, 2015 Vital Signs Date/Time: July 03, 2015 Weight 230 lbs Height 67 in Temperature 98.2 F Cardiac Monitoring Heart Rate 80 /min Blood Pressure Diastolic 70 mm Hg Blood Pressure Systolic 130 mm Hg Summary Purpose eClinicalWorks Submission
--- OUTSIDE RECORDS SUMMARY | 2017-12-18 07:07 | XMS REPORT ---
Author Author Macy Weeks [facility] eClinicalWorks Address Unknown Phone Unavailable Care Team Providers Care Sewer Contractor Name Role Phone Macy Weeks Unavailable Allergies, Adverse Reactions, Alerts Substance Reaction Event Type sulfa rash Drug Allergy Levaquin rash Drug Allergy Encounters Encounter Location Date physical [facility] Oct 02, 2015 Test results [facility] Oct 04, 2015 Abnormal UA [facility] Oct 06, 2015 Unknown [facility] Oct 24, 2015 chest pain and congestion [facility] July 03, 2015 2 week follow up [facility] July 11, 2015 New Refill Request [facility] August 21, 2015 follow up test results [facility] Dec 12, 2015 referral for MRI [facility] Nov 16, 2015 Hospital Follow up [facility] Nov 27, 2015 Problems Problem Type Condition ICD-9 Code Onset Dates Condition Status Assessment Type 2 diabetes mellitus without complications E11.9 Active Problem Neuropathy G62.9 Active Assessment Neuropathy G62.9 Active Problem Type 2 diabetes mellitus without complications E11.9 Active Problem CAD (coronary artery disease) I25.10 Active Problem Personal history of other specified conditions Z87.898 Active Problem HLD (hyperlipidemia) E78.5 Active Problem GERD (gastroesophageal reflux disease) K21.9 Active Problem HTN (hypertension) I10 Active Problem Hypothyroid E03.9 Active Assessment Acute bilateral low back pain with left-sided sciatica M54.42 Active Assessment Gout M10.9 Active Assessment HLD (hyperlipidemia) E78.5 Active Assessment Hypothyroid E03.9 Active Assessment Insomnia G47.00 Active Assessment HTN (hypertension) I10 Active Assessment GERD (gastroesophageal reflux disease) K21.9 Active Assessment CAD (coronary artery disease) I25.10 Active Medications Medication Code System Code Instructions Start Date End Date Status Dosage Irbesartan MEDISPAN [address]-84 150 MG Orally Once a day Active 1 tablet Clopidogrel Bisulfate [facility] [address]-67 75 mg Orally Once a day Active 1 tablet Hydrochlorothiazide [facility] [address]-73 12.5 MG Orally Once a day Active 1 capsule Omeprazole [facility] [address]-94 20 mg Orally Once a day Active 1 capsule Pravastatin Sodium [facility] [address]-44 20 MG Orally Once a day Nov 28, 2015 Inactive 1 tablet Lantus SoloStar [facility] [address]-76 100 UNIT/ML Subcutaneous once a day Active 30 units Vitamin D [facility] [address]-87 2000 UNIT Orally once a day Active 1 tablet Allopurinol [facility] [address]-59 100 mg Orally Once a day Sep 26, 2016 Active 2 tablet Pravastatin Sodium [facility] [address]-59 40 mg Orally Once a day Active 1 tablet Levothyroxine Sodium [facility] [address]-63 75 MCG Orally Once a day Active 1 tablet Multi For Her 50+ [facility] 90052-11460 Orally Active Unknown Aspir-81 [facility] [address]-11 81 MG Orally Once a day Active 1 tablet Lyrica [facility] [address]-11 75 mg Orally Twice a day Active 1 capsule Tizanidine HCl [facility] [address]-03 2 MG Orally every 8 hrs Nov 16, 2015 Active 1 tablet as needed Bystolic [facility] [address]-29 10 mg Orally Once a day Active 1 tablet Humalog KwikPen [facility] [address]-33 100 UNIT/ML Subcutaneous before each meal Active 1-30 units Trazodone HCl [facility] [address]-28 50 mg Orally qhs Oct 02, 2015 Active 1 tablet at bedtime as needed Social History Social History Element Qualifiers Date Reported Occupation: . 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 Status , Is iranian your primary language? Yes Dec 12, 2015 Flu Vaccine: . 2015Dec 12, 2015 children . 1 son Dec 12, 2015 Depression Screening: . negative Dec 12, 2015 Tobacco Use: . Are you a: never smoker Dec 12, 2015 Use of recreational / street drugs? . Answer: No Dec 12, 2015 Last Colonoscopy: . 2010Dec 12, 2015 Marital Status: . Mark Dec 12, 2015 Caffeine intake? . Status: Yes, What type: Tea, Soft Drinks Dec 12, 2015 Do you exercise? . Answer: No Dec 12, 2015 Fall Risk: . none in the past year Dec 12, 2015 Do you drink alcohol? . Status: No Dec 12, 2015 Vital Signs Date/Time: Dec 12, 2015 Weight 229 lbs Height 67 in Cardiac Monitoring Heart Rate 85 /min Blood Pressure Diastolic 88 mm Hg Blood Pressure Systolic 115 mm Hg Summary Purpose eClinicalWorks Submission
--- OUTSIDE RECORDS SUMMARY | 2017-12-18 07:07 | XMS REPORT ---
Author Author Macy Weeks [facility] eClinicalWorks Address Unknown Phone Unavailable Care Team Providers Care Director Education Name Role Phone Macy Weeks Unavailable Encounters Encounter Location Date physical [facility] Oct 02, 2015 Test results [facility] Oct 04, 2015 Abnormal UA [facility] Oct 06, 2015 Unknown [facility] Oct 24, 2015 chest pain and congestion [facility] July 03, 2015 2 week follow up [facility] July 11, 2015 New Refill Request [facility] August 21, 2015 follow up test results [facility] Dec 12, 2015 referral for MRI [facility] Nov 16, 2015 Hospital Follow up [facility] Nov 27, 2015 ok. Thank you, I will check with Pharmacy [facility] Jan 29, 2016 Unknown [facility] Apr 02, 2016 6 week follow up [facility] Jan 23, 2016 New Refill Request [facility] Jan 28, 2016 Problems Problem Type Condition ICD-9 Code Onset Dates Condition Status Problem Neuropathy G62.9 Active Problem HLD (hyperlipidemia) E78.5 Active Problem GERD (gastroesophageal reflux disease) K21.9 Active Assessment 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 Status , Is pashto your primary language? Yes Jan 23, 2016 [...] alcohol? . Status: No Jan 23, 2016 Summary Purpose eClinicalWorks Submission
--- OUTSIDE RECORDS SUMMARY | 2017-12-18 07:07 | XMS REPORT ---
Author Author Diandra Mccallum [facility] eClinicalWorks Address Unknown Phone Unavailable Care Team Providers Care Armor Officer Name Role Phone Dinadra Mccallum Unavailable Allergies, Adverse Reactions, Alerts Substance Reaction Event Type sulfa rash Drug Allergy Levaquin rash Drug Allergy Encounters Encounter Location Date physical [facility] Oct 02, [address] [facility] Oct 04, [address] [facility] Oct 06, [address] [facility] Oct 24, 2015 chest pain and congestion [facility] July 03, 2015 2 week follow up [facility] July 11, 2015 New Refill Request [facility] August 21, 2015 referral for MRI [facility] Nov 16, 2015 Problems Problem Type Condition ICD-9 Code Onset Dates Condition Status Problem Neuropathy G62.9 Active Assessment Acute bilateral low back pain with left-sided sciatica M54.42 Active Problem Type 2 diabetes mellitus without complications E11.9 Active Problem CAD (coronary artery disease) I25.10 Active Problem Personal history of other specified conditions Z87.898 Active Problem HLD (hyperlipidemia) E78.5 Active Problem GERD (gastroesophageal reflux disease) K21.9 Active Problem HTN (hypertension) I10 Active Problem Hypothyroid E03.9 Active Medications Medication Code System Code Instructions Start Date End Date Status Dosage Clopidogrel Bisulfate [facility] [address]-93 75 mg Orally Once a day Active 1 tablet Humalog KwikPen [facility] [address]-45 100 UNIT/ML Subcutaneous before each meal Active 1-30 units Vitamin D [facility] [address]-13 2000 UNIT Orally once a day Active 1 tablet Trazodone HCl [facility] [address]-82 50 mg Orally qhs Oct 02, 2015 Active 1 tablet at bedtime as needed Aspir-81 [facility] [address]-67 81 MG Orally Once a day Active 1 tablet Bystolic [facility] [address]-72 10 mg Orally Once a day Active 1 tablet Tizanidine HCl [facility] [address]-12 2 MG Orally every 8 hrs Nov 16, 2015 Active 1 tablet as needed Allopurinol [facility] [address]-58 100 mg Orally Once a day Sep 26, 2016 Active 2 tablet Omeprazole [facility] [address]-44 20 mg Orally Once a day Active 1 capsule Lyrica [facility] [address]-87 75 mg Orally Twice a day Active 1 capsule Multi For Her 50+ [facility] 29679-02912 Orally Active Unknown Pravastatin Sodium [facility] [address]-02 40 mg Orally Once a day Active 1 tablet Hydrochlorothiazide [facility] [address]-53 12.5 MG Orally Once a day Active 1 capsule Irbesartan [facility] [address]-48 150 MG Orally Once a day Active 1 tablet Lantus SoloStar [facility] [address]-37 100 UNIT/ML Subcutaneous once a day Active 30 units Levothyroxine Sodium [facility] [address]-77 75 MCG Orally Once a day Active 1 tablet Social History Social History Element Qualifiers Date 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 Status , Is swiss your primary language? Yes Nov 16, 2015 Flu Vaccine: . 2015 Nov 16, 2015 children . 1 son Nov 16, 2015 Depression Screening: . negative Nov 16, 2015 Tobacco Use: . Are you a: never smoker Nov 16, 2015 Use of recreational / street drugs? . Answer: No Nov 16, 2015 Last Colonoscopy: . 2010Nov 16, 2015 Marital Status: . Mark Nov 16, 2015 Caffeine intake? . Status: Yes, What type: Tea, Soft Drinks Nov 16, 2015 Do you exercise? . Answer: No Nov 16, 2015 Fall Risk: . none in the past year Nov 16, 2015 Last Bone Density: . 2014-osteopenia Nov 16, 2015 Do you drink alcohol? . Status: No Nov 16, 2015 Family history Qualifier Description Comment Date Reported Maternal Grandmother Comment not available Nov 16, 2015 Paternal Grandmother Comment not available Nov 16, 2015 Siblings Comment not available Nov 16, 2015 Maternal Grandfather Comment not available Nov 16, 2015 Children Comment not available Nov 16, 2015 Father heart attack Nov 16, 2015 Paternal Grandfather Comment not available Nov 16, 2015 Mother heart attack Nov 16, 2015 Other: Comment not available Nov 16, 2015 Vital Signs Date/Time: Nov 16, 2015 Weight 227 lbs Height 67 in Cardiac Monitoring Heart Rate 82 /min Blood Pressure Diastolic 72 mm Hg Blood Pressure Systolic 130 mm Hg Summary Purpose eClinicalWorks Submission
--- OUTSIDE RECORDS SUMMARY | 2017-12-18 07:07 | XMS REPORT ---
Author Author Macy Weeks [facility] eClinicalWorks Address Unknown Phone Unavailable Care Team Providers Care Action Finisher Name Role Phone Macy Weeks Unavailable Encounters Encounter Location Date physical [facility] Oct 02, 2015 Test results [facility] Oct 04, 2015 Abnormal UA [facility] Oct 06, 2015 Unknown [facility] Oct 24, 2015 chest pain and congestion [facility] July 03, 2015 2 week follow up [facility] July 11, 2015 New Refill Request [facility] August 21, 2015 Problems Problem Type Condition ICD-9 Code Onset Dates Condition Status Problem Neuropathy G62.9 Active Problem Type 2 diabetes mellitus without complications E11.9 Active Problem CAD (coronary artery disease) I25.10 Active Problem Personal history of other specified conditions Z87.898 Active Problem HLD (hyperlipidemia) E78.5 Active Problem GERD (gastroesophageal reflux disease) K21.9 Active Problem HTN (hypertension) I10 Active Problem Hypothyroid E03.9 Active Social History Social History Element Qualifiers 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 Status , Is japanese your primary language? Yes Oct 02, 2015 Flu Vaccine: . 2014Oct 02, 2015 children . 1 son Oct 02, 2015 Depression Screening: . negative Oct 02, 2015 Tobacco Use: . Are you a: never smoker Oct 02, 2015 Use of recreational / street drugs? . Answer: No Oct 02, 2015 Last Colonoscopy: . 2010Oct 02, 2015 Marital Status: . Mark Oct 02, 2015 Caffeine intake? . Status: Yes, What type: Tea, Soft Drinks Oct 02, 2015 Do you exercise? . Answer: No Oct 02, 2015 Fall Risk: . none in the past year Oct 02, 2015 Last Bone Density: . 2014-osteopenia Oct 02, 2015 Do you drink alcohol? . Status: No Oct 02, 2015 Summary Purpose eClinicalWorks Submission
--- OUTSIDE RECORDS SUMMARY | 2017-12-18 07:07 | XMS REPORT ---
Author Author Macy Weeks [facility] eClinicalWorks Address Unknown Phone Unavailable Care Team Providers Care Wood Ski Maker Name Role Phone Macy Weeks Unavailable Encounters Encounter Location Date physical [facility] Oct 02, [address] [facility] Oct 04, [address] [facility] July 03, [address] [facility] July 11, [address] 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 Status , Is ugandan your primary language? Yes Oct 02, 2015 Flu Vaccine: . 2015 Oct 02, 2015 children . 1 son Oct [...]
--- OUTSIDE RECORDS SUMMARY | 2017-12-18 07:07 | XMS REPORT ---
Author Author Macy Weeks [facility] eClinicalWorks Address Unknown Phone Unavailable Care Team Providers Care Pocket Setter Lockstitch Name Role Phone Macy Weeks Unavailable Encounters Encounter Location Date physical [facility] Oct 02, 2015 Test results [facility] Oct 04, 2015 Abnormal UA [facility] Oct 06, 2015 chest pain and congestion [facility] July 03, 2015 2 week follow up [facility] July 11, 2015 New Refill Request [facility] August 21, [...] 02, 2015 Ethnicity . Status , Is indonesian your primary language? Yes Oct 02, 2015 [...] Oct 02, 2015 Last Bone Density: . 2013-osteopenia Oct 02, 2015 Do you drink alcohol? . Status: No Oct 02, 2015 Summary Purpose eClinicalWorks Submission
--- OUTSIDE RECORDS SUMMARY | 2017-12-18 07:07 | XMS REPORT ---
Author Author Katie Spencer [facility] eClinicalWorks Address Unknown Phone Unavailable Care Team Providers Care Tensile Tester Name Role Phone Katie Spencer CP Unavailable Allergies, Adverse Reactions, Alerts Substance Reaction Event Type sulfa rash Drug Allergy Levaquin rash Drug Allergy Encounters Encounter Location Date physical [facility] Oct 02, 2015 Test results [facility] Oct 04, 2015 Abnormal UA [facility] Oct 06, 2015 Unknown [facility] Oct 24, 2015 chest pain and congestion [facility] July 03, 2015 2 week follow up [facility] July 11, 2015 New Refill Request [facility] August 21, 2015 referral for MRI [facility] Nov 16, 2015 Hospital Follow up [facility] Nov 27, 2015 Problems Problem Type Condition ICD-9 Code Onset Dates Condition Status Assessment Gastroenteritis K52.9 Active Problem Neuropathy G62.9 Active Assessment Hospital discharge follow-up Z09 Active Problem Type 2 diabetes mellitus without complications E11.9 Active Problem CAD (coronary artery disease) I25.10 Active Problem Personal history of other specified conditions Z87.898 Active Problem HLD (hyperlipidemia) E78.5 Active Problem GERD (gastroesophageal reflux disease) K21.9 Active Problem HTN (hypertension) I10 Active Problem Hypothyroid E03.9 Active Assessment Compression fracture T14.8 Active Assessment Acute renal insufficiency N28.9 Active Assessment Dehydration E86.0 Active Medications Medication Code System Code Instructions Start Date End Date Status Dosage Vitamin D [facility] [address]-33 2000 UNIT Orally once a day Active 1 tablet Aspir-81 [facility] [address]-45 81 MG Orally Once a day Active 1 tablet Pravastatin Sodium [facility] [address]-18 40 mg Orally Once a day Active 1 tablet Lantus SoloStar [facility] [address]-64 100 UNIT/ML Subcutaneous once a day Active 30 units Levothyroxine Sodium [facility] [address]-07 75 MCG Orally Once a day Active 1 tablet Hydrochlorothiazide [facility] [address]-37 12.5 MG Orally Once a day Active 1 capsule Lyrica [facility] [address]-36 75 mg Orally Twice a day Active 1 capsule Trazodone HCl [facility] [address]-83 50 mg Orally qhs Oct 02, 2015 Active 1 tablet at bedtime as needed Humalog KwikPen [facility] [address]-84 100 UNIT/ML Subcutaneous before each meal Active 1-30 units Bystolic [facility] [address]-89 10 mg Orally Once a day Active 1 tablet Allopurinol [facility] [address]-80 100 mg Orally Once a day Sep 26, 2016 Active 2 tablet Irbesartan [facility] [address]-99 150 MG Orally Once a day Active 1 tablet Omeprazole [facility] [address]-06 20 mg Orally Once a day Active 1 capsule Multi For Her 50+ [facility] 22470-38909 Orally Active Unknown Tizanidine HCl [facility] [address]-95 2 MG Orally every 8 hrs Nov 16, 2015 Active 1 tablet as needed Clopidogrel Bisulfate [facility] [address]-70 75 mg Orally Once a day Active 1 tablet Social History Social History Element Qualifiers Date Reported Occupation: . Retired, [employer] Nov 27, 2015 Ethnicity . Status , Is puerto rican your primary language? Yes Nov 27, 2015 Flu Vaccine: . 2015 Nov 27, 2015 children . 1 son Nov 27, 2015 Depression Screening: . negative Nov 27, 2015 Tobacco Use: . Are you a: never smoker Nov 27, 2015 Use of recreational / street drugs? . Answer: No Nov 27, 2015 Last Colonoscopy: . 2010Nov 27, 2015 Marital Status: . Mark Nov 27, 2015 Caffeine intake? . Status: Yes, What type: Tea, Soft Drinks Nov 27, 2015 Do you exercise? . Answer: No Nov 27, 2015 Fall Risk: . none in the past year Nov 27, 2015 Last Bone Density: . 2013-osteopenia Nov 27, 2015 Do you drink alcohol? . Status: No Nov 27, 2015 Vital Signs Date/Time: Nov 27, 2015 Weight 221 lbs Height 67 in Cardiac Monitoring Heart Rate 87 /min Blood Pressure Diastolic 74 mm Hg Blood Pressure Systolic 118 mm Hg Summary Purpose eClinicalWorks Submission
--- OUTSIDE RECORDS SUMMARY | 2017-12-18 07:07 | XMS REPORT ---
Author Author Macy Weeks [facility] eClinicalWorks Address Unknown Phone Unavailable Care Team Providers Care Mri Tech Name Role Phone Macy Weeks Unavailable Encounters [...] [facility] Nov 16, 2015 Hospital Follow up [facility] Nov 27, 2015 ok. Thank you, I will check with Pharmacy [facility] Jan 29, 2016 6 week follow up [facility] Jan 23, 2016 New Refill Request [facility] Jan 28, 2016 Problems Problem Type Condition ICD-9 Code Onset Dates Condition Status Problem GERD (gastroesophageal reflux disease) K21.9 Active Problem Neuropathy G62.9 Active Problem Personal history of other specified conditions Z87.898 Active Problem Type 2 diabetes mellitus without complications E11.9 Active Problem HNP (herniated nucleus pulposus), lumbar M51.26 Active Problem Hypothyroid E03.9 Active Problem HLD (hyperlipidemia) E78.5 Active Problem CAD (coronary artery disease) I25.10 Active Problem HTN (hypertension) I10 Active Social History Social History Element Qualifiers Date Reported Occupation: . 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 Status , Is upper sorbian your primary language? Yes Jan 23, 2016 [...]
--- OUTSIDE RECORDS SUMMARY | 2017-12-18 07:07 | XMS REPORT ---
[facility] Address Unknown Phone Unavailable Care Team Providers Care Regional Business Manager Name Role Phone SANDRA MRAINO Unavailable Unavailable Problems This patient has no known problems. Allergies, Adverse Reactions, Alerts This patient has no known allergies or adverse reactions. Medications This patient has no known medications. Results Test Description Test Time Test Comments Text Results Atomic Results Result Comments CHEST 2 VIEWS 2017-12-16 13:39:00 [place] [id number] Patient Name: LALITHA POSEY MR #: [id number] : 1950 Age/Sex: 67/F Req #: [id number] Adm Physician: Ordered by: SANDRA MARINO MD Report #: [id number] Location: OR Room/Bed: Procedure: [id number] DX/CHEST 2 VIEWS Exam Date: 12/16/17 Exam Time: 1315 REPORT STATUS: Signed EXAMINATION: CHEST 2 VIEWS INDICATION: Wrist pain. Preop COMPARISON: None FINDINGS: TUBES and LINES: Sternal wires. LUNGS: Lungs are well inflated. Lungs are clear. There is no evidence of pneumonia or pulmonary edema. PLEURA: No pleural effusion or pneumothorax. HEART AND MEDIASTINUM: The cardiomediastinal silhouette is unremarkable. BONES AND SOFT TISSUES: No acute osseous lesion. Soft tissues are unremarkable. UPPER ABDOMEN: No free air under the diaphragm. IMPRESSION: No acute thoracic abnormality. Signed by: Dr. Ke Herrera M.D. on 12/16/2017 1:40 PM Dictated By: KE HERRERA MD, MD [id number] Transcribed By: GUILLE on 12/16/17 1340 COPY TO: SANDRA MARINO MD
--- OUTSIDE RECORDS SUMMARY | 2017-12-18 07:07 | XMS REPORT ---
Author Author Macy Weeks [facility] eClinicalWorks Address Unknown Phone Unavailable Care Team Providers Care Contact Worker Lithography Name Role Phone Macy Weeks CP Unavailable Allergies, Adverse Reactions, Alerts Substance Reaction Event Type sulfa rash Drug Allergy Levaquin rash Drug Allergy Encounters Encounter Location Date chest pain and congestion [facility] July 03, 2015 2 week follow up [facility] July 11, 2015 Problems Problem Type Condition ICD-9 Code Onset Dates Condition Status Assessment HTN (hypertension) I10 Active Assessment URI (upper respiratory infection) J06.9 Active Assessment Type 2 diabetes mellitus without [...] Date End Date Status Dosage Levothyroxine Sodium [facility] [address]-04 75 MCG Orally Once a day Active 1 tablet Bystolic [facility] [address]-91 10 MG Orally Once a day Active 1 tablet Omeprazole [facility] [address]-45 20 MG Orally Once a day Active 1 capsule Irbesartan [facility] [address]-75 150 MG Orally Once a day Active 1 tablet Allopurinol [facility] [address]-04 100 mg Orally Once a day Active 2 tablet Clopidogrel Bisulfate [facility] [address]-47 75 MG Orally Once a day Active 1 tablet Lantus SoloStar [facility] [address]-70 100 UNIT/ML Subcutaneous once a day Active 30 units Multi For Her 50+ [facility] 64527-75966 Orally Active Unknown Lyrica [facility] [address]-36 75 MG Orally Twice a day Active 1 capsule Aspir-81 [facility] [address]-50 81 MG Orally Once a day Active 1 tablet Humalog KwikPen [facility] [address]-63 100 UNIT/ML Subcutaneous before each meal Active 30ml Vitamin D [facility] [address]-28 2000 UNIT Orally once a day Active 1 tablet Pravastatin Sodium [facility] [address]-78 20 MG Orally Once a day Active 1 tablet Promethazine-Codeine [facility] [address]-15 10-6.25 MG/5ML Orally every 6 hrs prn cough June 29, 2015 July 29, 2015 Active 5 ml Social History Social History Element Qualifiers Date Reported Occupation: . 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 Status , Is irish your primary language? Yes July 11, 2015 Flu Vaccine: . 2014July 11, 2015 children . 1 son July 11, 2015 Depression Screening: . negative July 11, 2015 Tobacco Use: . Are you a: never smoker July 11, 2015 Use of recreational / street drugs? . Answer: No July 11, 2015 Last Colonoscopy: . 2011 July 11, 2015 Marital Status: . Mark July 11, 2015 Caffeine intake? . Status: Yes, What type: Tea, Soft Drinks July 11, 2015 Do you exercise? . Answer: No July 11, 2015 Fall Risk: . none in the past year July 11, 2015 Last Bone Density: . 2013-osteopenia July 11, 2015 Do you drink alcohol? . Status: No July 11, 2015 Family history Qualifier Description Comment Date Reported Maternal Grandmother Comment not available July 11, 2015 Paternal Grandmother Comment not available July 11, 2015 Siblings Comment not available July 11, 2015 Maternal Grandfather Comment not available July 11, 2015 Children Comment not available July 11, 2015 Father heart attack July 11, 2015 Paternal Grandfather Comment not available July 11, 2015 Mother heart attack July 11, 2015 Other: Comment not available July 11, 2015 Vital Signs Date/Time: July 11, 2015 Weight 229 lbs Height 67 in Cardiac Monitoring Heart Rate 66 /min Blood Pressure Diastolic 88 mm Hg Blood Pressure Systolic 162 mm Hg Results DECADRON 1MGx4 Sinus 3 Views- Xray Summary Purpose eClinicalWorks Submission
--- OUTSIDE RECORDS SUMMARY | 2017-12-18 07:07 | XMS REPORT ---
Author Author Macy Weeks [facility] eClinicalWorks Address Unknown Phone Unavailable Care Team Providers Care Mill Helper Name Role Phone Macy Weeks CP Unavailable Allergies, Adverse Reactions, Alerts Substance Reaction Event Type sulfa rash Drug Allergy Levaquin rash Drug Allergy Encounters Encounter Location Date physical [facility] Oct 02, [facility] E11.9 Active Problem Neuropathy G62.9 Active Assessment Routine general medical examination at a health care facility Z00.00 Active Problem Type 2 diabetes mellitus without complications E11.9 Active Assessment Obesity (BMI 35.0-39.9 without comorbidity) E66.9 Active Problem CAD (coronary artery disease) I25.10 Active Assessment Insomnia G47.00 Active Assessment Gout M10.9 Active Problem Personal history of other specified conditions Z87.898 Active Problem HLD (hyperlipidemia) E78.5 Active Problem GERD (gastroesophageal reflux disease) K21.9 Active Problem HTN (hypertension) I10 Active Problem Hypothyroid E03.9 Active Assessment Screening for malignant neoplasm of breast Z12.39 Active Assessment Personal history of other specified conditions Z87.898 Active Assessment BMI 35.0-35.9,adult Z68.35 Active Assessment Menopausal and postmenopausal disorder N95.9 Active Assessment HLD (hyperlipidemia) E78.5 Active Assessment Hypothyroid E03.9 Active Assessment Neuropathy G62.9 Active Assessment HTN (hypertension) I10 Active Assessment GERD (gastroesophageal reflux disease) K21.9 Active Assessment CAD (coronary artery disease) I25.10 Active Medications Medication Code System Code Instructions Start Date End Date Status Dosage Irbesartan [facility] [address]-64 150 MG Orally Once a day Active 1 tablet [facility] [address]-63 75 mg Orally Once a day Active 1 tablet Allopurinol [facility] [address]-16 100 mg Orally Once a day Sep 26, 2016 Active 2 tablet Lyrica [facility] [address]-03 75 mg Orally Twice a day Active 1 capsule Lantus SoloStar [facility] [address]-68 100 UNIT/ML Subcutaneous once a day Active 30 units Levothyroxine Sodium [facility] [address]-38 75 MCG Orally Once a day Active 1 tablet Hydrochlorothiazide [facility] [address]-54 12.5 MG Orally Once a day Active 1 capsule Trazodone HCl [facility] [address]-05 50 mg Orally qhs Oct 02, 2015 Active 1 tablet at bedtime as needed Pravastatin Sodium [facility] [address]-21 40 mg Orally Once a day Active 1 tablet Omeprazole [facility] [address]-47 20 mg Orally Once a day Active 1 capsule Vitamin D [facility] [address]-94 2000 UNIT Orally once a day Active 1 tablet Multi For Her 50+ [facility] 60526-64496 Orally Active Unknown Bystolic [facility] [address]-50 10 mg Orally Once a day Active 1 tablet Humalog KwikPen [facility] [address]-31 100 UNIT/ML Subcutaneous before each meal Active 1-30 units Aspir-81 [facility] [address]-08 81 MG Orally Once a day Active 1 tablet Social History Social History Element Qualifiers 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 Status , Is citizen of [place] your primary language? Yes Oct 02, 2015 [...] alcohol? . Status: No Oct 02, 2015 Family history Qualifier Description Comment Date Reported Maternal Grandmother Comment not available Oct 02, 2015 Paternal Grandmother Comment not available Oct 02, 2015 Siblings Comment not available Oct 02, 2015 Maternal Grandfather Comment not available Oct 02, 2015 Children Comment not available Oct 02, 2015 Father heart attack Oct 02, 2015 Paternal Grandfather Comment not available Oct 02, 2015 Mother heart attack Oct 02, 2015 Other: Comment not available Oct 02, 2015 Vital Signs Date/Time: Oct 02, 2015 Weight 225 lbs Height 67 in Cardiac Monitoring Heart Rate 80 /min Blood Pressure Diastolic 78 mm Hg Blood Pressure Systolic 110 mm Hg Summary Purpose eClinicalWorks Submission
--- OUTSIDE RECORDS SUMMARY | 2017-12-18 07:07 | XMS REPORT ---
Author Author Macy Weeks [facility] eClinicalWorks Address Unknown Phone Unavailable Care Team Providers Care Guard Sergeant Name Role Phone Macy Weeks Unavailable Encounters [...] [facility] Nov 16, 2015 [facility] [...] 23, 2016 Ethnicity . Status , Is polish your primary language? Yes Jan 23, 2016 [...]
[2017-12-18 11:15] VITALS: BP 161/83
--- NOTE | 2017-12-18 12:44 | Operative Report ---
DATE OF PROCEDURE: December 18, 2017 PREOPERATIVE DIAGNOSIS: Ganglion cyst left wrist. POSTOPERATIVE DIAGNOSIS: Ganglion cyst left wrist. PROCEDURE PERFORMED: Excision of left wrist ganglion cyst. ANESTHESIA: General. INDICATIONS: The patient is a 67-year-old female with a large symptomatic ganglion cyst on the dorsal aspect of the left wrist. Risks, benefits, and alternatives of treatment were discussed with the patient. She is prepared to undergo the procedures outlined. DETAILS OF PROCEDURE: Patient was marked preoperatively in the holding area. She was brought to the operating theater. After the induction of adequate general anesthesia, she was prepped and draped in a supine position and a time out was performed. A transverse incision was marked out over the prominence of the cyst. The left upper extremity was exsanguinated, and a tourniquet was inflated to a pressure of 250 mmHg. The incision was made through the skin and subcutaneous tissues. Venous tributaries were controlled with a bipolar cautery. The cyst was identified in the deep subcutaneous plane, and then using blunt dissection on all sides the cyst was dissected down to the level of the joint capsule. At the level of the extensor tendons, they were retracted away from the cyst. The cyst and its communicating stalk were identified at the level of the joint capsule, and then these were excised and the cyst was removed and sent for permanent pathologic examination. The rent in the joint capsule was then irrigated with bacteriostatic saline and then closed with 4-0 Vicryl sutures in a figure-of-8 fashion. The wound was irrigated once again, and the skin was approximated with 5-0 nylon in an interrupted horizontal mattress fashion. A Marcaine field block was performed at the operative site. Tourniquet was deflated. All the fingers pinked up nicely, and a sterile bulking foamy bandage was applied. Patient tolerated the procedure well and was brought to the recovery room in satisfactory condition and discharged with a postoperative instruction sheet as well as a followup appointment. Job#: [id number] AMANDA
== END | disposition home or self-care (01) ==
LOC: OR 06:51
PROVIDERS: ATTEND Plastic Surgery
DX: M67.432 Ganglion, left wrist (principal); E10.9 Type 1 diabetes mellitus without complications; K44.9 Diaphragmatic hernia without obstruction or gangrene; N39.0 Urinary tract infection, site not specified; I25.810 Atherosclerosis of coronary artery bypass graft(s) without angina pectoris; I10 Essential (primary) hypertension; N28.9 Disorder of kidney and ureter, unspecified; N20.0 Calculus of kidney; M54.9 Dorsalgia, unspecified; F41.9 Anxiety disorder, unspecified; Z88.2 Allergy status to sulfonamides; Z88.1 Allergy status to other antibiotic agents; Z01.810 Encounter for preprocedural cardiovascular examination; Z01.812 Encounter for preprocedural laboratory examination; Z01.818 Encounter for other preprocedural examination; Z79.02 Long term (current) use of antithrombotics/antiplatelets; Z79.82 Long term (current) use of aspirin; Z79.4 Long term (current) use of insulin; Z95.5 Presence of coronary angioplasty implant and graft; Z95.1 Presence of aortocoronary bypass graft
CPT/HCPCS: 25111; 36415 ×2; 71046; 80048; 82948; 85025; 88304; 93005; J0690; J1100; J1885; J2001; J2250; J2405; J2704